=== PATIENT | male | born 1945 | race Caucasian/White ===

== ENCOUNTER → 2017-01-13 | Outpatient (CLI) | payer MEDICARE, BC ==
[2017-01-13 08:02] LABS: CH 28.2; CHCM 33.3; HCT 45.5 % (39.0-53.0); HDW 2.97; HGB 14.6 gm/dL (13.0-17.5); MCH 27.3 pg (25.0-35.0); MCV 85.1 fL (80.0-100.0); Mean Platelet Volume 6.8; RBC 5.35 m/uL (4.30-5.90); RDW 14.1 % (11.5-15.5); WBC 9.1 k/uL (3.8-10.6)
--- NOTE | 2017-01-13 08:04 | XR ---
EXAMINATION TYPE: XR chest 2V DATE OF EXAM: 01/13/2017 7:59 AM COMPARISON: Prior chest x-ray November 16, 2013 HISTORY: Yearly physical, hypertension per order TECHNIQUE: Frontal and lateral views of the chest are obtained. FINDINGS: There is no focal air space opacity, pleural effusion, or pneumothorax seen. The cardiac silhouette size is stable and upper limits of normal with atherosclerotic change in aortic knob. Th e osseous structures are intact. IMPRESSION: No acute cardiopulmonary process. No significant change from prior.
[2017-01-13 11:40] LABS: Prostate Specific Antigen 3.87 ng/mL (0.00-4.00)
[2017-01-13 12:09] LABS: Hemoglobin A1C 6.3 % (4.2-6.1)
[2017-01-13 12:36] LABS: ALT 34 U/L (21-72); AST 21 U/L (17-59); Alkaline Phosphatase 97 U/L (38-126); Anion Gap 11 mmol/L; Blood Urea Nitrogen 23 mg/dL (9-20); Calcium 9.3 mg/dL (8.4-10.2); Carbon Dioxide 29 mmol/L (22-30); Chloride 105 mmol/L (98-107); Cholesterol 152 mg/dL (<200); Glucose 124 mg/dL (74-99); HDL Cholesterol 36 mg/dL (40-60); Non-African American GFR(MDRD) >60 (>60 ml/min/1.73 sqM); Potassium 4.3 mmol/L (3.5-5.1); Sodium 145 mmol/L (137-145); Total Bilirubin 0.7 mg/dL (0.2-1.3); Total Protein 7.1 g/dL (6.3-8.2); Triglycerides 114 mg/dL (<150)
== END | disposition home or self-care (01) ==
LOC: LABWHC1 07:32
PROVIDERS: ATTEND Internal Medicine
DX: Z00.01 Encounter for general adult medical examination with abnormal findings (principal); N40.0 Benign prostatic hyperplasia without lower urinary tract symptoms; I11.9 Hypertensive heart disease without heart failure; K21.0 Gastro-esophageal reflux disease with esophagitis; E11.9 Type 2 diabetes mellitus without complications; E78.2 Mixed hyperlipidemia; E03.9 Hypothyroidism, unspecified
CPT/HCPCS: 36415; 71020; 80053; 80061; 82043; 82272; 83036; 84153; 84439; 84443; 85027

== ENCOUNTER → 2017-08-11 | Outpatient (CLI) | payer MEDICARE, BC ==
--- NOTE | 2017-08-11 11:17 | XR ---
EXAMINATION TYPE: XR chest 2V DATE OF EXAM: 08/11/2017 COMPARISON: 01/13/2017 HISTORY: Shortness of breath TECHNIQUE: Frontal and lateral views of the chest are obtained. FINDINGS: Scattered senescent parenchymal changes noted. Hyperinflation compatible with COPD. No evidence for infiltrate. No evidence for atelectasis. Heart size is stable. Mediastinal structures are stable and grossly unremarkable. No evidence for hilar prominence. Degenerative changes dorsal spine. IMPRESSION: 1. No evidence for acute pulmonary disease.
== END ==
LOC: RADXRMAIN 10:35
PROVIDERS: ATTEND Internal Medicine
DX: R05 Cough (principal); R06.02 Shortness of breath
CPT/HCPCS: 71020

== ENCOUNTER → 2017-11-24 | Outpatient (CLI) | payer MEDICARE, BC ==
--- NOTE | 2017-11-24 11:34 | XR ---
EXAMINATION TYPE: XR chest 2V DATE OF EXAM: 11/24/2017 COMPARISON: 08/11/2017 HISTORY: Shortness of breath TECHNIQUE: Frontal and lateral views of the chest are obtained. FINDINGS: Scattered senescent parenchymal changes noted. Hyperinflation compatible with COPD. No evidence for infiltrate. No evidence for atelectasis. Heart size is stable. Mediastinal structures are stable and grossly unremarkable. No evidence for hilar prominence. Degenerative changes dorsal spine. IMPRESSION: 1. No evidence for acute pulmonary disease.
== END | disposition home or self-care (01) ==
LOC: RADXRMAIN 11:11
PROVIDERS: ATTEND Internal Medicine
DX: R05 Cough (principal)
CPT/HCPCS: 71046

== ENCOUNTER → 2017-12-09 | Outpatient (CLI) | payer MEDICARE, BC ==
[2017-12-09 09:02] LABS: Basophils % (A) 1 %; Eosinophils # (A) 0.2 k/uL (0-0.7); Eosinophils % (A) 2 %; HCT 44.6 % (39.0-53.0); HGB 14.4 gm/dL (13.0-17.5); Lymphocytes # (A) 1.7 k/uL (1.0-4.8); Lymphocytes % (A) 22 %; MCH 27.7 pg (25.0-35.0); MCHC 32.2 g/dL (31.0-37.0); MCV 85.9 fL (80.0-100.0); Mean Platelet Volume 6.8; Monocytes # (A) 0.5 k/uL (0-1.0); Monocytes % (A) 7 %; Neutrophils # (A) 5.1 k/uL (1.3-7.7); Neutrophils % (A) 66 %; Platelet Count 204 k/uL (150-450); RBC 5.19 m/uL (4.30-5.90); WBC 7.8 k/uL (3.8-10.6)
[2017-12-09 09:16] LABS: Appearance,Urine Clear (Clear); Bilirubin,Urine Negative (Negative); Blood,Urine Negative (Negative); Color,Urine Yellow; Glucose,Urine (UA) Negative (Negative); Ketones,Urine Negative (Negative); Leukocyte Esterase,Urine Negative (Negative); Nitrite,Urine Negative (Negative); PH, Urine 7.5 (5.0-8.0); Protein,Urine Trace (Negative); Specific Gravity,Urine 1.019 (1.001-1.035); Urobilinogen,Urine <2.0 mg/dL (<2.0)
[2017-12-09 09:20] LABS: Prothrombin Time 10.2 sec (9.0-12.0)
[2017-12-09 09:25] LABS: Anion Gap 10 mmol/L; Blood Urea Nitrogen 22 mg/dL (9-20); Calcium 9.5 mg/dL (8.4-10.2); Carbon Dioxide 31 mmol/L (22-30); Chloride 103 mmol/L (98-107); Glucose 97 mg/dL (74-99); Potassium 3.7 mmol/L (3.5-5.1); Sodium 144 mmol/L (137-145)
[2017-12-09 09:26] LABS: Partial Thromboplastin Time 22.6 sec (22.0-30.0)
== END | disposition home or self-care (01) ==
LOC: LABPAT 08:15
PROVIDERS: ATTEND Internal Medicine
DX: Z01.818 Encounter for other preprocedural examination (principal); D68.9 Coagulation defect, unspecified; Z96.651 Presence of right artificial knee joint
CPT/HCPCS: 36415; 80048; 81003; 85025; 85610; 85730; 93005

== ENCOUNTER → 2018-02-02 | Outpatient (CLI) | payer MEDICARE, BC ==
[2018-02-02 19:13] LABS: Hemoglobin A1C 5.6 % (4.0-6.0)
== END | disposition home or self-care (01) ==
LOC: LABWHC1 08:48
PROVIDERS: ATTEND Internal Medicine
DX: E11.65 Type 2 diabetes mellitus with hyperglycemia (principal)
CPT/HCPCS: 36415; 83036

== ENCOUNTER → 2018-02-11 | Outpatient (CLI) | payer MEDICARE, BC ==
--- NOTE | 2018-02-11 14:42 | SFUN ---
SLEEP CENTER FOLLOW UP NOTE DATE OF SERVICE: 02/11/2018 A 72-year-old gentleman has been followed in the Sleep Center for treatment of obstructive sleep apnea-hypopnea syndrome. Recently patient had diagnostic sleep study and CPAP titration. I discussed results of diagnostic sleep study and CPAP titration with him and family in details. Patient was started on treatment with CPAP and able to use equipment every night for the whole night without significant problems. No snoring with the machine. I checked patient's CPAP unit for the period of last months and compare it with the reading from the machine for the previous months. Reading from the machine showed that patient using it 100% of the time more than 4 hours, every 7.7 hours. Pressure is 9 cm of water. Leak is 37 L/minute which is higher than I would like to see. Apnea-hypopnea index is 2.6, which is normal range. On the previous months by results of reading from the machine, apnea-hypopnea index was higher. [place] Sleepiness Scale today is 7. MEDICATIONS: Actos, amlodipine, atenolol, atorvastatin, clonidine, hydrochlorothiazide, metformin, Synthroid, aspirin, enalapril, vitamin D3, Lantus, Victoza, Sinemet. PHYSICAL EXAM: Patient in no distress. A 72-year-old gentleman without distress. BP 110/62, HR 74, RR 16, weight 211, temp 97.5, oxygen saturation on room air 100%. OROPHARYNX: Extremely low position of soft palate. ABDOMEN: Obese. Neck Supple, no JVD. Thyroid is not palpable. LUNGS Clear to percussion and to auscultation. Good air exchange. No wheezing or rhonchi. HEART S1, S2 regular. No murmurs, gallops, or rubs. EXTREMITIES No clubbing or cyanosis. HARP REPAIRER Awake, alert, and oriented X3. Cranial nerves 2 to 7 intact. There is no fasciculation or atrophy. noted. No focal deficits observed. IMPRESSION: 1. Obstructive sleep apnea-hypopnea syndrome on control with CPAP at 9 cm of water. Patient demonstrated great compliance with treatment, benefitting from treatment. 2. Borderline leak, possibly patient to open his mouth. 3. Hypertension. 4. Diabetes mellitus. 5. Hyperlipidemia. 6. Hypothyroidism. 7. 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 8. Status post left knee replacement. 9. Status post arthroscopic right knee surgery. 10.Status post surgical treatment for nasal septum deviation. PLAN: 1. Patient will continue to use CPAP equipment every night for the whole night. 2. Prescription for chin strap. 3. Sleep hygiene with regular time in bed for at least 8 hours. 4. No driving if feeling sleepiness. 5. Followup visit in 10 months or earlier if patient has any problems. Thank you very much for allowing me to participate in the management of your patient. Sincerely, Nicolás Bill MD, PhD, FAASM Diplomat of [place] [employer] [place] [employer] Crap Shooter of [facility] [place] MMODL / IJN: [id number] /
== END | disposition home or self-care (01) ==
LOC: SLEEP 13:24
PROVIDERS: ATTEND Internal Medicine
DX: G47.33 Obstructive sleep apnea (adult) (pediatric) (principal); I10 Essential (primary) hypertension; E11.9 Type 2 diabetes mellitus without complications; E78.5 Hyperlipidemia, unspecified; E03.9 Hypothyroidism, unspecified; Z98.890 Other specified postprocedural states; Z96.652 Presence of left artificial knee joint; Z99.89 Dependence on other enabling machines and devices; Z79.899 Other long term (current) drug therapy; Z79.82 Long term (current) use of aspirin; Z79.84 Long term (current) use of oral hypoglycemic drugs

== ENCOUNTER → 2018-02-24 | Outpatient (CLI) | payer MEDICARE, BC | END | disposition home or self-care (01) | LOC: LABWHC1 08:56 | PROVIDERS: ATTEND Internal Medicine | DX: Z00.00 Encounter for general adult medical examination without abnormal findings (principal); E11.9 Type 2 diabetes mellitus without complications; I11.9 Hypertensive heart disease without heart failure; K21.9 Gastro-esophageal reflux disease without esophagitis; N40.1 Benign prostatic hyperplasia with lower urinary tract symptoms; E03.9 Hypothyroidism, unspecified; E78.2 Mixed hyperlipidemia | CPT/HCPCS: 36415; 82272 ==

== ENCOUNTER → 2018-02-25 | Outpatient (CLI) | payer MEDICARE, BC ==
[2018-02-25 09:17] LABS: HCT 41.9 % (39.0-53.0); HGB 13.4 gm/dL (13.0-17.5); MCH 26.7 pg (25.0-35.0); MCHC 32.1 g/dL (31.0-37.0); MCV 83.4 fL (80.0-100.0); Mean Platelet Volume 7.4; Platelet Count 208 k/uL (150-450); RBC 5.03 m/uL (4.30-5.90); RDW 14.4 % (11.5-15.5); WBC 6.9 k/uL (3.8-10.6)
[2018-02-25 09:38] LABS: ALT 11 U/L (21-72); AST 17 U/L (17-59); Alkaline Phosphatase 85 U/L (38-126); Anion Gap 13 mmol/L; Blood Urea Nitrogen 22 mg/dL (9-20); Calcium 9.3 mg/dL (8.4-10.2); Carbon Dioxide 29 mmol/L (22-30); Chloride 101 mmol/L (98-107); Cholesterol 127 mg/dL (<200); Glucose 149 mg/dL (74-99); HDL Cholesterol 38 mg/dL (40-60); LDL Cholesterol,Calculated 75 mg/dL (0-99); Sodium 143 mmol/L (137-145); Total Bilirubin 0.6 mg/dL (0.2-1.3); Total Protein 6.6 g/dL (6.3-8.2); Triglycerides 69 mg/dL (<150)
[2018-02-25 09:55] LABS: T4, Free (Free Thyroxine) 1.46 ng/dL (0.78-2.19)
[2018-02-25 10:08] LABS: Prostate Specific Antigen 3.95 ng/mL (0.00-4.00)
[2018-02-25 18:31] LABS: Hemoglobin A1C 6.2 % (4.0-6.0)
== END | disposition home or self-care (01) ==
LOC: LABWHC1 08:25
PROVIDERS: ATTEND Internal Medicine
DX: Z00.00 Encounter for general adult medical examination without abnormal findings (principal); E11.9 Type 2 diabetes mellitus without complications; I11.9 Hypertensive heart disease without heart failure; K21.0 Gastro-esophageal reflux disease with esophagitis; N40.1 Benign prostatic hyperplasia with lower urinary tract symptoms; E03.9 Hypothyroidism, unspecified; E78.2 Mixed hyperlipidemia
CPT/HCPCS: 36415; 80053; 80061; 82043; 82570; 83036; 84153; 84439; 84443; 85027

== ENCOUNTER → 2018-05-24 | Outpatient (CLI) | payer MEDICARE, BC ==
[2018-05-24 12:09] LABS: Hemoglobin A1C 7.2 % (4.0-6.0)
== END | disposition home or self-care (01) ==
LOC: LABWHC1 07:49
PROVIDERS: ATTEND Internal Medicine
DX: E11.65 Type 2 diabetes mellitus with hyperglycemia (principal)
CPT/HCPCS: 36415; 83036

== ENCOUNTER → 2018-09-21 | Outpatient (CLI) | payer MEDICARE, BC ==
[2018-09-21 19:40] LABS: ALT <8 U/L (10-49); AST 26 U/L (14-35); Albumin/Globulin Ratio 2.05 (1.20-2.10); Alkaline Phosphatase 91 U/L (41-126); Chloride 106 mmol/L (96-109); Cholesterol 146 mg/dL (0-200); Globulin 2.1 g/dL (2.1-3.7); Glucose 132 mg/dL (70-110); LDL Cholesterol,Calculated 89.8 mg/dL (0.0-131.0); Potassium 4.2 mmol/L (3.5-5.5); Sodium 141 mmol/L (135-145); Total Bilirubin 0.8 mg/dL (0.2-1.2); Total Protein 6.4 g/dL (6.2-8.2)
[2018-09-21 21:43] LABS: Hemoglobin A1C 7.1 % (4.0-6.0)
== END ==
LOC: LABWHC1 08:18
PROVIDERS: ATTEND Internal Medicine
DX: E11.65 Type 2 diabetes mellitus with hyperglycemia (principal); E03.9 Hypothyroidism, unspecified
CPT/HCPCS: 36415; 80053; 80061; 82043; 82570; 83036; 84439; 84443

== ENCOUNTER → 2019-01-11 | Outpatient (CLI) | payer MEDICARE, BC ==
[2019-01-11 12:29] LABS: LDL Cholesterol,Calculated 89.6 mg/dL (0.0-131.0); VLDL Calculation 15.4 mg/dL (5.00-40.00)
== END ==
LOC: LABWHC1 07:32
PROVIDERS: ATTEND Internal Medicine
DX: E11.65 Type 2 diabetes mellitus with hyperglycemia (principal)
CPT/HCPCS: 36415; 80061; 82043; 82570; 83036

== ENCOUNTER 2019-04-27 06:53 | Day surgery (SDC) | payer MEDICARE, BC ==
[2019-04-25 13:39] VITALS: BMI 33.6
[~2019-04-27 06:53] MED LIST: LACTATED RINGERS 1,000 ML IV SCH; LIDOCAINE 1% 20 ML VIAL (10MG/ML) FOR IV START INTRADERMA PRN
[2019-04-27 07:20] VITALS: RESP 16; TEMP 98.2
[2019-04-27 07:23] LABS: Glucose,Whole Blood 176 mg/dL (75-99)
[2019-04-27] MEDS ORDERED: PROPOFOL 10 MG/ML 20 ML VIAL IV ONE (07:29)
[2019-04-27] MEDS ORDERED: LIDOCAINE 1% INJ 10MG/ML (20 ML MDV) ONE (07:29)
--- NOTE | 2019-04-27 07:34 | P.GSHP ---
History of Present Illness H&P Date: 04/27/19 CHIEF COMPLAINT: Colon screen HISTORY OF PRESENT ILLNESS: The patient is a 73-year-old male who presents for colon screen. Lower endoscopy was offered for further evaluation and management. PAST MEDICAL HISTORY: Please see list. PAST SURGICAL HISTORY: Please see list. MEDICATIONS: Please see list. ALLERGIES: Please see list. SOCIAL HISTORY: No illicit drug use FAMILY HISTORY: No reports of Crohn disease or ulcerative colitis. REVIEW OF ORGAN SYSTEMS: CONSTITUTIONAL: No reports of fevers or chills. PHYSICAL EXAM: VITAL SIGNS: Stable GENERAL: Well-developed pleasant in no acute distress. HEENT: No scleral icterus. Extraocular movements grossly intact. Moist buccal mucosa. NECK: Supple without lymphadenopathy. CHEST: Unlabored respirations. Equal bilateral excursions. CARDIOVASCULAR: Regular rate and rhythm. Distal 2+ pulses. ABDOMEN: Soft, nontender, nondistended. MUSCULOSKELETAL: No clubbing, cyanosis, or edema. ASSESSMENT: 1. Colon screen. PLAN: 1. Recommend proceeding with a lower endoscopy Past Medical History Past Medical History: Cancer, Diabetes Mellitus, Hearing Disorder / Deafness, Hyperlipidemia, Hypertension, Osteoarthritis (OA), Thyroid Disorder Additional Past Medical History / Comment(s): SKIN CANCER History of Any Multi-Drug Resistant Organisms: None Reported Past Surgical History: Joint Replacement Additional Past Surgical History / Comment(s): CATARACT SURGERY- BILATERAL, TOTAL RIGHT KNEE, TOTAL LEFT KNEE, NASAL SURGERY FOR SKIN CANCER Past Anesthesia/Blood Transfusion Reactions: No Reported Reaction Smoking Status: Never smoker - Past Family History Mother Family Medical History: Cancer Additional Family Medical History / Comment(s): OVARIAN CANCER Medications and Allergies Home Medications Medication Instructions Recorded Confirmed Type Atenolol [Tenormin] 50 mg PO DAILY 04/25/19 04/27/19 History Atorvastatin [Lipitor] 20 mg PO HS 04/25/19 04/27/19 History Carbidopa-Levodopa 10-100 mg 1 each PO DAILY 04/25/19 04/25/19 History [Sinemet 10-100] Carbidopa-Levodopa ER 50-200Mg 1 each PO BID 04/25/19 04/27/19 History [Sinemet ER 50-200] Cholecalciferol (Vitamin D3) 2,000 unit PO DAILY 04/25/19 04/27/19 History [Vitamin D3] Enalapril [Vasotec] 20 mg PO BID 04/25/19 04/27/19 History Hydrochlorothiazide [Hydrodiuril] 25 mg PO DAILY 04/25/19 04/27/19 History Insulin Glargine,Hum.rec.anlog 12 unit SQ DAILY 04/25/19 04/27/19 History [Lantus Solostar] Levothyroxine Sodium [Synthroid] 137 mcg PO DAILY 04/25/19 04/27/19 History Liraglutide [Victoza 2-Jean] 1.8 mg SQ DAILY 04/25/19 04/27/19 History Pioglitazone HCl [Actos] 15 mg PO DAILY 04/25/19 04/27/19 History amLODIPine [Norvasc] 10 mg PO DAILY 04/25/19 04/27/19 History cloNIDine HCL [Catapres] 0.1 mg PO BID 04/25/19 04/27/19 History metFORMIN HCL 1,000 mg PO BID 04/25/19 04/27/19 History Allergies Allergy/AdvReac Type Severity Reaction Status Date / Time Penicillins Allergy Unknown Verified 04/27/19 07:09 Childhood Surgical - Exam Vital Signs Temp Pulse Resp BP Pulse Ox 98.2 F 66 16 126/81 96 04/27/19 07:16 04/27/19 07:16 04/27/19 07:16 04/27/19 07:16 04/27/19 07:16 Results - Labs Abnormal Lab Results - Last 24 Hours (Table) 04/27/19 Range/Units 07:19 POC Glucose (mg/dL) 176 H (75-99) mg/dL
--- NOTE | 2019-04-27 07:50 | P.PCN ---
Date of Procedure: 04/27/19 Description of Procedure: PREOPERATIVE DIAGNOSIS: History of colon polyps Colonoscopy screening. POSTOPERATIVE DIAGNOSIS: History of colon polyps Colonoscopy screening. OPERATION: Colonoscopy to the ileocecal valve and appendiceal orifice. SURGEON: Danuta Isaac MD. ANESTHESIA: MAC. INDICATIONS: The patient is a 73-year-old female who presents for colonoscopy screening. Last colonoscopy over 5 years ago. Benefits and risks were described and informed consent was obtained. DESCRIPTION OF PROCEDURE: The patient had undergone Suprep. He had been brought into the operating room and laid in the left lateral decubitus position. After adequate intravenous sedation, the rectum was examined with 2% lidocaine jelly. The prostatic fossa was unremarkable. No external hemorrhoids were encountered. The rectal tone was within normal limits. No lesions were palpated in the rectal vault. An Olympus colonoscope was advanced until the ileocecal valve and appendiceal orifice were clearly viewed. The prep was excellent with clear visualization of the mucosal folds. The scope was removed with visualization of each mucosal fold. No scattered diverticulosis was encountered. No colonic polyps were found. No evidence of focal colitis was found. Retroflexion of the scope demonstrated grade 1 internal hemorrhoids without active bleeding or inflammation. The colon was desufflated. The patient had tolerated the procedure well. Withdrawal time was over 6 minutes. FINDINGS: Aronchick preparation quality scale 1 (1-5) Internal hemorrhoids, grade 1 No external prolapsed hemorrhoids. No arteriovenous malformations. No adenomatous polyps. No focal colitis. No scattered diverticulosis was encountered. RECOMMENDATIONS: Lower endoscopy in 5 years, 2023 or [facility] Plan - Discharge Summary Discharge Rx Participant: No New Discharge Prescriptions: No Action Liraglutide [Victoza 2-Jean] 1.8 mg SQ DAILY Insulin Glargine,Hum.rec.anlog [Lantus Solostar] 12 unit SQ DAILY Carbidopa-Levodopa 10-100 mg [Sinemet 10-100] 1 each PO DAILY Carbidopa-Levodopa ER 50-200Mg [Sinemet ER 50-200] 1 each PO BID metFORMIN HCL 1,000 mg PO BID Levothyroxine Sodium [Synthroid] 137 mcg PO DAILY Hydrochlorothiazide [Hydrodiuril] 25 mg PO DAILY Enalapril [Vasotec] 20 mg PO BID Cholecalciferol (Vitamin D3) [Vitamin D3] 2,000 unit PO DAILY cloNIDine HCL [Catapres] 0.1 mg PO BID Atorvastatin [Lipitor] 20 mg PO HS Atenolol [Tenormin] 50 mg PO DAILY amLODIPine [Norvasc] 10 mg PO DAILY Pioglitazone HCl [Actos] 15 mg PO DAILY Discharge Medication List Atenolol [Tenormin] 50 mg PO DAILY 04/25/19 [History] Atorvastatin [Lipitor] 20 mg PO HS 04/25/19 [History] Carbidopa-Levodopa 10-100 mg [Sinemet 10-100] 1 each PO DAILY 04/25/19 [History] Carbidopa-Levodopa ER 50-200Mg [Sinemet ER 50-200] 1 each PO BID 04/25/19 [History] Cholecalciferol (Vitamin D3) [Vitamin D3] 2,000 unit PO DAILY 04/25/19 [History] Enalapril [Vasotec] 20 mg PO BID 04/25/19 [History] Hydrochlorothiazide [Hydrodiuril] 25 mg PO DAILY 04/25/19 [History] Insulin Glargine,Hum.rec.anlog [Lantus Solostar] 12 unit SQ DAILY 04/25/19 [History] Levothyroxine Sodium [Synthroid] 137 mcg PO DAILY 04/25/19 [History] Liraglutide [Victoza 2-Jean] 1.8 mg SQ DAILY 04/25/19 [History] Pioglitazone HCl [Actos] 15 mg PO DAILY 04/25/19 [History] amLODIPine [Norvasc] 10 mg PO DAILY 04/25/19 [History] cloNIDine HCL [Catapres] 0.1 mg PO BID 04/25/19 [History] metFORMIN HCL 1,000 mg PO BID 04/25/19 [History] Follow up Appointment(s)/Referral(s): Danuta Isaac MD [STAFF PHYSICIAN] - As Needed Patient Instructions/Handouts: *Surgery [facility] - (Anesthesia) Endoscopy Discharge Instructions Activity/Diet/Wound Care/Special Instructions: Repeat colonoscopy in 5 years, 2023 or [facility] Discharge Disposition: HOME SELF-CARE
[2019-04-27 07:54] VITALS: PULSE 63
[2019-04-27 08:18] VITALS: BP 104/67
[2019-04-27] MEDS ORDERED: SIMETHICONE 40 MG/0.6 ML DROPS 2,000 MG/30 ML BOTTLE PO SCH (13:30)
== END 2019-04-27 09:45 | disposition home or self-care (01) ==
LOC: ORWHC2ENDO 06:53
PROVIDERS: ATTEND Surgery Plastic and Reconstructive Surgery
DX: Z12.11 Encounter for screening for malignant neoplasm of colon (principal); K64.0 First degree hemorrhoids; Z86.010 Personal history of colon polyps; E11.9 Type 2 diabetes mellitus without complications; H91.90 Unspecified hearing loss, unspecified ear; E78.5 Hyperlipidemia, unspecified; I10 Essential (primary) hypertension; M19.90 Unspecified osteoarthritis, unspecified site; E07.9 Disorder of thyroid, unspecified; Z85.828 Personal history of other malignant neoplasm of skin; Z96.653 Presence of artificial knee joint, bilateral; Z80.41 Family history of malignant neoplasm of ovary; Z79.3 Long term (current) use of hormonal contraceptives; Z79.4 Long term (current) use of insulin; Z79.899 Other long term (current) drug therapy; Z88.0 Allergy status to penicillin
CPT/HCPCS: G0105; J2001; J2704

== ENCOUNTER → 2019-07-14 | Outpatient (CLI) | payer MEDICARE, BC ==
--- NOTE | 2019-07-14 11:05 | SFUN ---
SLEEP CENTER FOLLOW UP NOTE DATE OF SERVICE: 07/14/2019 This 73-year-old gentleman has been followed in sleep center for treatment of obstructive sleep apnea-hypopnea syndrome. The patient successfully is continuing to use his CPAP equipment every night. No snoring with the machine. No significant excessive daytime sleepiness. [place] Sleepiness Scale is 5. I checked his CPAP unit. CPAP pressure is 10 cm of water. Usage is 100% of nights more than 4 hours. Average usage is 6.8 hours per night. Leak is borderline, but quite high actually for the nasal pillow mask which patient using at 36 L/minute, but total apnea- hypopnea index is absolutely perfect only 0.6. MEDICATIONS: Actos, amlodipine, atenolol, atorvastatin, clonidine, hydrochlorothiazide, metformin, Synthroid, aspirin, enalapril, Lantus, vitamin D3 supplement, Victoza, Sinemet PHYSICAL EXAMINATION: During physical exam, patient in no distress. VITAL SIGNS: BP 115/67, HR 78, RR 16, height 5 feet 7-1/2 inches and weight 215, body mass index 33.1, temperature 97.8, oxygen saturation at room air 95%. HEENT: PERRLA, EOMI. Oropharynx extremely low position of soft palate. Mallampati 4. NECK: Supple, no JVD. Thyroid is not palpable. LUNGS: Clear to percussion and to auscultation. Good air exchange. No wheezing or rhonchi. HEART: S1, S2 regular. No murmurs, gallops, or rubs. ABDOMEN: Slightly obese. EXTREMITIES: No clubbing or cyanosis. BUSINESS MAIL ENTRY CLERK: Awake, alert, and oriented X3. Cranial nerves 2 to 7 intact. There is no fasciculation or atrophy. noted. No focal deficits observed. IMPRESSION: 1. Obstructive sleep apnea-hypopnea syndrome. Patient demonstrated 100% compliance with treatment benefitting from treatment. 2. Borderline leak possibly patient opened his mouth during the sleep. 3. Diabetes mellitus. 4. Hypertension. 5. Hyperlipidemia. 6. Hypothyroidism. 7. Status post surgical treatment for basal cell carcinoma of the face. 8. Status post left knee replacement. 9. Status post surgical treatment for nasal septum deviation. 10.Status post arthroscopic right knee surgery. PLAN: 1. Prescription for all necessary CPAP supplies including nasal pillow mask AirFit P10, tube, filters. 2. Watching and losing weight. 3. Sleep hygiene with regular time in bed for at least 8 hours. 4. No driving if feeling any sleepiness. 5. Follow up visit in one year or earlier if patient has any problems. Thank you very much for allowing me to participate in management of your patient. Sincerely, Nicolás Bill MD, PhD, FAASM Diplomat of [place] [employer] [place] [employer] Workday Senior Associate of [facility] [place] MMODL / KEVINN: [id number] /
== END | disposition home or self-care (01) ==
LOC: SLEEP 10:00
PROVIDERS: ATTEND Internal Medicine
DX: G47.33 Obstructive sleep apnea (adult) (pediatric) (principal); E11.9 Type 2 diabetes mellitus without complications; I10 Essential (primary) hypertension; E78.5 Hyperlipidemia, unspecified; E03.9 Hypothyroidism, unspecified; Z96.652 Presence of left artificial knee joint; Z53.33 Arthroscopic surgical procedure converted to open procedure; Z98.890 Other specified postprocedural states; Z99.89 Dependence on other enabling machines and devices; Z79.84 Long term (current) use of oral hypoglycemic drugs; Z79.82 Long term (current) use of aspirin; Z79.4 Long term (current) use of insulin; Z79.899 Other long term (current) drug therapy

== ENCOUNTER → 2020-03-12 | Outpatient (CLI) | payer MEDICARE, BC ==
--- NOTE | 2020-03-12 09:36 | US ---
EXAMINATION TYPE: US abdomen complete DATE OF EXAM: 03/12/2020 COMPARISON: NONE CLINICAL HISTORY: R16.0 hepatomegaly. Patient states no symptoms. EXAM MEASUREMENTS: Liver Length: 14.3 cm Gallbladder Wall: 0.2 cm CBD: 0.3 cm Spleen: 11.5 cm Right Kidney: 10.2 x 5.6 x 5.2 cm Left Kidney: 11.0 x 5.2 x 6.5 cm Pancreas: obscured by overlying midline bowel gas Liver: limited visualization, scanned intercostally, mildly heterogeneous Gallbladder: wnl Evidence for sonographic Ridley's sign: no CBD: visualized portions wnl, limited by overlying bowel gas Spleen: wnl Right Kidney: wnl Left Kidney: 2.5cm cyst inferior pole Upper IVC: wnl Abd Aorta: visualized portions wnl, limited by overlying midline bowel gas The liver is homogenous. The intrahepatic portion of the IVC and proximal abdominal aorta are within normal limits. There is no evidence of cholelithiasis. Common bile duct is unremarkable. The visu alized portions of the pancreas are homogenous. The spleen is unremarkable. Kidneys are symmetric a nd free of hydronephrosis. IMPRESSION: 1. Mild fatty liver. 2. Simple cyst left kidney.
== END | disposition home or self-care (01) ==
LOC: RADUSWWP 08:54
PROVIDERS: ATTEND Internal Medicine
DX: K76.0 Fatty (change of) liver, not elsewhere classified (principal); N28.1 Cyst of kidney, acquired; N40.0 Benign prostatic hyperplasia without lower urinary tract symptoms; E11.9 Type 2 diabetes mellitus without complications; E03.9 Hypothyroidism, unspecified; R79.9 Abnormal finding of blood chemistry, unspecified; E78.5 Hyperlipidemia, unspecified; Z88.8 Allergy status to other drugs, medicaments and biological substances
CPT/HCPCS: 76700

== ENCOUNTER 2020-04-30 16:01 | Inpatient (IN) | payer MEDICARE ==
--- NOTE | 2020-04-30 18:13 | ED ---
General Adult HPI - General Chief complaint: Shortness of Breath Stated complaint: SOB Time Seen by Provider: 04/30/20 16:50 Source: patient, family, RN notes reviewed, old records reviewed Mode of arrival: wheelchair - History of Present Illness Initial comments: This is a 74-year-old male who presents emergency Department complaining shortness of breath started this morning. Patient states with exertion is worse even trying to get into bed here at the hospital he states it's bad. Patient states he has no underlying breathing problem. Patient denies any fever chills or cough. Patient denies any chest pain or palpitations. Patient denies any abdominal pain patient denies nausea vomiting diarrhea. Patient denies any calf tenderness or leg swelling - Related Data Home Medications Medication Instructions Recorded Confirmed Atenolol [Tenormin] 50 mg PO DAILY 04/25/19 04/30/20 Atorvastatin [Lipitor] 20 mg PO HS 04/25/19 04/30/20 Carbidopa-Levodopa 10-100 mg 1 tab PO DAILY 04/25/19 04/30/20 [Sinemet 10-100] Carbidopa-Levodopa ER 50-200Mg 1 tab PO BID 04/25/19 04/30/20 [Sinemet ER 50-200] Cholecalciferol (Vitamin D3) 2,000 unit PO DAILY 04/25/19 04/30/20 [Vitamin D3] Enalapril [Vasotec] 20 mg PO BID 04/25/19 04/30/20 Hydrochlorothiazide [Hydrodiuril] 25 mg PO DAILY 04/25/19 04/30/20 Insulin Glargine,Hum.rec.anlog 22 unit SQ DAILY 04/25/19 04/30/20 [Lantus Solostar] Levothyroxine Sodium [Synthroid] 137 mcg PO [id number] 04/25/19 04/30/20 Liraglutide [Victoza 2-Jean] 1.8 mg SQ DAILY 04/25/19 04/30/20 Pioglitazone HCl [Actos] 15 mg PO DAILY 04/25/19 04/30/20 metFORMIN HCL 1,000 mg PO PC-SUPPER 04/25/19 04/30/20 Furosemide [Lasix] 20 mg PO TUTH 04/30/20 04/30/20 Potassium Chloride ER [K-Dur 10] 10 meq PO DAILY 04/30/20 04/30/20 cloNIDine HCL [Catapres] 0.2 mg PO DAILY 04/30/20 04/30/20 Allergies Allergy/AdvReac Type Severity Reaction Status Date / Time Penicillins Allergy Unknown Verified 04/30/20 19:33 Childhood Review of Systems ROS Statement: Those systems with pertinent positive or pertinent negative responses have been documented in the HPI. ROS Other: All systems not noted in ROS Statement are negative. Past Medical History Past Medical History: Cancer, Diabetes Mellitus, Hearing Disorder / Deafness, Hyperlipidemia, Hypertension, Osteoarthritis (OA), Thyroid Disorder Additional Past Medical History / Comment(s): SKIN CANCER , parkinsons History of Any Multi-Drug Resistant Organisms: None Reported Past Surgical History: Joint Replacement Additional Past Surgical History / Comment(s): CATARACT SURGERY- BILATERAL, TOTAL RIGHT KNEE, TOTAL LEFT KNEE, NASAL SURGERY FOR SKIN CANCER Past Anesthesia/Blood Transfusion Reactions: No Reported Reaction Past Psychological History: No Psychological Hx Reported Smoking Status: Never smoker Past Alcohol Use History: None Reported Past Drug Use History: None Reported - Past Family History Mother Family Medical History: Cancer Additional Family Medical History / Comment(s): OVARIAN CANCER General Exam - General Exam Comments Initial Comments: GENERAL: Patient is well-developed and well-nourished. Patient is nontoxic and well- hydrated and is in mild distress. ENT: Neck is soft and supple. No significant lymphadenopathy is noted. Oropharynx is clear. Moist mucous membranes. Neck has full range of motion without eliciting any pain. EYES: The sclera were anicteric and conjunctiva were pink and moist. Extraocular movements were intact and pupils were equal round and reactive to light. Eyelids were unremarkable. PULMONARY: Unlabored respirations. Good breath sounds bilaterally. No audible rales rhonchi or wheezing was noted. CARDIOVASCULAR: There is a regular rate and rhythm without any murmurs gallops or rubs. ABDOMEN: Soft and nontender with normal bowel sounds. SKIN: Skin is clear with no lesions or rashes and otherwise unremarkable. NEUROLOGIC: Patient is alert and oriented x3. Cranial nerves II through XII are grossly intact. Motor and sensory are also intact. Normal speech, volume and content. Symmetrical smile. MUSCULOSKELETAL: Normal extremities with adequate strength and full range of motion. No lower extremity swelling or edema. No calf tenderness. LYMPHATICS: No significant lymphadenopathy is noted PSYCHIATRIC: Normal psychiatric evaluation. Course Vital Signs 04/30/20 04/30/20 04/30/20 16:46 18:19 18:20 Temperature 98.6 F Pulse Rate 82 89 Respiratory 18 16 18 Rate Blood Pressure 129/80 173/102 O2 Sat by Pulse 94 L 93 L Oximetry 04/30/20 20:00 Temperature Pulse Rate 93 Respiratory 18 Rate Blood Pressure 181/107 O2 Sat by Pulse 92 L Oximetry Medical Decision Making - Medical Decision Making EKG shows normal sinus rhythm at 87 bpm VA interval is 132 QRS is 88 QT interval 390 QTC is 469. Patient's EKG shows no ST segment elevation CT of the chest shows bilateral PEs in her proximal. I spoke with Dr. Ruano he agreed the patient could be admitted to the floor at the ICU. I spoke with Dr. Arias and he agreed the patient could be admitted here for further evaluation and if need be transferred later. The patient was started on heparin. I spoke with Dr. Rowe agreed to admit the patient admitted the patient I wrote admitting orders I consult pulmonary. Heparin was continued on the floor. - Lab Data Result diagrams: 04/30/20 18:15 04/30/20 18:15 Lab Results 04/30/20 04/30/20 04/30/20 Range/Units 18:15 18:15 18:15 WBC 9.9 (3.8-10.6) k/uL RBC 5.21 (4.30-5.90) m/uL Hgb 15.5 (13.0-17.5) gm/dL Hct 46.8 (39.0-53.0) % MCV 89.8 (80.0-100.0) fL MCH 29.8 (25.0-35.0) pg MCHC 33.1 (31.0-37.0) g/dL RDW 13.9 (11.5-15.5) % Plt Count 158 (150-450) k/uL Neutrophils % 73 % Lymphocytes % 16 % Monocytes % 7 % Eosinophils % 2 % Basophils % 0 % Neutrophils # 7.3 (1.3-7.7) k/uL Lymphocytes # 1.6 (1.0-4.8) k/uL Monocytes # 0.7 (0-1.0) k/uL Eosinophils # 0.2 (0-0.7) k/uL Basophils # 0.0 (0-0.2) k/uL PT 9.9 (9.0-12.0) sec INR 0.9 (<1.2) APTT 21.6 L (22.0-30.0) sec D-Dimer 18.89 H (<0.60) mg/L FEU Sodium 141 (137-145) mmol/L Potassium 4.6 (3.5-5.1) mmol/L Chloride 103 (98-107) mmol/L Carbon Dioxide 27 (22-30) mmol/L Anion Gap 11 mmol/L BUN 30 H (9-20) mg/dL Creatinine 1.10 (0.66-1.25) mg/dL Est GFR (CKD-EPI)AfAm 76 (>60 ml/min/1.73 sqM) Est GFR (CKD-EPI)NonAf 66 (>60 ml/min/1.73 sqM) Glucose 147 H (74-99) mg/dL Plasma Lactic Acid Jian (0.7-2.0) mmol/L Calcium 9.7 (8.4-10.2) mg/dL Magnesium 1.9 (1.6-2.3) mg/dL Total Bilirubin 1.0 (0.2-1.3) mg/dL AST 24 (17-59) U/L ALT 15 (4-49) U/L Alkaline Phosphatase 134 H (38-126) U/L Troponin I (0.000-0.034) ng/mL NT-Pro-B Natriuret Pep pg/mL Total Protein 7.8 (6.3-8.2) g/dL Albumin 4.4 (3.5-5.0) g/dL 04/30/20 04/30/20 04/30/20 Range/Units 18:15 18:15 18:15 WBC (3.8-10.6) k/uL RBC (4.30-5.90) m/uL Hgb (13.0-17.5) gm/dL Hct (39.0-53.0) % MCV (80.0-100.0) fL MCH (25.0-35.0) pg MCHC (31.0-37.0) g/dL RDW (11.5-15.5) % Plt Count (150-450) k/uL Neutrophils % % Lymphocytes % % Monocytes % % Eosinophils % % Basophils % % Neutrophils # (1.3-7.7) k/uL Lymphocytes # (1.0-4.8) k/uL Monocytes # (0-1.0) k/uL Eosinophils # (0-0.7) k/uL Basophils # (0-0.2) k/uL PT (9.0-12.0) sec INR (<1.2) APTT (22.0-30.0) sec D-Dimer (<0.60) mg/L FEU Sodium (137-145) mmol/L Potassium (3.5-5.1) mmol/L Chloride (98-107) mmol/L Carbon Dioxide (22-30) mmol/L Anion Gap mmol/L BUN (9-20) mg/dL Creatinine (0.66-1.25) mg/dL Est GFR (CKD-EPI)AfAm (>60 ml/min/1.73 sqM) Est GFR (CKD-EPI)NonAf (>60 ml/min/1.73 sqM) Glucose (74-99) mg/dL Plasma Lactic Acid Jian 1.8 (0.7-2.0) mmol/L Calcium (8.4-10.2) mg/dL Magnesium (1.6-2.3) mg/dL Total Bilirubin (0.2-1.3) mg/dL AST (17-59) U/L ALT (4-49) U/L Alkaline Phosphatase (38-126) U/L Troponin I 0.020 (0.000-0.034) ng/mL NT-Pro-B Natriuret Pep 1040 pg/mL Total Protein (6.3-8.2) g/dL Albumin (3.5-5.0) g/dL Critical Care Time Critical Care Time: Yes Total Critical Care Time: 35 Disposition Clinical Impression: Pulmonary embolism Disposition: ADMITTED IP TO THIS HOSP Referrals: David Rowe MD [Primary Care Provider] - 1-2 days Time of Disposition: 20:26
[2020-04-30 18:39] LABS: Basophils % (A) 0 %; Eosinophils # (A) 0.2 k/uL (0-0.7); Eosinophils % (A) 2 %; HCT 46.8 % (39.0-53.0); HGB 15.5 gm/dL (13.0-17.5); Lymphocytes # (A) 1.6 k/uL (1.0-4.8); Lymphocytes % (A) 16 %; MCH 29.8 pg (25.0-35.0); MCHC 33.1 g/dL (31.0-37.0); MCV 89.8 fL (80.0-100.0); Mean Platelet Volume 7.7; Monocytes # (A) 0.7 k/uL (0-1.0); Monocytes % (A) 7 %; Neutrophils # (A) 7.3 k/uL (1.3-7.7); Neutrophils % (A) 73 %; Platelet Count 158 k/uL (150-450); RBC 5.21 m/uL (4.30-5.90); RDW 13.9 % (11.5-15.5); WBC 9.9 k/uL (3.8-10.6)
[2020-04-30 18:48] LABS: Albumin 4.4 g/dL (3.5-5.0); Calcium 9.7 mg/dL (8.4-10.2); Magnesium 1.9 mg/dL (1.6-2.3); Potassium 4.6 mmol/L (3.5-5.1); Total Protein 7.8 g/dL (6.3-8.2)
--- NOTE | 2020-04-30 18:59 | XR ---
EXAMINATION TYPE: XR chest 2V DATE OF EXAM: 04/30/2020 COMPARISON: NONE HISTORY: Difficulty breathing TECHNIQUE: 2 views FINDINGS: There is no heart failure nor confluent pneumonic infiltrate. Costophrenic angles are clear . There are no hilar masses. There are chest leads. Bony thorax is intact. IMPRESSION: No active cardiopulmonary disease. No adverse change.
[2020-04-30 19:08] LABS: INR 0.9 (<1.2); Partial Thromboplastin Time 21.6 sec (22.0-30.0); Prothrombin Time 9.9 sec (9.0-12.0)
[2020-04-30 19:12] LABS: D-Dimer 18.89 mg/L FEU (<0.60)
[2020-04-30] MEDS ORDERED: HEPARIN SODIUM,PORCINE 10,000 UNIT/ML 1 ML VIAL IV ONE (19:44)
--- NOTE | 2020-04-30 20:16 | CT ---
EXAMINATION TYPE: CT chest angio for PE DATE OF EXAM: 04/30/2020 COMPARISON: None HISTORY: SOB, elevated d-dimer CT DLP: 536.9 mGycm Automated exposure control for dose reduction was used. CONTRAST: Performed with IV Contrast, patient injected with 80cc mL of Isovue 370. There are 3-D post processed images. The lungs are clear of consolidation. There is minimal subsegmental atelectasis at the left lung base . There is no pleural effusion. There is no pericardial effusion. There are multiple filling defects in the lower lobe pulmonary arteries bilaterally. There is no sadd le embolism. There is relative sparing of the upper lobe pulmonary arteries. There is some thrombus s een in the right middle lobe pulmonary artery. Thoracic aorta shows no aneurysm or dissection. There is no mediastinal adenopathy. There are no poly r masses. Heart size is fairly normal. Right ventricle not enlarged. Bony thorax is intact. Upper abdominal soft tissues are intact. IMPRESSION: Bilateral pulmonary emboli. No evidence of right heart strain. Exam was discussed with Dr. Díaz at 6:15 PM.
[2020-04-30] MEDS ORDERED: SODIUM CHLORIDE 0.9% 1,000 ML IV ONE (20:26)
[2020-04-30] MEDS: HEPARIN SOD,PORK IN 0.45% NACL 25,000 UNIT in 0.45% NACL 1 250ML.BAG IV SCH (20:38)
[2020-04-30] MEDS ORDERED: hydrALAZINE HCL 20 MG/ML 1 ML VIAL IM STA (20:40)
[2020-04-30] MEDS ORDERED: LORazepam 2 MG/ML INJ IV STA (20:41)
--- NOTE | 2020-04-30 22:59 | P.HPIM ---
History of Present Illness H&P Date: 04/30/20 (Bilateral pulmonary emboli in the lower basis) Chief Complaint: Patient presented of shortness of breath which is exacerbated at home This is the history and physical by Dr. Romero date of service 04/30/2020. Patient seen and evaluated in the emergency room and module 17 discussed with the patient and his as well. Chief complaint: He was short of breath for him was unusual with the feeling huffing and puffing and this did not happened before couple days before these event he was short of breath but not significant. He came to the emergency room seen by Dr. Díaz in the ER. His d-dimer was elevated, chest x-ray was negative the angiogram for PE was positive for bilateral PE, Dr. Díaz talk to Dr. Johnson he recommended to be admitted to the [facility] and he will follow him in the morning. I did see him today and discuss with them his current problem at the 10:28 PM on 04/30/2020. The shortness of breath started in a.m. and worsening by the time he trying to get out of bed but he was worse he denied any fever chills or cough he for and no chest pain or palpitation he denied any abdominal pain nausea vomiting or diarrhea he had some cramps in the right lower extremities and in the thigh during my examination to him. Past medical history patient has multiple medical problem: He is diabetic2 insulin-dependent as being following by the endocrinology Dr. Byrd and he placed him on insulin as well as he is on pioglitazone 15 mg as well as Victoza subcutaneous injection 0.6 mg/0.1 ML once daily. Patient also has been followed by Dr. Thomson cardiology with no input or previous echo available at the time of admission. He has been treated by atenolol beta óscar and clonidine as well with possible some interaction was increased his blood pressure now and will hold on the clonidine. He has been seen by neurologist Dr. Donna Tripp and 4 Parkinson disease who placed exam on carbidopa levodopa ER 50/200 twice a day and probably the lunchtime he give them short acting 10/100 mg Sinemet. He is also on vitamin D3 and he is on enalapril for hypertension 20 mg twice a day. Patient is new to me he was under care of Dr. Malik Fine in the past. Past history that he had history of bilateral knee arthroplasty the first one done 6 years ago and he developed blood clot and he was on the blood thinner for almost a year and that was behind the knee popliteal fossa. 3 years ago he had the second knee on the right side but he did not recall developing blood clots. Current PT was not provoked and he did not do any other trauma or strenuous exercise, and he had a cramp in the right lower extremities. Apparently patient had history of injection of the back at [facility] for pain which did help. And after 60 years etc. current again the pain and he went to the pain clinic and the give them the injection but appears to be that it did not help, the etiology of the pain unclear to me at the time he had that he was not under my care. Clarification not clearly her obtain from the patient or his . Patient also has hypothyroidism and we'll check his lab which was not done in the ER. ALLERGY to penicillin. Reviewing of the system Neuropsychiatry seen by the neurologist and he felt that that he has forgetfulness and possible dementia, also he has disability with the [facility] with his exposure to Agent [place]. No previous history of COPD or asthma. He has been seen by the cardiology but unclear what is the problem however because of his admission with the PE old check the echocardiogram for the pulmonary hypertension. On the cardiovascular he has history of hyperlipidemia and the hypertension. And GI no symptoms no symptoms musculoskeletal he has osteoarthritis, endocrine he had thyroid disease and neurology he has Parkinson disease. He has also history of bilateral knee joint total arthroplasty and he had a cataract surgery bilateral and down he had nasal surgery for skin cancer. No previous history of smoking no alcohol intake and no drug use. Family history of cancer and ovarian cancer. On physical examination: Head was normocephalic and atraumatic, pupil was equal reactive and he had a lens implant bilateral oropharynx natural teeth with partial in the lower uvula midline, no fascial acetaminophen 3, hearing is normal, and neck was supple, no JVD no thyromegaly no lymphadenopathy trachea midline. The chest is created bilaterally and no evidence of wheezes or rhonchi's the chest x-ray was negative. Angiogram showed PE bilateral with the elevated d- dimer. Heart was regular sinus rhythm and the blood pressure was elevated not well controlled. Abdomen soft positive bowel sounds no tenderness in the 4 quadrants. And he wearing depends apparently he may have some incontinence. Skin no rashes. Neurologically: Patient had Parkinson disease and he is treated. Is conscious alert oriented. Cranial nerves is stable to the 12th sensory and motor is intact speech is normal no evidence of CVA in the past. And his extremities no edema and positive pulses however he had the past history of left DVT of the leg and the source of the PE is unclear at this time and will proceed for ultrasound/venous duplex study bilateral. Laboratories: WBC 9.9, hemoglobin 15.5, hematocrit 46.8, MCV 89.8, and late 6 pounds is 158. Pro time 9.9 INR 0.9, APTT 21.6 low d-dimer 18.89 high. Electrolytes sodium 141, potassium 4.6, chloride 103, carbon dioxide 27, anion gap 11, BUN 30, creatinine 1.10 EGFR 66, blood glucose 147, plasma lactic acid 1.8, calcium 9.7, magnesium 1.9, total bilirubin 1, AST 24, a LT 15, alk phos 134 mildly elevated and D10 natruretic peptide 1040 which is elevated for his age supple of the the limit 904 his 74 years old Troponin 1 is normal 0.020, total protein 7.8, albumin 4.4. CT angiogram of the chest no consolidation. Multiple filling defects in the lower lobe bilaterally in the pulmonary arteries, no saddle embolism, sparing the upper lobe pulmonary arteries, some thrombus seen in the right middle lobe of pulmonary artery. Assessment: Non-provoked bilateral pulmonary emboli as mentioned above. Diabetes mellitus type 2 insulin-dependent Hypothyroidism History of previous DVT 6 years ago in the left lower extremities. Also cramps in the right lower extremities was questionable history of injection on the back with the question of spinal stenosis. Parkinson disease History of exposure to Agent [place]. Degenerative osteoarthritis. Early cognitive function impairment followed by his neurologist. Plan: Echocardiogram to rule out pulmonary hypertension. Venous duplex study of the lower extremities to clarify the origin of the blood clots with the past history of 6 years ago he had a DVT. Checked on the thyroid laboratory with TSH and free T4 and BMP and EKG in a.m. We'll add insulin to scale 3 times a day as well as adjusting the medication for the current event. Consultation with Dr. Johnson requested in the emergency room and Dr. Johnson already communicated with the ER physician Dr. Díaz. Heparin protocol was initiated in the ER. Diet is cardiac and activity bedrest. Past Medical History Past Medical History: Cancer, Diabetes Mellitus, Hearing Disorder / Deafness, Hyperlipidemia, Hypertension, Osteoarthritis (OA), Thyroid Disorder Additional Past Medical History / Comment(s): SKIN CANCER , parkinsons History of Any Multi-Drug Resistant Organisms: None Reported Past Surgical History: Joint Replacement Additional Past Surgical History / Comment(s): CATARACT SURGERY- BILATERAL, TOTAL RIGHT KNEE, TOTAL LEFT KNEE, NASAL SURGERY FOR SKIN CANCER Past Anesthesia/Blood Transfusion Reactions: No Reported Reaction Past Psychological History: No Psychological Hx Reported Smoking Status: Never smoker Past Alcohol Use History: None Reported Past Drug Use History: None Reported - Past Family History Mother Family Medical History: Cancer Additional Family Medical History / Comment(s): OVARIAN CANCER Medications and Allergies Home Medications Medication Instructions Recorded Confirmed Type Atenolol [Tenormin] 50 mg PO DAILY 04/25/19 04/30/20 History Atorvastatin [Lipitor] 20 mg PO HS 04/25/19 04/30/20 History Carbidopa-Levodopa 10-100 mg 1 tab PO DAILY 04/25/19 04/30/20 History [Sinemet 10-100] Carbidopa-Levodopa ER 50-200Mg 1 tab PO BID 04/25/19 04/30/20 History [Sinemet ER 50-200] Cholecalciferol (Vitamin D3) 2,000 unit PO DAILY 04/25/19 04/30/20 History [Vitamin D3] Enalapril [Vasotec] 20 mg PO BID 04/25/19 04/30/20 History Hydrochlorothiazide [Hydrodiuril] 25 mg PO DAILY 04/25/19 04/30/20 History Insulin Glargine,Hum.rec.anlog 22 unit SQ DAILY 04/25/19 04/30/20 History [Lantus Solostar] Levothyroxine Sodium [Synthroid] 137 mcg PO MOTUWETHFRSA 04/25/19 04/30/20 History Liraglutide [Victoza 2-Jean] 1.8 mg SQ DAILY 04/25/19 04/30/20 History Pioglitazone HCl [Actos] 15 mg PO DAILY 04/25/19 04/30/20 History metFORMIN HCL 1,000 mg PO PC-SUPPER 04/25/19 04/30/20 History Furosemide [Lasix] 20 mg PO TUTH 04/30/20 04/30/20 History Potassium Chloride ER [K-Dur 10] 10 meq PO DAILY 04/30/20 04/30/20 History cloNIDine HCL [Catapres] 0.2 mg PO DAILY 04/30/20 04/30/20 History Allergies Allergy/AdvReac Type Severity Reaction Status Date / Time Penicillins Allergy Unknown Verified 04/30/20 19:33 Childhood Physical Exam Vitals: Vital Signs Temp Pulse Resp BP Pulse Ox 04/30/20 21:00 84 16 151/90 92 L 04/30/20 20:00 93 18 181/107 92 L 04/30/20 18:20 18 04/30/20 18:19 89 16 173/102 93 L 04/30/20 16:46 98.6 F 82 18 129/80 94 L Intake and Output 04/30/20 04/30/20 04/30/20 06:59 14:59 22:59 Other: Weight 97.069 kg Results CBC & Chem 7: 04/30/20 18:15 04/30/20 18:15 Labs: Abnormal Lab Results - Last 24 Hours (Table) 04/30/20 04/30/20 Range/Units 18:15 18:15 APTT 21.6 L (22.0-30.0) sec D-Dimer 18.89 H (<0.60) mg/L FEU BUN 30 H (9-20) mg/dL Glucose 147 H (74-99) mg/dL Alkaline Phosphatase 134 H (38-126) U/L
--- NOTE | 2020-04-30 23:13 | US ---
EXAMINATION TYPE: US venous doppler duplex LE BI DATE OF EXAM: 04/30/2020 11:04 PM COMPARISON: 05/02/2015 CLINICAL HISTORY: Bilateral PE with a history of DVT left leg . Bilateral PE with hx of DVT in left l ower extremity. SIDE PERFORMED: Bilateral TECHNIQUE: The lower extremity deep venous system is examined utilizing real time linear array sonog sandra with graded compression, doppler sonography and color-flow sonography. VESSELS IMAGED: External Iliac Vein (EIV) Common Femoral Vein Deep Femoral Vein Greater Saphenous Vein * Femoral Vein Popliteal Vein Small Saphenous Vein * Proximal Calf Veins (* superficial vessels) Right Leg: Thrombus is seen within noncompressible right popliteal vein. Limited visibility of right prox calf veins. No evidence of DVT in remaining vessels imaged. Left Leg: Limited visibility of duplicated left distal femoral vein segment. Possible chronic thromb us within left popliteal vein as the vessel appears to compress incompletely/wall appears thick. 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
[2020-05-01] MEDS: ATORVASTATIN 20 MG TAB PO SCH ×2 (01:57→19:40)
[2020-05-01] MEDS: ATENOLOL 50 MG TAB PO SCH ×2 (01:57→08:52)
[2020-05-01 06:35] LABS: Basophils # (A) 0.1 k/uL (0-0.2); Basophils % (A) 1 %; Eosinophils # (A) 0.3 k/uL (0-0.7); Eosinophils % (A) 3 %; HCT 51.6 % (39.0-53.0); HGB 16.2 gm/dL (13.0-17.5); Lymphocytes # (A) 2.1 k/uL (1.0-4.8); Lymphocytes % (A) 19 %; MCH 28.2 pg (25.0-35.0); MCHC 31.4 g/dL (31.0-37.0); Mean Platelet Volume 7.3; Monocytes # (A) 0.9 k/uL (0-1.0); Monocytes % (A) 8 %; Neutrophils # (A) 7.3 k/uL (1.3-7.7); Neutrophils % (A) 68 %; Platelet Count 149 k/uL (150-450); RBC 5.73 m/uL (4.30-5.90); WBC 10.8 k/uL (3.8-10.6)
[2020-05-01] MEDS: LEVOTHYROXINE 137 MCG TAB PO SCH (07:51)
[2020-05-01 08:43] LABS: Glucose,Whole Blood 216 mg/dL (75-99)
[2020-05-01] MEDS: FUROSEMIDE 40 MG TAB PO SCH (08:51)
[2020-05-01] MEDS: CHOLECALCIFEROL 1,000 UNIT TAB PO SCH (08:51)
[2020-05-01] MEDS: INSULIN ASPART (NovoLOG) 100 UNIT/ML VIAL SQ SCH ×3 (08:51→17:13)
[2020-05-01] MEDS: LISINOPRIL 20 MG TAB PO SCH ×2 (08:52→19:39)
[2020-05-01] MEDS: INSULIN DETEMIR (LEVEMIR) 100 UNIT/ML SYR SQ SCH (09:09)
[2020-05-01] MEDS: CARBIDOPA-LEVODOPA ER 50-200MG 1 EACH TABLET.ER PO SCH ×2 (09:09→19:38)
[2020-05-01 10:50] LABS: African American GFR (CKD) >90 (>60 ml/min/1.73 sqM); Anion Gap 12 mmol/L; Blood Urea Nitrogen 26 mg/dL (9-20); Calcium 9.2 mg/dL (8.4-10.2); Carbon Dioxide 23 mmol/L (22-30); Chloride 104 mmol/L (98-107); Glucose 214 mg/dL (74-99); Non-African American GFR(CKD) 83 (>60 ml/min/1.73 sqM); Sodium 139 mmol/L (137-145)
[2020-05-01] MEDS: cloNIDine HCL 0.2 MG TAB PO SCH (10:50)
[2020-05-01 11:13] LABS: Potassium 4.6 mmol/L (3.5-5.1)
--- NOTE | 2020-05-01 12:00 | ECHOF ---
Referral Reason: MEASUREMENTS -------- HEIGHT: 170.2 cm WEIGHT: 97.1 kg BP: RVIDd: 2.4 cm (< 3.3) IVSd: 1.5 cm (0.6 - 1.1) LVIDd: 3.9 cm (3.9 - 5.3) LVPWd: 1.8 cm (0.6 - 1.1) IVSs: 1.8 cm LVIDs: 2.0 cm LVPWs: 2.1 cm Ao Diam: 3.4 cm (2.0 - 3.7) AV Cusp: 2.0 cm (1.5 - 2.6) LA Diam: 3.5 cm (2.7 - 3.8) MV EXCURSION: 12.842 mm (> 18.000) MV EF SLOPE: 84 mm/s (70 - 150) EPSS: 0.7 cm MV E Enrique: 0.85 m/s MV DecT: 241 ms MV A Enrique: 0.92 m/s MV E/A Ratio: 0.92 RAP: 5.00 mmHg RVSP: 15.95 mmHg FINDINGS -------- Sinus rhythm. This was a technically difficult study with suboptimal views. The left ventricular size is normal. There is moderate concentric left ventricular hypertrophy. O verall left ventricular systolic function is normal with, an EF between 55 - 60 %. The RV was not well visualized. The left atrial size is normal. The right atrium was not well visualized. Lumason used Aortic valve is trileaflet and is mildly thickened. The mitral valve is normal. There is trace mitral regurgitation. The tricuspid valve appears structurally normal. Trace tricuspid regurgitation present. Right adrien tricular systolic pressure is normal at < 35 mmHg. There is no pulmonic regurgitation present. The aortic root size is normal. IVC Not well visulized. There is no pericardial effusion. CONCLUSIONS -------- 1. Sinus rhythm. 2. This was a technically difficult study with suboptimal views. 3. The left ventricular size is normal. 4. There is moderate concentric left ventricular hypertrophy. 5. Overall left ventricular systolic function is normal with, an EF between 55 - 60 %. 6. The RV was not well visualized. 7. The left atrial size is normal. 8. The right atrium was not well visualized. 9. Lumason used 10. Aortic valve is trileaflet and is mildly thickened. 11. The mitral valve is normal. 12. There is trace mitral regurgitation. 13. The tricuspid valve appears structurally normal. 14. Trace tricuspid regurgitation present. 15. Right ventricular systolic pressure is normal at < 35 mmHg. 16. There is no pulmonic regurgitation present. 17. The aortic root size is normal. 18. IVC Not well visulized. 19. There is no pericardial effusion. WELL DIGGER: Majo Reid RDCS
[2020-05-01 12:36] LABS: Glucose,Whole Blood 159 mg/dL (75-99)
[2020-05-01] MEDS: HEPARIN SOD,PORK IN 0.45% NACL 25,000 UNIT in 0.45% NACL 1 250ML.BAG IV SCH (12:45)
[2020-05-01] MEDS ORDERED: amLODIPine 5 MG TAB PO SCH (12:45)
[2020-05-01] MEDS: CARBIDOPA-LEVODOPA 10-100 MG 1 EACH TAB PO SCH (12:47)
--- NOTE | 2020-05-01 13:18 | P.PN ---
Subjective Progress Note Date: 05/01/20 (SOB) Principal diagnosis: #1 shortness of breath progressive over 24-48 hour with no history of COPD. #2 bilateral pulmonary emboli of the lower lung bases and the involvement of the right middle lobe. #3 bilateral DVT of the lower extremities probably chronic however the probab ility of dislodging and showering the lung from the lower extremities. #4 echocardiogram no evidence of pulmonary hypertension with ejection fraction 55% with [id number] valvular disease. #5 Parkinson disease currently stable treated by neurologist Jeanine Reyes. #6 hypertension uncontrolled. #[address] Johnson pulmonary and critical care. Dictation of the progress note date of service 05/01/2020. Patient location currently in the emergency room ER module #24 he is not yet on the floor. He is on heparin infusion. And future plan for chronic anticoagulation. Hypertension not controlled, Dr. Ruano resume his clonidine, and we started him on amlodipine 5 mg 1 tablet at night 1 dose now. Patient's conscious alert oriented 3 he had some forgetfulness and he had history of exposed to [place]. The head was normocephalic and atraumatic. Oropharynx was normal with normal swallowing. Mild hearing deficit and he had previously cataract surgery. Neck was supple no JVD no thyromegaly no lymphadenopathy. He has history of hyper lipidemia, and history of hypo-thyroidism. Lung is created bilaterally and is provided that PE but no significant abno rmalities patient also is nonsmoker. Heart: Regular sinus rhythm with left ventricular hypertrophy with hypertensive heart disease he had positive murmurs and normal ejection fraction and no motion abnormalities. Abdomen is soft positive bowel sounds no organ enlargement. Extremities: No edema and positive pulses, venous duplex study indicating bilateral DVT probably chronic and may be showered his lung at that event. Neurologically: No lateralizing sign. And perfusion of the lower extremities is normal. Assessment: His PE bilateral lower lung field and involvement of the middle lobe by the angiogram CT, however chest x-ray was negative completely negative and the hand for diagnoses with elevated d-dimer as well as the shortness of breath and mild hypoxemia. And subsequently the venous duplex study indicating bilateral lower extremities DVT is uncontrolled. Dr. Ruano was adjusted the clonidine however the mentioned before they have interaction dictation at home. We added amlodipine 5 mg daily at bedtime 1 dose now for trial off controlling the blood pressure reasonable. Assessment: #1 bilateral PE of the lung sparing the upper branches of the apex and involvement of the right middle lobe. #2 bilateral DVT of the lower extremities which probable being chronic however the showering total lung could be from there as well. #3 hyperlipidemia #4 hypertension was hypertensive heart disease #5 valvular heart disease and he has been followed by Dr. Thomson as outpatient and the current echo cardiogram indicating no pulmonary hypertension. Number #6 Parkinson disease #7 history of exposure to [place] #8 mild cognitive function impairment followed by the neurologist as outpatient. Plan: #1 continue the current treatment #2 continue with the recommendation of the pulmonary and critical care #3 attempt of controlling the blood pressure. #4 will be planning for PT and OT once pulmonary clear that issue. Objective - Vital Signs Vital signs: Vital Signs Temp 97.6 F 05/01/20 11:31 Pulse 76 05/01/20 11:31 Resp 18 05/01/20 11:31 BP 167/93 05/01/20 11:31 Pulse Ox 95 05/01/20 08:51 Intake & Output 04/30/20 05/01/20 05/01/20 18:59 06:59 18:59 Intake Total 250 Balance 250 Weight 97.069 kg 97.069 kg Intake: Intake, IV Titration 250 Amount Heparin Sod,Pork in 0.45% 250 NaCl 25,000 unit In 0.45 % NaCl 1 250ml.bag @ 18 UNITS/KG/HR 17.472 mls/hr IV .[id number] [facility] Rx#: [id number] Other: # Bowel Movements 1 - Labs CBC & Chem 7: 05/01/20 06:14 05/01/20 08:43 Labs: Abnormal Lab Results - Last 24 Hours (Table) 04/30/20 04/30/20 05/01/20 Range/Units 18:15 18:15 06:14 WBC 10.8 H (3.8-10.6) k/uL Plt Count 149 L (150-450) k/uL APTT 21.6 L (22.0-30.0) sec D-Dimer 18.89 H (<0.60) mg/L FEU BUN 30 H (9-20) mg/dL Glucose 147 H (74-99) mg/dL POC Glucose (mg/dL) (75-99) mg/dL Alkaline Phosphatase 134 H (38-126) U/L 05/01/20 05/01/20 05/01/20 Range/Units 08:42 08:43 10:48 WBC (3.8-10.6) k/uL Plt Count (150-450) k/uL APTT 83.4 H (22.0-30.0) sec D-Dimer (<0.60) mg/L FEU BUN 26 H (9-20) mg/dL Glucose 214 H (74-99) mg/dL POC Glucose (mg/dL) 216 H (75-99) mg/dL Alkaline Phosphatase (38-126) U/L 05/01/20 Range/Units 12:35 WBC (3.8-10.6) k/uL Plt Count (150-450) k/uL APTT (22.0-30.0) sec D-Dimer (<0.60) mg/L FEU BUN (9-20) mg/dL Glucose (74-99) mg/dL POC Glucose (mg/dL) 159 H (75-99) mg/dL Alkaline Phosphatase (38-126) U/L
--- NOTE | 2020-05-01 13:26 | P.CNPUL ---
History of Present Illness Consult date: 05/01/20 Requesting physician: David Rowe Reason for consult: dyspnea Chief complaint: Dyspnea History of present illness: 74-year-old male patient of Dr. Rowe, with past medical history of diabetes m ellitus type 2, Parkinson's disease, hypertension, previous history of right leg DVT 6 years ago in the left leg, hypothyroidism, history of degenerative osteoarthritis, obstructive sleep apnea on CPAP therapy, lifetime nonsmoker, who presented to the emergency department on 04/30/2020 with complaints of shortness of breath for one day prior to presentation, worse with exertion. Denies chest pain, denies hemoptysis, denies pleurisy. Patient denies any fever chills, no cough or congestion, no palpitations, no syncope, no headaches, no nausea vomiting diarrhea. No calf tenderness or leg swelling. Patient states he is not overly active, but he is able to ambulate. No recent history of surgery, or recent illness. Chest X-ray showed no active cardiopulmonary process. CBC was within normal limits, d-dimer was significantly elevated at 18.89, CTA chest was obtained showing multiple filling defects in the lower lobe pulmonary arteries bilaterally, no evidence of saddle embolism, and there was some thrombus seen in the right middle lobe pulmonary artery, no evidence of right heart strain. Echocardiogram is currently pending. Hemodynamically patient is stable, proBNP was 1040, troponin is 0.020. Electrolytes are within normal limits, BUN is 30 creatinine is 1.10. Patient was started on high intensity heparin drip. 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 She is on room air, with a pulse ox of 95%, vital signs are stable, a bit hypertensive with systolic in the 160s to 170s, and diastolic in the 90s and 100s. Review of Systems All systems: negative Constitutional: Denies chills, Denies fever Eyes: denies blurred vision, denies pain Ears, nose, mouth and throat: Denies headache, Denies sore throat Cardiovascular: Denies chest pain, Denies shortness of breath Respiratory: Reports dyspnea, Denies cough Gastrointestinal: Denies abdominal pain, Denies diarrhea, Denies nausea, Denies vomiting Musculoskeletal: Denies myalgias Integumentary: Denies pruritus, Denies rash Neurological: Denies numbness, Denies weakness Psychiatric: Denies anxiety, Denies depression Endocrine: Denies fatigue, Denies weight change Past Medical History Past Medical History: Cancer, Diabetes Mellitus, Hearing Disorder / Deafness, Hyperlipidemia, Hypertension, Neurologic Disorder, Osteoarthritis (OA), Thyroid Disorder Additional Past Medical History / Comment(s): Parkinsons, falls, IDDM type II, [place] bilaterally, skin cancer removals, JULIANA with CPap, hypothyroid, past L upper arm cellulitis, occasional edema hands/legs, occasional low back pain, History of Any Multi-Drug Resistant Organisms: None Reported Past Surgical History: Joint Replacement Additional Past Surgical History / Comment(s): Total L/R knee arthroplasties, skin cancer removed from nose/hairline, surgery for deviated septum, colonoscopies/benign polypectomies, L chest wall cyst removed, bilateral cataract removals/lens implants. Past Anesthesia/Blood Transfusion Reactions: No Reported Reaction Smoking Status: Never smoker - Past Family History Mother Family Medical History: Cancer Additional Family Medical History / Comment(s): OVARIAN CANCER Father Additional Family Medical History / Comment(s): Father at the age of 66 yrs from a "heart condition". He was a smoker. Medications and Allergies Home Medications Medication Instructions Recorded Confirmed Type Atenolol [Tenormin] 50 mg PO DAILY 04/25/19 04/30/20 History Atorvastatin [Lipitor] 20 mg PO HS 04/25/19 04/30/20 History Carbidopa-Levodopa 10-100 mg 1 tab PO DAILY 04/25/19 04/30/20 History [Sinemet 10-100] Carbidopa-Levodopa ER 50-200Mg 1 tab PO BID 04/25/19 04/30/20 History [Sinemet ER 50-200] Cholecalciferol (Vitamin D3) 2,000 unit PO DAILY 04/25/19 04/30/20 History [Vitamin D3] Enalapril [Vasotec] 20 mg PO BID 04/25/19 04/30/20 History Hydrochlorothiazide [Hydrodiuril] 25 mg PO DAILY 04/25/19 04/30/20 History Insulin Glargine,Hum.rec.anlog 22 unit SQ DAILY 04/25/19 04/30/20 History [Lantus Solostar] Levothyroxine Sodium [Synthroid] 137 mcg PO MOTUWETHFRSA 04/25/19 04/30/20 History Liraglutide [Victoza 2-Jean] 1.8 mg SQ DAILY 04/25/19 04/30/20 History Pioglitazone HCl [Actos] 15 mg PO DAILY 04/25/19 04/30/20 History metFORMIN HCL 1,000 mg PO PC-SUPPER 04/25/19 04/30/20 History Furosemide [Lasix] 20 mg PO TUTH 04/30/20 04/30/20 History Potassium Chloride ER [K-Dur 10] 10 meq PO DAILY 04/30/20 04/30/20 History cloNIDine HCL [Catapres] 0.2 mg PO DAILY 04/30/20 04/30/20 History Allergies Allergy/AdvReac Type Severity Reaction Status Date / Time Penicillins Allergy Unknown Verified 04/30/20 19:33 Childhood Physical Exam Vitals: Vital Signs Temp Pulse Pulse Resp BP BP Pulse Ox 05/01/20 11:31 97.6 F 76 18 167/93 05/01/20 08:51 98.3 F 81 18 175/101 95 05/01/20 06:00 97.5 F L 69 20 182/102 93 L 05/01/20 03:00 18 05/01/20 01:00 92 18 160/104 92 L 05/01/20 00:00 90 18 164/104 92 L 04/30/20 23:00 84 16 146/103 91 L 04/30/20 22:00 86 16 144/87 92 L 04/30/20 21:00 84 16 151/90 92 L 04/30/20 20:00 93 18 181/107 92 L 04/30/20 18:20 18 04/30/20 18:19 89 16 173/102 93 L 04/30/20 16:46 98.6 F 82 18 129/80 94 L Intake and Output 04/30/20 05/01/20 05/01/20 22:59 06:59 14:59 Intake Total 250 Balance 250 Intake: Intake, IV Titration 250 Amount Heparin Sod,Pork in 0.45% 250 NaCl 25,000 unit In 0.45 % NaCl 1 250ml.bag @ 18 UNITS/KG/HR 17.472 mls/hr IV .[id number] COUNTS INCLUDE 234 BEDS AT THE [facility] Rx#: [id number] Other: # Bowel Movements 1 Weight 97.069 kg 97.069 kg GENERAL EXAM: Alert, very pleasant, 74-year-old white male, on room air with a pulse ox of 95% resting on the gurney in the emergency department comfortable in no apparent distress. HEAD: Normocephalic/atraumatic. EYES: Normal reaction of pupils, equal size. Conjunctiva pink, sclera white. NOSE: Clear with pink turbinates. THROAT: No erythema or exudates. NECK: No masses, no JVD, no thyroid enlargement, no adenopathy. CHEST: No chest wall deformity. Symmetrical expansion. LUNGS: Equal air entry with no crackles, wheeze, rhonchi or dullness. CVS: Regular rate and rhythm, normal S1 and S2, no gallops, no murmurs, no rubs ABDOMEN: Soft, nontender. No hepatosplenomegaly, normal bowel sounds, no guarding or rigidity. EXTREMITIES: No clubbing, no edema, no cyanosis, 2+ pulses and upper and lower extremities. MUSCULOSKELETAL: Muscle strength and tone normal. SPINE: No scoliosis or deformity SKIN: No rashes CENTRAL NERVOUS SYSTEM: Alert and oriented -3. No focal deficits, tone is normal in all 4 extremities. PSYCHIATRIC: Alert and oriented -3. Appropriate affect. Intact judgment and insight. Results - Laboratory Findings CBC and BMP: 05/01/20 06:14 05/01/20 08:43 PT/INR, D-dimer PT 9.9 sec (9.0-12.0) 04/30/20 18:15 INR 0.9 (<1.2) 04/30/20 18:15 D-Dimer 18.89 mg/L FEU (<0.60) H 04/30/20 18:15 Abnormal lab findings: Abnormal Labs 04/30/20 04/30/20 05/01/20 18:15 18:15 06:14 WBC 10.8 H Plt Count 149 L APTT 21.6 L D-Dimer 18.89 H BUN 30 H Glucose 147 H POC Glucose (mg/dL) Alkaline Phosphatase 134 H 05/01/20 05/01/20 05/01/20 08:42 08:43 10:48 WBC Plt Count APTT 83.4 H D-Dimer BUN 26 H Glucose 214 H POC Glucose (mg/dL) 216 H Alkaline Phosphatase 05/01/20 12:35 WBC Plt Count APTT D-Dimer BUN Glucose POC Glucose (mg/dL) 159 H Alkaline Phosphatase - Diagnostic Findings Chest x-ray: report reviewed, image reviewed CT scan - chest: report reviewed, image reviewed Additional studies: EKG reviewed, echocardiogram has been reviewed Assessment and Plan Plan: Assessment: #1. Acute bilateral pulmonary emboli, without evidence of right heart strain, echocardiogram shows LVH, EF of 55-60%, trace tricuspid regurg, no evidence of pulmonary hypertension with right-sided pressures than 35 mmHg. There was also trace mitral regurg #2. 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 Previous history of DVT in the left popliteal vein 6 years ago following surgical procedure #4. Parkinson's disease #5. Degenerative osteoarthritis #6. Hypothyroidism #7. Diabetes mellitus type 2 #8. Sleep apnea on CPAP therapy, compliant #9. Previous exposure to agent orange #10. Lifetime nonsmoker Plan: Continue heparin infusion for another 24 hours, echocardiogram results have been noted, no evidence of right heart strain, troponin is negative, patient is on room air, denies any pleuritic chest pain. May consider starting Eliquis or Xarelto tomorrow, and consider the patient for discharge home if remains stable. Patient can wear his CPAP unit from home. He is awaiting a bed on selective care unit. We'll restart patient's clonidine I performed a history & physical examination of the patient and discussed their management with my nurse practitioner, Becky Randolph. I reviewed the nurse practitioner's note and agree with the documented findings and plan of care. Lung sounds are positive for diminished breath sounds. The findings and the impression was discussed with the patient. I attest to the documentation by the nurse practitioner. Time with Patient: Greater than 30
[2020-05-01] MEDS: metFORMIN 500 MG TAB PO SCH (17:13)
[2020-05-01 17:17] LABS: Glucose,Whole Blood 230 mg/dL (75-99)
[2020-05-01] MEDS ORDERED: metFORMIN 500 MG TAB PO SCH (18:30)
[2020-05-01] MEDS: amLODIPine 5 MG TAB PO SCH (19:38)
[2020-05-01 20:57] LABS: Glucose,Whole Blood 122 mg/dL (75-99)
[2020-05-02] MEDS: HEPARIN SOD,PORK IN 0.45% NACL 25,000 UNIT in 0.45% NACL 1 250ML.BAG IV SCH (02:30)
[2020-05-02 06:19] LABS: Glucose,Whole Blood 147 mg/dL (75-99)
[2020-05-02] MEDS: INSULIN ASPART (NovoLOG) 100 UNIT/ML VIAL SQ SCH ×3 (06:31→17:56)
[2020-05-02] MEDS: metFORMIN 500 MG TAB PO SCH ×2 (06:45→18:00)
[2020-05-02] MEDS: INSULIN DETEMIR (LEVEMIR) 100 UNIT/ML SYR SQ SCH (06:45)
[2020-05-02] MEDS: LEVOTHYROXINE 137 MCG TAB PO SCH (06:45)
[2020-05-02] MEDS: ATENOLOL 50 MG TAB PO SCH (08:57)
[2020-05-02] MEDS: CHOLECALCIFEROL 1,000 UNIT TAB PO SCH (08:57)
[2020-05-02] MEDS: cloNIDine HCL 0.2 MG TAB PO SCH (08:57)
[2020-05-02] MEDS: CARBIDOPA-LEVODOPA ER 50-200MG 1 EACH TABLET.ER PO SCH ×2 (09:00→20:36)
[2020-05-02 11:45] LABS: Glucose,Whole Blood 209 mg/dL (75-99)
[2020-05-02] MEDS: CARBIDOPA-LEVODOPA 10-100 MG 1 EACH TAB PO SCH (12:58)
[2020-05-02] MEDS: LISINOPRIL 20 MG TAB PO SCH ×2 (12:58→20:36)
--- NOTE | 2020-05-02 13:32 | P.PN ---
Subjective Progress Note Date: 05/02/20 Principal diagnosis: Dyspnea secondary to pulmonary emboli 74-year-old male patient of Dr. Rowe, with past medical history of diabetes mellitus type 2, Parkinson's disease, hypertension, previous history of right leg DVT 6 years ago in the left leg, hypothyroidism, history of degenerative osteoarthritis, obstructive sleep apnea on CPAP therapy, lifetime nonsmoker, who presented to the emergency department on 04/30/2020 with complaints of shortness of breath for one day prior to presentation, worse with exertion. Denies chest pain, denies hemoptysis, denies pleurisy. Patient denies any fever chills, no cough or congestion, no palpitations, no syncope, no headaches, no nausea vomiting diarrhea. No calf tenderness or leg swelling. Patient states he is not overly active, but he is able to ambulate. No recent history of surgery, or recent illness. Chest X-ray showed no active cardiopulmonary process. CBC was within normal limits, d-dimer was significantly elevated at 18.89, CTA chest was obtained showing multiple filling defects in the lower lobe pulmonary arteries bilaterally, no evidence of saddle embolism, and there was some thrombus seen in the right middle lobe pulmonary artery, no evidence of right heart strain. Echocardiogram is currently pending. Hemodynamically patient is stable, proBNP was 1040, troponin is 0.020. Electrolytes are within normal limits, BUN is 30 creatinine is 1.10. Patient was started on high intensity heparin drip. 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 She is on room air, with a pulse ox of 95%, vital signs are stable, a bit hypertensive with systolic in the 160s to 170s, and diastolic in the 90s and 100s. The patient is seen today 05/02/2020 in follow-up on the selective care unit. He is currently resting comfortably in bed. Awake and alert in no acute distress. He is maintaining O2 saturations in the mid 90s on room air. He's been afebrile. Hemodynamically stable. He remains on a heparin drip. Objective - Vital Signs Vital signs: Vital Signs Temp 97.6 F 05/02/20 11:28 Pulse 72 05/02/20 11:28 Resp 20 05/02/20 11:28 BP 141/87 05/02/20 11:28 Pulse Ox 95 05/02/20 11:28 Intake & Output 05/01/20 05/02/20 05/02/20 18:59 06:59 18:59 Intake Total 1050 199.447 240 Output Total 200 Balance 1050 -0.553 240 Weight 97.069 kg 94.8 kg Intake: IV 800 Sodium Chloride 0.9% 1, 800 000 ml @ 75 mls/hr IV . [id number] ONE Rx#:[id number] Intake, IV Titration 250 199.447 Amount Heparin Sod,Pork in 0.45% 250 199.447 NaCl 25,000 unit In 0.45 % NaCl 1 250ml.bag @ 18 UNITS/KG/HR 17.472 mls/hr IV .[id number] [facility] Rx#: [id number] Oral 240 Output: Urine 200 Other: Voiding Method Urinal # Voids 1 # Bowel Movements 1 - Exam GENERAL EXAM: Alert, very pleasant, 74-year-old male patient, on room air with a pulse ox of 95%, comfortable in no apparent distress. HEAD: Normocephalic/atraumatic. EYES: Normal reaction of pupils, equal size. Conjunctiva pink, sclera white. NOSE: Clear with pink turbinates. THROAT: No erythema or exudates. NECK: No masses, no JVD, no thyroid enlargement, no adenopathy. CHEST: No chest wall deformity. Symmetrical expansion. LUNGS: Equal air entry with no crackles, wheeze, rhonchi or dullness. CVS: Regular rate and rhythm, normal S1 and S2, no gallops, no murmurs, no rubs ABDOMEN: Soft, nontender. No hepatosplenomegaly, normal bowel sounds, no guarding or rigidity. EXTREMITIES: No clubbing, no edema, no cyanosis, 2+ pulses and upper and lower extremities. MUSCULOSKELETAL: Muscle strength and tone normal. SPINE: No scoliosis or deformity SKIN: No rashes CENTRAL NERVOUS SYSTEM: No focal deficits, tone is normal in all 4 extremities. PSYCHIATRIC: Alert and oriented -3. Appropriate affect. Intact judgment and insight. - Labs CBC & Chem 7: 05/01/20 06:14 05/01/20 08:43 Labs: Abnormal Lab Results - Last 24 Hours (Table) 05/01/20 05/01/20 05/01/20 Range/Units 17:03 18:21 20:55 APTT 88.7 H (22.0-30.0) sec POC Glucose (mg/dL) 230 H 122 H (75-99) mg/dL 05/02/20 05/02/20 05/02/20 Range/Units 01:20 06:18 09:42 APTT 69.8 H 46.2 H (22.0-30.0) sec POC Glucose (mg/dL) 147 H (75-99) mg/dL 05/02/20 Range/Units 11:43 APTT (22.0-30.0) sec POC Glucose (mg/dL) 209 H (75-99) mg/dL Assessment and Plan Assessment: #1. Acute bilateral pulmonary emboli, without evidence of right heart strain, echocardiogram shows LVH, EF of 55-60%, trace tricuspid regurg, no evidence of pulmonary hypertension with right-sided pressures than 35 mmHg. There was also trace mitral regurg #2. 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 Previous history of DVT in the left popliteal vein 6 years ago following surgical procedure #4. Parkinson's disease #5. Degenerative osteoarthritis #6. Hypothyroidism #7. Diabetes mellitus type 2 #8. Sleep apnea on CPAP therapy, compliant #9. Previous exposure to agent orange #10. Lifetime nonsmoker Plan: The patient was seen and evaluated by Dr. Ruano On room air and stable from the pulmonary standpoint Transition to Xarelto and once started stop the heparin drip PT/OT Probable discharge in the a.m. We'll continue to follow I, the cosigning physician, performed a history & physical examination of the patient. Lungs sounds are clear. Maintaining good O2 saturations in the 90s on room air. I discussed the assessment and plan of care with my nurse practitioner, Enid Thapa. I attest to the above note as dictated by her.
--- NOTE | 2020-05-02 14:58 | P.PN ---
Subjective Progress Note Date: 05/02/20 This is dictation progress note date of service 05/02/2020. Patient seen and evaluated on the cardiac monitor technician bed. Patient seen by the pulmonary and critical care and the plan for to start the anticoagulant xarelto. Patient stable no shortness of breath today and he did not seen yet by physical therapy. Vital sign temperature 97.6 F oral her pulse rate 72 bpm respiratory rate 20/m blood pressure 141/87 earlier 135/77 with the pulse ox 95 on the room air. Patient was conscious alert oriented he generalized weakness with the event of right lower extremities acute DVT and left lower extremities chronic DVT and the lung bilateral pulmonary emboli with the effect on also middle lobe embolization. Patient is multiple medical problem including hypothyroidism and diabetes mellitus. On exam: He is conscious alert oriented and he is able to communicate freely understand what is his current problem HEENT: Head was normocephalic and atraumatic, pupil was equal reactive, oropharynx no difficulties of the swallowing no evidence of CVA. Neck was supple no JVD no thyromegaly no lymphadenopathy trachea midline. Chest is created bilateral no evidence of rhonchi's or wheezing. However patient is not ambulated yet to see how shortness of breath will be associated with his activities. Heart regular sinus rhythm. Echocardiogram no evidence of pulmonary hypertension. Abdomen soft. Bowel sounds. Extremities positive pulses and no edema. Neurologically: He had Parkinson disease not stable on his feet. Assessment: Acute pulmonary emboli lower lung basis and the right middle lobe. Acute DVT of the right lower extremities. Chronic DVT of the left lower extremities. Hypothyroidism controlled. Hypertension essential currently stable. Degenerative arthritis of the joint status post right and left knee total arthroplasty. Parkinson disease. History of exposure to agent orange. With early cognitive function and permanent. Plan: We'll continue the current medication including the heparin. We'll started the novel anticoagulant for extended time probably more than 6 months. Controlled on monitor diabetes mellitus. Physical therapy Follow-up with Dr. Donna Du the neurologist as outpatient. Objective - Vital Signs Vital signs: Vital Signs Temp 97.6 F 05/02/20 11:28 Pulse 72 05/02/20 11:30 Resp 20 05/02/20 11:30 BP 141/87 05/02/20 11:28 Pulse Ox 95 05/02/20 11:28 Intake & Output 05/01/20 05/02/2020 18:59 06:59 18:59 Intake Total 1050 199.447 780 Output Total 200 Balance 1050 -0.553 780 Weight 97.069 kg 94.8 kg Intake: IV 800 Sodium Chloride 0.9% 1, 800 000 ml @ 75 mls/hr IV . [id number] ONE Rx#:[id number] Intake, IV Titration 250 199.447 Amount Heparin Sod,Pork in 0.45% 250 199.447 NaCl 25,000 unit In 0.45 % NaCl 1 250ml.bag @ 18 UNITS/KG/HR 17.472 mls/hr IV .[id number] [facility] Rx#: [id number] Oral 780 Output: Urine 200 Other: Voiding Method Urinal # Voids 1 # Bowel Movements 1 - Labs CBC & Chem 7: 05/01/20 06:14 05/01/20 08:43 Labs: Abnormal Lab Results - Last 24 Hours (Table) 05/01/20 05/01/20 05/01/20 Range/Units 17:03 18:21 20:55 APTT 88.7 H (22.0-30.0) sec POC Glucose (mg/dL) 230 H 122 H (75-99) mg/dL 05/02/20 05/02/20 05/02/20 Range/Units 01:20 06:18 09:42 APTT 69.8 H 46.2 H (22.0-30.0) sec POC Glucose (mg/dL) 147 H (75-99) mg/dL 05/02/20 Range/Units 11:43 APTT (22.0-30.0) sec POC Glucose (mg/dL) 209 H (75-99) mg/dL
[2020-05-02 16:57] LABS: Glucose,Whole Blood 111 mg/dL (75-99)
[2020-05-02] MEDS: RIVAROXABAN 15 MG TAB PO SCH (18:01)
[2020-05-02] MEDS: ATORVASTATIN 20 MG TAB PO SCH (20:36)
[2020-05-02] MEDS: amLODIPine 5 MG TAB PO SCH (20:36)
[2020-05-02 21:10] LABS: Glucose,Whole Blood 191 mg/dL (75-99)
[2020-05-03 06:24] LABS: Glucose,Whole Blood 127 mg/dL (75-99)
[2020-05-03] MEDS: INSULIN ASPART (NovoLOG) 100 UNIT/ML VIAL SQ SCH ×2 (06:31→12:34)
[2020-05-03] MEDS: metFORMIN 500 MG TAB PO SCH (06:35)
[2020-05-03] MEDS: LEVOTHYROXINE 137 MCG TAB PO SCH (06:35)
[2020-05-03] MEDS: INSULIN DETEMIR (LEVEMIR) 100 UNIT/ML SYR SQ SCH (06:35)
[2020-05-03] MEDS: RIVAROXABAN 15 MG TAB PO SCH (06:35)
[2020-05-03] MEDS: cloNIDine HCL 0.2 MG TAB PO SCH (08:51)
[2020-05-03] MEDS: ATENOLOL 50 MG TAB PO SCH (08:52)
[2020-05-03] MEDS: CHOLECALCIFEROL 1,000 UNIT TAB PO SCH (08:52)
[2020-05-03] MEDS: FUROSEMIDE 40 MG TAB PO SCH (08:52)
[2020-05-03] MEDS: CARBIDOPA-LEVODOPA ER 50-200MG 1 EACH TABLET.ER PO SCH (08:52)
[2020-05-03 10:43] VITALS: RESP 20
[2020-05-03 11:58] LABS: Glucose,Whole Blood 159 mg/dL (75-99)
[2020-05-03] MEDS: CARBIDOPA-LEVODOPA 10-100 MG 1 EACH TAB PO SCH (12:36)
[2020-05-03] MEDS: LISINOPRIL 20 MG TAB PO SCH (12:37)
[2020-05-03 12:58] VITALS: BP 136/68; PULSE 72; TEMP 98.2
--- NOTE | 2020-05-03 13:13 | P.DS ---
Providers Date of admission: 04/30/20 20:31 Expected date of discharge: 05/03/20 (Bilateral pulmonary PE acute,) Attending physician: David Rowe Consults: 04/30/20 20:26 Consult Physician Urgent Consulting Provider: Fede Ruano Consult Reason/Comments: Pulmonary embolism Do you want consulting provider notified?: Yes Primary care physician: David Rowe Dictation of discharge summary date of service 05/03/2020. Consulting physician pulmonary and critical care Dr. Johnson. Final diagnoses: #1 bilateral pulmonary emboli involving the lower lobes and the right middle lobe. #2 bilateral DVT of the lower extremities with the right acute and the left chronic. #3 Parkinson disease followed by Dr. Donna Tripp out of town. Neurologist. #4 hypertension with hypertensive heart disease. #5 no evidence of pulmonary hypertension with good ejection fraction by echocardiogram done on this admission. #6 diabetes mellitus type 2 insulin-dependent followed by Dr. Byrd astronomy department chair. #7 hypothyroidism controlled with medication. #8 on anticoagulant Xarelto 15 mg twice a day started after discontinuation of the heparin by Dr. Johnson. #9 generalized weakness with the association with Parkinson disease and history of agent orange exposure and need for further home rehabilitation. Emergency room presentation: Onset of shortness of breath with negative chest x-ray and elevated d-dimer, computed tomography scan found to be pulmonary emboli. Hospital course: Patient admitted to the hospital and I did order the ultrasound of both lower extremities venous duplex scan which indicating the presence of a DVT in the right leg which is acute and the left leg was chronic. Patient started in the ER on the heparin protocol and consulted to the pulmonary and critical Dr. Johnson and his patient did well with no farther complication or complain Echocardiogram was done on this admission to rule out to pulmonary hypertension and was negative with normal ejection fraction. His medication for diabetes mellitus and hypertension has been adjusted to fit his current medical illness. Patient did well and blood pressure stabilized and blood sugar stabilized and had physical therapy and [facility] as just as occupation therapy and rehabilitation. Patient started on novel anticoagulant and his insurance covered it. Assessment stable patient will be discharged home today and prescription for metformin twice a day. Dictation discontinued #1 Victoza injection. #2 hydrochlorothiazide No. 3 potassium Disposition and plan: #1 follow-up with Dr. Johnson pulmonary and critical care in 1 week. #2 follow-up with Dr. Romero next week. #3 follow-up with Dr. Byrd endocrine in 1 week. Metformin increased to twice a day 1000 mg with food. copy to Dr. Johnson and Dr. Byrd. Critical care pulmonary/the astronomy department chair. Plan - Discharge Summary Discharge Rx Participant: No New Discharge Prescriptions: New metFORMIN HCL [Glucophage] 1,000 mg PO BID-W/MEALS #60 tab Rivaroxaban [Xarelto] 15 mg PO BID-W/MEALS tab Continue Carbidopa-Levodopa 10-100 mg [Sinemet 10-100 mg] 1 tab PO DAILY Carbidopa-Levodopa ER 50-200Mg [Sinemet CR 50-200 mg] 1 tab PO BID Levothyroxine Sodium [Synthroid] 137 mcg PO MOTUWETHFRSA Enalapril [Vasotec] 20 mg PO BID Cholecalciferol (Vitamin D3) [Vitamin D3] 2,000 unit PO DAILY Atorvastatin [Lipitor] 20 mg PO HS Atenolol [Tenormin] 50 mg PO DAILY Pioglitazone HCl [Actos] 15 mg PO DAILY cloNIDine HCL [Catapres] 0.2 mg PO DAILY Furosemide [Lasix] 20 mg PO TUTH Discontinued Liraglutide [Victoza 2-Jean] 1.8 mg SQ DAILY metFORMIN HCL 1,000 mg PO PC-SUPPER Hydrochlorothiazide [Hydrodiuril] 25 mg PO DAILY No Action Insulin Glargine,Hum.rec.anlog [Lantus Solostar] 22 unit SQ DAILY Potassium Chloride ER [K-Dur 10] 10 meq PO DAILY Discharge Medication List Atenolol [Tenormin] 50 mg PO DAILY 04/25/19 [History] Atorvastatin [Lipitor] 20 mg PO HS 04/25/19 [History] Carbidopa-Levodopa 10-100 mg [Sinemet 10-100 mg] 1 tab PO DAILY 04/25/19 [History] Carbidopa-Levodopa ER 50-200Mg [Sinemet CR 50-200 mg] 1 tab PO BID 04/25/19 [History] Cholecalciferol (Vitamin D3) [Vitamin D3] 2,000 unit PO DAILY 04/25/19 [History] Enalapril [Vasotec] 20 mg PO BID 04/25/19 [History] Insulin Glargine,Hum.rec.anlog [Lantus Solostar] 22 unit SQ DAILY 04/25/19 [History] Levothyroxine Sodium [Synthroid] 137 mcg PO MOTUWETHFRSA 04/25/19 [History] Pioglitazone HCl [Actos] 15 mg PO DAILY 04/25/19 [History] Furosemide [Lasix] 20 mg PO TUTH 04/30/20 [History] Potassium Chloride ER [K-Dur 10] 10 meq PO DAILY 04/30/20 [History] cloNIDine HCL [Catapres] 0.2 mg PO DAILY 04/30/20 [History] Rivaroxaban [Xarelto] 15 mg PO BID-W/MEALS tab 05/03/20 [Rx] metFORMIN HCL [Glucophage] 1,000 mg PO BID-W/MEALS #60 tab 05/03/20 [Rx] Follow up Appointment(s)/Referral(s): Fede Ruano MD [STAFF PHYSICIAN] - 1 Week [facility] Visiting Nurse, [NON-STAFF] - David Rowe MD [Primary Care Provider] - 3 Days Activity/Diet/Wound Care/Special Instructions: Patient has coverage for Xarelto - $30 copay/month. Filled with free coupon at [facility]
--- NOTE | 2020-05-03 13:53 | P.PN ---
Subjective Progress Note Date: 05/03/20 Principal diagnosis: Dyspnea secondary to pulmonary emboli 74-year-old male patient of Dr. Rowe, with past medical history of diabetes mellitus type 2, Parkinson's disease, hypertension, previous history of right leg DVT 6 years ago in the left leg, hypothyroidism, history of degenerative osteoarthritis, obstructive sleep apnea on CPAP therapy, lifetime nonsmoker, who presented to the emergency department on 04/30/2020 with complaints of shortness of breath for one day prior to presentation, worse with exertion. Denies chest pain, denies hemoptysis, denies pleurisy. Patient denies any fever chills, no cough or congestion, no palpitations, no syncope, no headaches, no nausea vomiting diarrhea. No calf tenderness or leg swelling. Patient states he is not overly active, but he is able to ambulate. No recent history of surgery, or recent illness. Chest X-ray showed no active cardiopulmonary process. CBC was within normal limits, d-dimer was significantly elevated at 18.89, CTA chest was obtained showing multiple filling defects in the lower lobe pulmonary arteries bilaterally, no evidence of saddle embolism, and there was some thrombus seen in the right middle lobe pulmonary artery, no evidence of right heart strain. Echocardiogram is currently pending. Hemodynamically patient is stable, proBNP was 1040, troponin is 0.020. Electrolytes are within normal limits, BUN is 30 creatinine is 1.10. Patient was started on high intensity heparin drip. 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 She is on room air, with a pulse ox of 95%, vital signs are stable, a bit hypertensive with systolic in the 160s to 170s, and diastolic in the 90s and 100s. The patient is seen today 05/02/2020 in follow-up on the selective care unit. He is currently resting comfortably in bed. Awake and alert in no acute distress. He is maintaining O2 saturations in the mid 90s on room air. He's been afebrile. Hemodynamically stable. He remains on a heparin drip. The patient is seen today 05/03/2020 in follow-up on the selective care unit. He is awake and alert in no acute distress. Resting quite comfortably in bed. Maintaining good O2 saturations in the 90s on room air. He has been initiated on Xarelto. Objective - Vital Signs Vital signs: Vital Signs Temp 98.2 F 05/03/20 12:45 Pulse 72 05/03/20 12:45 Resp 20 05/03/20 12:45 BP 136/68 05/03/20 12:45 Pulse Ox 100 05/03/20 12:45 Intake & Output 05/02/20 05/03/20 05/03/20 18:59 06:59 18:59 Intake Total 1113 450 458 Output Total 200 Balance 913 450 458 Weight 94.6 kg Intake: IV 96 Heparin Sod,Pork in 0.45% 96 NaCl 25,000 unit In 0.45 % NaCl 1 250ml.bag @ 18 UNITS/KG/HR 17.472 mls/hr IV .[id number] ZACH Rx#: [id number] Oral 1017 450 458 Output: Urine 200 Other: Voiding Method Urinal Toilet Toilet Urinal Urinal # Voids 2 2 - Exam GENERAL EXAM: Alert, very pleasant, 74-year-old male patient, on room air, comfortable in no apparent distress. HEAD: Normocephalic/atraumatic. EYES: Normal reaction of pupils, equal size. Conjunctiva pink, sclera white. NOSE: Clear with pink turbinates. THROAT: No erythema or exudates. NECK: No masses, no JVD, no thyroid enlargement, no adenopathy. CHEST: No chest wall deformity. Symmetrical expansion. LUNGS: Equal air entry with no crackles, wheeze, rhonchi or dullness. CVS: Regular rate and rhythm, normal S1 and S2, no gallops, no murmurs, no rubs ABDOMEN: Soft, nontender. No hepatosplenomegaly, normal bowel sounds, no guarding or rigidity. EXTREMITIES: No clubbing, no edema, no cyanosis, 2+ pulses and upper and lower extremities. MUSCULOSKELETAL: Muscle strength and tone normal. SPINE: No scoliosis or deformity SKIN: No rashes CENTRAL NERVOUS SYSTEM: No focal deficits, tone is normal in all 4 extremities. PSYCHIATRIC: Alert and oriented -3. Appropriate affect. Intact judgment and insight. - Labs CBC & Chem 7: 05/01/20 06:14 05/01/20 08:43 Labs: Abnormal Lab Results - Last 24 Hours (Table) 05/02/20 05/02/2005/03/20 Range/Units 16:55 21:09 06:22 POC Glucose (mg/dL) 111 H 191 H 127 H (75-99) mg/dL 05/03/20 Range/Units 11:56 POC Glucose (mg/dL) 159 H (75-99) mg/dL Assessment and Plan Assessment: #1. Acute bilateral pulmonary emboli, without evidence of right heart strain, echocardiogram shows LVH, EF of 55-60%, trace tricuspid regurg, no evidence of pulmonary hypertension with right-sided pressures than 35 mmHg. There was also trace mitral regurg #2. 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 Previous history of DVT in the left popliteal vein 6 years ago following surgical procedure #4. Parkinson's disease #5. Degenerative osteoarthritis #6. Hypothyroidism #7. Diabetes mellitus type 2 #8. Sleep apnea on CPAP therapy, compliant #9. Previous exposure to agent orange #10. Lifetime nonsmoker Plan: The patient was seen and evaluated by Dr. Ruano On room air and stable from the pulmonary standpoint Transitioned to Xarelto Plan is for discharge today I, the cosigning physician, performed a history & physical examination of the patient. Lungs sounds are clear. Maintaining good O2 saturations in the 90s on room air. I discussed the assessment and plan of care with my nurse practitioner, Enid Thapa. I attest to the above note as dictated by her.
--- NOTE | 2020-05-08 08:29 | CDI ---
Documentation Clarification Form Date: 05/08/20 From: Luma Luu Phone: If you have a question about this query, please contact Ana Fierro, Exploration Manager at [phone] between 8am and 5pm. Admit Date: 04/30/20 Discharge Date:05/03/20 Patient Name: Chalo Mojica Visit Number: [id number] ATTENTION: The Clinical Documentation Specialists (CDI) and [facility] Coding Staff appreciate your assistance in clarifying documentation. Please respond to the clarification below the line at the bottom and electronically sign. The CDI & [facility] Coding staff will review the response and follow-up if needed. Please note: Queries are made part of the Legal Health Record. If you have any questions, please contact the author of this message via ITS. Dear Dr. Rowe The patient presented with the following: acute bilateral pulmonary emboli. Documentation in your 05/01 progress note stated hypertension uncontrolled. History/Risk Factors: Hypertensive cardiovascular disease, hyperlipidemia, diabetes, Clinical Indicators: Elevated blood pressures Vital Signs: T. 98.6, P. 82, R. 18, BP 129/80 Blood Pressure: 04/30 - 173/102, 181/107, 151/90, 144/87, 146/103; 05/01 - 164/104, 160/104, 182/102, 175/101, 167/93 Treatment: Clonidine resumed and started on amlodipine 5 mg 1 tab at night In your professional opinion, can you please clarify the uncontrolled hypertension? Crisis Urgency Emergency Other, please specify Unable to determine pt. hx Htn with unclear complience ,dr aguiar did resume clonidine and BP gradual improvement . MTDD
== END 2020-05-03 15:29 | disposition home health service (06) | DRG 176 ==
LOC: EC 16:01 → 3SCARD 20:31
PROVIDERS: ADMIT Internal Medicine; ATTEND Internal Medicine
DX: I26.99 Other pulmonary embolism without acute cor pulmonale (principal); I82.431 Acute embolism and thrombosis of right popliteal vein; I82.532 Chronic embolism and thrombosis of left popliteal vein; G20 Parkinson's disease; I11.9 Hypertensive heart disease without heart failure; E03.9 Hypothyroidism, unspecified; E11.9 Type 2 diabetes mellitus without complications; E78.5 Hyperlipidemia, unspecified; R09.02 Hypoxemia; M19.90 Unspecified osteoarthritis, unspecified site; Z20.828 Contact with and (suspected) exposure to other viral communicable diseases; G47.33 Obstructive sleep apnea (adult) (pediatric); H91.93 Unspecified hearing loss, bilateral; I07.1 Rheumatic tricuspid insufficiency; G31.84 Mild cognitive impairment of uncertain or unknown etiology; Z79.4 Long term (current) use of insulin; Z79.890 Hormone replacement therapy; Z79.899 Other long term (current) drug therapy; Z88.0 Allergy status to penicillin; Z96.653 Presence of artificial knee joint, bilateral; Z96.1 Presence of intraocular lens; Z85.828 Personal history of other malignant neoplasm of skin; Z57.4 Occupational exposure to toxic agents in agriculture; Z91.81 History of falling; Z99.89 Dependence on other enabling machines and devices; Z80.9 Family history of malignant neoplasm, unspecified; Z80.41 Family history of malignant neoplasm of ovary
CPT/HCPCS: 36415; 71046; 71275; 80048; 80053; 83605; 83735; 83880; 84443; 84484; 85025; 85379; 85610; 85730; 93005; 93306; 93970; 96365; 96366; 96376; 99291

== ENCOUNTER → 2020-06-18 | Outpatient (CLI) | payer MEDICARE ==
[2020-06-18 13:31] LABS: Basophils # (A) 0.1 k/uL (0-0.2); Basophils % (A) 1 %; Eosinophils # (A) 0.2 k/uL (0-0.7); Eosinophils % (A) 2 %; HCT 45.8 % (39.0-53.0); HGB 14.4 gm/dL (13.0-17.5); Lymphocytes # (A) 2.6 k/uL (1.0-4.8); Lymphocytes % (A) 24 %; MCH 27.5 pg (25.0-35.0); MCHC 31.4 g/dL (31.0-37.0); MCV 87.8 fL (80.0-100.0); Mean Platelet Volume 7.7; Monocytes # (A) 0.9 k/uL (0-1.0); Monocytes % (A) 8 %; Neutrophils # (A) 6.5 k/uL (1.3-7.7); Neutrophils % (A) 61 %; Platelet Count 249 k/uL (150-450); RBC 5.22 m/uL (4.30-5.90); RDW 14.3 % (11.5-15.5); WBC 10.7 k/uL (3.8-10.6)
[2020-06-18 13:40] LABS: Calcium 9.3 mg/dL (8.4-10.2); Potassium 4.2 mmol/L (3.5-5.1)
[2020-06-18 13:57] LABS: T4, Free (Free Thyroxine) 1.29 ng/dL (0.78-2.19)
--- NOTE | 2020-06-18 16:09 | US ---
EXAMINATION TYPE: US venous doppler duplex LE BI DATE OF EXAM: 06/18/2020 12:38 PM COMPARISON: 04/30/2020 CLINICAL HISTORY: 74-year-old male R22.42 Swelling of left lower limb, R22.41 swelling of right. On t hinners for acute thrombus within right leg diagnosed 04/2020, h/o left DVT 5 yrs ago SIDE PERFORMED: Bilateral TECHNIQUE: The lower extremity deep venous system is examined utilizing real time linear array sonog sandra with graded compression, doppler sonography and color-flow sonography. FINDINGS: VESSELS IMAGED: External Iliac Vein (EIV) Common Femoral Vein Deep Femoral Vein Greater Saphenous Vein * Femoral Vein Popliteal Vein Small Saphenous Vein * Proximal Calf Veins (* superficial vessels) Right Leg: Negative for DVT, no sign of thrombus seen on today's exam Left Leg: Appearance of chronic thrombus with thready flow within the femoral vein and proximal calf vein. IMPRESSION: 1. No evidence for DVT within the right lower extremity imaged from the groin to the upper calf. Inte rval clearance from prior exam. 2. Thready flow compatible with chronic nonocclusive DVT involving the left lower extremity within th e femoral vein and upper calf vein.
[2020-06-18 17:40] LABS: Erythrocyte Sedimentation Rate 16 mm/hr (0-15)
== END | disposition home or self-care (01) ==
LOC: RADUSWWP 12:02
PROVIDERS: ATTEND Internal Medicine
DX: R22.42 Localized swelling, mass and lump, left lower limb (principal); Z88.0 Allergy status to penicillin
CPT/HCPCS: 80048; 83880; 84439; 84443; 85025; 85379; 85652; 93970

== ENCOUNTER → 2020-07-05 | Outpatient (CLI) | payer MEDICARE ==
--- NOTE | 2020-07-05 21:56 | SFUN ---
SLEEP CENTER FOLLOW UP NOTE DATE OF SERVICE: 07/05/2020 This patient is a 74-year-old gentleman who follows up in the sleep center for treatment of obstructive sleep apnea-hypopnea syndrome. The patient continues to use CPAP equipment every night. He recently developed some problems with the humidifier; level of water does not change in the CPAP unit. [place] Sleepiness Scale today is 9. I checked the patient's CPAP unit. CPAP pressure is 10 cm of water. Usage is 29/30 for more than 4 hours with average usage 6.9 hours per night. Leak is high at 41 L/minute. Apnea-hypopnea index reading for the last night is 10, for the last month 29.6, for the last 6 months 10.0, for the last year 5.4. During his previous visit about one year ago, apnea-hypopnea index was only 0.6. About one month ago, the patient was in the hospital for pulmonary embolism. CURRENT MEDICATIONS: Actos, atenolol, atorvastatin, clonidine, enalapril, Lasix, levothyroxine, metformin, potassium supplement, Sinemet, vitamin D3, Xarelto, Lantus. PHYSICAL EXAMINATION: GENERAL: A pleasant patient in no distress. VITAL SIGNS: BP 144/80, HR 66, RR 15, height 5 feet 7-1/2 inches, weight 219, body mass index 33.6, temperature 98.1, oxygen saturation at room air 98%. HEENT: PERRLA, EOMI. Evaluation of oropharynx showed tongue protrudes midline. Extremely low position of soft palate. Mallampati IV. NECK: Supple. No JVD. Thyroid is not palpable. LUNGS: Clear to percussion and to auscultation. Good air exchange. No wheezing or rhonchi. HEART: S1, S2 regular. No murmurs, gallops or rubs. ABDOMEN: Soft and nontender. Bowel sounds are present. No organomegaly. EXTREMITIES: No clubbing or cyanosis. SOLE PAINTER: Awake, alert, and oriented X3. Cranial nerves 2 to 7 intact. There is no fasciculation or atrophy. noted. No focal deficits observed. PLAN: 1. Prescription to fix or replace his CPAP unit because the humidifier does not work. 2. I changed the regimen of his CPAP unit to automatic with the range of pressure 5 to 13. 3. Patient will continue to use PAP equipment every night for the whole night. 4. Sleep hygiene with regular time in bed for at least 7-1/2 to 8 hours. 5. Precautions related to driving. No driving if feeling sleepiness. 6. I will maintain all necessary prescription for PAP supplies including mask, tube, filters. 7. Watching weight. 8. Follow-up visit in 2 months. Thank you very much for allowing me to participate in the management of your patient. Sincerely, Nicolás Bill MD, PhD, FAASM Diplomat of [employer] [employer] [place] [employer] Subacute Nurse of [facility] [place] MMODL / IJN: [id number] /
== END | disposition home or self-care (01) ==
LOC: SLEEP 13:59
PROVIDERS: ATTEND Internal Medicine
DX: G47.33 Obstructive sleep apnea (adult) (pediatric) (principal); Z99.89 Dependence on other enabling machines and devices

== ENCOUNTER → 2020-09-06 | Outpatient (CLI) | payer MEDICARE ==
--- NOTE | 2020-09-06 23:56 | SFUN ---
SLEEP CENTER FOLLOW UP NOTE DATE OF SERVICE: 09/06/2020 This 74-year-old gentleman had been followed in Sleep Center for treatment of obstructive sleep apnea-hypopnea syndrome. During the previous visit about 2 months ago, I wrote a prescription to replace CPAP unit because heated humidifier did not work and also reading from the machine showed increasing apnea-hypopnea index up to 29.6. Patient received loaner. He is using equipment every night. He does not complain on his quality of sleep significantly, but sometimes he wakes up. I checked CPAP unit. It is an automatic regimen range of the pressure 5 to 13, average pressure 7.1, usage is 29 out of 30 nights more than 4 hours with average usage 6.8 hours per night, which is good compliance. Leak is 14 L/minute which is borderline. Humidifier at the level of 5. Apnea-hypopnea index reading is 16.1 and central apneas includes 13.6. MEDICATIONS: Actos, atenolol, atorvastatin, clonidine, enalapril, Lasix, levothyroxine, metformin, Sinemet, potassium supplement, Xarelto, Lantus, vitamin D3. PHYSICAL EXAMINATION: GENERAL: Patient in no distress. VITAL SIGNS: BP 88/49, HR 68, RR 15, weight 213, temp 98.3, oxygen saturation 95%. HEENT: PERRLA, EOMI, evaluation of oropharynx showed tongue protrudes midline. NECK: Supple, no JVD. Thyroid is not palpable. LUNGS: Clear to percussion and to auscultation. Good air exchange. No wheezing or rhonchi. HEART: S1, S2 regular. No murmurs, gallops, or rubs. ABDOMEN: Soft and nontender. Bowel sounds are present. No organomegaly appreciated. EXTREMITIES: No clubbing or cyanosis. THIRD OFFICER: Some fasciculation and tremor observed. IMPRESSION: 1. Obstructive sleep apnea-hypopnea syndrome. Patient demonstrated practically 100% compliance with treatment. 2. Reading from the machine showed apnea-hypopnea index 16.1 with central apnea index 13.6. 3. Hypertension. 4. Diabetes mellitus. 5. History of pulmonary embolism. 6. Parkinson disease. 7. Hypertension. 8. Diabetes mellitus. 9. Hyperlipidemia. 10.Hypothyroidism. 11.Status post surgical treatment for basal cell carcinoma of the face. 12.Status post left knee replacement. 13.Status post surgical treatment for nasal septum deviation. 14.Status post arthroscopic right knee surgery. PLAN: 1. The patient will continue to use his CPAP in automatic regimen every night for the whole night. 2. We will proceed with the CPAP if necessary BiPAP, if necessary BiPAP ST mode titration for correction of central respiratory abnormalities during sleep. 3. Sleep hygiene with regular time in bed for at least 7-1/2 to 8 hours. 4. Precautions related to driving. No driving if feeling sleepiness. 5. I will maintain all necessary prescription for PAP supplies including mask, tube, filters. 6. Watching weight. 7. No driving if feeling sleepiness. 8. Follow-up visit in 6 months or earlier if patient has any problems. Thank you very much for allowing me to participate in management of your patient. Sincerely, Nicolás Bill MD, PhD, FAASM Diplomat of [place] [employer] [place] [employer] Pediatric Physical Therapy Assistant of [facility] [place] MMODL / IJN: [id number] /
== END | disposition home or self-care (01) ==
LOC: SLEEP 14:19
PROVIDERS: ATTEND Internal Medicine
DX: G47.33 Obstructive sleep apnea (adult) (pediatric) (principal); I10 Essential (primary) hypertension; E11.9 Type 2 diabetes mellitus without complications; G20 Parkinson's disease; E78.5 Hyperlipidemia, unspecified; E03.9 Hypothyroidism, unspecified; Z86.711 Personal history of pulmonary embolism; Z99.89 Dependence on other enabling machines and devices; Z79.891 Long term (current) use of opiate analgesic; Z79.890 Hormone replacement therapy; Z79.899 Other long term (current) drug therapy; Z79.4 Long term (current) use of insulin; Z85.828 Personal history of other malignant neoplasm of skin; Z96.652 Presence of left artificial knee joint; Z98.890 Other specified postprocedural states

== ENCOUNTER 2021-03-07 14:38 | Observation (INO) | payer MEDICARE ==
[2021-03-07 15:14] LABS: Glucose,Whole Blood 143 mg/dL (75-99)
[2021-03-07] MEDS ORDERED: SODIUM CHLORIDE 0.9% 1,000 ML IV STA (15:27)
--- NOTE | 2021-03-07 15:32 | ED ---
General Adult HPI - General Chief complaint: Syncope Stated complaint: Syncope Time Seen by Provider: 03/07/21 15:03 Source: patient, EMS, RN notes reviewed Mode of arrival: EMS Limitations: physical limitation - History of Present Illness Initial comments: Patient is a pleasant 75-year-old male presenting to the emergency Department with complaints of syncopal episode. Patient has had several near-syncopal episodes over the past week or 2. Today patient had a single episode in the physician's office and was advised to come here. Episode lasted around 5 minutes. Patient states at this time he is symptom-free. Patient is no complaints. No headache. No confusion or weakness. No isolated area of weakness.Sounds. No chest pain or dyspnea. No abdominal or back pain. - Related Data Home Medications Medication Instructions Recorded Confirmed Atorvastatin [Lipitor] 20 mg PO HS 04/25/19 03/07/21 Carbidopa-Levodopa 10-100 mg 1 tab PO DAILY@1100 04/25/19 03/07/21 [Sinemet 10-100 mg] Carbidopa-Levodopa ER 50-200Mg 1 tab PO BID@0900,1500 04/25/19 03/07/21 [Sinemet CR 50-200 mg] Cholecalciferol (Vitamin D3) 2,000 unit PO DAILY 04/25/19 03/07/21 [Vitamin D3] Insulin Glargine,Hum.rec.anlog 14 unit SQ DAILY 04/25/19 03/07/21 [Lantus Solostar] Levothyroxine Sodium [Synthroid] 137 mcg PO MOTUWETHFRSA 04/25/19 03/07/21 Pioglitazone HCl [Actos] 15 mg PO DAILY 04/25/19 03/07/21 atenoloL [Tenormin] 25 mg PO DAILY 04/25/19 03/07/21 Potassium Chloride ER [K-Dur 10] 10 meq PO DAILY 04/30/20 03/07/21 Enalapril [Vasotec] 5 mg PO DAILY 03/07/21 03/07/21 Furosemide [Lasix] 20 mg PO DAILY 03/07/21 03/07/21 Liraglutide [Victoza 2-Jean] 1.8 mg SQ DAILY 03/07/21 03/07/21 Naproxen [Naprosyn] 500 mg PO Q12HR 03/07/21 03/07/21 Omeprazole 40 mg PO DAILY 03/07/21 03/07/21 Rivaroxaban [Xarelto] 20 mg PO HS 03/07/21 03/07/21 Tamsulosin [Flomax] 0.4 mg PO DAILY 03/07/21 03/07/21 busPIRone HCl [Buspar] 5 mg PO TID 03/07/21 03/07/21 metFORMIN HCL 1,000 mg PO BID 03/07/21 03/07/21 Allergies Allergy/AdvReac Type Severity Reaction Status Date / Time Penicillins Allergy Unknown Verified 03/07/21 15:58 Childhood Review of Systems ROS Statement: Those systems with pertinent positive or pertinent negative responses have been documented in the HPI. ROS Other: All systems not noted in ROS Statement are negative. Constitutional: Denies: fever Eyes: Denies: eye pain ENT: Denies: ear pain Respiratory: Denies: cough Cardiovascular: Denies: chest pain Endocrine: Denies: fatigue Gastrointestinal: Denies: abdominal pain Genitourinary: Denies: dysuria Musculoskeletal: Denies: back pain Skin: Denies: rash Neurological: Denies: headache, weakness, confusion Past Medical History Past Medical History: Cancer, Diabetes Mellitus, Hearing Disorder / Deafness, Hyperlipidemia, Hypertension, Neurologic Disorder, Osteoarthritis (OA), Thyroid Disorder Additional Past Medical History / Comment(s): Parkinsons, falls, IDDM type II, [place] bilaterally, skin cancer removals, JULIANA with CPap, hypothyroid, past L upper arm cellulitis, occasional edema hands/legs, occasional low back pain, History of Any Multi-Drug Resistant Organisms: None Reported Past Surgical History: Joint Replacement Additional Past Surgical History / Comment(s): Total L/R knee arthroplasties, skin cancer removed from nose/hairline, surgery for deviated septum, colonoscopies/benign polypectomies, L chest wall cyst removed, bilateral cataract removals/lens implants. Past Anesthesia/Blood Transfusion Reactions: No Reported Reaction Past Psychological History: No Psychological Hx Reported Past Alcohol Use History: None Reported Past Drug Use History: None Reported - Past Family History Mother Family Medical History: Cancer Additional Family Medical History / Comment(s): OVARIAN CANCER Father Additional Family Medical History / Comment(s): Father at the age of 66 yrs from a "heart condition". He was a smoker. General Exam Limitations: no limitations General appearance: alert, in no apparent distress Head exam: Present: atraumatic Eye exam: Present: normal appearance, PERRL, EOMI. Absent: nystagmus ENT exam: Present: normal oropharynx Neck exam: Present: normal inspection. Absent: tenderness, meningismus Respiratory exam: Present: normal lung sounds bilaterally Cardiovascular Exam: Present: regular rate, normal rhythm, normal heart sounds Expanded Peripheral pulses: 2+: Radial (R), Radial (L), Dorsalis Pedis (R), Dorsalis Pedis (L) GI/Abdominal exam: Present: soft. Absent: distended, tenderness, pulsatile mass Extremities exam: Present: normal inspection, full ROM. Absent: tenderness, pedal edema, calf tenderness Neurological exam: Present: alert, oriented X3, CN II-XII intact. Absent: motor sensory deficit Expanded Neurological exam: Present: protecting the airway Patient oriented to: Present: person, place, time Speech: Present: fluid speech Cranial nerves: EOM's Intact: Normal, Facial Sensation: Normal Sensory exam: Upper Extremity Light Touch: Normal, Lower Extremity Light Touch: Normal Motor strength exam: RUE: 5, LUE: 5, RLE: 5, LLE: 5 Eye Response: (4) open spontaneously Motor Response: (6) obeys commands Verbal Response: (5) oriented Psychiatric exam: Present: normal affect, normal mood Skin exam: Present: normal color Course Vital Signs 03/07/21 03/07/21 03/07/21 14:56 15:02 16:02 Temperature 97.9 F Pulse Rate 67 72 69 Respiratory 18 18 18 Rate Blood Pressure 143/80 143/80 129/71 O2 Sat by Pulse 99 99 98 Oximetry EKG Findings - EKG Comments: EKG Findings:: Normal sinus rhythm at 69. NJ 1:30. QRS 84. QT 412. QTC 441. Normal axis. Normal QRS. No acute ST change. Medical Decision Making - Medical Decision Making Patient reevaluated. Patient family updated. Hemoglobin is low and Hemoccult was done. Gross stool without blood. Will be sent to lab. Case was discussed with Dr. Rowe who would like his patient admitted with consults with cardiology and neurology. - Lab Data Result diagrams: 03/07/21 15:36 03/07/21 15:36 Lab Results 03/07/21 03/07/2103/07/21 Range/Units 15:12 15:36 15:36 WBC 6.7 (3.8-10.6) k/uL RBC 4.06 L (4.30-5.90) m/uL Hgb 10.7 L (13.0-17.5) gm/dL Hct 32.2 L (39.0-53.0) % MCV 79.3 L (80.0-100.0) fL MCH 26.2 (25.0-35.0) pg MCHC 33.1 (31.0-37.0) g/dL RDW 13.4 (11.5-15.5) % Plt Count 261 (150-450) k/uL MPV 8.5 Neutrophils % 70 % Lymphocytes % 19 % Monocytes % 8 % Eosinophils % 2 % Basophils % 0 % Neutrophils # 4.7 (1.3-7.7) k/uL Lymphocytes # 1.3 (1.0-4.8) k/uL Monocytes # 0.5 (0-1.0) k/uL Eosinophils # 0.1 (0-0.7) k/uL Basophils # 0.0 (0-0.2) k/uL Hypochromasia Moderate Poikilocytosis Slight PT 12.7 H (9.0-12.0) sec INR 1.2 H (<1.2) APTT 25.3 (22.0-30.0) sec Sodium (137-145) mmol/L Potassium (3.5-5.1) mmol/L Chloride (98-107) mmol/L Carbon Dioxide (22-30) mmol/L Anion Gap mmol/L BUN (9-20) mg/dL Creatinine (0.66-1.25) mg/dL Est GFR (CKD-EPI)AfAm (>60 ml/min/1.73 sqM) Est GFR (CKD-EPI)NonAf (>60 ml/min/1.73 sqM) Glucose (74-99) mg/dL POC Glucose (mg/dL) 143 H (75-99) mg/dL POC Glu Audio Engineer ID Marlys Duran Calcium (8.4-10.2) mg/dL Total Bilirubin (0.2-1.3) mg/dL AST (17-59) U/L ALT (4-49) U/L Alkaline Phosphatase (38-126) U/L Troponin I (0.000-0.034) ng/mL Total Protein (6.3-8.2) g/dL Albumin (3.5-5.0) g/dL Urine Color Urine Appearance (Clear) Urine pH (5.0-8.0) Ur Specific [place] (1.001-1.035) Urine Protein (Negative) Urine Glucose (UA) (Negative) Urine Ketones (Negative) Urine Blood (Negative) Urine Nitrite (Negative) Urine Bilirubin (Negative) Urine Urobilinogen (<2.0) mg/dL Ur Leukocyte Esterase (Negative) 03/07/21 03/07/21 03/07/21 Range/Units 15:36 15:36 15:36 WBC (3.8-10.6) k/uL RBC (4.30-5.90) m/uL Hgb (13.0-17.5) gm/dL Hct (39.0-53.0) % MCV (80.0-100.0) fL MCH (25.0-35.0) pg MCHC (31.0-37.0) g/dL RDW (11.5-15.5) % Plt Count (150-450) k/uL MPV Neutrophils % % Lymphocytes % % Monocytes % % Eosinophils % % Basophils % % Neutrophils # (1.3-7.7) k/uL Lymphocytes # (1.0-4.8) k/uL Monocytes # (0-1.0) k/uL Eosinophils # (0-0.7) k/uL Basophils # (0-0.2) k/uL Hypochromasia Poikilocytosis PT (9.0-12.0) sec INR (<1.2) APTT (22.0-30.0) sec Sodium 142 (137-145) mmol/L Potassium 5.0 (3.5-5.1) mmol/L Chloride 107 (98-107) mmol/L Carbon Dioxide 24 (22-30) mmol/L Anion Gap 11 mmol/L BUN 28 H (9-20) mg/dL Creatinine 1.23 (0.66-1.25) mg/dL Est GFR (CKD-EPI)AfAm 66 (>60 ml/min/1.73 sqM) Est GFR (CKD-EPI)NonAf 57 (>60 ml/min/1.73 sqM) Glucose 136 H (74-99) mg/dL POC Glucose (mg/dL) (75-99) mg/dL POC Glu Audio Engineer ID Calcium 9.4 (8.4-10.2) mg/dL Total Bilirubin 0.6 (0.2-1.3) mg/dL AST 26 (17-59) U/L ALT 12 (4-49) U/L Alkaline Phosphatase 80 (38-126) U/L Troponin I <0.012 (0.000-0.034) ng/mL Total Protein 6.8 (6.3-8.2) g/dL Albumin 3.9 (3.5-5.0) g/dL Urine Color Light Yellow Urine Appearance Clear (Clear) Urine pH 5.5 (5.0-8.0) Ur Specific [place] 1.009 (1.001-1.035) Urine Protein Negative (Negative) Urine Glucose (UA) Negative (Negative) Urine Ketones Negative (Negative) Urine Blood Negative (Negative) Urine Nitrite Negative (Negative) Urine Bilirubin Negative (Negative) Urine Urobilinogen <2.0 (<2.0) mg/dL Ur Leukocyte Esterase Negative (Negative) - Radiology Data Radiology results: report reviewed (Computed tomography scan the brain shows atrophy. No acute process.), image reviewed (Chest x-ray shows cardiomegaly. Otherwise no acute process.) Disposition Clinical Impression: Syncope Disposition: ADMITTED IP TO THIS HOSP Is patient prescribed a controlled substance at d/c from ED?: No Referrals: David Rowe MD [Primary Care Provider] - 1-2 days Decision Time: 16:56
[2021-03-07 15:55] LABS: Appearance,Urine Clear (Clear); Basophils % (A) 0 %; Bilirubin,Urine Negative (Negative); Blood,Urine Negative (Negative); Color,Urine Light Yellow; Eosinophils # (A) 0.1 k/uL (0-0.7); Eosinophils % (A) 2 %; Glucose,Urine (UA) Negative (Negative); HCT 32.2 % (39.0-53.0); HGB 10.7 gm/dL (13.0-17.5); Hypochromasia Moderate; Ketones,Urine Negative (Negative); Leukocyte Esterase,Urine Negative (Negative); Lymphocytes # (A) 1.3 k/uL (1.0-4.8); Lymphocytes % (A) 19 %; MCH 26.2 pg (25.0-35.0); MCHC 33.1 g/dL (31.0-37.0); MCV 79.3 fL (80.0-100.0); Mean Platelet Volume 8.5; Monocytes # (A) 0.5 k/uL (0-1.0); Monocytes % (A) 8 %; Neutrophils # (A) 4.7 k/uL (1.3-7.7); Neutrophils % (A) 70 %; Nitrite,Urine Negative (Negative); PH, Urine 5.5 (5.0-8.0); Platelet Count 261 k/uL (150-450); Poikilocytosis Slight; Protein,Urine Negative (Negative); RBC 4.06 m/uL (4.30-5.90); RDW 13.4 % (11.5-15.5); Specific Gravity,Urine 1.009 (1.001-1.035); Urobilinogen,Urine <2.0 mg/dL (<2.0); WBC 6.7 k/uL (3.8-10.6)
--- NOTE | 2021-03-07 16:03 | XR ---
EXAMINATION TYPE: XR chest 2V DATE OF EXAM: 03/07/2021 CLINICAL HISTORY: syncope. TECHNIQUE: Frontal and lateral view of the chest. COMPARISON: 04/30/2020 FINDINGS: The cardiomediastinal silhouette is again enlarged. Pulmonary vasculature is normal. There are redemonstrated costochondral calcifications. There is no focal air space opacity. No pleural ef fusion. No pneumothorax seen. Degenerative changes of the shoulders bilaterally. IMPRESSION: Redemonstrated cardiomegaly. Otherwise no acute process.
[2021-03-07 16:08] LABS: INR 1.2 (<1.2); Partial Thromboplastin Time 25.3 sec (22.0-30.0); Prothrombin Time 12.7 sec (9.0-12.0)
[2021-03-07 16:17] LABS: Albumin 3.9 g/dL (3.5-5.0); Calcium 9.4 mg/dL (8.4-10.2); Total Bilirubin 0.6 mg/dL (0.2-1.3); Total Protein 6.8 g/dL (6.3-8.2)
--- NOTE | 2021-03-07 16:26 | CT ---
EXAMINATION TYPE: CT brain wo con DATE OF EXAM: 03/07/2021 COMPARISON: None HISTORY: Syncopal episode. Weakness CT DLP: 1218.4 mGycm Automated exposure control for dose reduction was used. There is cerebral cortical atrophy. There is no mass effect nor midline shift. There is no sign of in tracranial hemorrhage. There is mild hypodensity in the periventricular white matter. The calvarium i s intact. Skull base is intact. IMPRESSION: Cerebral atrophy. No acute intracranial abnormality.
[2021-03-07] MEDS ORDERED: NALOXONE 0.4 MG/ML 1 ML VIAL IV PRN (16:56)
[2021-03-07] MEDS: PANTOPRAZOLE 40 MG/10 ML VIAL IV SCH (18:37)
[2021-03-07] MEDS: SODIUM CHLORIDE 0.9% 1,000 ML IV SCH (18:37)
[2021-03-07 19:09] LABS: Glucose,Whole Blood 131 mg/dL (75-99)
[2021-03-07] MEDS: INSULIN DETEMIR (LEVEMIR) 100 UNIT/ML SYR SQ SCH (22:30)
[2021-03-07 22:31] LABS: Glucose,Whole Blood 119 mg/dL (75-99)
[2021-03-08] MEDS: LEVOTHYROXINE 137 MCG TAB PO SCH (05:31)
[2021-03-08] MEDS: metFORMIN 500 MG TAB PO SCH ×2 (08:33→16:56)
[2021-03-08] MEDS: busPIRone HCl 5 MG TAB PO SCH ×3 (08:34→21:55)
[2021-03-08] MEDS: lisinopriL 5 MG TAB PO SCH (08:34)
[2021-03-08] MEDS: CHOLECALCIFEROL 25 MCG (1000 IU) TABLET PO SCH (08:34)
[2021-03-08] MEDS: PANTOPRAZOLE 40 MG/10 ML VIAL IV SCH (08:34)
[2021-03-08] MEDS: CARBIDOPA-LEVODOPA ER 50-200MG 1 EACH TABLET.ER PO SCH ×2 (08:34→20:44)
[2021-03-08] MEDS: TAMSULOSIN 0.4 MG CAP.ER.24H PO SCH (08:34)
[2021-03-08] MEDS: PANTOPRAZOLE 40 MG TABLET PO SCH (08:34)
[2021-03-08] MEDS: NAPROXEN 250 MG TAB PO SCH ×2 (08:34→20:44)
[2021-03-08] MEDS: PIOGLITAZONE 15 MG TAB PO SCH (08:35)
[2021-03-08] MEDS: POTASSIUM CHLORIDE ER 10 MEQ TAB.ER.PRT PO SCH (08:35)
[2021-03-08] MEDS ORDERED: FUROSEMIDE 20 MG TAB PO SCH (09:00)
[2021-03-08] MEDS ORDERED: atenoloL 25 MG TAB PO SCH (09:00)
--- NOTE | 2021-03-08 09:17 | US ---
EXAMINATION TYPE: US carotid duplex BILAT DATE OF EXAM: 03/08/2021 COMPARISON: NONE CLINICAL HISTORY: Syncope, hypotension. EXAM MEASUREMENTS: RIGHT: Peak Systolic Velocity (PSV) cm/sec ----- Right CCA: 60.1 ----- Right ICA: 312.9 ----- Right ECA: 197.3 ICA/CCA ratio: 5.2 RIGHT: End Diastole cm/sec ----- Right CCA: 11.3 ----- Right ICA: 63.1 ----- Right ECA: 0.0 LEFT: Peak Systolic Velocity (PSV) cm/sec ----- Left CCA: 80.1 ----- Left ICA: 177.5 ----- Left ECA: 157.8 ICA/CCA ratio: 2.2 LEFT: End Diastole cm/sec ----- Left CCA: 15.4 ----- Left ICA: 44.9 ----- Left ECA: 0.0 VERTEBRALS (direction of flow): Right Vertebral: Antegrade Left Vertebral: Antegrade Rhythm: Normal Severe shadowing plaque bilateral carotid bulb level with elevated velocities and abnormal fan shows worse on the right. IMPRESSION: Severe atherosclerotic change bilaterally with stenosis 50-69% on the left thought prese nt and greater than 70% on the right . Further investigation with CTA or MRA of the neck is advised . Criteria for Assigning % of Stenosis / Diameter reduction (Estimation based on the indirect measurements of the internal carotid artery velocities (ICA PSV). 1. Normal (no stenosis)=ICA PSV < 125 cm/s: ratio < 2.0: ICA EDV<40 cm/s. 2. Less than 50% stenosis=ICA PSV < 125 cm/s: ratio < 2.0: ICA EDV<40 cm/s. 3. 50 to 69% stenosis=ICA PSV of 125 to 230 cm/s: ration 2.0 ? 4.0: ICA EDV 40-100 cm/s. 4. Greater than 70% stenosis to near occlusion= ICA PSV > 230 cm/s: ratio > 4.0: ICA EDV > 100 cm/s. 5. Near occlusion= ICA PSV velocities may be low or undetectable: variable ratio and ICA EDV. 6. Total occlusion=unable to detect flow.
[2021-03-08 09:40] LABS: Basophils # (A) 0.04 X 10*3/uL (0.00-0.10); Basophils % (A) 0.5 %; Eosinophils # (A) 0.17 X 10*3/uL (0.04-0.35); Eosinophils % (A) 1.9 %; HCT 32.9 % (39.6-50.0); HGB 9.7 g/dL (13.0-17.0); Lymphocytes # (A) 1.88 X 10*3/uL (0.90-5.00); Lymphocytes % (A) 21.4 %; MCH 24.3 pg (27.0-32.0); MCHC 29.5 g/dL (32.0-37.0); MCV 82.5 fL (80.0-97.0); Mean Platelet Volume 11.7 fL (9.5-12.2); Monocytes # (A) 0.88 X 10*3/uL (0.20-1.00); Neutrophils # (A) 5.79 X 10*3/uL (1.80-7.70); Platelet Count 245 X 10*3/uL (140-440); RBC 3.99 X 10*6/uL (4.40-5.60); RDW 13.2 % (11.5-14.5); WBC 8.78 X 10*3/uL (4.50-10.00)
--- NOTE | 2021-03-08 10:28 | P.CRDCN ---
History of Present Illness Consult date: 03/08/21 History of present illness: HISTORY OF PRESENT ILLNESS: This is a 75-year-old male with a past medical history significant for hypertension, hyperlipidemia, Parkinson's, diabetes mellitus, DVT, and pulmonary embolism. Patient follows in the office with Dr. Ferrera. We have been asked to see the patient in consultation for syncope. Patient examined at the bedside. Patient states he was at Dr. Rowe's office yesterday for a regular follow up appointment. He states he was feeling in his normal state of health. He reports that he passed out while at the doctors office. He doesnt remember passing out. He states he was told by the staff at the doctor's office that he passed out for approximately 5 minutes. Patient does report a history of feeling like the room is spinning and falling for the last 6-12 months. Patient denies any dizziness or lightheadedness when standing or changing positions. He also reports that his blood pressure has been running on the lower side at home recently. EKG reveals sinus mechanism with no signs of acute ischemia Chest xray current megaly without acute process Laboratory data: WBC 8.78. Hemoglobin 9.7. Platelet count 245. Sodium 142. Potassium 5.0. BUN 28. Creatinine 1.23. Troponin negative 3. Current home cardiac medications include atenolol 25 mg daily, Xarelto 20 mg daily, Lasix 20 mg daily, enalapril 5 mg daily, and Lipitor 20 g daily Most recent echocardiogram obtained in April 2020 revealed ejection fraction 55- 60%, trace mitral regurgitation, and trace tricuspid regurgitation REVIEW OF SYSTEMS: At the time of my exam: CONSTITUTIONAL: Denies fever or chills. HEENT: Denies blurred vision, vision changes, or eye pain. Denies hemoptysis CARDIOVASCULAR: Denies chest pain. Denies orthopnea. Denies PND. Denies palpitations RESPIRATORY: Denies shortness of breath. GASTROINTESTINAL: Denies abdominal pain. Denies nausea or vomiting. HEMATOLOGIC: Denies bleeding disorders. GENITOURINARY: Denies any blood in urine. SKIN: Denies pruitis. Denies rash. PHYSICAL EXAM: VITAL SIGNS: Reviewed. GENERAL: Well-developed in no acute distress. HEENT: Head is normocephalic. Pupils are equal, round. Sclerae anicteric. Mucous membranes of the mouth are moist. Neck supple. No JVD or thyromegaly LUNGS: Respirations even and unlabored. Lungs essentially clear to auscultation bilaterally. HEART: Regular rate and rhythm. S1 and S2 heard. ABDOMEN: Soft. Nondistended. Nontender. EXTREMITIES: Normal range of motion. No clubbing or cyanosis. Peripheral pulses intact. No lower extremity edema NEUROLOGIC: Awake and alert. Oriented x 3. ASSESSMENT: Syncope Hypertension Hyperlipidemia History of PE/DVT, on anticoagulation with Xarelto Parkinson's disease Diabetes mellitus Hypothyroidism PLAN: Obtain 2D echo to assess cardiac structure and function Obtain orthostatic blood pressures Carotid doppler ordered by Dr. Rowe. Await results Discontinue lasix and atenolol secondary to low BP at home Patient to have 30 day event monitor placed at the time of discharge Further recommendations pending patient course Nurse practitioner note has been reviewed by physician. Signing provider agrees with the documented findings, assessment, and plan of care. Past Medical History Past Medical History: Cancer, Diabetes Mellitus, Hearing Disorder / Deafness, Hyperlipidemia, Hypertension, Neurologic Disorder, Osteoarthritis (OA), Thyroid Disorder Additional Past Medical History / Comment(s): Parkinsons, falls, IDDM type II, NATIVE bilaterally, skin cancer removals, JULIANA with CPap, hypothyroid, past L upper arm cellulitis, occasional edema hands/legs, occasional low back pain, History of Any Multi-Drug Resistant Organisms: None Reported Past Surgical History: Joint Replacement Additional Past Surgical History / Comment(s): Total L/R knee arthroplasties, skin cancer removed from nose/hairline, surgery for deviated septum, colonoscopies/benign polypectomies, L chest wall cyst removed, bilateral cataract removals/lens implants. Past Anesthesia/Blood Transfusion Reactions: No Reported Reaction Past Psychological History: No Psychological Hx Reported Additional Psychological History / Comment(s): Pt resides with his spouse. He uses a cane or walker to ambulate. He states he is going to be giving up driving and that his spouse is able to drive. Smoking Status: Never smoker Past Alcohol Use History: None Reported Past Drug Use History: None Reported - Past Family History Mother Family Medical History: Cancer Additional Family Medical History / Comment(s): OVARIAN CANCER Father Additional Family Medical History / Comment(s): Father at the age of 66 yrs from a "heart condition". He was a smoker. Medications and Allergies Home Medications Medication Instructions Recorded Confirmed Type Atorvastatin [Lipitor] 20 mg PO HS 04/25/19 03/07/21 History Carbidopa-Levodopa 10-100 mg 1 tab PO DAILY@1100 04/25/19 03/07/21 History [Sinemet 10-100 mg] Carbidopa-Levodopa ER 50-200Mg 1 tab PO BID@0900,1500 04/25/19 03/07/21 History [Sinemet CR 50-200 mg] Cholecalciferol (Vitamin D3) 2,000 unit PO DAILY 04/25/19 03/07/21 History [Vitamin D3] Insulin Glargine,Hum.rec.anlog 14 unit SQ DAILY 04/25/19 03/07/21 History [Lantus Solostar] Levothyroxine Sodium [Synthroid] 137 mcg PO MOTUWETHFRSA 04/25/19 03/07/21 History Pioglitazone HCl [Actos] 15 mg PO DAILY 04/25/19 03/07/21 History atenoloL [Tenormin] 25 mg PO DAILY 04/25/19 03/07/21 History Potassium Chloride ER [K-Dur 10] 10 meq PO DAILY 04/30/20 03/07/21 History Enalapril [Vasotec] 5 mg PO DAILY 03/07/21 03/07/21 History Furosemide [Lasix] 20 mg PO DAILY 03/07/21 03/07/21 History Liraglutide [Victoza 2-Jean] 1.8 mg SQ DAILY 03/07/21 03/07/21 History Naproxen [Naprosyn] 500 mg PO Q12HR 03/07/21 03/07/21 History Omeprazole 40 mg PO DAILY 03/07/21 03/07/21 History Rivaroxaban [Xarelto] 20 mg PO HS 03/07/21 03/07/21 History Tamsulosin [Flomax] 0.4 mg PO DAILY 03/07/21 03/07/21 History busPIRone HCl [Buspar] 5 mg PO TID 03/07/21 03/07/21 History metFORMIN HCL 1,000 mg PO BID 03/07/21 03/07/21 History Allergies Allergy/AdvReac Type Severity Reaction Status Date / Time Penicillins Allergy Unknown Verified 03/07/21 15:58 Childhood Physical Exam Vitals: Vital Signs Temp Pulse Pulse Pulse Pulse Pulse Resp 03/08/21 09:26 76 84 73 03/08/21 07:00 98.0 F 67 19 03/08/21 02:00 97.8 F 73 14 03/07/21 20:10 98.2 F 16 03/07/21 19:00 98.6 F 80 18 03/07/21 18:00 78 18 03/07/21 17:00 72 18 03/07/21 16:02 69 18 03/07/21 15:02 72 18 03/07/21 14:56 97.9 F 67 18 BP BP BP BP BP Pulse Ox 03/08/21 09:26 109/67 99/61 134/73 03/08/21 07:00 156/94 97 03/08/21 02:00 133/71 96 03/07/21 20:10 158/85 98 03/07/21 19:00 156/85 100 03/07/21 18:00 153/90 99 03/07/21 17:00 149/91 99 03/07/21 16:02 129/71 98 03/07/21 15:02 143/80 99 03/07/21 14:56 143/80 99 Intake and Output 03/07/21 03/08/21 03/08/21 22:59 06:59 14:59 Intake Total 180 240 Balance 180 240 Intake: Intake, IV Titration 180 Amount Sodium Chloride 0.9% 1, 180 000 ml @ 20 mls/hr IV . Q24H [facility] Rx#:[id number] Oral 240 Other: # Voids 1 Weight 95.708 kg Results 03/08/21 04:54 03/07/21 15:36 Cardiac Enzymes 03/07/21 03/07/21 03/07/21 Range/Units 15:36 15:36 19:29 AST 26 (17-59) U/L Troponin I <0.012 <0.012 (0.000-0.034) ng/mL 03/07/21 Range/Units 21:56 AST (17-59) U/L Troponin I <0.012 (0.000-0.034) ng/mL Coagulation 03/07/21 Range/Units 15:36 PT 12.7 H (9.0-12.0) sec APTT 25.3 (22.0-30.0) sec CBC 03/07/21 Range/Units 15:36 WBC 6.7 (3.8-10.6) k/uL RBC 4.06 L (4.30-5.90) m/uL Hgb 10.7 L (13.0-17.5) gm/dL Hct 32.2 L (39.0-53.0) % Plt Count 261 (150-450) k/uL Comprehensive Metabolic Panel 03/07/21 Range/Units 15:36 Sodium 142 (137-145) mmol/L Potassium 5.0 (3.5-5.1) mmol/L Chloride 107 (98-107) mmol/L Carbon Dioxide 24 (22-30) mmol/L BUN 28 H (9-20) mg/dL Creatinine 1.23 (0.66-1.25) mg/dL Glucose 136 H (74-99) mg/dL Calcium 9.4 (8.4-10.2) mg/dL AST 26 (17-59) U/L ALT 12 (4-49) U/L Alkaline Phosphatase 80 (38-126) U/L Total Protein 6.8 (6.3-8.2) g/dL Albumin 3.9 (3.5-5.0) g/dL Current Medications Generic Name Dose Route Start Last Admin Trade Name Freq PRN Reason Stop Dose Admin Atorvastatin Calcium 20 mg 03/08/21 21:00 Atorvastatin 20 Mg Tab PO HS ZACH Buspirone HCl 5 mg 03/08/21 09:00 03/08/21 08:34 Buspirone Hcl 5 Mg Tab PO 5 mg TID ZACH Administration Carbidopa/Levodopa 2 each 03/08/21 09:00 03/08/21 08:34 Carbidopa-Levodopa Er 50-200mg 1 Each Tablet.Er PO 2 each BID ZACH Administration Cholecalciferol 50 mcg 03/08/21 09:00 03/08/21 08:34 Cholecalciferol 25 Mcg (1000 Iu) Tablet PO 50 mcg DAILY ZACH Administration Sodium Chloride 1,000 mls @ 20 mls/hr 03/07/21 17:00 03/07/21 18:37 Saline 0.9% IV 20 mls/hr .Q24H ZACH Administration Insulin Detemir 10 unit 03/07/21 22:30 03/07/21 22:30 Insulin Detemir (Levemir) 100 Unit/Ml Syr SQ 10 unit HS ZACH Administration Levothyroxine Sodium 137 mcg 03/08/21 06:30 03/08/21 05:31 Levothyroxine 137 Mcg Tab PO 137 mcg DAILY@0630 ZACH Administration Lisinopril 5 mg 03/08/21 09:00 03/08/21 08:34 Lisinopril 5 Mg Tab PO 5 mg DAILY ZACH Administration Metformin HCl 1,000 mg 03/08/21 07:30 03/08/21 08:33 Metformin 500 Mg Tab PO 1,000 mg BID-W/MEALS ZACH Administration Naloxone HCl 0.2 mg 03/07/21 16:56 Naloxone 0.4 Mg/Ml 1 Ml Vial IV Q2M PRN Opioid Reversal Naproxen 500 mg 03/08/21 09:00 03/08/21 08:34 Naproxen 250 Mg Tab PO 500 mg BID ZACH Administration Pantoprazole Sodium 40 mg 03/07/21 17:00 03/08/21 08:34 Pantoprazole 40 Mg/10 Ml Vial IV 40 mg DAILY ZACH Administration Pantoprazole Sodium 40 mg 03/08/21 07:30 03/08/21 08:34 Pantoprazole 40 Mg Tablet PO 40 mg AC-[id number] ZACH Administration Pioglitazone HCl 15 mg 03/08/21 09:00 03/08/21 08:35 Pioglitazone 15 Mg Tab PO 15 mg DAILY ZACH Administration Potassium Chloride 10 meq 03/08/21 09:00 03/08/21 08:35 Potassium Chloride Er 10 Meq Tab.Er.Prt PO 10 meq DAILY ZACH Administration Rivaroxaban 20 mg 03/08/21 17:30 Rivaroxaban 20 Mg Tab PO W/SUPPER ZACH Tamsulosin HCl 0.4 mg 03/08/21 08:30 03/08/21 08:34 Tamsulosin 0.4 Mg Cap.Er.24h PO 0.4 mg [id number]-[id number] ZACH Administration Intake and Output 03/07/21 03/08/21 03/08/21 22:59 06:59 14:59 Intake Total 180 240 Balance 180 240 Intake: Intake, IV Titration 180 Amount Sodium Chloride 0.9% 1, 180 000 ml @ 20 mls/hr IV . Q24H [facility] Rx#:[id number] Oral 240 Other: # Voids 1 Weight 95.708 kg 03/07/21 15:36 03/07/21 15:36
[2021-03-08 10:46] LABS: African American GFR (CKD) 86 (>60 ml/min/1.73 sqM); Anion Gap 7 mmol/L; Blood Urea Nitrogen 23 mg/dL (9-20); Carbon Dioxide 24 mmol/L (22-30); Chloride 109 mmol/L (98-107); Cholesterol 139 mg/dL (<200); Glucose 95 mg/dL (74-99); HDL Cholesterol 35 mg/dL (40-60); LDL Cholesterol,Calculated 89 mg/dL (0-99); Magnesium 1.5 mg/dL (1.6-2.3); Non-African American GFR(CKD) 74 (>60 ml/min/1.73 sqM); Potassium 4.2 mmol/L (3.5-5.1); Sodium 140 mmol/L (137-145); Triglycerides 76 mg/dL (<150)
--- NOTE | 2021-03-08 11:43 | HP ---
HISTORY AND PHYSICAL DATE OF SERVICE: 03/08/2021 A 75-year-old white male, . NEW DATA: Height is 5 feet 7 inches, weight 95.708 kg, BSA 2.07 m2, BMI of 33.0 kg/m2. ALLERGIES: Allergy is PENICILLIN. CHIEF COMPLAINT: Syncopal episode in the office while the patient came to exam in the office. HISTORY OF PRESENT ILLNESS: A 75-year-old white male came with accompanying of his for the regular checkup in the office and at this time while he was sitting in the chair in the exam office in front of his suddenly patient was unresponsive, not verbal or tactile and he was sitting position and at that time they could not get his blood pressure, but his temperature was done prior to the event and was 97.8 and pulse ox was 94%, subsequently lasted episode of 5 minutes. The EMS called to the office. His weight was 211.4 prior to this event. Mr. Mojica, who is 75 years old, white male, , has been seeing cardiology, Dr. Kevin Ferrera and he had seen him 2 weeks prior to this visit and with the underlying history that he had hypotension and bradycardia and then subsequently Dr. Ferrera did decrease his atenolol to 25 mg once daily. He came on 03/07/2021 to the office for a regular exam. The patient has other underlying multiple medical illnesses including diabetes mellitus type 2 on also insulin and hypertension with hypertensive heart disease. However, he was in the last months around hypotensive to normotensive and he had underlying dyslipidemia and never smoked in the past. He did see Dr. Kevin Ferrera, the buzzle buffer, on 02/20/2021, in January of this year. At that time, Dr. Ferrera was leaving with the underlying Parkinson disease and the hypotension and he supposedly to be discussed with the neurologist of his, which is Dr. Dave Miguel outside of the town. The patient was advised at that time when he was in the office he recover in 5 minutes, although he was completely unresponsive and I was in the room with him and we did some verbal stimuli and shaken him as well with tactile and did some sternum massage and he woke up, opened his eyes subsequently. Prior to that, I tried to see his pupil. I could not see his pupil with closing his eye but was sluggish. After he came out, the ambulance was called. At the time the ambulance arrived, he become awake and they did an EKG was sinus rhythm with short RI interval and we did also the ABGs and ABG they did it and they found a blood sugar 179 and unclear etiology with the history in the past of having blood clots bilateral in his legs. The patient's other history, he is undertaken the Sinemet and the Sinemet used to be adjusted and until now by Dr. Miguel, the neurologist, who is out of town. We did in the past history that we did decrease his medication hydralazine. We stopped it and as well as the lisinopril, we decreased it from 20 mg to 5 mg because of the persistent hypotension and that was dated in January as well as prior to January. The patient has also symptomatic hypotension at the time and in the visit of 01/30/2021, he also was hypotensive with blood pressure 80/48 on the right and 78/42 on the left and at that time, we started to decrease the medication that he has underwent. In the visit of October 31, 2020 in the office with the patient his blood pressure was 110/68. Other history is he never smoked. He is . He is retired and he had multiple medical problems. He is on anticoagulation with Xarelto 15 mg and he was taking it for twice a day for Cardiology and that was for his DVT of the lower extremities. He was seeing Dr. Bill the sleep physician in the sleep study at [facility] and his impression at that time that he had also obstructive sleep apnea syndrome and he had mild periodic limb movement as well and he had obesity, diabetes mellitus, hypertension, hyperlipidemia, hypothyroidism, and he had several facial skin cancer, basal cell carcinoma. He has a left knee replacement and arthroscopic surgery in the right knee and he had nasal septum deviation and he recommended him at that time with adjustment on the CPAP that he currently using at home as well and adjustment on the face and with the underlying apnea hypopnea index was 6 with an oxygen level at that time was 92.2%. On that visit to Dr. Bill in the [facility] was indicated in November 16, 2017. The patient has underlying history of hypothyroidism and has been on several adjustments in the past. REVIEW OF SYSTEMS: On review of system at the time is the incidental in the office where he had the first syncopal episode and it lasted 5 minutes. Otherwise, prior to that he was for cardiovascular adjusted his medication by Cardiology, Dr. Ferrera, with the underlying persistent hypotension for almost 2-3 months prior to the event. Pulmonary was negative and he did not have any complain. The was negative. Endocrine, he had hypothyroidism and diabetes mellitus. He has been monitored by Dr. Ferrera and he had echo on , normal ejection fraction and he had sinus rhythm all along with echocardiogram and aortic regurgitation and mitral regurgitation in his previous echo per cardiology records. He had his flu vaccine as well. I did discuss it with Dr. Guadalupe in the ER at [facility] with the event as well after the patient arrived by EMS to the emergency room at [facility]. The patient, after he woke up, he was able to stand up, able to walk the steps to the gurney for the stretcher to be taken by the ambulance and he was conscious at the time and he was oriented. He knows where he is in the office and he knows my name. His was in front of him and she witnessed the events. Today, the patient seen again and discussed with him and on the examination at the time of the event. His pulse ox was 94%. His vital signs on the on emergency room arrival and that his temperature was 97.9, pulse was 67, respiratory rate was 18, blood pressure 143/80. In the emergency room, he was awake, alert. PHYSICAL EXAMINATION: On examination today, on the 08 of March, his blood pressure stayed normal and he was conscious, alert, oriented. He is able to answer the question with no abnormalities. On the exam, head was normocephalic, atraumatic. Pupil was equal, reactive. Conjunctivae were pink. Sclerae were nonicteric and oropharynx was normal. Able to eat without any significant abnormalities. His thoughts that he may have some dizziness, dementia, some hallucination in the past. However, he has no record from Dr. Miguel or report of his current status to us. The neck was supple. No JVD. No thyromegaly. No lymphadenopathy. Trachea midline. The chest was clear to auscultation and percussion. 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 According to the note of Dr. Ferrera in the past and his last visit 02/20/2021. The PMI in the 5th intercostal space outside midclavicular line. Normal S1, S2. No gallop. The abdomen was soft, positive bowel sounds. Extremities, no edema and positive pulses. On the time of examination today as well is after he wake up from his syncope. No evidence of postictal but could not be cleared out at that time. His EKG also done in the emergency room yesterday was sinus rhythm with the normal axis. The neurological examination, patient has no acute deficit. However, with this acute syncopal episode, we obtained the echocardiogram and to be repeated as well as the carotid duplex study and today at the time of dictation I was informed that Cardiology did see him and cleared him up and we waiting for the results of the testing, the carotid and echo. Meanwhile, to be seen by the neurologist as well. FINAL IMPRESSION: 1. Syncopal episode with 5 minutes unresponsive verbally or with tactile. The question of hypotension still consider; however, did not examine after that. 2. 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 3. History of obstructive sleep apnea, on CPAP. 4. Diabetes mellitus type 2. 5. Hypertension, currently normotensive. 6. Never smoked in the past. 7. Dyslipidemia. 8. Limb movement. 9. Bilateral hearing aid with the underlying neurosensory deficit. 10.Questionable dementia. Dementia is questionable. We do not have any assessment from the neurologist, Dr. Miguel and underlying Parkinson disease and hypothyroidism as well. MEDICATIONS: He has been on several medication including MiraLAX for chronic constipation, hydralazine, which has been discontinued in the past and tamsulosin, atorvastatin, buspirone, naproxen, atenolol, which has been decreased to once a day 25, Lantus Solostar 14 units and we decreased it to 10 units was given by Dr. 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 He was also taken by Dr. Johnnie Dael and we hold on that at this time, the Xarelto, he is taken 15 mg twice a day, levothyroxine 137, Lasix 20 mg once a day in a.m., potassium chloride, vitamin D3, enalapril 10 mg once a day, Sinemet 10-100 mg in a.m. and he also takes Sinemet CR 50 mg-200, metformin 1000 mg and also Actos 15 mg once a day, that is for diabetes by Dr. Blair. Otherwise no other medication available to me. PLAN: 1. We are waiting for the patient verbally seen by Cardiology. However, I do not have the dictation yet on the chart. 2. We waiting for the neurologist, Dr. Jaquez for evaluation and the result of the echo as well as the carotid duplex study. MMODL / IJN: [id number] /
--- NOTE | 2021-03-08 11:49 | ECHOF ---
Referral Reason:Syncope, hypotension MEASUREMENTS -------- HEIGHT: 170.2 cm WEIGHT: 95.7 kg BP: 133/71 IVSd: 1.3 cm (0.6 - 1.1) LVIDd: 3.8 cm (3.9 - 5.3) LVPWd: 1.2 cm (0.6 - 1.1) IVSs: 2.1 cm LVIDs: 2.0 cm LVPWs: 1.9 cm Ao Diam: 3.5 cm (2.0 - 3.7) AV Cusp: 2.2 cm (1.5 - 2.6) LA Diam: 3.5 cm (2.7 - 3.8) MV EXCURSION: 24.989 mm (> 18.000) MV EF SLOPE: 179 mm/s (70 - 150) EPSS: 0.8 cm MV E Enrique: 1.02 m/s MV DecT: 227 ms MV A Enrique: 0.91 m/s MV E/A Ratio: 1.13 RAP: 5.00 mmHg RVSP: 11.68 mmHg FINDINGS -------- This was a technically difficult study with suboptimal views. The left ventricular size is normal. There is mild concentric left ventricular hypertrophy. Overa ll left ventricular systolic function is normal with, an EF between 55 - 60 %. The RV was not well visualized. The left atrial size is normal. The right atrium was not well visualized. xx ml of Lumason was utilized for enhancement of images. The aortic valve is trileaflet and appears structurally normal. The mitral valve is normal. There is trace mitral regurgitation. The tricuspid valve appears structurally normal. Trace tricuspid regurgitation present. Right adrien tricular systolic pressure is normal at < 35 mmHg. There is no pulmonic regurgitation present. The aortic root size is normal. IVC Not well visulized. There is no pericardial effusion. CONCLUSIONS -------- 1. The left ventricular size is normal. 2. There is mild concentric left ventricular hypertrophy. 3. Overall left ventricular systolic function is normal with, an EF between 55 - 60 %. 4. There is trace mitral regurgitation. 5. Trace tricuspid regurgitation present. 6. There is no pericardial effusion. COUNTER SUPERVISOR: Majo Reid RD
[2021-03-08 11:52] LABS: T4, Free (Free Thyroxine) 1.31 ng/dL (0.78-2.19)
[2021-03-08 11:53] LABS: Glucose,Whole Blood 171 mg/dL (75-99)
[2021-03-08] MEDS ORDERED: MAGNESIUM SULFATE-D5W PMX 1 GM in DEXTROSE/WATER 1 100ML.BAG IVPB ONE (13:30)
[2021-03-08] MEDS: SODIUM CHLORIDE 0.9% 1,000 ML IV SCH (15:51)
[2021-03-08 16:54] LABS: Glucose,Whole Blood 210 mg/dL (75-99)
[2021-03-08] MEDS: RIVAROXABAN 20 MG TAB PO SCH (16:56)
--- NOTE | 2021-03-08 18:22 | P.CNNES ---
History of Present Illness Consult date: 03/08/21 Requesting physician: Jose Guadalupe Reason for Consult: Syncope History of Present Illness: Patient is a 75-year-old male who came to the hospital from patient's primary physician's office for a syncopal spell at his office. According to EMS flow sheet, patient was sitting at doctor's office. Patient was cool, diaphoretic and lethargic. Patient was oriented 4 but drowsy. He had a syncopal episode while waiting in the chair and was unresponsive for approximately 5 minutes. Patient's blood sugar was normal but he was hypotensive. Stroke scale was negative. Patient has been dizzy on and off lately and had a fall on Thursday where he hit his head and he did not get checked out. Patient's blood pressure was unrecordable in the beginning. However when EMS arrived, it was 77/49, pulse rate 75 and respiration 14 saturation 97%. Blood sugar 130. Patient was started on IV fluids and his blood pressure became normal even before fluid administration. Repeat stroke scale was negative. He was complaining of slight dizziness but was feeling better. On arrival to the hospital, his blood pressure was 143/80, pulse rate 67 temperature 97.9. Orthostatics revealed supine blood pressure 134/73 with pulse rate of 73. Sitting was 109/67 with pulse of 76 and standing was 99/61 with pulse of 84. Patient has significant orthostasis. Patient's blood test shows normal WBC hemoglobin 9.7 platelets 245. Electro lytes are normal, BUN and creatinine normal. Troponin negative. Total cholesterol is 139, LDL 89, HDL 35 and triglycerides 76. TSH 6.63 mildly elevated and free T4 normal 1.31. Patient's last hemoglobin A1c 7.0 on 01/11/2019. Huerta virus negative. Patient's further states that since August 2020 he has been running very low blood pressure with systolics between 70s to 80s, and diastolics in high 40s to low 50s. In the past 1 month patient had about 5 episodes, in which he was walking in his legs buckled up and he fell. He did feel dizzy sometimes before these falls. His has also noticed that sometimes he would be sitting, and he would get starry eyed and sometimes his head would drop and she has to shake him to bring his attention and he comes to without apparent losing consciousness. Patient's primary physician or sole trimmer stopped hydralazine and clonidine, and decreased the dose of in the lateral and atenolol. Patient's states that even though cutting on blood pressure medication did not help with these episodes. This was a first time that he lost consciousness for that period of time. Patient has diabetes since early . He also has Parkinson's disease and follows up with Dr. Miguel. Patient states that he was exposed to agent orange when he was in weight numb. Review of Systems Patient complains of dizziness sometimes, denies any problem with vision, hoarseness, sore throat, diplopia. Denies any numbness or tingling. Denies neuropathy. Denies any abdominal pain nausea vomiting diarrhea. Denies any ch est pain, or shortness of breath. Past Medical History Past Medical History: Cancer, Diabetes Mellitus, Hearing Disorder / Deafness, Hyperlipidemia, Hypertension, Neurologic Disorder, Osteoarthritis (OA), Thyroid Disorder Additional Past Medical History / Comment(s): Parkinsons, falls, IDDM type II, [place] bilaterally, skin cancer removals, [place] with CPap, hypothyroid, past L upper arm cellulitis, occasional edema hands/legs, occasional low back pain, History of Any Multi-Drug Resistant Organisms: None Reported Past Surgical History: Joint Replacement Additional Past Surgical History / Comment(s): Total L/R knee arthroplasties, skin cancer removed from nose/hairline, surgery for deviated septum, colonoscopies/benign polypectomies, L chest wall cyst removed, bilateral cataract removals/lens implants. Past Anesthesia/Blood Transfusion Reactions: No Reported Reaction Past Psychological History: No Psychological Hx Reported Additional Psychological History / Comment(s): Pt resides with his spouse. He uses a cane or walker to ambulate. He states he is going to be giving up d riving and that his spouse is able to drive. Smoking Status: Never smoker Past Alcohol Use History: None Reported Past Drug Use History: None Reported - Past Family History Mother Family Medical History: Cancer Additional Family Medical History / Comment(s): OVARIAN CANCER Father Additional Family Medical History / Comment(s): Father at the age of 66 yrs from a "heart condition". He was a smoker. Medications and Allergies Home Medications Medication Instructions Recorded Confirmed Type Atorvastatin [Lipitor] 20 mg PO HS 04/25/19 03/07/21 History Carbidopa-Levodopa 10-100 mg 1 tab PO DAILY@1100 04/25/19 03/07/21 History [Sinemet 10-100 mg] Carbidopa-Levodopa ER 50-200Mg 1 tab PO BID@0900,1500 04/25/19 03/07/21 History [Sinemet CR 50-200 mg] Cholecalciferol (Vitamin D3) 2,000 unit PO DAILY 04/25/19 03/07/21 History [Vitamin D3] Insulin Glargine,Hum.rec.anlog 14 unit SQ DAILY 04/25/19 03/07/21 History [Lantus Solostar] Levothyroxine Sodium [Synthroid] 137 mcg PO MOTUWETHFRSA 04/25/19 03/07/21 History Pioglitazone HCl [Actos] 15 mg PO DAILY 04/25/19 03/07/21 History atenoloL [Tenormin] 25 mg PO DAILY 04/25/19 03/07/21 History Potassium Chloride ER [K-Dur 10] 10 meq PO DAILY 04/30/20 03/07/21 History Enalapril [Vasotec] 5 mg PO DAILY 03/07/21 03/07/21 History Furosemide [Lasix] 20 mg PO DAILY 03/07/21 03/07/21 History Liraglutide [Victoza 2-Jena] 1.8 mg SQ DAILY 03/07/21 03/07/21 History Naproxen [Naprosyn] 500 mg PO Q12HR 03/07/21 03/07/21 History Omeprazole 40 mg PO DAILY 03/07/21 03/07/21 History Rivaroxaban [Xarelto] 20 mg PO HS 03/07/21 03/07/21 History Tamsulosin [Flomax] 0.4 mg PO DAILY 03/07/21 03/07/21 History busPIRone HCl [Buspar] 5 mg PO TID 03/07/21 03/07/21 History metFORMIN HCL 1,000 mg PO BID 03/07/21 03/07/21 History Allergies Allergy/AdvReac Type Severity Reaction Status Date / Time Penicillins Allergy Unknown Verified 03/07/21 15:58 Childhood Physical Examination - Vital Signs Vital Signs: Vital Signs Temp Pulse Pulse Pulse Pulse Pulse Pulse 03/08/21 14:00 98.0 F 72 03/08/21 09:26 76 84 73 03/08/21 07:00 98.0 F 67 03/08/21 02:00 97.8 F 73 03/07/21 20:10 98.2 F 03/07/21 19:00 98.6 F 80 03/07/21 18:00 78 03/07/21 17:00 72 03/07/21 16:02 69 Resp BP BP BP BP BP Pulse Ox 03/08/21 14:00 18 115/70 96 03/08/21 09:26 109/67 99/61 134/73 03/08/21 07:00 19 156/94 97 03/08/21 02:00 14 133/71 96 03/07/21 20:10 16 158/85 98 03/07/21 19:00 18 156/85 100 03/07/21 18:00 18 153/90 99 03/07/21 17:00 18 149/91 99 03/07/21 16:02 18 129/71 98 Intake and Output 03/08/21 03/08/21 03/08/21 06:59 14:59 22:59 Intake Total 180 240 Balance 180 240 Intake: Intake, IV Titration 180 Amount Sodium Chloride 0.9% 1, 180 000 ml @ 20 mls/hr IV . Q24H [facility] Rx#:[id number] Oral 240 Other: Voiding Method Toilet # Voids 1 3 Patient is an elderly male, very pleasant, in no acute distress. Patient is very well oriented. He knows it is March 2021 and that is in [facility] in [place]. He knows name of the current president. He does have some word finding problems at times, but can come up correctly. Patient is alert awake. Speech is minimally slurred, but probably baseline and language functions are normal. Attention, concentration and fund of knowledge is adequate. On cranial examination, pupils are round and reacting to light, visual whitten are full on confrontation, with no neglect, extraocular muscles are intact with no nystagmus. Face is symmetric, tongue protrudes to the midline. Palatal elevation and sensation normal, hearing is slightly decreased for conversation and shoulder shrug normal, facial sensation normal. Shoulder shrug normal. On muscle strength testing, there is no pronator drift and the strength is norm al in arms and legs distally and proximally. Deep tendon reflexes are 1 in the upper limbs, 0 in the lower limbs and plantars downgoing. Sensory to touch is equal with no neglect. Cerebellar function showed no ataxia for [id number] testing. No dysdiadochokinesia. Tone is mildly increased and bulk of muscles normal. No tremors noted at rest. Gait appears normal, although he walks with a slight stoop. Patient able to get up from the chair without any issues. On general examination, there is no carotid bruit or murmur, S1-S2 audible. Abdomen is soft nontender. Chest is clear. Patient has mild peripheral edema. Results - Laboratory Findings CBC and BMP: 03/08/21 04:54 03/08/21 04:54 Abnormal Lab Findings: Abnormal Labs 03/07/21 03/07/21 03/07/21 15:12 15:36 15:36 RBC 4.06 L Hgb 10.7 L Hct 32.2 L MCV 79.3 L MCH MCHC PT 12.7 H INR 1.2 H Chloride BUN Glucose POC Glucose (mg/dL) 143 H Magnesium HDL Cholesterol TSH 03/07/21 03/07/21 03/07/21 15:36 19:06 22:29 RBC Hgb Hct MCV MCH MCHC PT INR Chloride BUN 28 H Glucose 136 H POC Glucose (mg/dL) 131 H 119 H Magnesium HDL Cholesterol TSH 03/08/21 03/08/21 03/08/21 04:54 04:54 11:50 RBC 3.99 L Hgb 9.7 L Hct 32.9 L MCV MCH 24.3 L MCHC 29.5 L PT INR Chloride 109 H BUN 23 H Glucose POC Glucose (mg/dL) 171 H Magnesium 1.5 L HDL Cholesterol 35 L TSH 6.630 H Assessment and Plan Assessment: * Syncopal spell, likely due to orthostasis. There was no post ictal confusion, therefore seizure very unlikely. Patient's blood pressure initially was unrecordable, but when EMS arrived was 77/49, suggestive of a circulatory issue versus arrhythmia. * Patient has been running low blood pressure off and on since August 2020. * Diabetes * Parkinson's disease, stable * History of DVT and PE, on anticoagulation with Xarelto. * Hypertension * Hyperlipidemia Plan: * Patient's current event was not a seizure. No other neurological workup indicated. * All workup as mentioned below is negative. * Cardiology has been consulted, who have recommended to discontinue Lasix and atenolol secondary to low blood pressure at home. 30 day event monitor will be placed before discharge. * 2-D echo revealed normal left-ventricular size. Mild concentric LVH. EF is 55-60%. Trace MR. * Carotid Doppler reveals severe atherosclerotic changes bilaterally with stenosis 50-69% on the left thought present and greater than 70% on the right. Further investigation with CTA or MRA of the neck is advised. * Lipid panel with cholesterol 139, LDL 89, HDL 35 and triglycerides 76. Continue Lipitor 20 mg. * Patient follows up with clinical research director closely. Last A1c was 7.0 on 01/11/2019. * Neurologically clear for discharge. Patient will follow up with his neurologist as scheduled.
[2021-03-08 20:43] LABS: Glucose,Whole Blood 182 mg/dL (75-99)
[2021-03-08] MEDS: INSULIN DETEMIR (LEVEMIR) 100 UNIT/ML SYR SQ SCH (20:43)
[2021-03-08] MEDS ORDERED: ATORVASTATIN 20 MG TAB PO SCH (21:00)
[2021-03-09 02:00] VITALS: RESP 18
[2021-03-09 04:12] LABS: % Iron Saturation 4.46 (15.00-50.00)
[2021-03-09] MEDS: LEVOTHYROXINE 137 MCG TAB PO SCH (05:54)
[2021-03-09] MEDS: metFORMIN 500 MG TAB PO SCH ×2 (07:50→17:20)
[2021-03-09] MEDS: PANTOPRAZOLE 40 MG TABLET PO SCH (07:50)
[2021-03-09] MEDS: TAMSULOSIN 0.4 MG CAP.ER.24H PO SCH (07:51)
[2021-03-09] MEDS: busPIRone HCl 5 MG TAB PO SCH ×2 (07:57→17:18)
[2021-03-09] MEDS: PIOGLITAZONE 15 MG TAB PO SCH (07:57)
[2021-03-09] MEDS: lisinopriL 5 MG TAB PO SCH (07:57)
[2021-03-09] MEDS: POTASSIUM CHLORIDE ER 10 MEQ TAB.ER.PRT PO SCH (07:57)
[2021-03-09] MEDS: CHOLECALCIFEROL 25 MCG (1000 IU) TABLET PO SCH (07:57)
[2021-03-09] MEDS: NAPROXEN 250 MG TAB PO SCH (07:58)
[2021-03-09] MEDS: CARBIDOPA-LEVODOPA ER 50-200MG 1 EACH TABLET.ER PO SCH (07:58)
[2021-03-09] MEDS: PANTOPRAZOLE 40 MG/10 ML VIAL IV SCH (09:18)
--- NOTE | 2021-03-09 09:27 | P.GSCN ---
History of Present Illness History of present illness: 75-year-old gentleman patient came with history of 4 dizziness and passing out spell patient had a complete stroke workup including CT of the brain which was negative for intracranial bleed or any mass effect. Patient had a carotid ultrasound which shows about 670% stenosis of the carotid artery patient has history of diabetes hypertension controlled with medication. No history of TIA or embolus previous no history of any motor deficit. Neck examination no bruit appreciated Chest clear first and second sound normal Abdomen soft nontender Vascular brachial radial femoral pulses are present patient is well oriented time and place normal motor function up lower extremity ultrasound of the carotid shows about 70% stenosis Recommendation antiplatelet therapy at this point no role of surgical intervention we'll follow with you Past Medical History Past Medical History: Cancer, Diabetes Mellitus, Hearing Disorder / Deafness, Hyperlipidemia, Hypertension, Neurologic Disorder, Osteoarthritis (OA), Thyroid Disorder Additional Past Medical History / Comment(s): Parkinsons, falls, IDDM type II, [place] bilaterally, skin cancer removals, [place] with CPap, hypothyroid, past L upper arm cellulitis, occasional edema hands/legs, occasional low back pain, History of Any Multi-Drug Resistant Organisms: None Reported Past Surgical History: Joint Replacement Additional Past Surgical History / Comment(s): Total L/R knee arthroplasties, skin cancer removed from nose/hairline, surgery for deviated septum, colonoscopies/benign polypectomies, L chest wall cyst removed, bilateral cataract removals/lens implants. Past Anesthesia/Blood Transfusion Reactions: No Reported Reaction Past Psychological History: No Psychological Hx Reported Additional Psychological History / Comment(s): Pt resides with his spouse. He uses a cane or walker to ambulate. He states he is going to be giving up driving and that his spouse is able to drive. Smoking Status: Never smoker Past Alcohol Use History: None Reported Past Drug Use History: None Reported - Past Family History Mother Family Medical History: Cancer Additional Family Medical History / Comment(s): OVARIAN CANCER Father Additional Family Medical History / Comment(s): Father at the age of 66 yrs from a "heart condition". He was a smoker. Medications and Allergies Home Medications Medication Instructions Recorded Confirmed Type Atorvastatin [Lipitor] 20 mg PO HS 04/25/19 03/07/21 History Carbidopa-Levodopa 10-100 mg 1 tab PO DAILY@1100 04/25/19 03/07/21 History [Sinemet 10-100 mg] Carbidopa-Levodopa ER 50-200Mg 1 tab PO BID@0900,1500 04/25/19 03/07/21 History [Sinemet CR 50-200 mg] Cholecalciferol (Vitamin D3) 2,000 unit PO DAILY 04/25/19 03/07/21 History [Vitamin D3] Insulin Glargine,Hum.rec.anlog 14 unit SQ DAILY 04/25/19 03/07/21 History [Lantus Solostar] Levothyroxine Sodium [Synthroid] 137 mcg PO MOTUWETHFRSA 04/25/19 03/07/21 Histo ry Pioglitazone HCl [Actos] 15 mg PO DAILY 04/25/19 03/07/21 History atenoloL [Tenormin] 25 mg PO DAILY 04/25/19 03/07/21 History Potassium Chloride ER [K-Dur 10] 10 meq PO DAILY 04/30/20 03/07/21 History Enalapril [Vasotec] 5 mg PO DAILY 03/07/21 03/07/21 History Furosemide [Lasix] 20 mg PO DAILY 03/07/21 03/07/21 History Liraglutide [Victoza 2-Jean] 1.8 mg SQ DAILY 03/07/21 03/07/21 History Naproxen [Naprosyn] 500 mg PO Q12HR 03/07/21 03/07/21 History Omeprazole 40 mg PO DAILY 03/07/21 03/07/21 History Rivaroxaban [Xarelto] 20 mg PO HS 03/07/21 03/07/21 History Tamsulosin [Flomax] 0.4 mg PO DAILY 03/07/21 03/07/21 History busPIRone HCl [Buspar] 5 mg PO TID 03/07/21 03/07/21 History metFORMIN HCL 1,000 mg PO BID 03/07/21 03/07/21 History Allergies Allergy/AdvReac Type Severity Reaction Status Date / Time Penicillins Allergy Unknown Verified 03/07/21 15:58 Childhood Surgical - Exam Vital Signs Temp Pulse Resp BP Pulse Ox 97.9 F 67 18 143/80 99 03/07/21 14:56 03/07/21 14:56 03/07/21 14:56 03/07/21 14:56 03/07/21 14:56 Results - Labs 03/08/21 04:54 03/08/21 04:54 Abnormal Lab Results - Last 24 Hours (Table) 03/08/21 03/08/21 03/08/21 Range/Units 04:54 04:54 04:54 RBC 3.99 L (4.40-5.60) X 10*6/uL Hgb 9.7 L (13.0-17.0) g/dL Hct 32.9 L (39.6-50.0) % MCH 24.3 L (27.0-32.0) pg MCHC 29.5 L (32.0-37.0) g/dL Chloride 109 H (98-107) mmol/L BUN 23 H (9-20) mg/dL POC Glucose (mg/dL) (75-99) mg/dL Magnesium 1.5 L (1.6-2.3) mg/dL Iron 15 L (65-175) ug/dL % Saturation 4.46 L (15.00-50.00) HDL Cholesterol 35 L (40-60) mg/dL TSH 6.630 H (0.465-4.680) mIU/L 03/08/21 03/08/21 03/08/21 Range/Units 11:50 16:52 20:42 RBC (4.40-5.60) X 10*6/uL Hgb (13.0-17.0) g/dL Hct (39.6-50.0) % MCH (27.0-32.0) pg MCHC (32.0-37.0) g/dL Chloride (98-107) mmol/L BUN (9-20) mg/dL POC Glucose (mg/dL) 171 H 210 H 182 H (75-99) mg/dL Magnesium (1.6-2.3) mg/dL Iron (65-175) ug/dL % Saturation (15.00-50.00) HDL Cholesterol (40-60) mg/dL TSH (0.465-4.680) mIU/L Diabetes panel 03/08/21 Range/Units 04:54 Sodium 140 (137-145) mmol/L Potassium 4.2 (3.5-5.1) mmol/L Chloride 109 H (98-107) mmol/L Carbon Dioxide 24 (22-30) mmol/L BUN 23 H (9-20) mg/dL Creatinine 0.99 (0.66-1.25) mg/dL Glucose 95 (74-99) mg/dL Calcium 9.0 (8.4-10.2) mg/dL Triglycerides 76 (<150) mg/dL HDL Cholesterol 35 L (40-60) mg/dL Thyroid panel 03/08/21 Range/Units 04:54 TSH 6.630 H (0.465-4.680) mIU/L Calcium panel 03/08/21 Range/Units 04:54 Calcium 9.0 (8.4-10.2) mg/dL Pituitary panel 03/08/21 Range/Units 04:54 Sodium 140 (137-145) mmol/L Potassium 4.2 (3.5-5.1) mmol/L Chloride 109 H (98-107) mmol/L Carbon Dioxide 24 (22-30) mmol/L BUN 23 H (9-20) mg/dL Creatinine 0.99 (0.66-1.25) mg/dL Glucose 95 (74-99) mg/dL Calcium 9.0 (8.4-10.2) mg/dL TSH 6.630 H (0.465-4.680) mIU/L Adrenal panel 03/08/21 Range/Units 04:54 Sodium 140 (137-145) mmol/L Potassium 4.2 (3.5-5.1) mmol/L Chloride 109 H (98-107) mmol/L Carbon Dioxide 24 (22-30) mmol/L BUN 23 H (9-20) mg/dL Creatinine 0.99 (0.66-1.25) mg/dL Glucose 95 (74-99) mg/dL Calcium 9.0 (8.4-10.2) mg/dL
[2021-03-09] MEDS ORDERED: ASPIRIN 81 MG PO SCH (13:00)
--- NOTE | 2021-03-09 13:32 | P.DS ---
Providers Date of admission: 03/07/21 17:08 Expected date of discharge: 03/09/21 Attending physician: David Rowe Consults: 03/07/21 16:58 Consult Physician Routine Consulting Provider: Cuca Jaquez Consult Reason/Comments: syncope Do you want consulting provider notified?: Yes Consult Physician Routine Consulting Provider: Yamileth Andrea Consult Reason/Comments: syncope Do you want consulting provider notified?: Yes 03/08/21 13:28 Consult Physician Routine Consulting Provider: Reid Yi Consult Reason/Comments: Carotid doppler results and syncope Do you want consulting provider notified?: Yes Primary care physician: David Rowe Dictation discharge summary date of service 03/09/2021. Dictation by Dr. Romero. Final diagnosis. #1 syncopal episode lasted 5 minutes. #2 computed tomography scan no new changes #3 echocardiogram with ejection fraction cleared by cardiology with the monitor event. #[address] Chery. Clear with the patient underlying history of Parkinson disease and need to follow-up with Dr. Donna Tripp his neurologist. #5 carotid artery stenosis seen by Dr. Reid Rangel vascular surgeon and recommended antiplatelet added and he will be followed by the vascular surgeon. #6 discontinuation of beta blockers and Lasix. Cardiology team. And follow-up with Dr. FERRERA #7 diabetes mellitus type 2 on oral and insulin with the follow-up with Dr. aniceto pompa telephone solicitor as outpatient. #8 cardiology recommended and they we'll arrange the event monitor through cardiology service. #9 hypertension/hypotension controlled with blood pressure on discharge 130/77 and a mean 94. #10 Parkinson disease followed by Dr. Donna Tripp neurologist. Medication discontinued per cardiology: #1 beta blockers Tenormin No. 2 Lasix and the potassium. Emergency room presentation: Patient received in the emergency room by ambulance. Patient initially seen in the office and while he was in the exam room with his he had syncopal episode lasted 5 minutes with the low blood pressure as recorded by EMS in the office in the 77 systolic and recover prior to taken to the ER and able to open his eyes and stand up and walk to the stretcher Subsequently admitted to school lunch monitor and seen by construction consultant Cardiology, neurology, vascular surgeon. Tests done Echocardiogram 2 days was Doppler. EKG CT of the brain carotid Doppler study. Hospital course: Patient admitted to telemetry floor monitored and seen by the consulting physician, he was awake alert oriented and the no physical decompensation or abnormality seen by several construction consultant with the stability patient discharged home today in a stable general condition. I did discuss with his prior to the discharge the current problem and the follow-up and need the cardiac event monitor will be arranged by cardiology team. [id number] exam Conscious alert oriented 3. He had history of underlying Parkinson disease . Head was normocephalic and atraumatic. Pupil was equal reactive. Oropharynx able to eat and swallow. Neck was supple and he had carotid artery disease seen by Dr. Reid Rangel vascular surgeon and recommended antiplatelet therapy and the patient started on aspirin 81 mg chewable until seen by Dr. Thomson cardiology. Chest was clear to auscultation percussion Heart regular sinus rhythm and blood pressure control as mentioned above. Abdomen is soft positive bowel sounds no organ enlargement. Extremities no edema and positive pulses. Neurologically stable no lateralizing sign able to ambulate no cranial deficit and seen by the neurologist. Assessment stable general condition for discharge, discussed with his on the phone prior to the discharge. Plan medication reconciliation was done medication reviewed and according to the recommendation medication adjusted. Plan - Discharge Summary New Discharge Prescriptions: New Aspirin 81 mg PO DAILY chew Ferrous Sulfate [Iron (65 MG Elemental)] 325 mg PO 1200 #30 tab Continue Insulin Glargine,Hum.rec.anlog [Lantus Solostar] 14 unit SQ DAILY Carbidopa-Levodopa 10-100 mg [Sinemet 10-100 mg] 1 tab PO DAILY@1100 Carbidopa-Levodopa ER 50-200Mg [Sinemet CR 50-200 mg] 1 tab PO BID@0900,1500 Levothyroxine Sodium [Synthroid] 137 mcg PO MOTUWETHFRSA Cholecalciferol (Vitamin D3) [Vitamin D3] 2,000 unit PO DAILY Atorvastatin [Lipitor] 20 mg PO HS Pioglitazone HCl [Actos] 15 mg PO DAILY Rivaroxaban [Xarelto] 20 mg PO HS Liraglutide [Victoza 2-Jean] 1.8 mg SQ DAILY busPIRone HCl [Buspar] 5 mg PO TID Omeprazole 40 mg PO DAILY Enalapril [Vasotec] 5 mg PO DAILY Tamsulosin [Flomax] 0.4 mg PO DAILY metFORMIN HCL 1,000 mg PO BID Discontinued atenoloL [Tenormin] 25 mg PO DAILY Potassium Chloride ER [K-Dur 10] 10 meq PO DAILY Naproxen [Naprosyn] 500 mg PO Q12HR Furosemide [Lasix] 20 mg PO DAILY Discharge Medication List Atorvastatin [Lipitor] 20 mg PO HS 04/25/19 [History] Carbidopa-Levodopa 10-100 mg [Sinemet 10-100 mg] 1 tab PO DAILY@1100 04/25/19 [History] Carbidopa-Levodopa ER 50-200Mg [Sinemet CR 50-200 mg] 1 tab PO BID@0900,1500 04/25/19 [History] Cholecalciferol (Vitamin D3) [Vitamin D3] 2,000 unit PO DAILY 04/25/19 [History] Insulin Glargine,Hum.rec.anlog [Lantus Solostar] 14 unit SQ DAILY 04/25/19 [History] Levothyroxine Sodium [Synthroid] 137 mcg PO MOTUWETHFRSA 04/25/19 [History] Pioglitazone HCl [Actos] 15 mg PO DAILY 04/25/19 [History] Enalapril [Vasotec] 5 mg PO DAILY 03/07/21 [History] Liraglutide [Victoza 2-Jean] 1.8 mg SQ DAILY 03/07/21 [History] Omeprazole 40 mg PO DAILY 03/07/21 [History] Rivaroxaban [Xarelto] 20 mg PO HS 03/07/21 [History] Tamsulosin [Flomax] 0.4 mg PO DAILY 03/07/21 [History] busPIRone HCl [Buspar] 5 mg PO TID 03/07/21 [History] metFORMIN HCL 1,000 mg PO BID 03/07/21 [History] Aspirin 81 mg PO DAILY chew 03/09/21 [Rx] Ferrous Sulfate [Iron (65 MG Elemental)] 325 mg PO 1200 #30 tab 03/09/21 [Rx] Follow up Appointment(s)/Referral(s): Kevin Ferrera MD [STAFF PHYSICIAN] - 1 Week David Rowe MD [Primary Care Provider] - 1-2 days Reid Yi MD [STAFF PHYSICIAN] - 1 Week Discharge Disposition: HOME SELF-CARE
[2021-03-09] MEDS ORDERED: CARBIDOPA-LEVODOPA ER 50-200MG 1 EACH TABLET.ER PO SCH (15:00)
[2021-03-09 15:05] VITALS: TEMP 97.5
[2021-03-09] MEDS ORDERED: busPIRone HCl 5 MG TAB PO SCH (16:00)
--- NOTE | 2021-03-09 16:36 | PN ---
PROGRESS NOTE Mr. Chalo Mojica is doing well. He is in sinus rhythm, resting comfortably without symptoms. He has had history of syncope, details are unclear. He is going home today on a 30 day event monitor and will see Dr. Ferrera in about 3-4 weeks. Vital signs stable. No JVD. S1-S2 are heard normally, regular. Short systolic murmur. Lungs are clear. Abdomen and lower exam unchanged. MMODL / IJN: [id number] /
[2021-03-09 17:15] LABS: Glucose,Whole Blood 266 mg/dL (75-99)
[2021-03-09] MEDS: RIVAROXABAN 20 MG TAB PO SCH (17:19)
[2021-03-09 17:27] VITALS: BP 80/43; PULSE 78
[2021-03-09] MEDS ORDERED: RIVAROXABAN 20 MG TAB PO SCH (21:00)
[2021-03-09] MEDS ORDERED: ATORVASTATIN 20 MG TAB PO SCH (21:00)
[2021-03-09] MEDS ORDERED: NON FORMULARY DRUG (Metformin Hcl [Metformin Hcl] 1,000 MG Tablet) PO SCH (21:00)
[2021-03-10] MEDS ORDERED: INSULIN DETEMIR (LEVEMIR) 100 UNIT/ML SYR SQ SCH (07:00)
[2021-03-10] MEDS ORDERED: lisinopriL 10 MG TAB PO SCH (09:00)
[2021-03-10] MEDS ORDERED: PIOGLITAZONE 15 MG TAB PO SCH (09:00)
[2021-03-10] MEDS ORDERED: NON FORMULARY DRUG (Cholecalciferol (Vitamin D3) [Vitamin D3] 2,000 UNIT Capsule) PO SCH (09:00)
[2021-03-10] MEDS ORDERED: NON FORMULARY DRUG (Omeprazole [Omeprazole] 40 MG Capsule.Dr) PO SCH (09:00)
[2021-03-10] MEDS ORDERED: TAMSULOSIN 0.4 MG CAP.ER.24H PO SCH (09:00)
[2021-03-10] MEDS ORDERED: CARBIDOPA-LEVODOPA 10-100 MG 1 EACH TAB PO SCH (11:00)
[2021-03-10] MEDS ORDERED: FERROUS SULFATE 325 MG TAB PO SCH (12:00)
[2021-03-11] MEDS ORDERED: LEVOTHYROXINE 137 MCG TAB PO SCH (06:30)
== END 2021-03-09 18:15 | disposition home or self-care (01) ==
LOC: EC 14:38 → 6NMEDSUR 17:08
PROVIDERS: ADMIT Internal Medicine; ATTEND Internal Medicine
DX: R55 Syncope and collapse (principal); G20 Parkinson's disease; I65.23 Occlusion and stenosis of bilateral carotid arteries; I95.9 Hypotension, unspecified; E11.9 Type 2 diabetes mellitus without complications; I11.9 Hypertensive heart disease without heart failure; E78.5 Hyperlipidemia, unspecified; D64.9 Anemia, unspecified; Z20.822 Contact with and (suspected) exposure to COVID-19; G47.61 Periodic limb movement disorder; E03.9 Hypothyroidism, unspecified; R60.9 Edema, unspecified; M19.90 Unspecified osteoarthritis, unspecified site; G47.33 Obstructive sleep apnea (adult) (pediatric); H91.90 Unspecified hearing loss, unspecified ear; E66.9 Obesity, unspecified; Z68.33 Body mass index [BMI] 33.0-33.9, adult; Z79.890 Hormone replacement therapy; Z79.4 Long term (current) use of insulin; Z79.899 Other long term (current) drug therapy; Z79.01 Long term (current) use of anticoagulants; Z88.0 Allergy status to penicillin; Z96.1 Presence of intraocular lens; Z96.652 Presence of left artificial knee joint; Z86.711 Personal history of pulmonary embolism; Z86.718 Personal history of other venous thrombosis and embolism; Z91.81 History of falling; Z85.828 Personal history of other malignant neoplasm of skin; Z77.29 Contact with and (suspected) exposure to other hazardous substances; Z80.41 Family history of malignant neoplasm of ovary; Z82.49 Family history of ischemic heart disease and other diseases of the circulatory system
CPT/HCPCS: 96376; 96365; 96361; 96375; 99285; 36415; 93005; 93270; 84439; 80053; 80048; 80061; 84443; 83540; 83550; 83735 ×2; 84484; 85025 ×2; 85610; 85730; 82272; 81003; 87635; 71046; 93880; 70450; G0378 ×3; C8929; J3475; C9113 ×2; Q9950; 93306; 96366

== ENCOUNTER 2021-04-11 08:53 | Day surgery (SDC) | payer MEDICARE ==
[2021-04-10 09:33] VITALS: BMI 32.2
[~2021-04-11 08:53] MED LIST changes: +ALPRAZolam 0.25 MG TAB PO PRN; +ALPRAZolam 0.5 MG TAB PO PRN; +ASPIRIN 325 MG TAB PO STA; +ATORVASTATIN 80 MG TAB PO STA; -LACTATED RINGERS 1,000 ML IV SCH; -LIDOCAINE 1% 20 ML VIAL (10MG/ML) FOR IV START INTRADERMA PRN; +NITROGLYCERIN SL TABS 0.4 MG TAB SUBLINGUAL PRN; +SODIUM CHLORIDE 0.9% 1,000 ML in EMPTY BAG 1 BAG IV ONE
[2021-04-11 09:31] LABS: Glucose,Whole Blood 178 mg/dL (75-99)
[2021-04-11 09:45] VITALS: RESP 16; TEMP 98
[2021-04-11 09:58] LABS: Basophils % (A) 0 %; Eosinophils # (A) 0.1 k/uL (0-0.7); Eosinophils % (A) 1 %; HCT 30.5 % (39.0-53.0); HGB 9.5 gm/dL (13.0-17.5); Hypochromasia Marked; Lymphocytes # (A) 1.1 k/uL (1.0-4.8); Lymphocytes % (A) 17 %; MCH 22.5 pg (25.0-35.0); MCHC 31.1 g/dL (31.0-37.0); Mean Platelet Volume 7.8; Microcytosis Slight; Monocytes # (A) 0.6 k/uL (0-1.0); Monocytes % (A) 10 %; Neutrophils # (A) 4.6 k/uL (1.3-7.7); Neutrophils % (A) 70 %; Platelet Count 288 k/uL (150-450); Poikilocytosis Slight; RBC 4.21 m/uL (4.30-5.90); RDW 14.2 % (11.5-15.5); WBC 6.6 k/uL (3.8-10.6)
[2021-04-11] MEDS ORDERED: LIDOCAINE 1% INJ 10MG/ML (20 ML MDV) ONE (10:14)
[2021-04-11 10:29] LABS: MCV 72.6 fL (80.0-100.0)
[2021-04-11 10:35] LABS: Calcium 8.6 mg/dL (8.4-10.2); Potassium 4.1 mmol/L (3.5-5.1)
[2021-04-11] MEDS ORDERED: fentaNYL (PF) 50 MCG/ML 2 ML AMP ONE (10:36)
[2021-04-11] MEDS ORDERED: MIDAZOLAM 2 MG/2 ML VIAL IV ONE (10:47)
[2021-04-11] MEDS ORDERED: LIDOCAINE 1% INJ 10MG/ML (20 ML MDV) SQ ONE (10:47)
[2021-04-11] MEDS ORDERED: fentaNYL (PF) 50 MCG/ML 2 ML AMP IV ONE ×2 (10:48)
[2021-04-11] MEDS ORDERED: IOPAMIDOL-370 125ML BTL INJ ONE (11:15)
[2021-04-11] MEDS ORDERED: RX INFO: IV CONTRAST WAS GIVEN 1 EACH MISC MISCELLANE PRN (11:51)
[2021-04-11] MEDS ORDERED: SODIUM CHLORIDE 0.9% 1,000 ML IV SCH (12:00)
[2021-04-11 14:15] VITALS: BP 129/65; PULSE 82
--- NOTE | 2021-04-11 18:03 | CC ---
CARDIAC CATHETERIZATION REPORT REFERRING PHYSICIAN: Dr. Rowe. INDICATION: Syncope with abnormal stress test. PROCEDURE NOTE: After obtaining informed consent, left heart catheterization and coronary angiogram were performed via the right femoral artery using standard Juvenal catheters. The patient tolerated the procedure well without any obvious immediate complications. A femoral angiogram was performed and Angio-Seal was deployed for hemostasis. Patient received moderate conscious sedation. Total sedation time was 16 minutes. FINDINGS: HEMODYNAMICS: Left ventricular end-diastolic pressure is 16 mm. There is no significant gradient across the aortic valve. LEFT VENTRICULOGRAM: Not performed. ANGIOGRAPHIC DATA: LEFT MAIN CORONARY ARTERY: Left main coronary artery is a normal-sized vessel and is free of stenosis. Divides into left anterior descending coronary artery and circumflex coronary artery. LEFT ANTERIOR DESCENDING CORONARY ARTERY: LAD shows a moderate area of stenosis in its midportion with an 80-90 percent lesion within the ostial portion of the diagonal branch. RIGHT CORONARY ARTERY: Right coronary artery is a large dominant vessel. There was some catheter-induced spasm. There is a long segment of 80 to 90% stenosis in the extending from proximal to midportion. CONCLUSIONS: Severe 2 vessel coronary artery disease as described above. PLAN: I reviewed angiographic data with Dr. Burt, the on-call master of ceremonies. Given the fact that the patient does not have any angina and did not have any documented ventricular tachyarrhythmias and given the complex nature of the diagonal lesion and a long stenosis in the right coronary artery, we have decided to manage the patient with optimal medical therapy. I will add nitrates and beta blockers. MMODL / IJN: [id number] /
[2021-04-12] MEDS ORDERED: METOPROLOL SUCCINATE (ER) 25 MG TAB.ER.24H PO SCH (09:00)
[2021-04-12] MEDS ORDERED: ISOSORBIDE MONONITRATE ER 30 MG TAB.ER.24H PO SCH (09:00)
== END 2021-04-11 15:57 | disposition home or self-care (01) ==
LOC: CATHCVL 08:53
PROVIDERS: ATTEND Internal Medicine Cardiovascular Disease
DX: I25.10 Atherosclerotic heart disease of native coronary artery without angina pectoris (principal); I10 Essential (primary) hypertension; E78.5 Hyperlipidemia, unspecified; E11.9 Type 2 diabetes mellitus without complications; R94.39 Abnormal result of other cardiovascular function study; Z20.822 Contact with and (suspected) exposure to COVID-19; G20 Parkinson's disease; Z88.0 Allergy status to penicillin; Z79.01 Long term (current) use of anticoagulants; Z79.82 Long term (current) use of aspirin; Z79.4 Long term (current) use of insulin; Z79.899 Other long term (current) drug therapy
CPT/HCPCS: 93458; 80048; 85025; 87635; C1769 ×2; C1760; C1894; J2001; J3010; Q9967

== ENCOUNTER 2021-06-20 14:54 | Emergency (ER) | payer MEDICARE ==
[2021-06-20] MEDS ORDERED: SODIUM CHLORIDE 0.9% 500 ML 500 ML IV STA (15:29)
--- NOTE | 2021-06-20 16:15 | ED ---
General Adult HPI - General Chief complaint: Fall Stated complaint: Falls/weakness Time Seen by Provider: 06/20/21 15:02 Source: patient, EMS Mode of arrival: EMS Limitations: no limitations - History of Present Illness Initial comments: Patient is a 75-year-old male with history of Parkinson's, diabetes, hypertension, heart disease, presenting to the emergency department after having a few falls in the last 1-2 days. He states he had 2 separate falls yesterday at his house. He normally walks with a walker but feels like since this morning he is unable to and weight even with his walker. He states he feels too weak. Yesterday he remembers one of the falls in the downstairs bathroom, he not lose consciousness however he does remember hitting his head but is unsure on what. He states second time he fell was in upstairs bathroom. He did not lose consciousness at that time either. He denies any new pains from these falls. He denies any chest pain or shortness of breath, no abdominal pain, no nausea or vomiting. He denies any pain in any of his extremities. Eyes any recent fevers or chills, no new medications. He has no further complaints. Patient's vital signs are stable upon arrival. - Related Data Home Medications Medication Instructions Recorded Confirmed Atorvastatin [Lipitor] 20 mg PO HS@2300 04/25/19 06/20/21 Carbidopa-Levodopa ER 50-200Mg 1 tab PO BID@0900,1500 04/25/19 06/20/21 [Sinemet CR 50-200 mg] Insulin Glargine,Hum.rec.anlog 12 unit SQ DAILY 04/25/19 06/20/21 [Lantus Solostar] Levothyroxine Sodium [Synthroid] 137 mcg PO MOTUWETHFRSA 04/25/19 06/20/21 Pioglitazone HCl [Actos] 15 mg PO DAILY@0900 04/25/19 06/20/21 Enalapril [Vasotec] 5 mg PO DAILY@0900 03/07/21 06/20/21 Liraglutide [Victoza 2-Jean] 1.8 mg SQ DAILY 03/07/21 06/20/21 Omeprazole 40 mg PO DAILY@0800 03/07/21 06/20/21 Rivaroxaban [Xarelto] 20 mg PO HS@2300 03/07/21 06/20/21 Tamsulosin [Flomax] 0.4 mg PO DAILY@1900 03/07/21 06/20/21 busPIRone HCl [Buspar] 5 mg PO TID@0900,1500,2100 03/07/21 06/20/21 metFORMIN HCL [Glucophage] 1,000 mg PO BID@0900,1900 03/07/21 06/20/21 Cholecalciferol [Vitamin D3 (25 50 mcg PO DAILY@89904/10/21 06/20/21 Mcg = 1000 Iu)] Ferrous Sulfate [Iron (65 MG 325 mg PO DAILY@89904/10/21 06/20/21 Elemental)] Sennosides-Docusate Sodium 1 tab PO DAILY@1900 04/10/21 06/20/21 [Senokot-S] Aspirin 81 mg PO DAILY@0906/20/21 06/20/21 Carbidopa-Levodopa 25-100 mg 1 tab PO DAILY@1100 06/20/21 06/20/21 [Sinemet 25-100] Isosorbide Mononitrate ER [Imdur] 15 mg PO DAILY@1500 06/20/21 06/20/21 Metoprolol Succinate (ER) [Toprol 25 mg PO DAILY@89906/20/21 06/20/21 XL] Polyethylene Glycol 3350 [Miralax] 17 gm PO [id number] 06/20/21 06/20/21 Previous Rx's Medication Instructions Recorded Cephalexin [Keflex] 500 mg PO Q6HR 7 Days #28 cap 06/20/21 Allergies Allergy/AdvReac Type Severity Reaction Status Date / Time Penicillins Allergy Unknown Verified 06/20/21 16:17 Childhood Review of Systems ROS Statement: Those systems with pertinent positive or pertinent negative responses have been documented in the HPI. ROS Other: All systems not noted in ROS Statement are negative. Past Medical History Past Medical History: Coronary Artery Disease (CAD), Cancer, Diabetes Mellitus, Deep Vein Thrombosis (DVT), Hearing Disorder / Deafness, Hyperlipidemia, Hypertension, Neurologic Disorder, Osteoarthritis (OA), Prostate Disorder, Pu lmonary Embolus (PE), Sleep Apnea/CPAP/BIPAP, Thyroid Disorder Additional Past Medical History / Comment(s): Parkinsons, PALA bilaterally, skin cancer removals, past L upper arm cellulitis, "he was passing out/falls due to low bp -bp meds currently on hold", no cpap used currently, constipation, History of Any Multi-Drug Resistant Organisms: None Reported Past Surgical History: Joint Replacement Additional Past Surgical History / Comment(s): Total beverley knee arthroplasties(developed postop blood clots), skin cancer removed from nose/hairline, surgery for deviated septum, colonoscopies, L chest wall cyst removed, bilateral cataract removals/lens implants. Past Anesthesia/Blood Transfusion Reactions: No Reported Reaction Past Psychological History: Anxiety Smoking Status: Never smoker Past Alcohol Use History: None Reported Past Drug Use History: None Reported - Past Family History Mother Family Medical History: Cancer Additional Family Medical History / Comment(s): OVARIAN CANCER Father Additional Family Medical History / Comment(s): Father at the age of 66 yrs from a "heart condition". He was a smoker. General Exam - General Exam Comments Initial Comments: GENERAL: Patient is well-developed and well-nourished. Patient is nontoxic and in no acute distress. HEAD: Atraumatic, normocephalic. He has no hematomas, no signs of basal skull fracture. EYES: Pupils equal round and reactive to light, extraocular movements intact, sclera anicteric, conjunctiva are normal. Eyelids were unremarkable. ENT: TMs normal, nares patent, oropharynx clear without exudates. Dry mucous membranes. NECK: Normal range of motion, supple without lymphadenopathy or JVD. LUNGS: Unlabored respirations. Breath sounds clear to auscultation bilaterally and equal. No wheezes rales or rhonchi. HEART: Regular rate and rhythm without murmurs, rubs or gallops. ABDOMEN: Soft, nontender, normoactive bowel sounds. No guarding, no rebound. No masses appreciated. : Deferred MUSCULOSKELETAL: Normal extremities with adequate strength and normal range of motion, no pitting or edema. No clubbing or cyanosis. NEUROLOGICAL: Patient is alert and oriented x 3. Motor and sensory are also intact. Cranial nerves II through XII grossly intact. Symmetrical smile. Normal speech. PSYCH: Normal mood, normal affect. SKIN: Warm, Dry, normal turgor, no rashes or lesions noted. Limitations: no limitations Course Vital Signs 06/20/21 06/20/21 14:57 16:49 Temperature 98.8 F Pulse Rate 86 85 Respiratory 18 16 Rate Blood Pressure 124/73 138/77 O2 Sat by Pulse 99 98 Oximetry EKG Findings - EKG Comments: EKG Findings:: Sinus rhythm with short NC, inferior posterior infarct, age undetermined, no signs of acute ST segment elevation. This is similar to his previous on 03/07/2021. Ventricular rate 85, NC interval 96, QT 388. Medical Decision Making - Medical Decision Making Patient is a 75-year-old male with multiple comorbidities including Parkinson's, heart disease, presenting for multiple falls over the past 24 hours. He has increased weakness today and unable to ambulate even with his walker. His vital signs are stable. He has no complaints of pain from his falls. He is on blood thinners. Labs show a normal white count, stable hemoglobin at 9.6, elect rolytes are all within normal limits, lactic acid is normal at 1.5, troponin is normal. Urine is positive for nitrates, many wbc clumps and bacteria, urine culture is pending. EKG showed no acute process, chest x-ray is normal. CT of the brain and C-spine showed no acute process. I did discuss case with patient's PCP, Dr. Rowe, who wants patient to be discharged home with antibiotics. He will see him in the office in a few days. He also recommended patient needs to follow up with neurology regarding the falls. Discussed this with the patient and the patient's , they are agreeable to this. Patient was given 2 g of Rocephin here in the ER, I will continue him on Keflex as an outpatient. Return parameters were discussed with them and they verbalized understanding. Case discussed with Dr. Díaz. - Lab Data Result diagrams: 06/20/21 15:29 06/20/21 16:09 Lab Results 06/20/21 06/20/21 06/20/21 Range/Units 15:29 15:29 15:29 WBC 7.5 (3.8-10.6) k/uL RBC 4.57 (4.30-5.90) m/uL Hgb 9.6 L (13.0-17.5) gm/dL Hct 32.2 L (39.0-53.0) % MCV 70.5 L (80.0-100.0) fL MCH 21.0 L (25.0-35.0) pg MCHC 29.7 L (31.0-37.0) g/dL RDW 16.7 H (11.5-15.5) % Plt Count 232 (150-450) k/uL MPV 8.1 Neutrophils % 78 % Lymphocytes % 9 % Monocytes % 8 % Eosinophils % 1 % Basophils % 1 % Neutrophils # 5.9 (1.3-7.7) k/uL Lymphocytes # 0.7 L (1.0-4.8) k/uL Monocytes # 0.6 (0-1.0) k/uL Eosinophils # 0.1 (0-0.7) k/uL Basophils # 0.0 (0-0.2) k/uL Hypochromasia Marked Anisocytosis Slight Microcytosis Marked PT 13.2 H (9.0-12.0) sec INR 1.3 H (<1.2) APTT 27.2 (22.0-30.0) sec Sodium (137-145) mmol/L Potassium (3.5-5.1) mmol/L Chloride (98-107) mmol/L Carbon Dioxide (22-30) mmol/L Anion Gap mmol/L BUN (9-20) mg/dL Creatinine (0.66-1.25) mg/dL Est GFR (CKD-EPI)AfAm (>60 ml/min/1.73 sqM) Est GFR (CKD-EPI)NonAf (>60 ml/min/1.73 sqM) Glucose (74-99) mg/dL Plasma Lactic Acid Jian 1.5 (0.7-2.0) mmol/L Calcium (8.4-10.2) mg/dL Magnesium (1.6-2.3) mg/dL Total Bilirubin (0.2-1.3) mg/dL AST (17-59) U/L ALT (4-49) U/L Alkaline Phosphatase (38-126) U/L Troponin I (0.000-0.034) ng/mL Total Protein (6.3-8.2) g/dL Albumin (3.5-5.0) g/dL TSH (0.465-4.680) mIU/L Urine Color Urine Appearance (Clear) Urine pH (5.0-8.0) Ur Specific [place] (1.001-1.035) Urine Protein (Negative) Urine Glucose (UA) (Negative) Urine Ketones (Negative) Urine Blood (Negative) Urine Nitrite (Negative) Urine Bilirubin (Negative) Urine Urobilinogen (<2.0) mg/dL Ur Leukocyte Esterase (Negative) Urine RBC (0-5) /hpf Urine WBC (0-5) /hpf Urine WBC Clumps (None) /hpf Ur Squamous Epith Cells (0-4) /hpf Urine Bacteria (None) /hpf Urine Mucus (None) /hpf 06/20/21 06/20/21 06/20/21 Range/Units 15:29 16:09 16:09 WBC (3.8-10.6) k/uL RBC (4.30-5.90) m/uL Hgb (13.0-17.5) gm/dL Hct (39.0-53.0) % MCV (80.0-100.0) fL MCH (25.0-35.0) pg MCHC (31.0-37.0) g/dL RDW (11.5-15.5) % Plt Count (150-450) k/uL MPV Neutrophils % % Lymphocytes % % Monocytes % % Eosinophils % % Basophils % % Neutrophils # (1.3-7.7) k/uL Lymphocytes # (1.0-4.8) k/uL Monocytes # (0-1.0) k/uL Eosinophils # (0-0.7) k/uL Basophils # (0-0.2) k/uL Hypochromasia Anisocytosis Microcytosis PT (9.0-12.0) sec INR (<1.2) APTT (22.0-30.0) sec Sodium 137 (137-145) mmol/L Potassium 4.4 (3.5-5.1) mmol/L Chloride 104 (98-107) mmol/L Carbon Dioxide 24 (22-30) mmol/L Anion Gap 9 mmol/L BUN 23 H (9-20) mg/dL Creatinine 1.00 (0.66-1.25) mg/dL Est GFR (CKD-EPI)AfAm 85 (>60 ml/min/1.73 sqM) Est GFR (CKD-EPI)NonAf 73 (>60 ml/min/1.73 sqM) Glucose 187 H (74-99) mg/dL Plasma Lactic Acid Jian (0.7-2.0) mmol/L Calcium 8.7 (8.4-10.2) mg/dL Magnesium 1.8 (1.6-2.3) mg/dL Total Bilirubin 0.6 (0.2-1.3) mg/dL AST 22 (17-59) U/L ALT 6 (4-49) U/L Alkaline Phosphatase 87 (38-126) U/L Troponin I <0.012 (0.000-0.034) ng/mL Total Protein 6.3 (6.3-8.2) g/dL Albumin 3.7 (3.5-5.0) g/dL TSH 1.450 (0.465-4.680) mIU/L Urine Color Yellow Urine Appearance Cloudy (Clear) Urine pH 5.5 (5.0-8.0) Ur Specific [place] 1.023 (1.001-1.035) Urine Protein 1+ H (Negative) Urine Glucose (UA) 1+ H (Negative) Urine Ketones Trace H (Negative) Urine Blood Moderate H (Negative) Urine Nitrite Positive (Negative) Urine Bilirubin Negative (Negative) Urine Urobilinogen <2.0 (<2.0) mg/dL Ur Leukocyte Esterase Large H (Negative) Urine RBC 2 (0-5) /hpf Urine WBC 38 H (0-5) /hpf Urine WBC Clumps Many H (None) /hpf Ur Squamous Epith Cells <1 (0-4) /hpf Urine Bacteria Few H (None) /hpf Urine Mucus Rare H (None) /hpf Disposition Clinical Impression: Fall, UTI (urinary tract infection), Weakness Disposition: HOME SELF-CARE Condition: Stable Instructions (If sedation given, give patient instructions): Urinary Tract Infection in Men (ED) Additional Instructions: Please return to the Emergency Department if symptoms worsen or any other concerns. Please take and finish entire antibiotic course as directed. Please follow-up with your PCP as well as your neurologist. Prescriptions: Cephalexin [Keflex] 500 mg PO Q6HR 7 Days #28 cap Is patient prescribed a controlled substance at d/c from ED?: No Referrals: David Rowe MD [Primary Care Provider] - 1-2 days Time of Disposition: 18:04
[2021-06-20 16:25] LABS: Anisocytosis Slight; Basophils % (A) 1 %; Eosinophils # (A) 0.1 k/uL (0-0.7); Eosinophils % (A) 1 %; HCT 32.2 % (39.0-53.0); HGB 9.6 gm/dL (13.0-17.5); Hypochromasia Marked; Lymphocytes # (A) 0.7 k/uL (1.0-4.8); Lymphocytes % (A) 9 %; MCHC 29.7 g/dL (31.0-37.0); MCV 70.5 fL (80.0-100.0); Mean Platelet Volume 8.1; Microcytosis Marked; Monocytes # (A) 0.6 k/uL (0-1.0); Monocytes % (A) 8 %; Neutrophils # (A) 5.9 k/uL (1.3-7.7); Neutrophils % (A) 78 %; Platelet Count 232 k/uL (150-450); RBC 4.57 m/uL (4.30-5.90); RDW 16.7 % (11.5-15.5); WBC 7.5 k/uL (3.8-10.6)
--- NOTE | 2021-06-20 16:29 | CT ---
EXAMINATION TYPE: CT brain yashira junior con DATE OF EXAM: 06/20/2021 COMPARISON: 03/07/2021 HISTORY: Multiple falls. CT DLP: 1607.[address] of the brain was performed. The ventricles, basal cisterns and sulci overlying the cerebral convexities demonstrate mild/moderate enlargement. There is no evidence for intracranial hemorrhage or sulcal effacement. There is decreased attenuatio n about the periventricular white matter and deep white matter of both cerebral hemispheres, compatib le with chronic small vessel ischemia. No mass effects are seen. If symptoms persist consider MRI. Osseous calvarium is intact. IMPRESSION: 1. Age related atrophic and chronic small vessel ischemic change without acute intracranial process seen at this time. CT Cervical Spine: Unenhanced CT of the cervical spine was performed with bone and soft tissue window settings submitted . Coronal and sagittal reconstruction is obtained. There is normal alignment and prevertebral soft tissues. No evidence for acute cervical fracture . Scattered degenerative disc disease and spondylosis. Biapical scarring. IMPRESSION: 1. No evidence for acute fracture or subluxation of the cervical spine.
--- NOTE | 2021-06-20 16:30 | XR ---
EXAMINATION TYPE: XR chest 2V DATE OF EXAM: 06/20/2021 COMPARISON: NONE HISTORY: Shortness of breath TECHNIQUE: Frontal and lateral views of the chest are obtained. FINDINGS: Scattered senescent parenchymal changes noted. Hyperinflation compatible with COPD. No evidence for infiltrate. No evidence for atelectasis. Heart size is stable. Mediastinal structures are stable and grossly unremarkable. No evidence for hilar prominence. Degenerative changes dorsal spine. IMPRESSION: 1. No evidence for acute pulmonary disease.
[2021-06-20 16:32] LABS: INR 1.3 (<1.2); Partial Thromboplastin Time 27.2 sec (22.0-30.0); Prothrombin Time 13.2 sec (9.0-12.0)
[2021-06-20 16:33] LABS: Albumin 3.7 g/dL (3.5-5.0); Calcium 8.7 mg/dL (8.4-10.2); Magnesium 1.8 mg/dL (1.6-2.3); Potassium 4.4 mmol/L (3.5-5.1); Total Bilirubin 0.6 mg/dL (0.2-1.3); Total Protein 6.3 g/dL (6.3-8.2)
[2021-06-20 16:49] VITALS: BP 138/77; PULSE 85; RESP 16; TEMP 98.8
[2021-06-20 17:13] LABS: Appearance,Urine Cloudy (Clear); Bacteria,Urine Few /hpf; Bilirubin,Urine Negative (Negative); Blood,Urine Moderate (Negative); Color,Urine Yellow; Glucose,Urine (UA) 1+ (Negative); Ketones,Urine Trace (Negative); Leukocyte Esterase,Urine Large (Negative); Mucus,Urine Rare /hpf; Nitrite,Urine Positive (Negative); PH, Urine 5.5 (5.0-8.0); Protein,Urine 1+ (Negative); RBC,Urine 2 /hpf (0-5); Specific Gravity,Urine 1.023 (1.001-1.035); Squamous Epithelial Cell,Urine <1 /hpf (0-4); Urobilinogen,Urine <2.0 mg/dL (<2.0); WBC,Urine 38 /hpf (0-5)
== END 2021-06-20 18:21 | disposition home or self-care (01) ==
LOC: EC 14:54
DX: N39.0 Urinary tract infection, site not specified (principal); R53.1 Weakness; R29.6 Repeated falls; I11.9 Hypertensive heart disease without heart failure; E11.9 Type 2 diabetes mellitus without complications; E78.5 Hyperlipidemia, unspecified; I25.10 Atherosclerotic heart disease of native coronary artery without angina pectoris; M19.90 Unspecified osteoarthritis, unspecified site; H91.90 Unspecified hearing loss, unspecified ear; E07.9 Disorder of thyroid, unspecified; Z79.82 Long term (current) use of aspirin; Z79.899 Other long term (current) drug therapy; Z88.0 Allergy status to penicillin; Z86.711 Personal history of pulmonary embolism; Z79.890 Hormone replacement therapy
CPT/HCPCS: 36415; 93005; 80053; 84443; 83605; 83735; 84484; 85025; 85610; 85730; 81001; 87086; 87077; 87186; 71046; 72125; 70450; 99285; 96365; J0696

== ENCOUNTER 2021-10-15 04:31 | Emergency (ER) | payer MEDICARE ==
[2021-10-15 04:37] VITALS: RESP 18; TEMP 98.5
--- NOTE | 2021-10-15 05:19 | ED ---
Fall HPI - General Source: patient Mode of arrival: ambulatory - History of Present Illness MD Complaint: fall -: minutes(s) Fall From: standing Place Fall Occurred: home Loss of Consciousness: none Prolonged Down Time?: no Symptoms Prior to Fall: none Location - Extremities: Right: Shoulder Severity: mild Context: tripped/slipped <Shedlon Atwood - Last Filed: 10/15/21 07:04> <Christopher Almodovar - Last Filed: 10/15/21 09:28> <Rico Díaz - Last Filed: 10/15/21 09:40> - General Chief Complaint: Fall Stated Complaint: Fall Time Seen by Provider: 10/15/21 04:40 - History of Present Illness Initial Comments: This patient is 75-year-old man who presents to be evaluated after having a fall at home. The patient states he was walking across wooden floor with compression stockings and slipped. He struck his right shoulder. Patient denies loss consciousness. Denies other aches and pains. Patient's states that the last time he had fallen the had urinary tract infection. (Sheldon Atwood) - Related Data Home Medications Medication Instructions Recorded Confirmed Atorvastatin [Lipitor] 20 mg PO HS@2300 04/25/19 06/20/21 Carbidopa-Levodopa ER 50-200Mg 1 tab PO BID@0900,1500 04/25/19 06/20/21 [Sinemet CR 50-200 mg] Insulin Glargine,Hum.rec.anlog 12 unit SQ DAILY 04/25/19 06/20/21 [Lantus Solostar Pen] Levothyroxine Sodium [Synthroid] 137 mcg PO MOTUWETHFRSA 04/25/19 06/20/21 Pioglitazone HCl [Actos] 15 mg PO DAILY@0900 04/25/19 06/20/21 Enalapril [Vasotec] 5 mg PO DAILY@0900 03/07/21 06/20/21 Liraglutide [Victoza 2-Jean] 1.8 mg SQ DAILY 03/07/21 06/20/21 Omeprazole 40 mg PO DAILY@0800 03/07/21 06/20/21 Rivaroxaban [Xarelto] 20 mg PO HS@2300 03/07/21 06/20/21 Tamsulosin [Flomax] 0.4 mg PO DAILY@1900 03/07/21 06/20/21 busPIRone HCl [Buspar] 5 mg PO TID@0900,1500,2100 03/07/21 06/20/21 metFORMIN HCL [Glucophage] 1,000 mg PO BID@0900,1900 03/07/21 06/20/21 Cholecalciferol [Vitamin D3 (25 50 mcg PO DAILY@89904/10/21 06/20/21 Mcg = 1000 Iu)] Ferrous Sulfate [Iron (65 MG 325 mg PO DAILY@89904/10/21 06/20/21 Elemental)] Sennosides-Docusate Sodium 1 tab PO DAILY@1900 04/10/21 06/20/21 [Senokot-S] Aspirin 81 mg PO DAILY@89906/20/21 06/20/21 Carbidopa-Levodopa 25-100 mg 1 tab PO DAILY@1100 06/20/21 06/20/21 [Sinemet 25-100] Isosorbide Mononitrate ER [Imdur] 15 mg PO DAILY@1500 06/20/21 06/20/21 Metoprolol Succinate (ER) [Toprol 25 mg PO DAILY@0906/20/21 06/20/21 XL] Polyethylene Glycol 3350 [Miralax] 17 gm PO AC-BRKFST 06/20/21 06/20/21 Previous Rx's Medication Instructions Recorded Cephalexin [Keflex] 500 mg PO Q6HR 7 Days #28 cap 06/20/21 Allergies Allergy/AdvReac Type Severity Reaction Status Date / Time Penicillins Allergy Unknown Verified 10/15/21 04:36 Childhood Review of Systems ROS Other: All systems not noted in ROS Statement are negative. Constitutional: Denies: fever, chills Eyes: Denies: vision change ENT: Denies: epistaxis Respiratory: Denies: cough, dyspnea Cardiovascular: Denies: chest pain, palpitations Gastrointestinal: Denies: abdominal pain, vomiting, diarrhea Genitourinary: Denies: dysuria Musculoskeletal: Reports: arthralgia. Denies: back pain Skin: Denies: rash Neurological: Denies: headache, weakness, confusion <Sheldon Atwood - Last Filed: 10/15/21 07:04> ROS Other: All systems not noted in ROS Statement are negative. <Jorje Almodovarony - Last Filed: 10/15/21 09:28> ROS Other: All systems not noted in ROS Statement are negative. <Rico Díaz - Last Filed: 10/15/21 09:40> ROS Statement: Those systems with pertinent positive or pertinent negative responses have been documented in the HPI. Past Medical History Past Medical History: Coronary Artery Disease (CAD), Cancer, Diabetes Mellitus, Deep Vein Thrombosis (DVT), Hearing Disorder / Deafness, Hyperlipidemia, Hypertension, Neurologic Disorder, Osteoarthritis (OA), Prostate Disorder, Pulm onary Embolus (PE), Sleep Apnea/CPAP/BIPAP, Thyroid Disorder Additional Past Medical History / Comment(s): Parkinsons, [place] bilaterally, skin cancer removals, past L upper arm cellulitis, "he was passing out/falls due to low bp -bp meds currently on hold", no cpap used currently, constipation, History of Any Multi-Drug Resistant Organisms: None Reported Past Surgical History: Joint Replacement Additional Past Surgical History / Comment(s): Total beverley knee arthroplasties(developed postop blood clots), skin cancer removed from nose/hairline, surgery for deviated septum, colonoscopies, L chest wall cyst removed, bilateral cataract removals/lens implants. Past Anesthesia/Blood Transfusion Reactions: No Reported Reaction Past Psychological History: Anxiety Smoking Status: Never smoker Past Alcohol Use History: None Reported Past Drug Use History: None Reported - Past Family History Mother Family Medical History: Cancer Additional Family Medical History / Comment(s): OVARIAN CANCER Father Additional Family Medical History / Comment(s): Father at the age of 66 yrs from a "heart condition". He was a smoker. <Sheldon Atwood - Last Filed: 10/15/21 07:04> General Exam Limitations: no limitations General appearance: alert, in no apparent distress Head exam: Present: atraumatic, normocephalic Eye exam: Present: normal appearance. Absent: scleral icterus, conjunctival injection Neck exam: Present: normal inspection, full ROM. Absent: tenderness Respiratory exam: Present: normal lung sounds bilaterally. Absent: respiratory distress, wheezes, rales, rhonchi, stridor, chest wall tenderness Cardiovascular Exam: Present: regular rate, normal rhythm, normal heart sounds. Absent: systolic murmur, diastolic murmur, rubs, gallop GI/Abdominal exam: Present: soft. Absent: distended, tenderness, guarding, rebound, rigid, mass Extremities exam: Present: normal inspection, normal capillary refill. Absent: pedal edema, calf tenderness Back exam: Present: normal inspection. Absent: CVA tenderness (R), CVA tenderness (L), vertebral tenderness Neurological exam: Present: alert Skin exam: Present: warm, dry, intact, normal color. Absent: rash <Sheldon Atwood - Last Filed: 10/15/21 07:04> Course Vital Signs 10/15/21 10/15/21 04:33 07:49 Temperature 98.5 F Pulse Rate 82 79 Respiratory 18 18 Rate Blood Pressure 182/96 167/90 O2 Sat by Pulse 98 98 Oximetry Procedures <Christopher Almodovar - Last Filed: 10/15/21 09:28> - Procedures Initial comment: Patient does have a laceration to the left year. Measures approximately 2.5 cm total length. It was cleaned here in the emergency room with saline. Wound edges were approximated with Dermabond. Patient tolerated well. (Christopher Almodovar) Medical Decision Making - Lab Data Result diagrams: 10/15/21 06:00 10/15/21 06:00 - EKG Data -: EKG Interpreted by Ma EKG shows normal: sinus rhythm, axis (Normal), intervals (Normal), QRS complexes (Normal), ST-T waves (Normal) Rate: normal (Rate 78 bpm) Interpretation: normal EKG <Sheldon Atwood - Last Filed: 10/15/21 07:04> - Lab Data Result diagrams: 10/15/21 06:00 10/15/21 06:00 <Christopher Almodovar - Last Filed: 10/15/21 09:28> - Lab Data Result diagrams: 10/15/21 06:00 10/15/21 06:00 <Rico Díaz - Last Filed: 10/15/21 09:40> - Medical Decision Making I evaluated the patient noted there was a laceration to the ear and had that approximated with Dermabond by the physician assistant professor of philosophy.. CT of the head and neck were also done and they were negative. Patient will follow-up with orthopedic. (Rico Díaz) - Lab Data Lab Results 10/15/21 10/15/21 10/15/21 Range/Units 06:00 06:00 06:00 WBC 7.1 (3.8-10.6) k/uL RBC 5.10 (4.30-5.90) m/uL Hgb 11.2 L (13.0-17.5) gm/dL Hct 37.2 L (39.0-53.0) % MCV 72.9 L (80.0-100.0) fL MCH 22.0 L (25.0-35.0) pg MCHC 30.2 L (31.0-37.0) g/dL RDW 17.9 H (11.5-15.5) % Plt Count 219 (150-450) k/uL MPV 7.4 Neutrophils % 74 % Lymphocytes % 14 % Monocytes % 8 % Eosinophils % 2 % Basophils % 0 % Neutrophils # 5.3 (1.3-7.7) k/uL Lymphocytes # 1.0 (1.0-4.8) k/uL Monocytes # 0.6 (0-1.0) k/uL Eosinophils # 0.1 (0-0.7) k/uL Basophils # 0.0 (0-0.2) k/uL Hypochromasia Marked Anisocytosis Slight Microcytosis Moderate Sodium 137 (137-145) mmol/L Potassium 4.1 (3.5-5.1) mmol/L Chloride 104 (98-107) mmol/L Carbon Dioxide 26 (22-30) mmol/L Anion Gap 7 mmol/L BUN 20 (9-20) mg/dL Creatinine 0.96 (0.66-1.25) mg/dL Est GFR (CKD-EPI)AfAm 90 (>60 ml/min/1.73 sqM) Est GFR (CKD-EPI)NonAf 78 (>60 ml/min/1.73 sqM) Glucose 160 H (74-99) mg/dL Calcium 9.0 (8.4-10.2) mg/dL Total Bilirubin 0.6 (0.2-1.3) mg/dL AST 22 (17-59) U/L ALT 14 (4-49) U/L Alkaline Phosphatase 100 (38-126) U/L Troponin I <0.012 (0.000-0.034) ng/mL Total Protein 6.5 (6.3-8.2) g/dL Albumin 3.5 (3.5-5.0) g/dL Urine Color Urine Appearance (Clear) Urine pH (5.0-8.0) Ur Specific Garner (1.001-1.035) Urine Protein (Negative) Urine Glucose (UA) (Negative) Urine Ketones (Negative) Urine Blood (Negative) Urine Nitrite (Negative) Urine Bilirubin (Negative) Urine Urobilinogen (<2.0) mg/dL Ur Leukocyte Esterase (Negative) Urine RBC (0-5) /hpf Urine WBC (0-5) /hpf Urine Mucus (None) /hpf 10/15/21 Range/Units 06:10 WBC (3.8-10.6) k/uL RBC (4.30-5.90) m/uL Hgb (13.0-17.5) gm/dL Hct (39.0-53.0) % MCV (80.0-100.0) fL MCH (25.0-35.0) pg MCHC (31.0-37.0) g/dL RDW (11.5-15.5) % Plt Count (150-450) k/uL MPV Neutrophils % % Lymphocytes % % Monocytes % % Eosinophils % % Basophils % % Neutrophils # (1.3-7.7) k/uL Lymphocytes # (1.0-4.8) k/uL Monocytes # (0-1.0) k/uL Eosinophils # (0-0.7) k/uL Basophils # (0-0.2) k/uL Hypochromasia Anisocytosis Microcytosis Sodium (137-145) mmol/L Potassium (3.5-5.1) mmol/L Chloride (98-107) mmol/L Carbon Dioxide (22-30) mmol/L Anion Gap mmol/L BUN (9-20) mg/dL Creatinine (0.66-1.25) mg/dL Est GFR (CKD-EPI)AfAm (>60 ml/min/1.73 sqM) Est GFR (CKD-EPI)NonAf (>60 ml/min/1.73 sqM) Glucose (74-99) mg/dL Calcium (8.4-10.2) mg/dL Total Bilirubin (0.2-1.3) mg/dL AST (17-59) U/L ALT (4-49) U/L Alkaline Phosphatase (38-126) U/L Troponin I (0.000-0.034) ng/mL Total Protein (6.3-8.2) g/dL Albumin (3.5-5.0) g/dL Urine Color Yellow Urine Appearance Clear (Clear) Urine pH 6.0 (5.0-8.0) Ur Specific Garner 1.023 (1.001-1.035) Urine Protein 1+ H (Negative) Urine Glucose (UA) Negative (Negative) Urine Ketones Negative (Negative) Urine Blood Small H (Negative) Urine Nitrite Negative (Negative) Urine Bilirubin Negative (Negative) Urine Urobilinogen <2.0 (<2.0) mg/dL Ur Leukocyte Esterase Negative (Negative) Urine RBC 7 H (0-5) /hpf Urine WBC 1 (0-5) /hpf Urine Mucus Rare H (None) /hpf Disposition Is patient prescribed a controlled substance at d/c from ED?: No <Sheldon Atwood - Last Filed: 10/15/21 07:04> <Christopher Almodovar - Last Filed: 10/15/21 09:28> Time of Disposition: 09:40 <Rico Díaz - Last Filed: 10/15/21 09:40> Clinical Impression: Fall, Shoulder contusion, Laceration of ear Disposition: HOME SELF-CARE Instructions (If sedation given, give patient instructions): Fall Prevention for Older Adults (ED), Shoulder Pain (ED) Referrals: David Rowe MD [Primary Care Provider] - 1-2 days
--- NOTE | 2021-10-15 05:54 | XR ---
EXAMINATION TYPE: XR shoulder complete RT DATE OF EXAM: 10/15/2021 COMPARISON: 01/11/2013 HISTORY: Pain TECHNIQUE: 3 views FINDINGS: There is narrowing of the subacromial joint space. I see no fracture nor dislocation. Gleno humeral joint is anatomic. IMPRESSION: There are some arthritic changes at the right shoulder joint which have progressed compar ed to old exam. No fracture.
[2021-10-15 06:23] LABS: Anisocytosis Slight; Basophils % (A) 0 %; Eosinophils # (A) 0.1 k/uL (0-0.7); Eosinophils % (A) 2 %; HCT 37.2 % (39.0-53.0); HGB 11.2 gm/dL (13.0-17.5); Hypochromasia Marked; Lymphocytes % (A) 14 %; MCHC 30.2 g/dL (31.0-37.0); MCV 72.9 fL (80.0-100.0); Mean Platelet Volume 7.4; Microcytosis Moderate; Monocytes # (A) 0.6 k/uL (0-1.0); Monocytes % (A) 8 %; Neutrophils # (A) 5.3 k/uL (1.3-7.7); Neutrophils % (A) 74 %; Platelet Count 219 k/uL (150-450); RDW 17.9 % (11.5-15.5); WBC 7.1 k/uL (3.8-10.6)
[2021-10-15 06:39] LABS: Appearance,Urine Clear (Clear); Bilirubin,Urine Negative (Negative); Blood,Urine Small (Negative); Color,Urine Yellow; Glucose,Urine (UA) Negative (Negative); Ketones,Urine Negative (Negative); Leukocyte Esterase,Urine Negative (Negative); Mucus,Urine Rare /hpf; Nitrite,Urine Negative (Negative); Protein,Urine 1+ (Negative); RBC,Urine 7 /hpf (0-5); Specific Gravity,Urine 1.023 (1.001-1.035); Urobilinogen,Urine <2.0 mg/dL (<2.0); WBC,Urine 1 /hpf (0-5)
[2021-10-15 06:57] LABS: Albumin 3.5 g/dL (3.5-5.0); Potassium 4.1 mmol/L (3.5-5.1); Total Bilirubin 0.6 mg/dL (0.2-1.3); Total Protein 6.5 g/dL (6.3-8.2)
[2021-10-15 07:49] VITALS: BP 167/90; PULSE 79
[2021-10-15] MEDS ORDERED: DIPH,PERTUS(ACELL)TETVAC-LF 0.5 ML VIAL IM ONE (07:49)
--- NOTE | 2021-10-15 08:49 | CT ---
EXAMINATION TYPE: CT brain cspine wo con DATE OF EXAM: 10/15/2021 COMPARISON: CT brain and cervical spine 06/20/2021 HISTORY: Trauma, Fall CT DLP: 1547.4 mGycm Automated exposure control for dose reduction was used. TECHNIQUE: CT scan of the head and cervical spine are performed without contrast. FINDINGS: There is no acute intracranial hemorrhage, mass effect, or midline shift identified. The ventricles and sulci are within normal limits in size. The globes are intact and the visualized sin uses are clear. There are cerebral vascular calcifications present. Cortical atrophy is again noted. Periventricular white matter shows patchy low attenuation. There are basal ganglia calcifications. Or bits are symmetric. Cervical spine is visualized in its entirety from C1 through upper thoracic levels and demonstrates s atisfactory alignment without evidence of acute fracture or dislocation. Multilevel facet arthropathy , uncovertebral joint hypertrophy, foraminal encroachment again noted, there is multilevel spondylosi s and loss of disc height. Prevertebral soft tissue appears within normal limits. The C1-C2 articula tion is unremarkable. IMPRESSION: 1. There is no acute fracture or dislocation evident in the cervical spine. 2. No acute intracranial hemorrhage, mass effect, or midline shift is seen. Age-related changes of at rophy and probable chronic small vessel ischemia. 3. Report relayed telephonically to the emergency center at the time of interpretation
[2021-10-15] MEDS ORDERED: TOPICAL SKIN ADHESIVE 1 EACH AMP TOPICAL ONE (09:08)
== END 2021-10-15 10:13 | disposition home or self-care (01) ==
LOC: EC 04:31
DX: S01.312A Laceration without foreign body of left ear, initial encounter (principal); S40.011A Contusion of right shoulder, initial encounter; E11.9 Type 2 diabetes mellitus without complications; I10 Essential (primary) hypertension; I25.10 Atherosclerotic heart disease of native coronary artery without angina pectoris; E78.5 Hyperlipidemia, unspecified; E07.9 Disorder of thyroid, unspecified; M19.90 Unspecified osteoarthritis, unspecified site; Z88.0 Allergy status to penicillin; Z79.899 Other long term (current) drug therapy; Z79.82 Long term (current) use of aspirin; Z79.01 Long term (current) use of anticoagulants; Z79.890 Hormone replacement therapy; Z23 Encounter for immunization; Z79.4 Long term (current) use of insulin; Z79.84 Long term (current) use of oral hypoglycemic drugs; W19.XXXA Unspecified fall, initial encounter; Y93.E2 Activity, laundry; Y92.009 Unspecified place in unspecified non-institutional (private) residence as the place of occurrence of the external cause
CPT/HCPCS: 12011; 36415; 70450; 72125; 80053; 81001; 84484; 85025; 90471; 90715; 93005; 99284

== ENCOUNTER 2022-08-06 16:44 | Emergency (ER) | payer MEDICARE ==
[2022-08-06 17:12] VITALS: RESP 16
--- NOTE | 2022-08-06 18:05 | CT ---
EXAMINATION TYPE: CT brain cspine wo con CT DLP: 1561.1 mGycm, Automated exposure control for dose reduction was used. DATE OF EXAM: 08/06/2022 5:29 PM COMPARISON: 10/15/2021 CLINICAL INDICATION:Male, 76 years old with history of pain fall; pain after fall today TECHNIQUE: Brain: Multiple axial CT images of the brain were obtained without IV contrast. Cspine: Axial CT images from the skull base to the inferior aspect of T2 we obtained without intraven ous contrast. Coronal and sagittal reformatted images were also reviewed. FINDINGS: Brain: Extra-axial spaces: No abnormal extra-axial fluid collections. Ventricular system: Dilatation in proportion to cerebral atrophy. Cerebral parenchyma: Cerebral atrophy. No acute intraparenchymal hemorrhage or mass effect. The fan -white junction is well differentiated. Scattered hypoattenuating areas are seen within the white mat ter. Cerebellum: Unremarkable. Mass effect: No evidence of midline shift. Intracranial vasculature: Atherosclerotic calcifications of the intracranial vessels. Soft tissues: Right frontal scalp hematoma without evidence of fracture. Measuring 3.2 x 0.7 cm Calvarium/osseous structures: No depressed skull fracture. Paranasal sinuses and mastoid air cells: Clear. Visualized orbits: Bilateral aphakia Cervical spine: Fracture: None. Osseous structures: Multilevel degenerative disc disease changes with endplate spurring and disc oste ophyte complex's. Vertebral alignment: Within normal limits. Spinal canal/Neural Foramina: Disc osteophyte complexes at C4-C7. With at least mild spinal canal susie nosis. Facet joint uncovertebral joint arthropathy scattered throughout the cervical spine with varyi ng degrees of neural foraminal stenosis. Neck soft tissues: Prevertebral soft tissues are within normal limits. Other: The airway is patent. The lung apices are clear. Atherosclerosis of the arterial vasculature. IMPRESSION: 1. No acute intracranial process. 2. Right frontal scalp hematoma without evidence of fracture. 3. Nonspecific white matter changes likely secondary to small disease. 4. No evidence of cervical spine fracture. 5. Moderate multilevel degenerative disc disease.
--- NOTE | 2022-08-06 18:20 | XR ---
EXAMINATION TYPE: XR forearm RT DATE OF EXAM: 08/06/2022 5:33 PM INDICATION: Patient age:Male; 76 years old; Reason for study: pain fall; [facility]. COMPARISON: None TECHNIQUE: The right forearm was examined in AP , oblique and lateral projections. FINDINGS: Large soft tissue edema present in the proximal forearm ulnar aspect. Area measures at tete st 12.9 x 3.0 cm. No evidence of fracture. No radiopaque foreign bodies. IMPRESSION: No evidence of acute fracture. Soft tissue edema in the forearm could represent hematoma versus other. Correlate for blood thinners.
[2022-08-06 20:13] VITALS: BP 102/76; PULSE 80
--- NOTE | 2022-08-06 20:19 | ED ---
Fall HPI - General Chief Complaint: Fall Stated Complaint: fall Time Seen by Provider: 08/06/22 19:15 Source: patient Mode of arrival: wheelchair - History of Present Illness Complaint: fall -: hour(s) Fall From: standing When Fall Occurred: 4-[address] Fall Occurred: home Loss of Consciousness: none Prolonged Down Time?: no Symptoms Prior to Fall: none Location: head Location - Extremities: Right: Forearm Severity scale (1-10): 0 Context: history of frequent falls - Related Data Home Medications Medication Instructions Recorded Confirmed Atorvastatin [Lipitor] 20 mg PO HS@2300 04/25/19 06/20/21 Carbidopa-Levodopa ER 50-200Mg 1 tab PO BID@0900,1500 04/25/19 06/20/21 [Sinemet CR 50-200 mg] Insulin Glargine,Hum.rec.anlog 12 unit SQ DAILY 04/25/19 06/20/21 [Lantus Solostar Pen] Levothyroxine Sodium [Synthroid] 137 mcg PO MOTUWETHFRSA 04/25/19 06/20/21 Pioglitazone HCl [Actos] 15 mg PO DAILY@0900 04/25/19 06/20/21 Enalapril [Vasotec] 5 mg PO DAILY@0900 03/07/21 06/20/21 Liraglutide [Victoza 2-Jean] 1.8 mg SQ DAILY 03/07/21 06/20/21 Omeprazole 40 mg PO DAILY@0800 03/07/21 06/20/21 Rivaroxaban [Xarelto] 20 mg PO HS@2300 03/07/21 06/20/21 Tamsulosin [Flomax] 0.4 mg PO DAILY@189903/07/21 06/20/21 busPIRone HCl [Buspar] 5 mg PO TID@0900,1500,2100 03/07/21 06/20/21 metFORMIN HCL [Glucophage] 1,000 mg PO BID@0900,1900 03/07/21 06/20/21 Cholecalciferol [Vitamin D3 (25 50 mcg PO DAILY@0900 04/10/21 06/20/21 Mcg = 1000 Iu)] Ferrous Sulfate [Iron (65 MG 325 mg PO DAILY@89904/10/21 06/20/21 Elemental)] Sennosides-Docusate Sodium 1 tab PO DAILY@1900 04/10/21 06/20/21 [Senokot-S] Aspirin 81 mg PO DAILY@0906/20/21 06/20/21 Carbidopa-Levodopa 25-100 mg 1 tab PO DAILY@1100 06/20/21 06/20/21 [Sinemet 25-100] Isosorbide Mononitrate ER [Imdur] 15 mg PO DAILY@1500 06/20/21 06/20/21 Metoprolol Succinate (ER) [Toprol 25 mg PO DAILY@0906/20/21 06/20/21 XL] polyethylene glycoL 3350 [Miralax] 17 gm PO AC-BRKFST 06/20/21 06/20/21 Previous Rx's Medication Instructions Recorded Cephalexin [Keflex] 500 mg PO Q6HR 7 Days #28 cap 06/20/21 Allergies Allergy/AdvReac Type Severity Reaction Status Date / Time Penicillins Allergy Unknown Verified 08/06/22 17:12 Childhood Review of Systems ROS Statement: Those systems with pertinent positive or pertinent negative responses have been documented in the HPI. ROS Other: All systems not noted in ROS Statement are negative. Constitutional: Denies: fever, chills, weakness Eyes: Denies: vision change Respiratory: Denies: cough, dyspnea Cardiovascular: Denies: chest pain, palpitations, syncope Gastrointestinal: Denies: abdominal pain, vomiting, diarrhea Genitourinary: Denies: dysuria, hematuria Musculoskeletal: Denies: back pain Skin: Denies: rash Neurological: Denies: headache, weakness, numbness, paresthesias, confusion Past Medical History Past Medical History: Coronary Artery Disease (CAD), Cancer, Diabetes Mellitus, Deep Vein Thrombosis (DVT), Hearing Disorder / Deafness, Hyperlipidemia, Hypertension, Neurologic Disorder, Osteoarthritis (OA), Prostate Disorder, Pulmonary Embolus (PE), Sleep Apnea/CPAP/BIPAP, Thyroid Disorder Additional Past Medical History / Comment(s): Parkinsons, [place] bilaterally, skin cancer removals, past L upper arm cellulitis, "he was passing out/falls due to low bp -bp meds currently on hold", no cpap used currently, constipation, History of Any Multi-Drug Resistant Organisms: None Reported Past Surgical History: Joint Replacement Additional Past Surgical History / Comment(s): Total beverley knee arthroplasties(developed postop blood clots), skin cancer removed from nose/hairline, surgery for deviated septum, colonoscopies, L chest wall cyst removed, bilateral cataract removals/lens implants. Past Anesthesia/Blood Transfusion Reactions: No Reported Reaction Past Psychological History: Anxiety Smoking Status: Never smoker Past Alcohol Use History: None Reported Past Drug Use History: None Reported - Past Family History Mother Family Medical History: Cancer Additional Family Medical History / Comment(s): OVARIAN CANCER Father Additional Family Medical History / Comment(s): Father at the age of 66 yrs from a "heart condition". He was a smoker. General Exam Limitations: no limitations General appearance: alert, in no apparent distress Head exam: Present: normocephalic, other (Conntrusion right forehead and periorbital) Eye exam: Present: normal appearance, PERRL, EOMI, periorbital swelling. Absent: scleral icterus, conjunctival injection, nystagmus, periorbital tenderness Neck exam: Present: normal inspection, full ROM. Absent: tenderness, meningismus Respiratory exam: Present: normal lung sounds bilaterally. Absent: respiratory distress, wheezes, rales, rhonchi, stridor, chest wall tenderness Cardiovascular Exam: Present: regular rate, normal rhythm, normal heart sounds. Absent: systolic murmur, diastolic murmur, rubs, gallop GI/Abdominal exam: Present: soft. Absent: distended, tenderness, guarding, rebound, rigid, mass Extremities exam: Present: normal inspection, normal capillary refill, other (There is moderate sized hematoma to the lateral aspect of the right forearm. There is no bony tenderness or deformity. There are good distal pulses. There is no sensory neuro deficit throughout the right hand and forearm.). Absent: pedal edema, calf tenderness Back exam: Present: normal inspection. Absent: CVA tenderness (R), CVA tenderness (L), vertebral tenderness Neurological exam: Present: alert, oriented X3, CN II-XII intact. Absent: motor sensory deficit Skin exam: Present: warm, dry, intact, normal color. Absent: rash Course Vital Signs 08/06/22 08/06/22 17:09 20:12 Temperature 98.1 F Pulse Rate 77 80 Respiratory 16 16 Rate Blood Pressure 90/58 102/76 O2 Sat by Pulse 98 98 Oximetry Disposition Clinical Impression: Fall, Hematoma Disposition: HOME SELF-CARE Condition: Good Instructions (If sedation given, give patient instructions): Fall Prevention for Older Adults (ED), Hematoma (ED) Is patient prescribed a controlled substance at d/c from ED?: No Referrals: David Rowe MD [Primary Care Provider] - 1-2 days
[2022-08-06 20:43] VITALS: TEMP 98.4
== END 2022-08-06 20:51 | disposition home or self-care (01) ==
LOC: EC 16:44
DX: S50.11XA Contusion of right forearm, initial encounter (principal); E11.9 Type 2 diabetes mellitus without complications; I25.10 Atherosclerotic heart disease of native coronary artery without angina pectoris; I10 Essential (primary) hypertension; E78.5 Hyperlipidemia, unspecified; E07.9 Disorder of thyroid, unspecified; Z79.899 Other long term (current) drug therapy; Z79.890 Hormone replacement therapy; Z79.4 Long term (current) use of insulin; Z88.0 Allergy status to penicillin; Z79.82 Long term (current) use of aspirin; Z99.89 Dependence on other enabling machines and devices; Z86.711 Personal history of pulmonary embolism; W18.39XA Other fall on same level, initial encounter; Y92.009 Unspecified place in unspecified non-institutional (private) residence as the place of occurrence of the external cause
CPT/HCPCS: 70450; 72125; 99284

== ENCOUNTER 2024-04-30 21:03 | Emergency (ER) | payer MEDICARE ==
[2024-04-30 21:22] VITALS: TEMP 98.2
--- NOTE | 2024-04-30 21:33 | ED ---
Fall HPI - General Chief Complaint: Fall Stated Complaint: Fall, Back Pain Time Seen by Provider: 04/30/24 21:22 Source: patient, RN notes reviewed, old records reviewed Mode of arrival: wheelchair Limitations: no limitations - History of Present Illness Initial Comments: This is a 78-year-old male to the ER for evaluation of back pain severe back pain after a fall. Patient has Parkinson's and does fall often uses a walker and family thinks he may have fallen on the walker patient does have significant swelling to the lower back, not currently on blood thinners MD Complaint: fall, other (Significant swelling of the lower back) -: hour(s) When Fall Occurred: 1-3 hours CIRCUS TRAIN[employer] Fall Witnessed: yes, by family Place Fall Occurred: home Loss of Consciousness: none Prolonged Down Time?: no Symptoms Prior to Fall: none Severity: severe Severity scale (1-10): 7 Quality: sharp Context: tripped/slipped Associated Symptoms: denies - Related Data Home Medications Medication Instructions Recorded Confirmed Atorvastatin [Lipitor] 20 mg PO HS@2300 04/25/19 06/20/21 Carbidopa-Levodopa ER 50-200Mg 1 tab PO BID@0900,1500 04/25/19 06/20/21 [Sinemet CR 50-200 mg] Insulin Glargine,Hum.rec.anlog 12 unit SQ DAILY 04/25/19 06/20/21 [Lantus Solostar Pen] Levothyroxine Sodium [Synthroid] 137 mcg PO MOTUWETHFRSA 04/25/19 06/20/21 Pioglitazone HCl [Actos] 15 mg PO DAILY@0904/25/19 06/20/21 Enalapril [Vasotec] 5 mg PO DAILY@0900 03/07/21 06/20/21 Liraglutide [Victoza 2-Jean] 1.8 mg SQ DAILY 03/07/21 06/20/21 Omeprazole 40 mg PO DAILY@0800 03/07/21 06/20/21 Rivaroxaban [Xarelto] 20 mg PO HS@2300 03/07/21 06/20/21 Tamsulosin [Flomax] 0.4 mg PO DAILY@1900 03/07/21 06/20/21 busPIRone HCl [Buspar] 5 mg PO TID@0900,1500,2100 03/07/21 06/20/21 metFORMIN HCL [Glucophage] 1,000 mg PO BID@0900,1900 03/07/21 06/20/21 Cholecalciferol [Vitamin D3 (25 50 mcg PO DAILY@89904/10/21 06/20/21 Mcg = 1000 Iu)] Ferrous Sulfate [Iron (65 MG 325 mg PO DAILY@0904/10/21 06/20/21 Elemental)] Sennosides-Docusate Sodium 1 tab PO DAILY@1900 04/10/21 06/20/21 [Senokot-S] Aspirin 81 mg PO DAILY@89906/20/21 06/20/21 Carbidopa-Levodopa 25-100 mg 1 tab PO DAILY@1100 06/20/21 06/20/21 [Sinemet 25-100] Isosorbide Mononitrate ER [Imdur] 15 mg PO DAILY@1500 06/20/21 06/20/21 Metoprolol Succinate (ER) [Toprol 25 mg PO DAILY@89906/20/21 06/20/21 XL] polyethylene glycoL 3350 [Miralax] 17 gm PO [id number] 06/20/21 06/20/21 Previous Rx's Medication Instructions Recorded Cephalexin [Keflex] 500 mg PO Q6HR 7 Days #28 cap 06/20/21 Allergies Allergy/AdvReac Type Severity Reaction Status Date / Time Penicillins Allergy Unknown Verified 04/30/24 21:22 Childhood Review of Systems ROS Statement: Those systems with pertinent positive or pertinent negative responses have been documented in the HPI. ROS Other: All systems not noted in ROS Statement are negative. Past Medical History Past Medical History: Coronary Artery Disease (CAD), Cancer, Diabetes Mellitus, Deep Vein Thrombosis (DVT), Hearing Disorder / Deafness, Hyperlipidemia, Hypertension, Neurologic Disorder, Osteoarthritis (OA), Prostate Disorder, Pulmonary Embolus (PE), Sleep Apnea/CPAP/BIPAP, Thyroid Disorder Additional Past Medical History / Comment(s): Parkinsons, ANIAK bilaterally, skin cancer removals, past L upper arm cellulitis, "he was passing out/falls due to low bp -bp meds currently on hold", no cpap used currently, constipation, History of Any Multi-Drug Resistant Organisms: None Reported Past Surgical History: Joint Replacement Additional Past Surgical History / Comment(s): Total beverley knee arthroplasties(developed postop blood clots), skin cancer removed from nose/hairline, surgery for deviated septum, colonoscopies, L chest wall cyst removed, bilateral cataract removals/lens implants. Past Anesthesia/Blood Transfusion Reactions: No Reported Reaction Past Psychological History: Anxiety Smoking Status: Never smoker Past Alcohol Use History: None Reported Past Drug Use History: None Reported - Past Family History Mother Family Medical History: Cancer Additional Family Medical History / Comment(s): OVARIAN CANCER Father Additional Family Medical History / Comment(s): Father at the age of 66 yrs from a "heart condition". He was a smoker. General Exam - General Exam Comments Initial Comments: Severe hematoma to the back significant in size not expanding General appearance: alert, in no apparent distress Head exam: Present: atraumatic, normocephalic, normal inspection Eye exam: Present: normal appearance, PERRL, EOMI. Absent: scleral icterus, conjunctival injection, periorbital swelling ENT exam: Present: normal exam, mucous membranes moist Neck exam: Present: normal inspection. Absent: tenderness, meningismus, lymphadenopathy Respiratory exam: Present: normal lung sounds bilaterally. Absent: respiratory distress, wheezes, rales, rhonchi, stridor Cardiovascular Exam: Present: regular rate, normal rhythm, normal heart sounds. Absent: systolic murmur, diastolic murmur, rubs, gallop, clicks GI/Abdominal exam: Present: soft, normal bowel sounds. Absent: distended, tenderness, guarding, rebound, rigid Extremities exam: Present: normal inspection, full ROM, normal capillary refill. Absent: tenderness, pedal edema, joint swelling, calf tenderness Back exam: Present: normal inspection Neurological exam: Present: alert, oriented X3, CN II-XII intact Psychiatric exam: Present: normal affect, normal mood Skin exam: Present: warm, dry, intact, normal color. Absent: rash Course Vital Signs 04/30/24 04/30/24 21:19 23:00 Temperature 98.2 F Pulse Rate 82 65 Respiratory 18 20 Rate Blood Pressure 124/69 104/52 O2 Sat by Pulse 97 95 Oximetry - Reevaluation(s) Reevaluation #1: 04/30/24 21:31 Medical records reviewed Reevaluation #2: 04/30/24 21:31 Patient symptoms unchanged Reevaluation #3: 06/29/24 21:31 Patient informed of results questions answered Reevaluation #4: Was pt. sent in by a medical professional or institution (RANDEE Waldron, FURNACE OPERATOR, urgent care, hospital, or intermediate...) When possible be specific @ -no Did you speak to anyone other than the patient for history (EMS, parent, family, police, friend...)? What history was obtained from this source @ -no Did you review nursing and triage notes (agree or disagree)? Why? @ -agree Are old charts reviewed (outside hosp., previous admission, EMS record, old EKG, old radiological studies, urgent care reports/EKG's, intermediate records)? Report findings @ -yes Differential Diagnosis (chest pain, altered mental status, abdominal pain women, abdominal pain men, vaginal bleeding, weakness, fever, dyspnea, syncope, headache, dizziness, GI bleed, back pain, seizure, CVA, palpatations, mental health, musculoskeletal)? @ -prior EKG interpreted by me (3pts min.). @ -no X-rays interpreted by me (1pt min.). @ -no CT interpreted by me (1pt min.). @ -Yes positive for significant lumbar spine hematoma U/S interpreted by me (1pt. min.). @ -no What testing was considered but not performed or refused? (CT, X-rays, U/S, labs)? Why? @ -none What meds were considered but not given or refused? Why? @ -none Did you discuss the management of the patient with other professionals (professionals i.e. RANDEE Waldron, FURNACE OPERATOR, lab, RT, psych nurse, social contact worker, stock turner, te acher, parachute/combatant diver officer, home health care case manager)? Give summary @ -no Was smoking cessation discussed for >3mins.? @ -no Was critical care preformed (if so, how long)? @ -no Were there social determinants of health that impacted care today? How? (Homelessness, low income, unemployed, alcoholism, drug addiction, transportation, low edu. Level, literacy, decrease access to med. care, [place] [facility], rehab)? @ -none Was there de-escalation of care discussed even if they declined (Discuss DNR or withdrawal of care, Hospice)? DNR status @ -no What co-morbidities impacted this encounter? (DM, HTN, Smoking, COPD, CAD, Cancer, CVA, ARF, Chemo, Hep., AIDS, mental health diagnosis, sleep apnea, morbid obesity)? @ -none Was patient admitted / discharged? Hospital course, mention meds given and route, prescriptions, significant lab abnormalities, going to OR and other pertinent info. @ - 78 male to ER for evaluation of a fall with a severe hematoma to the lower back. No treatment necessary for patient not on blood thinners patient is in no acute distress and pain and can be discharged home Discharge Undiagnosed new problem with uncertain prognosis? @ -no Drug Therapy requiring intensive monitoring for toxicity (Heparin, Nitro, Insulin, Cardizem)? @ -no Were any procedures done? @ -no Diagnosis/symptom? @ -Fall with significant back hematoma Acute, or Chronic, or Acute on Chronic? @ -Acute Uncomplicated (without systemic symptoms) or Complicated (systemic symptoms)? @ -Complicated Side effects of treatment? @ -no Exacerbation, Progression, or Severe Exacerbation? @ -exacerbation Poses a threat to life or bodily function? How? (Chest pain, [place], [place], pneumonia, PE, COPD, DKA, ARF, appy, cholecystitis, CVA, Diverticulitis, Homicidal, Suicidal, threat to staff... and all critical care pts) @ -yes significant hematoma Medical Decision Making - Medical Decision Making 78 male to ER for evaluation of a fall with a severe hematoma to the lower back. No treatment necessary for patient not on blood thinners patient is in no acute distress and pain and can be discharged home - Radiology Data Radiology results: report reviewed (CT lumbar spine negative for acute disease), image reviewed Disposition Clinical Impression: Fall, Hematoma Disposition: HOME SELF-CARE Condition: Good Instructions (If sedation given, give patient instructions): Hematoma (ED) Is patient prescribed a controlled substance at d/c from ED?: No Referrals: David Rowe MD [Primary Care Provider] - 1-2 days
--- NOTE | 2024-04-30 22:39 | CT ---
EXAMINATION TYPE: CT lumbar spine wo con CT DLP: 895 mGycm, Automated exposure control for dose reduction was used. DATE OF EXAM: 04/30/2024 9:51 PM COMPARISON: None.. CLINICAL INDICATION:Male, 78 years old with history of soft tissue hamatoma,Fall; PHH, FELL TODAY/LAR GE HEMATOMA ON RT FLANK TECHNIQUE: CT of the lumbar spine was performed without contrast. Multiplanar soft tissue and bone windows were obtained and reviewed. . Contrast used: FINDINGS: Bones: Osseous mineralization appears within normal limits. No lytic/blastic lesion. 5 lumbar type vertebral bodies are present with normal alignment. No fracture or vertebral body height loss identified. There are moderate degenerative changes throughout the lumbar spine, including multilevel disc space narrowing and disc osteophyte formation, most prominent L3-L4 and L5-S1, where there is also vacuum d isc. Mild to moderate facet disease throughout the lumbar spine as well. Spinous processes are somewh at blocklike and Baastrup's disease is a consideration. At L1-L2 and L2-L3, there are mild canal and neuroforaminal stenoses. At L3-L4, there are moderate canal and bilateral neuroforaminal stenoses. At L4-L5, there are moderate canal and mild to moderate bilateral neuroforaminal stenoses. At L5-S1, there are mild to moderate canal, and moderate to severe bilateral neural foraminal stenose s. If there is persistent concern, MRI could further evaluate. Partially seen degenerative changes of the SI joints. The visualized upper sacrum appears intact, as do the included iliac wings. Soft tissues: A moderate to large sized subcutaneous soft tissue density is seen posterior to the lumbar spinous pr ocesses extending from the L2-S1 levels, this measures 9.3 cm craniocaudally and as large as 7.2 x 4. 1 cm axially; finding is consistent with hematoma. There is hazy stranding opacity in the adjacent singh bcutaneous fat consistent with contusion. Moderate to heavy calcification of the visualized abdominal aorta and iliac arteries. No AAA. Normal- appearing appendix. Lobular appearance to the kidneys. No acute abnormality seen in the visualized ab domen or upper pelvis. IMPRESSION: 1. No evidence of fracture or traumatic malalignment of the lumbar spine. 2. Moderately large subcutaneous soft tissue hematoma posterior to the spinous processes from L2 to S1. 3. Moderate multilevel lumbar spondylosis, as detailed level by level above.
[2024-04-30 23:02] VITALS: BP 104/52; PULSE 65; RESP 20
== END 2024-04-30 23:05 | disposition home or self-care (01) ==
LOC: EC 21:03
DX: S30.0XXA Contusion of lower back and pelvis, initial encounter (principal); Z88.0 Allergy status to penicillin; W18.30XA Fall on same level, unspecified, initial encounter
CPT/HCPCS: 72131; 99283

== ENCOUNTER 2024-08-26 15:50 | Inpatient (IN) | payer MEDICARE ==
[2024-08-26 15:55] LABS: Glucose,Whole Blood 206 mg/dL (70-110)
--- NOTE | 2024-08-26 16:05 | ED ---
Altered Mental Status HPI - General Chief Complaint: Altered Mental Status Stated Complaint: AMS Time Seen by Provider: 08/26/24 16:00 Source: EMS, RN notes reviewed, old records reviewed Mode of arrival: EMS Limitations: no limitations - History of Present Illness Initial Comments: This is a 78-year-old male with poor historian unable to provide history presenting today for evaluation of altered mental status suspected syncopal event MD Complaint: altered mental status, confusion, decreased responsiveness, other (syncope) Severity: moderate Consistency of Symptoms: waxing and waning, unknown (Resolved) Context: history of similar presentation Associated Symptoms: denies other symptoms Treatments Prior to Arrival: IV fluid, oxygen - Related Data Home Medications Medication Instructions Recorded Confirmed Insulin Glargine,Hum.rec.anlog 10 unit SQ DAILY 04/25/19 08/26/24 [Lantus Solostar Pen] Levothyroxine Sodium [Synthroid] 137 mcg PO [id number] 04/25/19 08/26/24 Pioglitazone HCl [Actos] 15 mg PO DAILY 04/25/19 08/26/24 Omeprazole 40 mg PO DAILY 03/07/21 08/26/24 Tamsulosin [Flomax] 0.4 mg PO DAILY 03/07/21 08/26/24 busPIRone HCl [Buspar] 5 mg PO BID 03/07/21 08/26/24 Cholecalciferol [Vitamin D3 (25 50 mcg PO DAILY 04/10/21 08/26/24 Mcg = 1000 Iu)] Aspirin 81 mg PO DAILY 06/20/21 08/26/24 Carbidopa-Levodopa 25-100 mg 0.5 tab PO TID 06/20/21 08/26/24 [Sinemet 25-100] Isosorbide Mononitrate ER [Imdur] 15 mg PO DAILY 06/20/21 08/26/24 Metoprolol Succinate (ER) [Toprol 25 mg PO DAILY 06/20/21 08/26/24 XL] Carbidopa-Levodopa 25-250 mg 1 tab PO TID 08/26/24 08/26/24 [Sinemet 25-250] Donepezil [Aricept] 10 mg PO HS 08/26/24 08/26/24 Enalapril [Vasotec] 2.5 mg PO BID 08/26/24 08/26/24 Fludrocortisone [Florinef] 0.1 mg PO MOWEFR 08/26/24 08/26/24 Rosuvastatin Calcium [Crestor] 40 mg PO DAILY 08/26/24 08/26/24 Semaglutide [Ozempic] 0.5 mg SQ FR 08/26/24 08/26/24 metFORMIN HCL ER [Glucophage XR] 500 mg PO BID 08/26/24 08/26/24 Allergies Allergy/AdvReac Type Severity Reaction Status Date / Time Penicillins Allergy Unknown Verified 08/28/24 16:29 Childhood Review of Systems ROS Statement: Those systems with pertinent positive or pertinent negative responses have been documented in the HPI. ROS Other: All systems not noted in ROS Statement are negative. Past Medical History Past Medical History: Coronary Artery Disease (CAD), Cancer, Diabetes Mellitus, Deep Vein Thrombosis (DVT), Hearing Disorder / Deafness, Hyperlipidemia, Hypertension, Neurologic Disorder, Osteoarthritis (OA), Prostate Disorder, Pulmonary Embolus (PE), Sleep Apnea/CPAP/BIPAP, Thyroid Disorder Additional Past Medical History / Comment(s): Parkinsons, PAIMIUT bilaterally, skin cancer removals, past L upper arm cellulitis, "he was passing out/falls due to low bp -bp meds currently on hold", no cpap used currently, constipation, History of Any Multi-Drug Resistant Organisms: None Reported Past Surgical History: Joint Replacement Additional Past Surgical History / Comment(s): Total beverley knee arthroplasties(developed postop blood clots), skin cancer removed from nose/hairline, surgery for deviated septum, colonoscopies, L chest wall cyst removed, bilateral cataract removals/lens implants. Past Anesthesia/Blood Transfusion Reactions: No Reported Reaction Past Psychological History: Anxiety Smoking Status: Never smoker Past Alcohol Use History: None Reported Past Drug Use History: None Reported - Past Family History Mother Family Medical History: Cancer Additional Family Medical History / Comment(s): OVARIAN CANCER Father Additional Family Medical History / Comment(s): Father at the age of 66 yrs from a "heart condition". He was a smoker. General Exam General appearance: alert, in no apparent distress Head exam: Present: atraumatic, normocephalic, normal inspection Eye exam: Present: normal appearance, PERRL, EOMI. Absent: scleral icterus, conjunctival injection, periorbital swelling ENT exam: Present: normal exam, mucous membranes moist Neck exam: Present: normal inspection. Absent: tenderness, meningismus, lymphadenopathy Respiratory exam: Present: normal lung sounds bilaterally. Absent: respiratory distress, wheezes, rales, rhonchi, stridor Cardiovascular Exam: Present: regular rate, normal rhythm, normal heart sounds. Absent: systolic murmur, diastolic murmur, rubs, gallop, clicks GI/Abdominal exam: Present: soft, normal bowel sounds. Absent: distended, tenderness, guarding, rebound, rigid Extremities exam: Present: normal inspection, full ROM, normal capillary refill. Absent: tenderness, pedal edema, joint swelling, calf tenderness Back exam: Present: normal inspection Neurological exam: Present: alert, oriented X3, CN II-XII intact Psychiatric exam: Present: normal affect, normal mood Skin exam: Present: warm, dry, intact, normal color. Absent: rash Course Vital Signs 08/26/24 08/26/24 08/26/24 15:52 19:07 19:42 Temperature 97.8 F Pulse Rate 67 81 Pulse Rate [ Melting Furnace Skimmer ] Respiratory 16 16 Rate Blood Pressure 98/62 174/95 Blood Pressure 133/87 [Left Arm Sitting] Blood Pressure 95/55 [Left Arm Standing] Blood Pressure 135/76 [Left Arm Supine] Blood Pressure [Right Arm] O2 Sat by Pulse 97 100 Oximetry 08/26/24 08/26/24 08/26/24 20:22 22:09 23:06 Temperature Pulse Rate 89 85 75 Pulse Rate [ Melting Furnace Skimmer ] Respiratory 18 18 18 Rate Blood Pressure 184/99 159/100 193/99 Blood Pressure [Left Arm Sitting] Blood Pressure [Left Arm Standing] Blood Pressure [Left Arm Supine] Blood Pressure [Right Arm] O2 Sat by Pulse 98 98 Oximetry 08/27/24 08/27/24 08/27/24 00:23 04:02 05:00 Temperature Pulse Rate 68 78 78 Pulse Rate [ Melting Furnace Skimmer ] Respiratory 18 18 18 Rate Blood Pressure 181/96 171/112 178/112 Blood Pressure [Left Arm Sitting] Blood Pressure [Left Arm Standing] Blood Pressure [Left Arm Supine] Blood Pressure [Right Arm] O2 Sat by Pulse 96 97 100 Oximetry 08/27/24 08/27/24 08/27/24 07:51 10:00 11:00 Temperature Pulse Rate 81 68 68 Pulse Rate [ Melting Furnace Skimmer ] Respiratory 18 Rate Blood Pressure 179/97 138/85 112/66 Blood Pressure [Left Arm Sitting] Blood Pressure [Left Arm Standing] Blood Pressure [Left Arm Supine] Blood Pressure [Right Arm] O2 Sat by Pulse 97 Oximetry 08/27/24 08/27/24 08/27/24 13:06 13:07 13:09 Temperature Pulse Rate 64 Pulse Rate [ Melting Furnace Skimmer ] Respiratory Rate Blood Pressure 74/42 Blood Pressure [Left Arm Sitting] Blood Pressure [Left Arm Standing] Blood Pressure [Left Arm Supine] Blood Pressure [Right Arm] O2 Sat by Pulse 87 L 90 L 98 Oximetry 08/27/24 08/27/24 08/27/24 13:20 13:32 13:41 Temperature Pulse Rate 77 73 Pulse Rate [ Melting Furnace Skimmer ] Respiratory 16 16 Rate Blood Pressure 120/71 145/77 126/74 Blood Pressure [Left Arm Sitting] Blood Pressure [Left Arm Standing] Blood Pressure [Left Arm Supine] Blood Pressure [Right Arm] O2 Sat by Pulse 98 99 Oximetry 08/27/24 08/27/24 08/27/24 13:59 14:15 14:29 Temperature Pulse Rate 70 Pulse Rate [ Melting Furnace Skimmer ] Respiratory 16 Rate Blood Pressure 98/56 82/46 82/46 Blood Pressure [Left Arm Sitting] Blood Pressure [Left Arm Standing] Blood Pressure [Left Arm Supine] Blood Pressure [Right Arm] O2 Sat by Pulse 89 L Oximetry 08/27/24 08/27/24 08/27/24 14:30 14:41 15:00 Temperature Pulse Rate 72 Pulse Rate [ Melting Furnace Skimmer ] Respiratory 16 Rate Blood Pressure 81/52 112/67 116/71 Blood Pressure [Left Arm Sitting] Blood Pressure [Left Arm Standing] Blood Pressure [Left Arm Supine] Blood Pressure [Right Arm] O2 Sat by Pulse 96 Oximetry 08/27/24 08/27/24 08/27/24 15:30 16:03 16:54 Temperature Pulse Rate 69 72 Pulse Rate [ Melting Furnace Skimmer ] Respiratory 16 16 Rate Blood Pressure 122/71 97/61 91/53 Blood Pressure [Left Arm Sitting] Blood Pressure [Left Arm Standing] Blood Pressure [Left Arm Supine] Blood Pressure [Right Arm] O2 Sat by Pulse 97 100 Oximetry 08/27/24 08/27/24 08/27/24 17:01 17:55 18:00 Temperature Pulse Rate 73 73 Pulse Rate [ Melting Furnace Skimmer ] Respiratory 16 Rate Blood Pressure 83/50 75/47 111/64 Blood Pressure [Left Arm Sitting] Blood Pressure [Left Arm Standing] Blood Pressure [Left Arm Supine] Blood Pressure [Right Arm] O2 Sat by Pulse 100 Oximetry 08/27/24 08/27/24 08/27/24 18:32 20:28 22:12 Temperature Pulse Rate 70 71 67 Pulse Rate [ Melting Furnace Skimmer ] Respiratory 16 14 16 Rate Blood Pressure 109/52 138/69 141/86 Blood Pressure [Left Arm Sitting] Blood Pressure [Left Arm Standing] Blood Pressure [Left Arm Supine] Blood Pressure [Right Arm] O2 Sat by Pulse 97 96 97 Oximetry 08/28/24 08/28/24 08/28/24 01:00 03:57 06:48 Temperature 97.9 F 98.2 F Pulse Rate 68 75 77 Pulse Rate [ Melting Furnace Skimmer ] Respiratory 14 18 22 Rate Blood Pressure 126/72 129/70 174/109 Blood Pressure [Left Arm Sitting] Blood Pressure [Left Arm Standing] Blood Pressure [Left Arm Supine] Blood Pressure [Right Arm] O2 Sat by Pulse 98 96 Oximetry 08/28/24 12:26 Temperature Pulse Rate Pulse Rate [ 70 Melting Furnace Skimmer ] Respiratory 16 Rate Blood Pressure Blood Pressure [Left Arm Sitting] Blood Pressure [Left Arm Standing] Blood Pressure [Left Arm Supine] Blood Pressure 110/67 [Right Arm] O2 Sat by Pulse 99 Oximetry - Reevaluation(s) Reevaluation #1: 08/26/24 17:18 Medical records reviewed Reevaluation #2: 08/26/24 17:18 No recurrent syncope here in the ER Reevaluation #3: 08/26/24 17:18 Patient informed of results and questions answered Reevaluation #4: Was pt. sent in by a medical professional or institution (, PA, PSYCHOLOGY TECH, urgent care, hospital, or group home...) When possible be specific @ -no Did you speak to anyone other than the patient for history (EMS, parent, family, police, friend...)? What history was obtained from this source @ -no Did you review nursing and triage notes (agree or disagree)? Why? @ -agree Are old charts reviewed (outside hosp., previous admission, EMS record, old EKG, old radiological studies, urgent care reports/EKG's, group home records)? Report findings @ -yes Differential Diagnosis (chest pain, altered mental status, abdominal pain women, abdominal pain men, vaginal bleeding, weakness, fever, dyspnea, syncope, headache, dizziness, GI bleed, back pain, seizure, CVA, palpatations, mental he alth, musculoskeletal)? @ -prior EKG interpreted by me (3pts min.). @ -yes X-rays interpreted by me (1pt min.). @ -yes negative for acute disease CT interpreted by me (1pt min.). @ -Yes negative for acute disease U/S interpreted by me (1pt. min.). @ -no What testing was considered but not performed or refused? (CT, X-rays, U/S, labs)? Why? @ -none What meds were considered but not given or refused? Why? @ -none Did you discuss the management of the patient with other professionals (cristian lyle i.e. , PA, PSYCHOLOGY TECH, lab, RT, psych nurse, clinical social work aide, senior structural engineer, teacher, asset protection officer, lead case manager)? Give summary @ -no Was smoking cessation discussed for >3mins.? @ -no Was critical care preformed (if so, how long)? @ -no Were there social determinants of health that impacted care today? How? (Homelessness, low income, unemployed, alcoholism, drug addiction, transportation, low edu. Level, literacy, decrease access to med. care, senior living, rehab)? @ -none Was there de-escalation of care discussed even if they declined (Discuss DNR or withdrawal of care, Hospice)? DNR status @ -no What co-morbidities impacted this encounter? (DM, HTN, Smoking, COPD, CAD, Cancer, CVA, ARF, Chemo, Hep., AIDS, mental health diagnosis, sleep apnea, morbid obesity)? @ -none Was patient admitted / discharged? Hospital course, mention meds given and route, prescriptions, significant lab abnormalities, going to OR and other pertinent info. @ - 78 male to the ER for evaluation patient presents with recurrent episodes of syncope need for neurological evaluation concern for underlying seizures sec ondary to history of Parkinson's dementia. Patient will admit for neurological treatment Admitted Undiagnosed new problem with uncertain prognosis? @ -no Drug Therapy requiring intensive monitoring for toxicity (Heparin, Nitro, Insulin, Cardizem)? @ -no Were any procedures done? @ -no Diagnosis/symptom? @ -Seizures with altered mental status Acute, or Chronic, or Acute on Chronic? @ -Acute Uncomplicated (without systemic symptoms) or Complicated (systemic symptoms)? @ -Complicated Side effects of treatment? @ -no Exacerbation, Progression, or Severe Exacerbation? @ -exacerbation Poses a threat to life or bodily function? How? (Chest pain, USA, VA, pneumonia, PE, COPD, DKA, ARF, appy, cholecystitis, CVA, Diverticulitis, Homicidal, Suicidal, threat to staff... and all critical care pts) @ -yes extremes of age Reevaluation #5: Differential Syncope: Valvular disease, hypertrophic cardiomyopathy, pulmonary embolism, tamponade, tachycardia, bradycardia, VA, hypovolemia, hemorrhage, dissection, anemia, intracranial hemorrhage, seizure, hypoglycemia, carbon monoxide poisoning, this is not meant to be an all-inclusive list. Medical Decision Making - Medical Decision Making 78 male to the ER for evaluation patient presents with recurrent episodes of syncope need for neurological evaluation concern for underlying seizures secondary to history of Parkinson's dementia. Patient will admit for neuro logical treatment - Lab Data Result diagrams: 09/01/24 07:08 08/31/24 07:00 Lab Results 08/26/24 08/26/24 08/26/24 Range/Units 15:54 15:55 15:55 WBC 6.9 (3.8-10.6) k/uL RBC 4.92 (4.30-5.90) m/uL Hgb 14.3 (13.0-17.5) gm/dL Hct 43.5 (39.0-53.0) % MCV 88.5 (80.0-100.0) fL MCH 29.1 (25.0-35.0) pg MCHC 32.9 (31.0-37.0) g/dL RDW 13.8 (11.5-15.5) % Plt Count 174 (150-450) k/uL MPV 7.5 Immature Gran % (Auto) % Absolute Nucleated RBC % Neutrophils % 71 % Lymphocytes % 18 % Monocytes % 8 % Eosinophils % 1 % Basophils % 0 % Immature Gran # (0.00-0.04) X 10*3/uL Neutrophils # 4.9 (1.3-7.7) k/uL Lymphocytes # 1.2 (1.0-4.8) k/uL Monocytes # 0.6 (0-1.0) k/uL Eosinophils # 0.1 (0-0.7) k/uL Basophils # 0.0 (0-0.2) k/uL NRBC/100 WBC Diff (0.00-0.01) X 10*3/uL PT 11.0 (10.0-12.5) sec INR 1.0 (<1.2) APTT 22.1 (22.0-30.0) sec VBG pH (7.31-7.41) VBG pCO2 (37-51) mmHg VBG HCO3 (24-28) mmol/L Sodium (137-145) mmol/L Potassium (3.5-5.1) mmol/L Chloride (98-107) mmol/L Carbon Dioxide (22-30) mmol/L Anion Gap mmol/L BUN (9-20) mg/dL Creatinine (0.66-1.25) mg/dL Est GFR (CKD-EPI) (>=60) Est GFR (CKD-EPI)AfAm (>60 ml/min/1.73 sqM) Est GFR (CKD-EPI)NonAf (>60 ml/min/1.73 sqM) BUN/Creatinine Ratio (12.00-20.00) Ratio Glucose (74-99) mg/dL POC Glucose (mg/dL) 206 H (70-110) mg/dL POC Glu [place] ID Brady Castellano Estimated Ave Glu mg/dL mg/dL Hemoglobin A1c (<=6.0) % Plasma Lactic Acid Jian (0.7-2.0) mmol/L Calcium (8.4-10.2) mg/dL Magnesium (1.6-2.3) mg/dL Total Bilirubin (0.2-1.3) mg/dL AST (17-59) U/L ALT (4-49) U/L Alkaline Phosphatase (38-126) U/L Ammonia (<30) umol/L Troponin I (0.000-0.034) ng/mL Total Protein (6.3-8.2) g/dL Albumin (3.5-5.0) g/dL Globulin (1.6-3.3) g/dL Albumin/Globulin Ratio (1.60-3.17) Ratio Triglycerides (0.00-149.00) mg/dL Cholesterol (0.00-200.00) mg/dL LDL Cholesterol, Calc (0.0-131.0) mg/dL VLDL Cholesterol, Calc (5.00-40.00) mg/dL HDL Cholesterol (40.00-60.00) mg/dL Cholesterol/HDL Ratio Ratio TSH (0.465-4.680) mIU/L Prolactin (2.100-17.000) ng/mL Urine Color Urine Appearance (Clear) Urine pH (5.0-8.0) Ur Specific [place] (1.001-1.035) Urine Protein (Negative) Urine Glucose (UA) (Negative) Urine Ketones (Negative) Urine Blood (Negative) Urine Nitrite (Negative) Urine Bilirubin (Negative) Urine Urobilinogen (<2.0) mg/dL Ur Leukocyte Esterase (Negative) Urine Opiates Screen (NotDetected) Ur Oxycodone Screen (NotDetected) Urine Methadone Screen (NotDetected) Ur Barbiturates Screen (NotDetected) U Tricyclic Antidepress (NotDetected) Ur Phencyclidine Scrn (NotDetected) Ur Amphetamines Screen (NotDetected) U Methamphetamines Scrn (NotDetected) U Benzodiazepines Scrn (NotDetected) Urine Cocaine Screen (NotDetected) U Marijuana (THC) Screen (NotDetected) Serum Alcohol mg/dL 08/26/24 08/26/24 08/26/24 Range/Units 15:55 15:55 15:55 WBC (3.8-10.6) k/uL RBC (4.30-5.90) m/uL Hgb (13.0-17.5) gm/dL Hct (39.0-53.0) % MCV (80.0-100.0) fL MCH (25.0-35.0) pg MCHC (31.0-37.0) g/dL RDW (11.5-15.5) % Plt Count (150-450) k/uL MPV Immature Gran % (Auto) % Absolute Nucleated RBC % Neutrophils % % Lymphocytes % % Monocytes % % Eosinophils % % Basophils % % Immature Gran # (0.00-0.04) X 10*3/uL Neutrophils # (1.3-7.7) k/uL Lymphocytes # (1.0-4.8) k/uL Monocytes # (0-1.0) k/uL Eosinophils # (0-0.7) k/uL Basophils # (0-0.2) k/uL NRBC/100 WBC Diff (0.00-0.01) X 10*3/uL PT (10.0-12.5) sec INR (<1.2) APTT (22.0-30.0) sec VBG pH (7.31-7.41) VBG pCO2 (37-51) mmHg VBG HCO3 (24-28) mmol/L Sodium 139 (137-145) mmol/L Potassium 4.4 (3.5-5.1) mmol/L Chloride 109 H (98-107) mmol/L Carbon Dioxide 24 (22-30) mmol/L Anion Gap 6 mmol/L BUN 31 H (9-20) mg/dL Creatinine 1.10 (0.66-1.25) mg/dL Est GFR (CKD-EPI) (>=60) Est GFR (CKD-EPI)AfAm 74 (>60 ml/min/1.73 sqM) Est GFR (CKD-EPI)NonAf 64 (>60 ml/min/1.73 sqM) BUN/Creatinine Ratio (12.00-20.00) Ratio Glucose 214 H (74-99) mg/dL POC Glucose (mg/dL) (70-110) mg/dL POC Glu [place] Guide ID Estimated Ave Glu mg/dL mg/dL Hemoglobin A1c (<=6.0) % Plasma Lactic Acid Jian (0.7-2.0) mmol/L Calcium 8.7 (8.4-10.2) mg/dL Magnesium (1.6-2.3) mg/dL Total Bilirubin 1.0 (0.2-1.3) mg/dL AST 29 (17-59) U/L ALT 6 (4-49) U/L Alkaline Phosphatase 82 (38-126) U/L Ammonia <9 (<30) umol/L Troponin I <0.012 (0.000-0.034) ng/mL Total Protein 6.2 L (6.3-8.2) g/dL Albumin 3.6 (3.5-5.0) g/dL Globulin (1.6-3.3) g/dL Albumin/Globulin Ratio (1.60-3.17) Ratio Triglycerides (0.00-149.00) mg/dL Cholesterol (0.00-200.00) mg/dL LDL Cholesterol, Calc (0.0-131.0) mg/dL VLDL Cholesterol, Calc (5.00-40.00) mg/dL HDL Cholesterol (40.00-60.00) mg/dL Cholesterol/HDL Ratio Ratio TSH (0.465-4.680) mIU/L Prolactin (2.100-17.000) ng/mL Urine Color Urine Appearance (Clear) Urine pH (5.0-8.0) Ur Specific [place] (1.001-1.035) Urine Protein (Negative) Urine Glucose (UA) (Negative) Urine Ketones (Negative) Urine Blood (Negative) Urine Nitrite (Negative) Urine Bilirubin (Negative) Urine Urobilinogen (<2.0) mg/dL Ur Leukocyte Esterase (Negative) Urine Opiates Screen (NotDetected) Ur Oxycodone Screen (NotDetected) Urine Methadone Screen (NotDetected) Ur Barbiturates Screen (NotDetected) U Tricyclic Antidepress (NotDetected) Ur Phencyclidine Scrn (NotDetected) Ur Amphetamines Screen (NotDetected) U Methamphetamines Scrn (NotDetected) U Benzodiazepines Scrn (NotDetected) Urine Cocaine Screen (NotDetected) U Marijuana (THC) Screen (NotDetected) Serum Alcohol <10 mg/dL 08/26/24 08/26/24 08/26/24 Range/Units 17:18 18:51 21:31 WBC (3.8-10.6) k/uL RBC (4.30-5.90) m/uL Hgb (13.0-17.5) gm/dL Hct (39.0-53.0) % MCV (80.0-100.0) fL MCH (25.0-35.0) pg MCHC (31.0-37.0) g/dL RDW (11.5-15.5) % Plt Count (150-450) k/uL MPV Immature Gran % (Auto) % Absolute Nucleated RBC % Neutrophils % % Lymphocytes % % Monocytes % % Eosinophils % % Basophils % % Immature Gran # (0.00-0.04) X 10*3/uL Neutrophils # (1.3-7.7) k/uL Lymphocytes # (1.0-4.8) k/uL Monocytes # (0-1.0) k/uL Eosinophils # (0-0.7) k/uL Basophils # (0-0.2) k/uL NRBC/100 WBC Diff (0.00-0.01) X 10*3/uL PT (10.0-12.5) sec INR (<1.2) APTT (22.0-30.0) sec VBG pH (7.31-7.41) VBG pCO2 (37-51) mmHg VBG HCO3 (24-28) mmol/L Sodium (137-145) mmol/L Potassium (3.5-5.1) mmol/L Chloride (98-107) mmol/L Carbon Dioxide (22-30) mmol/L Anion Gap mmol/L BUN (9-20) mg/dL Creatinine (0.66-1.25) mg/dL Est GFR (CKD-EPI) (>=60) Est GFR (CKD-EPI)AfAm (>60 ml/min/1.73 sqM) Est GFR (CKD-EPI)NonAf (>60 ml/min/1.73 sqM) BUN/Creatinine Ratio (12.00-20.00) Ratio Glucose (74-99) mg/dL POC Glucose (mg/dL) (70-110) mg/dL POC Glu [place] ID Estimated Ave Glu mg/dL mg/dL Hemoglobin A1c (<=6.0) % Plasma Lactic Acid Jian (0.7-2.0) mmol/L Calcium (8.4-10.2) mg/dL Magnesium (1.6-2.3) mg/dL Total Bilirubin (0.2-1.3) mg/dL AST (17-59) U/L ALT (4-49) U/L Alkaline Phosphatase (38-126) U/L Ammonia (<30) umol/L Troponin I <0.012 <0.012 (0.000-0.034) ng/mL Total Protein (6.3-8.2) g/dL Albumin (3.5-5.0) g/dL Globulin (1.6-3.3) g/dL Albumin/Globulin Ratio (1.60-3.17) Ratio Triglycerides (0.00-149.00) mg/dL Cholesterol (0.00-200.00) mg/dL LDL Cholesterol, Calc (0.0-131.0) mg/dL VLDL Cholesterol, Calc (5.00-40.00) mg/dL HDL Cholesterol (40.00-60.00) mg/dL Cholesterol/HDL Ratio Ratio TSH (0.465-4.680) mIU/L Prolactin (2.100-17.000) ng/mL Urine Color Colorless Urine Appearance Clear (Clear) Urine pH 6.5 (5.0-8.0) Ur Specific [place] 1.010 (1.001-1.035) Urine Protein Trace H (Negative) Urine Glucose (UA) 3+ H (Negative) Urine Ketones Negative (Negative) Urine Blood Negative (Negative) Urine Nitrite Negative (Negative) Urine Bilirubin Negative (Negative) Urine Urobilinogen <2.0 (<2.0) mg/dL Ur Leukocyte Esterase Negative (Negative) Urine Opiates Screen Not Detected (NotDetected) Ur Oxycodone Screen Not Detected (NotDetected) Urine Methadone Screen Not Detected (NotDetected) Ur Barbiturates Screen Not Detected (NotDetected) U Tricyclic Antidepress Not Detected (NotDetected) Ur Phencyclidine Scrn Not Detected (NotDetected) Ur Amphetamines Screen Not Detected (NotDetected) U Methamphetamines Scrn Not Detected (NotDetected) U Benzodiazepines Scrn Not Detected (NotDetected) Urine Cocaine Screen Not Detected (NotDetected) U Marijuana (THC) Screen Not Detected (NotDetected) Serum Alcohol mg/dL 08/27/24 08/27/24 08/27/24 Range/Units 05:27 05:27 09:48 WBC 10.22 H (3.8-10.6) k/uL RBC 5.67 H (4.30-5.90) m/uL Hgb 16.2 (13.0-17.5) gm/dL Hct 48.2 (39.0-53.0) % MCV 85.0 (80.0-100.0) fL MCH 28.6 (25.0-35.0) pg MCHC 33.6 (31.0-37.0) g/dL RDW 13.5 (11.5-15.5) % Plt Count 186 (150-450) k/uL MPV 10.3 Immature Gran % (Auto) 0.50 % Absolute Nucleated RBC 0 % Neutrophils % 71.5 % Lymphocytes % 15.9 % Monocytes % 10.5 % Eosinophils % 1.1 % Basophils % 0.5 % Immature Gran # 0.05 H (0.00-0.04) X 10*3/uL Neutrophils # 7.31 (1.3-7.7) k/uL Lymphocytes # 1.63 (1.0-4.8) k/uL Monocytes # 1.07 H (0-1.0) k/uL Eosinophils # 0.11 (0-0.7) k/uL Basophils # 0.05 (0-0.2) k/uL NRBC/100 WBC Diff 0 (0.00-0.01) X 10*3/uL PT (10.0-12.5) sec INR (<1.2) APTT (22.0-30.0) sec VBG pH (7.31-7.41) VBG pCO2 (37-51) mmHg VBG HCO3 (24-28) mmol/L Sodium 141 (137-145) mmol/L Potassium 3.9 (3.5-5.1) mmol/L Chloride 100 (98-107) mmol/L Carbon Dioxide 27.3 (22-30) mmol/L Anion Gap 13.70 H mmol/L BUN 17.6 (9-20) mg/dL Creatinine 0.9 (0.66-1.25) mg/dL Est GFR (CKD-EPI) 87 (>=60) Est GFR (CKD-EPI)AfAm (>60 ml/min/1.73 sqM) Est GFR (CKD-EPI)NonAf (>60 ml/min/1.73 sqM) BUN/Creatinine Ratio 19.56 (12.00-20.00) Ratio Glucose 146 H (74-99) mg/dL POC Glucose (mg/dL) 282 H (70-110) mg/dL POC Glu [place] ID Nichole Salinas Estimated [address] Glu mg/dL mg/dL Hemoglobin A1c (<=6.0) % Plasma Lactic Acid Jian (0.7-2.0) mmol/L Calcium 9.1 (8.4-10.2) mg/dL Magnesium (1.6-2.3) mg/dL Total Bilirubin 0.8 (0.2-1.3) mg/dL AST 28 (17-59) U/L ALT 27 (4-49) U/L Alkaline Phosphatase 112 (38-126) U/L Ammonia (<30) umol/L Troponin I (0.000-0.034) ng/mL Total Protein 6.9 (6.3-8.2) g/dL Albumin 4.0 (3.5-5.0) g/dL Globulin 2.9 (1.6-3.3) g/dL Albumin/Globulin Ratio 1.38 L (1.60-3.17) Ratio Triglycerides (0.00-149.00) mg/dL Cholesterol (0.00-200.00) mg/dL LDL Cholesterol, Calc (0.0-131.0) mg/dL VLDL Cholesterol, Calc (5.00-40.00) mg/dL HDL Cholesterol (40.00-60.00) mg/dL Cholesterol/HDL Ratio Ratio TSH (0.465-4.680) mIU/L Prolactin (2.100-17.000) ng/mL Urine Color Urine Appearance (Clear) Urine pH (5.0-8.0) Ur Specific [place] (1.001-1.035) Urine Protein (Negative) Urine Glucose (UA) (Negative) Urine Ketones (Negative) Urine Blood (Negative) Urine Nitrite (Negative) Urine Bilirubin (Negative) Urine Urobilinogen (<2.0) mg/dL Ur Leukocyte Esterase (Negative) Urine Opiates Screen (NotDetected) Ur Oxycodone Screen (NotDetected) Urine Methadone Screen (NotDetected) Ur Barbiturates Screen (NotDetected) U Tricyclic Antidepress (NotDetected) Ur Phencyclidine Scrn (NotDetected) Ur Amphetamines Screen (NotDetected) U Methamphetamines Scrn (NotDetected) U Benzodiazepines Scrn (NotDetected) Urine Cocaine Screen (NotDetected) U Marijuana (THC) Screen (NotDetected) Serum Alcohol mg/dL 10/26/24 10/26/24 10/26/24 Range/Units 11:54 13:08 16:47 WBC (3.8-10.6) k/uL RBC (4.30-5.90) m/uL Hgb (13.0-17.5) gm/dL Hct (39.0-53.0) % MCV (80.0-100.0) fL MCH (25.0-35.0) pg MCHC (31.0-37.0) g/dL RDW (11.5-15.5) % Plt Count (150-450) k/uL MPV Immature Gran % (Auto) % Absolute Nucleated RBC % Neutrophils % % Lymphocytes % % Monocytes % % Eosinophils % % Basophils % % Immature Gran # (0.00-0.04) X 10*3/uL Neutrophils # (1.3-7.7) k/uL Lymphocytes # (1.0-4.8) k/uL Monocytes # (0-1.0) k/uL Eosinophils # (0-0.7) k/uL Basophils # (0-0.2) k/uL NRBC/100 WBC Diff (0.00-0.01) X 10*3/uL PT (10.0-12.5) sec INR (<1.2) APTT (22.0-30.0) sec VBG pH (7.31-7.41) VBG pCO2 (37-51) mmHg VBG HCO3 (24-28) mmol/L Sodium (137-145) mmol/L Potassium (3.5-5.1) mmol/L Chloride (98-107) mmol/L Carbon Dioxide (22-30) mmol/L Anion Gap mmol/L BUN (9-20) mg/dL Creatinine (0.66-1.25) mg/dL Est GFR (CKD-EPI) (>=60) Est GFR (CKD-EPI)AfAm (>60 ml/min/1.73 sqM) Est GFR (CKD-EPI)NonAf (>60 ml/min/1.73 sqM) BUN/Creatinine Ratio (12.00-20.00) Ratio Glucose (74-99) mg/dL POC Glucose (mg/dL) 284 H 174 H 98 (70-110) mg/dL POC Glu [place] [facility] ID Kenny Sanchez [address] Glu mg/dL mg/dL Hemoglobin A1c (<=6.0) % Plasma Lactic Acid Jian (0.7-2.0) mmol/L Calcium (8.4-10.2) mg/dL Magnesium (1.6-2.3) mg/dL Total Bilirubin (0.2-1.3) mg/dL AST (17-59) U/L ALT (4-49) U/L Alkaline Phosphatase (38-126) U/L Ammonia (<30) umol/L Troponin I (0.000-0.034) ng/mL Total Protein (6.3-8.2) g/dL Albumin (3.5-5.0) g/dL Globulin (1.6-3.3) g/dL Albumin/Globulin Ratio (1.60-3.17) Ratio Triglycerides (0.00-149.00) mg/dL Cholesterol (0.00-200.00) mg/dL LDL Cholesterol, Calc (0.0-131.0) mg/dL VLDL Cholesterol, Calc (5.00-40.00) mg/dL HDL Cholesterol (40.00-60.00) mg/dL Cholesterol/HDL Ratio Ratio TSH (0.465-4.680) mIU/L Prolactin (2.100-17.000) ng/mL Urine Color Urine Appearance (Clear) Urine pH (5.0-8.0) Ur Specific [place] (1.001-1.035) Urine Protein (Negative) Urine Glucose (UA) (Negative) Urine Ketones (Negative) Urine Blood (Negative) Urine Nitrite (Negative) Urine Bilirubin (Negative) Urine Urobilinogen (<2.0) mg/dL Ur Leukocyte Esterase (Negative) Urine Opiates Screen (NotDetected) Ur Oxycodone Screen (NotDetected) Urine Methadone Screen (NotDetected) Ur Barbiturates Screen (NotDetected) U Tricyclic Antidepress (NotDetected) Ur Phencyclidine Scrn (NotDetected) Ur Amphetamines Screen (NotDetected) U Methamphetamines Scrn (NotDetected) U Benzodiazepines Scrn (NotDetected) Urine Cocaine Screen (NotDetected) U Marijuana (THC) Screen (NotDetected) Serum Alcohol mg/dL 08/27/24 08/27/24 08/28/24 Range/Units 18:20 21:49 07:43 WBC (3.8-10.6) k/uL RBC (4.30-5.90) m/uL Hgb (13.0-17.5) gm/dL Hct (39.0-53.0) % MCV (80.0-100.0) fL MCH (25.0-35.0) pg MCHC (31.0-37.0) g/dL RDW (11.5-15.5) % Plt Count (150-450) k/uL MPV Immature Gran % (Auto) % Absolute Nucleated RBC % Neutrophils % % Lymphocytes % % Monocytes % % Eosinophils % % Basophils % % Immature Gran # (0.00-0.04) X 10*3/uL Neutrophils # (1.3-7.7) k/uL Lymphocytes # (1.0-4.8) k/uL Monocytes # (0-1.0) k/uL Eosinophils # (0-0.7) k/uL Basophils # (0-0.2) k/uL NRBC/100 WBC Diff (0.00-0.01) X 10*3/uL PT (10.0-12.5) sec INR (<1.2) APTT (22.0-30.0) sec VBG pH (7.31-7.41) VBG pCO2 (37-51) mmHg VBG HCO3 (24-28) mmol/L Sodium (137-145) mmol/L Potassium (3.5-5.1) mmol/L Chloride (98-107) mmol/L Carbon Dioxide (22-30) mmol/L Anion Gap mmol/L BUN (9-20) mg/dL Creatinine (0.66-1.25) mg/dL Est GFR (CKD-EPI) (>=60) Est GFR (CKD-EPI)AfAm (>60 ml/min/1.73 sqM) Est GFR (CKD-EPI)NonAf (>60 ml/min/1.73 sqM) BUN/Creatinine Ratio (12.00-20.00) Ratio Glucose (74-99) mg/dL POC Glucose (mg/dL) 156 H 124 H (70-110) mg/dL POC Glu [place] [facility] SILV[address] Glu mg/dL mg/dL Hemoglobin A1c (<=6.0) % Plasma Lactic Acid Jian (0.7-2.0) mmol/L Calcium (8.4-10.2) mg/dL Magnesium (1.6-2.3) mg/dL Total Bilirubin (0.2-1.3) mg/dL AST (17-59) U/L ALT (4-49) U/L Alkaline Phosphatase (38-126) U/L Ammonia (<30) umol/L Troponin I (0.000-0.034) ng/mL Total Protein (6.3-8.2) g/dL Albumin (3.5-5.0) g/dL Globulin (1.6-3.3) g/dL Albumin/Globulin Ratio (1.60-3.17) Ratio Triglycerides (0.00-149.00) mg/dL Cholesterol (0.00-200.00) mg/dL LDL Cholesterol, Calc (0.0-131.0) mg/dL VLDL Cholesterol, Calc (5.00-40.00) mg/dL HDL Cholesterol (40.00-60.00) mg/dL Cholesterol/HDL Ratio Ratio TSH (0.465-4.680) mIU/L Prolactin (2.100-17.000) ng/mL Urine Color Urine Appearance (Clear) Urine pH (5.0-8.0) Ur Specific [place] (1.001-1.035) Urine Protein (Negative) Urine Glucose (UA) (Negative) Urine Ketones (Negative) Urine Blood (Negative) Urine Nitrite (Negative) Urine Bilirubin (Negative) Urine Urobilinogen (<2.0) mg/dL Ur Leukocyte Esterase (Negative) Urine Opiates Screen Not Detected (NotDetected) Ur Oxycodone Screen Not Detected (NotDetected) Urine Methadone Screen Not Detected (NotDetected) Ur Barbiturates Screen Not Detected (NotDetected) U Tricyclic Antidepress Not Detected (NotDetected) Ur Phencyclidine Scrn Not Detected (NotDetected) Ur Amphetamines Screen Not Detected (NotDetected) U Methamphetamines Scrn Not Detected (NotDetected) U Benzodiazepines Scrn Not Detected (NotDetected) Urine Cocaine Screen Not Detected (NotDetected) U Marijuana (THC) Screen Not Detected (NotDetected) Serum Alcohol mg/dL 08/28/24 08/28/24 08/28/24 Range/Units 12:22 16:33 20:10 WBC (3.8-10.6) k/uL RBC (4.30-5.90) m/uL Hgb (13.0-17.5) gm/dL Hct (39.0-53.0) % MCV (80.0-100.0) fL MCH (25.0-35.0) pg MCHC (31.0-37.0) g/dL RDW (11.5-15.5) % Plt Count (150-450) k/uL MPV Immature Gran % (Auto) % Absolute Nucleated RBC % Neutrophils % % Lymphocytes % % Monocytes % % Eosinophils % % Basophils % % Immature Gran # (0.00-0.04) X 10*3/uL Neutrophils # (1.3-7.7) k/uL Lymphocytes # (1.0-4.8) k/uL Monocytes # (0-1.0) k/uL Eosinophils # (0-0.7) k/uL Basophils # (0-0.2) k/uL NRBC/100 WBC Diff (0.00-0.01) X 10*3/uL PT (10.0-12.5) sec INR (<1.2) APTT (22.0-30.0) sec VBG pH (7.31-7.41) VBG pCO2 (37-51) mmHg VBG HCO3 (24-28) mmol/L Sodium (137-145) mmol/L Potassium (3.5-5.1) mmol/L Chloride (98-107) mmol/L Carbon Dioxide (22-30) mmol/L Anion Gap mmol/L BUN (9-20) mg/dL Creatinine (0.66-1.25) mg/dL Est GFR (CKD-EPI) (>=60) Est GFR (CKD-EPI)AfAm (>60 ml/min/1.73 sqM) Est GFR (CKD-EPI)NonAf (>60 ml/min/1.73 sqM) BUN/Creatinine Ratio (12.00-20.00) Ratio Glucose (74-99) mg/dL POC Glucose (mg/dL) 122 H 109 181 H (70-110) mg/dL POC Glu [facility] ID Tanya Connolly Mix [address] Glu mg/dL mg/dL Hemoglobin A1c (<=6.0) % Plasma Lactic Acid Jian (0.7-2.0) mmol/L Calcium (8.4-10.2) mg/dL Magnesium (1.6-2.3) mg/dL Total Bilirubin (0.2-1.3) mg/dL AST (17-59) U/L ALT (4-49) U/L Alkaline Phosphatase (38-126) U/L Ammonia (<30) umol/L Troponin I (0.000-0.034) ng/mL Total Protein (6.3-8.2) g/dL Albumin (3.5-5.0) g/dL Globulin (1.6-3.3) g/dL Albumin/Globulin Ratio (1.60-3.17) Ratio Triglycerides (0.00-149.00) mg/dL Cholesterol (0.00-200.00) mg/dL LDL Cholesterol, Calc (0.0-131.0) mg/dL VLDL Cholesterol, Calc (5.00-40.00) mg/dL HDL Cholesterol (40.00-60.00) mg/dL Cholesterol/HDL Ratio Ratio TSH (0.465-4.680) mIU/L Prolactin (2.100-17.000) ng/mL Urine Color Urine Appearance (Clear) Urine pH (5.0-8.0) Ur Specific [place] (1.001-1.035) Urine Protein (Negative) Urine Glucose (UA) (Negative) Urine Ketones (Negative) Urine Blood (Negative) Urine Nitrite (Negative) Urine Bilirubin (Negative) Urine Urobilinogen (<2.0) mg/dL Ur Leukocyte Esterase (Negative) Urine Opiates Screen (NotDetected) Ur Oxycodone Screen (NotDetected) Urine Methadone Screen (NotDetected) Ur Barbiturates Screen (NotDetected) U Tricyclic Antidepress (NotDetected) Ur Phencyclidine Scrn (NotDetected) Ur Amphetamines Screen (NotDetected) U Methamphetamines Scrn (NotDetected) U Benzodiazepines Scrn (NotDetected) Urine Cocaine Screen (NotDetected) U Marijuana (THC) Screen (NotDetected) Serum Alcohol mg/dL 08/29/24 08/29/24 08/29/24 Range/Units 06:09 07:21 07:21 WBC (3.8-10.6) k/uL RBC (4.30-5.90) m/uL Hgb (13.0-17.5) gm/dL Hct (39.0-53.0) % MCV (80.0-100.0) fL MCH (25.0-35.0) pg MCHC (31.0-37.0) g/dL RDW (11.5-15.5) % Plt Count (150-450) k/uL MPV Immature Gran % (Auto) % Absolute Nucleated RBC % Neutrophils % % Lymphocytes % % Monocytes % % Eosinophils % % Basophils % % Immature Gran # (0.00-0.04) X 10*3/uL Neutrophils # (1.3-7.7) k/uL Lymphocytes # (1.0-4.8) k/uL Monocytes # (0-1.0) k/uL Eosinophils # (0-0.7) k/uL Basophils # (0-0.2) k/uL NRBC/100 WBC Diff (0.00-0.01) X 10*3/uL PT (10.0-12.5) sec INR (<1.2) APTT (22.0-30.0) sec VBG pH (7.31-7.41) VBG pCO2 (37-51) mmHg VBG HCO3 (24-28) mmol/L Sodium 136 L (137-145) mmol/L Potassium 3.6 (3.5-5.1) mmol/L Chloride 106 (98-107) mmol/L Carbon Dioxide 25 (22-30) mmol/L Anion Gap 5 mmol/L BUN 17 (9-20) mg/dL Creatinine 0.78 (0.66-1.25) mg/dL Est GFR (CKD-EPI) (>=60) Est GFR (CKD-EPI)AfAm >90 (>60 ml/min/1.73 sqM) Est GFR (CKD-EPI)NonAf 87 (>60 ml/min/1.73 sqM) BUN/Creatinine Ratio (12.00-20.00) Ratio Glucose 127 H (74-99) mg/dL POC Glucose (mg/dL) 124 H (70-110) mg/dL POC Glu [place] [facility] ID Luciano Cali [address] Glu mg/dL 197 mg/dL Hemoglobin A1c 8.5 H (<=6.0) % Plasma Lactic Acid Jian (0.7-2.0) mmol/L Calcium 8.3 L (8.4-10.2) mg/dL Magnesium (1.6-2.3) mg/dL Total Bilirubin (0.2-1.3) mg/dL AST (17-59) U/L ALT (4-49) U/L Alkaline Phosphatase (38-126) U/L Ammonia (<30) umol/L Troponin I (0.000-0.034) ng/mL Total Protein (6.3-8.2) g/dL Albumin (3.5-5.0) g/dL Globulin (1.6-3.3) g/dL Albumin/Globulin Ratio (1.60-3.17) Ratio Triglycerides (0.00-149.00) mg/dL Cholesterol (0.00-200.00) mg/dL LDL Cholesterol, Calc (0.0-131.0) mg/dL VLDL Cholesterol, Calc (5.00-40.00) mg/dL HDL Cholesterol (40.00-60.00) mg/dL Cholesterol/HDL Ratio Ratio TSH (0.465-4.680) mIU/L Prolactin (2.100-17.000) ng/mL Urine Color Urine Appearance (Clear) Urine pH (5.0-8.0) Ur Specific [place] (1.001-1.035) Urine Protein (Negative) Urine Glucose (UA) (Negative) Urine Ketones (Negative) Urine Blood (Negative) Urine Nitrite (Negative) Urine Bilirubin (Negative) Urine Urobilinogen (<2.0) mg/dL Ur Leukocyte Esterase (Negative) Urine Opiates Screen (NotDetected) Ur Oxycodone Screen (NotDetected) Urine Methadone Screen (NotDetected) Ur Barbiturates Screen (NotDetected) U Tricyclic Antidepress (NotDetected) Ur Phencyclidine Scrn (NotDetected) Ur Amphetamines Screen (NotDetected) U Methamphetamines Scrn (NotDetected) U Benzodiazepines Scrn (NotDetected) Urine Cocaine Screen (NotDetected) U Marijuana (THC) Screen (NotDetected) Serum Alcohol mg/dL 08/29/24 08/29/24 08/29/24 Range/Units 07:21 07:21 11:11 WBC 9.5 (3.8-10.6) k/uL RBC 5.25 (4.30-5.90) m/uL Hgb 15.0 (13.0-17.5) gm/dL Hct 46.3 (39.0-53.0) % MCV 88.2 (80.0-100.0) fL MCH 28.6 (25.0-35.0) pg MCHC 32.4 (31.0-37.0) g/dL RDW 13.8 (11.5-15.5) % Plt Count 153 (150-450) k/uL MPV 8.5 Immature Gran % (Auto) % Absolute Nucleated RBC % Neutrophils % 74 % Lymphocytes % 15 % Monocytes % 7 % Eosinophils % 3 % Basophils % 0 % Immature Gran # (0.00-0.04) X 10*3/uL Neutrophils # 7.1 (1.3-7.7) k/uL Lymphocytes # 1.4 (1.0-4.8) k/uL Monocytes # 0.7 (0-1.0) k/uL Eosinophils # 0.2 (0-0.7) k/uL Basophils # 0.0 (0-0.2) k/uL NRBC/100 WBC Diff (0.00-0.01) X 10*3/uL PT (10.0-12.5) sec INR (<1.2) APTT (22.0-30.0) sec VBG pH (7.31-7.41) VBG pCO2 (37-51) mmHg VBG HCO3 (24-28) mmol/L Sodium (137-145) mmol/L Potassium (3.5-5.1) mmol/L Chloride (98-107) mmol/L Carbon Dioxide (22-30) mmol/L Anion Gap mmol/L BUN (9-20) mg/dL Creatinine (0.66-1.25) mg/dL Est GFR (CKD-EPI) (>=60) Est GFR (CKD-EPI)AfAm (>60 ml/min/1.73 sqM) Est GFR (CKD-EPI)NonAf (>60 ml/min/1.73 sqM) BUN/Creatinine Ratio (12.00-20.00) Ratio Glucose (74-99) mg/dL POC Glucose (mg/dL) 159 H (70-110) mg/dL POC Glu [place] [facility] ID Darlin Covarrubias [address] Glu mg/dL mg/dL Hemoglobin A1c (<=6.0) % Plasma Lactic Acid Jian (0.7-2.0) mmol/L Calcium (8.4-10.2) mg/dL Magnesium 1.3 L (1.6-2.3) mg/dL Total Bilirubin (0.2-1.3) mg/dL AST (17-59) U/L ALT (4-49) U/L Alkaline Phosphatase (38-126) U/L Ammonia (<30) umol/L Troponin I (0.000-0.034) ng/mL Total Protein (6.3-8.2) g/dL Albumin (3.5-5.0) g/dL Globulin (1.6-3.3) g/dL Albumin/Globulin Ratio (1.60-3.17) Ratio Triglycerides (0.00-149.00) mg/dL Cholesterol (0.00-200.00) mg/dL LDL Cholesterol, Calc (0.0-131.0) mg/dL VLDL Cholesterol, Calc (5.00-40.00) mg/dL HDL Cholesterol (40.00-60.00) mg/dL Cholesterol/HDL Ratio Ratio TSH (0.465-4.680) mIU/L Prolactin (2.100-17.000) ng/mL Urine Color Urine Appearance (Clear) Urine pH (5.0-8.0) Ur Specific [place] (1.001-1.035) Urine Protein (Negative) Urine Glucose (UA) (Negative) Urine Ketones (Negative) Urine Blood (Negative) Urine Nitrite (Negative) Urine Bilirubin (Negative) Urine Urobilinogen (<2.0) mg/dL Ur Leukocyte Esterase (Negative) Urine Opiates Screen (NotDetected) Ur Oxycodone Screen (NotDetected) Urine Methadone Screen (NotDetected) Ur Barbiturates Screen (NotDetected) U Tricyclic Antidepress (NotDetected) Ur Phencyclidine Scrn (NotDetected) Ur Amphetamines Screen (NotDetected) U Methamphetamines Scrn (NotDetected) U Benzodiazepines Scrn (NotDetected) Urine Cocaine Screen (NotDetected) U Marijuana (THC) Screen (NotDetected) Serum Alcohol mg/dL 08/29/24 08/29/24 08/29/24 Range/Units 13:07 14:25 14:25 WBC 9.2 (3.8-10.6) k/uL RBC 4.36 (4.30-5.90) m/uL Hgb 12.9 L (13.0-17.5) gm/dL Hct 38.0 L (39.0-53.0) % MCV 87.1 (80.0-100.0) fL MCH 29.6 (25.0-35.0) pg MCHC 34.0 (31.0-37.0) g/dL RDW 13.9 (11.5-15.5) % Plt Count 139 L (150-450) k/uL MPV 7.4 Immature Gran % (Auto) % Absolute Nucleated RBC % Neutrophils % % Lymphocytes % % Monocytes % % Eosinophils % % Basophils % % Immature Gran # (0.00-0.04) X 10*3/uL Neutrophils # (1.3-7.7) k/uL Lymphocytes # (1.0-4.8) k/uL Monocytes # (0-1.0) k/uL Eosinophils # (0-0.7) k/uL Basophils # (0-0.2) k/uL NRBC/100 WBC Diff (0.00-0.01) X 10*3/uL PT (10.0-12.5) sec INR (<1.2) APTT (22.0-30.0) sec VBG pH (7.31-7.41) VBG pCO2 (37-51) mmHg VBG HCO3 (24-28) mmol/L Sodium 137 (137-145) mmol/L Potassium 3.6 (3.5-5.1) mmol/L Chloride 107 (98-107) mmol/L Carbon Dioxide 25 (22-30) mmol/L Anion Gap 5 mmol/L BUN 18 (9-20) mg/dL Creatinine 0.82 (0.66-1.25) mg/dL Est GFR (CKD-EPI) (>=60) Est GFR (CKD-EPI)AfAm >90 (>60 ml/min/1.73 sqM) Est GFR (CKD-EPI)NonAf 85 (>60 ml/min/1.73 sqM) BUN/Creatinine Ratio (12.00-20.00) Ratio Glucose 92 (74-99) mg/dL POC Glucose (mg/dL) 95 (70-110) mg/dL POC Glu [place] [facility] ID Darlin Covarrubias [address] Glu mg/dL mg/dL Hemoglobin A1c (<=6.0) % Plasma Lactic Acid Jian (0.7-2.0) mmol/L Calcium 7.7 L (8.4-10.2) mg/dL Magnesium 1.6 (1.6-2.3) mg/dL Total Bilirubin (0.2-1.3) mg/dL AST (17-59) U/L ALT (4-49) U/L Alkaline Phosphatase (38-126) U/L Ammonia (<30) umol/L Troponin I (0.000-0.034) ng/mL Total Protein (6.3-8.2) g/dL Albumin (3.5-5.0) g/dL Globulin (1.6-3.3) g/dL Albumin/Globulin Ratio (1.60-3.17) Ratio Triglycerides (0.00-149.00) mg/dL Cholesterol (0.00-200.00) mg/dL LDL Cholesterol, Calc (0.0-131.0) mg/dL VLDL Cholesterol, Calc (5.00-40.00) mg/dL HDL Cholesterol (40.00-60.00) mg/dL Cholesterol/HDL Ratio Ratio TSH (0.465-4.680) mIU/L Prolactin 9.700 (2.100-17.000) ng/mL Urine Color Urine Appearance (Clear) Urine pH (5.0-8.0) Ur Specific [place] (1.001-1.035) Urine Protein (Negative) Urine Glucose (UA) (Negative) Urine Ketones (Negative) Urine Blood (Negative) Urine Nitrite (Negative) Urine Bilirubin (Negative) Urine Urobilinogen (<2.0) mg/dL Ur Leukocyte Esterase (Negative) Urine Opiates Screen (NotDetected) Ur Oxycodone Screen (NotDetected) Urine Methadone Screen (NotDetected) Ur Barbiturates Screen (NotDetected) U Tricyclic Antidepress (NotDetected) Ur Phencyclidine Scrn (NotDetected) Ur Amphetamines Screen (NotDetected) U Methamphetamines Scrn (NotDetected) U Benzodiazepines Scrn (NotDetected) Urine Cocaine Screen (NotDetected) U Marijuana (THC) Screen (NotDetected) Serum Alcohol mg/dL 08/29/24 08/29/24 08/29/24 Range/Units 14:25 14:25 14:25 WBC (3.8-10.6) k/uL RBC (4.30-5.90) m/uL Hgb (13.0-17.5) gm/dL Hct (39.0-53.0) % MCV (80.0-100.0) fL MCH (25.0-35.0) pg MCHC (31.0-37.0) g/dL RDW (11.5-15.5) % Plt Count (150-450) k/uL MPV Immature Gran % (Auto) % Absolute Nucleated RBC % Neutrophils % % Lymphocytes % % Monocytes % % Eosinophils % % Basophils % % Immature Gran # (0.00-0.04) X 10*3/uL Neutrophils # (1.3-7.7) k/uL Lymphocytes # (1.0-4.8) k/uL Monocytes # (0-1.0) k/uL Eosinophils # (0-0.7) k/uL Basophils # (0-0.2) k/uL NRBC/100 WBC Diff (0.00-0.01) X 10*3/uL PT (10.0-12.5) sec INR (<1.2) APTT (22.0-30.0) sec VBG pH 7.41 (7.31-7.41) VBG pCO2 40 (37-51) mmHg VBG HCO3 25 (24-28) mmol/L Sodium (137-145) mmol/L Potassium (3.5-5.1) mmol/L Chloride (98-107) mmol/L Carbon Dioxide (22-30) mmol/L Anion Gap mmol/L BUN (9-20) mg/dL Creatinine (0.66-1.25) mg/dL Est GFR (CKD-EPI) (>=60) Est GFR (CKD-EPI)AfAm (>60 ml/min/1.73 sqM) Est GFR (CKD-EPI)NonAf (>60 ml/min/1.73 sqM) BUN/Creatinine Ratio (12.00-20.00) Ratio Glucose (74-99) mg/dL POC Glucose (mg/dL) (70-110) mg/dL POC Glu [place] [facility] ID Estimated Ave Glu mg/dL mg/dL Hemoglobin A1c (<=6.0) % Plasma Lactic Acid Jian 1.6 (0.7-2.0) mmol/L Calcium (8.4-10.2) mg/dL Magnesium (1.6-2.3) mg/dL Total Bilirubin (0.2-1.3) mg/dL AST (17-59) U/L ALT (4-49) U/L Alkaline Phosphatase (38-126) U/L Ammonia (<30) umol/L Troponin I (0.000-0.034) ng/mL Total Protein (6.3-8.2) g/dL Albumin (3.5-5.0) g/dL Globulin (1.6-3.3) g/dL Albumin/Globulin Ratio (1.60-3.17) Ratio Triglycerides (0.00-149.00) mg/dL Cholesterol (0.00-200.00) mg/dL LDL Cholesterol, Calc (0.0-131.0) mg/dL VLDL Cholesterol, Calc (5.00-40.00) mg/dL HDL Cholesterol (40.00-60.00) mg/dL Cholesterol/HDL Ratio Ratio TSH 2.040 (0.465-4.680) mIU/L Prolactin (2.100-17.000) ng/mL Urine Color Urine Appearance (Clear) Urine pH (5.0-8.0) Ur Specific [place] (1.001-1.035) Urine Protein (Negative) Urine Glucose (UA) (Negative) Urine Ketones (Negative) Urine Blood (Negative) Urine Nitrite (Negative) Urine Bilirubin (Negative) Urine Urobilinogen (<2.0) mg/dL Ur Leukocyte Esterase (Negative) Urine Opiates Screen (NotDetected) Ur Oxycodone Screen (NotDetected) Urine Methadone Screen (NotDetected) Ur Barbiturates Screen (NotDetected) U Tricyclic Antidepress (NotDetected) Ur Phencyclidine Scrn (NotDetected) Ur Amphetamines Screen (NotDetected) U Methamphetamines Scrn (NotDetected) U Benzodiazepines Scrn (NotDetected) Urine Cocaine Screen (NotDetected) U Marijuana (THC) Screen (NotDetected) Serum Alcohol mg/dL 08/29/24 08/29/24 08/30/24 Range/Units 16:18 20:10 06:18 WBC (3.8-10.6) k/uL RBC (4.30-5.90) m/uL Hgb (13.0-17.5) gm/dL Hct (39.0-53.0) % MCV (80.0-100.0) fL MCH (25.0-35.0) pg MCHC (31.0-37.0) g/dL RDW (11.5-15.5) % Plt Count (150-450) k/uL MPV Immature Gran % (Auto) % Absolute Nucleated RBC % Neutrophils % % Lymphocytes % % Monocytes % % Eosinophils % % Basophils % % Immature Gran # (0.00-0.04) X 10*3/uL Neutrophils # (1.3-7.7) k/uL Lymphocytes # (1.0-4.8) k/uL Monocytes # (0-1.0) k/uL Eosinophils # (0-0.7) k/uL Basophils # (0-0.2) k/uL NRBC/100 WBC Diff (0.00-0.01) X 10*3/uL PT (10.0-12.5) sec INR (<1.2) APTT (22.0-30.0) sec VBG pH (7.31-7.41) VBG pCO2 (37-51) mmHg VBG HCO3 (24-28) mmol/L Sodium (137-145) mmol/L Potassium (3.5-5.1) mmol/L Chloride (98-107) mmol/L Carbon Dioxide (22-30) mmol/L Anion Gap mmol/L BUN (9-20) mg/dL Creatinine (0.66-1.25) mg/dL Est GFR (CKD-EPI) (>=60) Est GFR (CKD-EPI)AfAm (>60 ml/min/1.73 sqM) Est GFR (CKD-EPI)NonAf (>60 ml/min/1.73 sqM) BUN/Creatinine Ratio (12.00-20.00) Ratio Glucose (74-99) mg/dL POC Glucose (mg/dL) 139 H 153 H 135 H (70-110) mg/dL POC Glu [place] [facility] ID Darlin Pollack Estimated Ave Glu mg/dL mg/dL Hemoglobin A1c (<=6.0) % Plasma Lactic Acid Jian (0.7-2.0) mmol/L Calcium (8.4-10.2) mg/dL Magnesium (1.6-2.3) mg/dL Total Bilirubin (0.2-1.3) mg/dL AST (17-59) U/L ALT (4-49) U/L Alkaline Phosphatase (38-126) U/L Ammonia (<30) umol/L Troponin I (0.000-0.034) ng/mL Total Protein (6.3-8.2) g/dL Albumin (3.5-5.0) g/dL Globulin (1.6-3.3) g/dL Albumin/Globulin Ratio (1.60-3.17) Ratio Triglycerides (0.00-149.00) mg/dL Cholesterol (0.00-200.00) mg/dL LDL Cholesterol, Calc (0.0-131.0) mg/dL VLDL Cholesterol, Calc (5.00-40.00) mg/dL HDL Cholesterol (40.00-60.00) mg/dL Cholesterol/HDL Ratio Ratio TSH (0.465-4.680) mIU/L Prolactin (2.100-17.000) ng/mL Urine Color Urine Appearance (Clear) Urine pH (5.0-8.0) Ur Specific [place] (1.001-1.035) Urine Protein (Negative) Urine Glucose (UA) (Negative) Urine Ketones (Negative) Urine Blood (Negative) Urine Nitrite (Negative) Urine Bilirubin (Negative) Urine Urobilinogen (<2.0) mg/dL Ur Leukocyte Esterase (Negative) Urine Opiates Screen (NotDetected) Ur Oxycodone Screen (NotDetected) Urine Methadone Screen (NotDetected) Ur Barbiturates Screen (NotDetected) U Tricyclic Antidepress (NotDetected) Ur Phencyclidine Scrn (NotDetected) Ur Amphetamines Screen (NotDetected) U Methamphetamines Scrn (NotDetected) U Benzodiazepines Scrn (NotDetected) Urine Cocaine Screen (NotDetected) U Marijuana (THC) Screen (NotDetected) Serum Alcohol mg/dL 08/30/24 08/30/24 Range/Units 07:22 11:18 WBC (3.8-10.6) k/uL RBC (4.30-5.90) m/uL Hgb (13.0-17.5) gm/dL Hct (39.0-53.0) % MCV (80.0-100.0) fL MCH (25.0-35.0) pg MCHC (31.0-37.0) g/dL RDW (11.5-15.5) % Plt Count (150-450) k/uL MPV Immature Gran % (Auto) % Absolute Nucleated RBC % Neutrophils % % Lymphocytes % % Monocytes % % Eosinophils % % Basophils % % Immature Gran # (0.00-0.04) X 10*3/uL Neutrophils # (1.3-7.7) k/uL Lymphocytes # (1.0-4.8) k/uL Monocytes # (0-1.0) k/uL Eosinophils # (0-0.7) k/uL Basophils # (0-0.2) k/uL NRBC/100 WBC Diff (0.00-0.01) X 10*3/uL PT (10.0-12.5) sec INR (<1.2) APTT (22.0-30.0) sec VBG pH (7.31-7.41) VBG pCO2 (37-51) mmHg VBG HCO3 (24-28) mmol/L Sodium 139 (137-145) mmol/L Potassium 3.3 L (3.5-5.1) mmol/L Chloride 109 H (98-107) mmol/L Carbon Dioxide 21 L (22-30) mmol/L Anion Gap 9 mmol/L BUN 15 (9-20) mg/dL Creatinine 0.67 (0.66-1.25) mg/dL Est GFR (CKD-EPI) (>=60) Est GFR (CKD-EPI)AfAm >90 (>60 ml/min/1.73 sqM) Est GFR (CKD-EPI)NonAf >90 (>60 ml/min/1.73 sqM) BUN/Creatinine Ratio (12.00-20.00) Ratio Glucose 141 H (74-99) mg/dL POC Glucose (mg/dL) 158 H (70-110) mg/dL POC Glu [place] [facility] ID Darlin Covarrubias Estimated [address] Glu mg/dL mg/dL Hemoglobin A1c (<=6.0) % Plasma Lactic Acid Jian (0.7-2.0) mmol/L Calcium 8.0 L (8.4-10.2) mg/dL Magnesium 1.8 (1.6-2.3) mg/dL Total Bilirubin (0.2-1.3) mg/dL AST (17-59) U/L ALT (4-49) U/L Alkaline Phosphatase (38-126) U/L Ammonia (<30) umol/L Troponin I (0.000-0.034) ng/mL Total Protein (6.3-8.2) g/dL Albumin (3.5-5.0) g/dL Globulin (1.6-3.3) g/dL Albumin/Globulin Ratio (1.60-3.17) Ratio Triglycerides 79.50 (0.00-149.00) mg/dL Cholesterol 131.00 (0.00-200.00) mg/dL LDL Cholesterol, Calc 73.3 (0.0-131.0) mg/dL VLDL Cholesterol, Calc 15.90 (5.00-40.00) mg/dL HDL Cholesterol 41.80 (40.00-60.00) mg/dL Cholesterol/HDL Ratio 3.13 Ratio TSH (0.465-4.680) mIU/L Prolactin (2.100-17.000) ng/mL Urine Color Urine Appearance (Clear) Urine pH (5.0-8.0) Ur Specific [place] (1.001-1.035) Urine Protein (Negative) Urine Glucose (UA) (Negative) Urine Ketones (Negative) Urine Blood (Negative) Urine Nitrite (Negative) Urine Bilirubin (Negative) Urine Urobilinogen (<2.0) mg/dL Ur Leukocyte Esterase (Negative) Urine Opiates Screen (NotDetected) Ur Oxycodone Screen (NotDetected) Urine Methadone Screen (NotDetected) Ur Barbiturates Screen (NotDetected) U Tricyclic Antidepress (NotDetected) Ur Phencyclidine Scrn (NotDetected) Ur Amphetamines Screen (NotDetected) U Methamphetamines Scrn (NotDetected) U Benzodiazepines Scrn (NotDetected) Urine Cocaine Screen (NotDetected) U Marijuana (THC) Screen (NotDetected) Serum Alcohol mg/dL - EKG Data -: EKG Interpreted by Me (EKG is sinus 69 IA 140 QRS 88 QTc 413) - Radiology Data Radiology results: report reviewed (CT brain and chest x-ray is negative for acute disease), image reviewed Disposition Clinical Impression: Altered mental status, Syncope Narrative: Concern for Seizure Disposition: ADMITTED IP TO THIS [facility] Condition: Fair Is patient prescribed a controlled substance at d/c from ED?: No Time of Disposition: 17:20
[2024-08-26 16:11] LABS: Basophils % (A) 0 %; Eosinophils # (A) 0.1 k/uL (0-0.7); Eosinophils % (A) 1 %; HCT 43.5 % (39.0-53.0); HGB 14.3 gm/dL (13.0-17.5); Lymphocytes # (A) 1.2 k/uL (1.0-4.8); Lymphocytes % (A) 18 %; MCH 29.1 pg (25.0-35.0); MCHC 32.9 g/dL (31.0-37.0); MCV 88.5 fL (80.0-100.0); Mean Platelet Volume 7.5; Monocytes # (A) 0.6 k/uL (0-1.0); Monocytes % (A) 8 %; Neutrophils # (A) 4.9 k/uL (1.3-7.7); Neutrophils % (A) 71 %; Platelet Count 174 k/uL (150-450); RBC 4.92 m/uL (4.30-5.90); RDW 13.8 % (11.5-15.5); WBC 6.9 k/uL (3.8-10.6)
[2024-08-26] MEDS: SODIUM CHLORIDE 0.9% 1,000 ML IV ONE (16:25)
[2024-08-26 16:32] LABS: ALT 6 U/L (4-49); AST 29 U/L (17-59); African American GFR (CKD) 74 (>60 ml/min/1.73 sqM); Albumin 3.6 g/dL (3.5-5.0); Alcohol <10 mg/dL; Alkaline Phosphatase 82 U/L (38-126); Anion Gap 6 mmol/L; Blood Urea Nitrogen 31 mg/dL (9-20); Calcium 8.7 mg/dL (8.4-10.2); Carbon Dioxide 24 mmol/L (22-30); Chloride 109 mmol/L (98-107); Glucose 214 mg/dL (74-99); Non-African American GFR(CKD) 64 (>60 ml/min/1.73 sqM); Potassium 4.4 mmol/L (3.5-5.1); Sodium 139 mmol/L (137-145); Total Protein 6.2 g/dL (6.3-8.2)
[2024-08-26 16:37] LABS: Partial Thromboplastin Time 22.1 sec (22.0-30.0)
--- NOTE | 2024-08-26 17:05 | CT ---
EXAMINATION TYPE: CT brain wo con DATE OF EXAM: 08/26/2024 COMPARISON: 12/22/2022 HISTORY: 78-year-old male confusion, ams, seizure, syncope TECHNIQUE: Examination was done in axial plane without intravenous contrast. Coronal and sagittal r econstructions performed. CT DLP: 1185.4 mGycm Automated exposure control for dose reduction was used. FINDINGS: There is no evidence of acute intracranial hemorrhage, acute ischemic changes, mass, mass-effect, or extra-axial fluid collection. There is no effacement of cerebral sulci or basal subarachnoid cister ns. There is mild to moderate hydrocephalus with Mik's ratio calculated at 0.35. There is no midline shift. Hernandez-white matter distinction is preserved. There is moderate patchy white matter hypodensities in posterior hemispheres. Benign basal ganglia ca lcifications. Old lacunar infarct left caudate head. Metastatic calcifications within the carotid sip hons. Rightward nasal septal deviation. Mild mucosal thickening ethmoid air cells. Mastoid air cells are we ll pneumatized. Orbits and globes are intact. IMPRESSION: 1. Similar mild to moderate hydrocephalus probably in large part due to central cerebral atrophy. Cor relate to exclude a component of NPH. 2. Moderate confluent burden of chronic small vessel ischemic disease. Otherwise, no acute intracrani al abnormality seen. [facility], , 08/26/2024 5:03 PM
--- NOTE | 2024-08-26 17:17 | XR ---
EXAMINATION TYPE: XR chest 1V portable DATE OF EXAM: 08/26/2024 Comparison: 06/20/2021 Clinical History: 78-year-old male confusion, altered mental status Findings: Heart borderline enlarged. Mild interstitial densities unchanged. No consolidation or pleural effusio n. Impression: Similar mild interstitial density could reflect bronchitis or asthma. No focal infiltrate seen. [facility], , 08/26/2024 5:15 PM
[2024-08-26] MEDS ORDERED: ONDANSETRON 4 MG/2 ML VIAL IVP PRN (17:20)
[2024-08-26] MEDS ORDERED: NALOXONE 0.4 MG/ML 1 ML VIAL IV PRN (17:20)
[2024-08-26 17:29] LABS: Appearance,Urine Clear (Clear); Bilirubin,Urine Negative (Negative); Blood,Urine Negative (Negative); Color,Urine Colorless; Glucose,Urine (UA) 3+ (Negative); Ketones,Urine Negative (Negative); Leukocyte Esterase,Urine Negative (Negative); Nitrite,Urine Negative (Negative); PH, Urine 6.5 (5.0-8.0); Protein,Urine Trace (Negative); Urobilinogen,Urine <2.0 mg/dL (<2.0)
[2024-08-26 17:35] LABS: Amphetamine Screen,Urine Not Detected (NotDetected); Benzodiazepines Screen,Urine Not Detected (NotDetected); Cocaine Screen,Urine Not Detected (NotDetected); Opiate Screen,Urine Not Detected (NotDetected); Phencyclidine Screen,Urine Not Detected (NotDetected); Tricyclic Antidepressant,Urine Not Detected (NotDetected); Urn Cannabinoid Scrn Not Detected (NotDetected)
[2024-08-26 17:36] LABS: Barbiturate Screen,Urine Not Detected (NotDetected); Methadone Screen, Urine Not Detected (NotDetected); Oxycodone Screen, Urine Not Detected (NotDetected)
[2024-08-26] MEDS: SODIUM CHLORIDE 0.9% 1,000 ML IV SCH (19:06)
--- NOTE | 2024-08-27 09:09 | P.HPIM ---
History of Present Illness H&P Date: 08/26/24 Chief Complaint: Syncopal episodes 78-year-old male patient with history of Parkinson's disease and dementia, hypertension, hyperlipidemia, history of PE/DVT, diabetes mellitus, CAD, presents to ED with complaint of recurrent episodes of syncope and altered mental status patient has history of dementia and; no family is at bedside to answer any questions; all of the history is obtained from the chart Blood work completed in ED reveals a WBC of 6.9, hemoglobin of 14.3 and platelet count of 174, sodium 139, potassium 4.4, BUNs/creatinine of 31/1.10 and blood glucose of 214, troponin of 0.012, ammonia level of less than 9 CT of the brain is negative for any acute intracranial process Chest x-ray is negative EKG is sinus 69 NH 140 QRS 88 QTc 413 Review of Systems REVIEW OF SYSTEMS: CONSTITUTIONAL: No fever, no malaise, no fatigue. HEENT: No recent visual problems or hearing problems. Denied any sore throat. CARDIOVASCULAR: No chest pain, orthopnea, PND, no palpitations, no syncope. PULMONARY: No shortness of breath, no cough, no hemoptysis. GASTROINTESTINAL: No diarrhea, no nausea, no vomiting, no abdominal pain. NEUROLOGICAL: No headaches, no weakness, no numbness. HEMATOLOGICAL: Denies any bleeding or petechiae. GENITOURINARY: Denies any burning micturition, frequency, or urgency. MUSCULOSKELETAL/RHEUMATOLOGICAL: Denies any joint pain, swelling, or any muscle pain. ENDOCRINE: Denies any polyuria or polydipsia. The rest of the 14-point review of systems is negative. ROS unobtainable: due to mental status Past Medical History Past Medical History: Coronary Artery Disease (CAD), Cancer, Diabetes Mellitus, Deep Vein Thrombosis (DVT), Hearing Disorder / Deafness, Hyperlipidemia, Hypertension, Neurologic Disorder, Osteoarthritis (OA), Prostate Disorder, Pulmonary Embolus (PE), Sleep Apnea/CPAP/BIPAP, Thyroid Disorder Additional Past Medical History / Comment(s): Parkinsons, [place] bilaterally, skin cancer removals, past L upper arm cellulitis, "he was passing out/falls due to low bp -bp meds currently on hold", no cpap used currently, constipation, History of Any Multi-Drug Resistant Organisms: None Reported Past Surgical History: Joint Replacement Additional Past Surgical History / Comment(s): Total beverley knee arthroplasties(developed postop blood clots), skin cancer removed from nose/hairline, surgery for deviated septum, colonoscopies, L chest wall cyst removed, bilateral cataract removals/lens implants. Past Anesthesia/Blood Transfusion Reactions: No Reported Reaction Past Psychological History: Anxiety Smoking Status: Never smoker Past Alcohol Use History: None Reported Past Drug Use History: None Reported - Past Family History Mother Family Medical History: Cancer Additional Family Medical History / Comment(s): OVARIAN CANCER Father Additional Family Medical History / Comment(s): Father at the age of 66 yrs from a "heart condition". He was a smoker. Medications and Allergies Home Medications Medication Instructions Recorded Confirmed Type Insulin Glargine,Hum.rec.anlog 10 unit SQ DAILY 04/25/19 08/26/24 History [Lantus Solostar Pen] Levothyroxine Sodium [Synthroid] 137 mcg PO MOTUWETHFRSA 04/25/19 08/26/24 Histo ry Pioglitazone HCl [Actos] 15 mg PO DAILY 04/25/19 08/26/24 History Omeprazole 40 mg PO DAILY 03/07/21 08/26/24 History Tamsulosin [Flomax] 0.4 mg PO DAILY 03/07/21 08/26/24 History busPIRone HCl [Buspar] 5 mg PO BID 03/07/21 08/26/24 History Cholecalciferol [Vitamin D3 (25 50 mcg PO DAILY 04/10/21 08/26/24 History Mcg = 1000 Iu)] Aspirin 81 mg PO DAILY 06/20/21 08/26/24 History Carbidopa-Levodopa 25-100 mg 0.5 tab PO TID 06/20/21 08/26/24 History [Sinemet 25-100] Isosorbide Mononitrate ER [Imdur] 15 mg PO DAILY 06/20/21 08/26/24 History Metoprolol Succinate (ER) [Toprol 25 mg PO DAILY 06/20/21 08/26/24 History XL] Carbidopa-Levodopa 25-250 mg 1 tab PO TID 08/26/24 08/26/24 History [Sinemet 25-250] Donepezil [Aricept] 10 mg PO HS 08/26/24 08/26/24 History Enalapril [Vasotec] 2.5 mg PO BID 08/26/24 08/26/24 History Fludrocortisone [Florinef] 0.1 mg PO MOWEFR 08/26/24 08/26/24 History Rosuvastatin Calcium [Crestor] 40 mg PO DAILY 08/26/24 08/26/24 History Semaglutide [Ozempic] 0.5 mg SQ FR 08/26/24 08/26/24 History metFORMIN HCL ER [Glucophage XR] 500 mg PO BID 08/26/24 08/26/24 History Allergies Allergy/AdvReac Type Severity Reaction Status Date / Time Penicillins Allergy Unknown Verified 08/26/24 18:29 Childhood Physical Exam Vitals: Vital Signs Temp Pulse Resp BP BP BP BP 08/26/24 19:42 133/87 95/55 135/76 08/26/24 19:07 81 16 174/95 08/26/24 15:52 97.8 F 67 16 98/62 Pulse Ox 08/26/24 19:42 08/26/24 19:07 100 08/26/24 15:52 97 Intake and Output 08/26/24 08/26/24 08/26/24 06:59 14:59 22:59 Other: Weight 78.925 kg Head exam: Present: atraumatic, normocephalic, normal inspection Eye exam: Present: normal appearance, PERRL, EOMI. Absent: scleral icterus, conjunctival injection, periorbital swelling ENT exam: Present: normal exam, mucous membranes moist Neck exam: Present: normal inspection. Absent: tenderness, meningismus, lympha denopathy Respiratory exam: Present: normal lung sounds bilaterally. Absent: respiratory distress, wheezes, rales, rhonchi, stridor Cardiovascular Exam: Present: regular rate, normal rhythm, normal heart sounds. Absent: systolic murmur, diastolic murmur, rubs, gallop, clicks GI/Abdominal exam: Present: soft, normal bowel sounds. Absent: distended, tenderness, guarding, rebound, rigid Extremities exam: Present: normal inspection, full ROM, normal capillary refill. Absent: tenderness, pedal edema, joint swelling, calf tenderness Back exam: Present: normal inspection Neurological exam: Present: alert, oriented X3, CN II-XII intact Psychiatric exam: Present: normal affect, normal mood Skin exam: Present: warm, dry, intact, normal color. Absent: rash Results CBC & Chem 7: 08/26/24 15:55 08/26/24 15:55 Labs: Abnormal Lab Results - Last 24 Hours (Table) 08/26/24 08/26/24 08/26/24 Range/Units 15:54 15:55 17:18 Chloride 109 H (98-107) mmol/L BUN 31 H (9-20) mg/dL Glucose 214 H (74-99) mg/dL POC Glucose (mg/dL) 206 H (70-110) mg/dL Total Protein 6.2 L (6.3-8.2) g/dL Urine Protein Trace H (Negative) Urine Glucose (UA) 3+ H (Negative) Assessment and Plan Assessment: 1. Altered mental status/recurrent syncopal episodes -CT of the head is negative for any acute intracranial process; we will order 2D echo and bilateral carotid Doppler --Trend troponin --Concern for underlying seizures -Patient has history of Parkinson's disease and dementia; not able to give any history -- Patient has been admitted to telemetry; neurochecks per protocol -Consult neurology and cardiology for further evaluation; appreciate r ecommendations 2. Mild BRENDEN; BUN elevated at 31 with creatinine of 1.1; placed on slow IV fluid hydration; monitor strict GEORGES's, daily weights, renal function electrolytes; avoid nephrotoxins and hypotension 3. Diabetes mellitus/hyperglycemia; patient is currently on Lantus 10 units subcu daily, metformin 500 mg twice daily, Actos 15 mg daily and Ozempic 0.5 mg subcu weekly -Will plan to continue with Lantus and metformin along with Actos; Ozempic on hold while inpatient; Accu-Cheks q. CHS with insulin sliding scale 4. Hypertension; Imdur 15 mg daily, lisinopril 2.5 mg twice daily 5. Coronary artery disease; patient is currently on aspirin, Crestor and Imdur 6. Hyperlipidemia; Crestor 40 mg daily 7. Hypothyroidism; levothyroxine 137 mcg daily from Thursday through Thursday 8. Parkinson's disease; Sinemet 25-100 mg half tablet 3 times daily along with Sinemet 25-250 mg 1 tablet 3 times daily 9. Dementia; Aricept 10 mg p.o. nightly DVT prophylaxis; SCDs/subcu heparin CODE STATUS;
[2024-08-27 09:20] LABS: Basophils # (A) 0.05 X 10*3/uL (0.00-0.10); Basophils % (A) 0.5 %; Eosinophils # (A) 0.11 X 10*3/uL (0.04-0.35); Eosinophils % (A) 1.1 %; HCT 48.2 % (39.6-50.0); HGB 16.2 g/dL (13.0-17.0); Lymphocytes # (A) 1.63 X 10*3/uL (0.90-5.00); Lymphocytes % (A) 15.9 %; MCH 28.6 pg (27.0-32.0); MCHC 33.6 g/dL (32.0-37.0); Mean Platelet Volume 10.3 FL (9.5-12.2); Monocytes # (A) 1.07 X 10*3/uL (0.20-1.00); Monocytes % (A) 10.5 %; NRBC Per 100 WBC 0 X 10*3/uL (0.00-0.01); Neutrophils # (A) 7.31 X 10*3/uL (1.80-7.70); Neutrophils % (A) 71.5 %; Platelet Count 186 X 10*3/uL (140-440); RBC 5.67 X 10*6/uL (4.40-5.60); RDW 13.5 % (11.5-14.5); WBC 10.22 X 10*3/uL (4.50-10.00)
[2024-08-27 09:31] LABS: ALT 27 U/L (10-49); AST 28 U/L (14-35); Albumin/Globulin Ratio 1.38 Ratio (1.60-3.17); Alkaline Phosphatase 112 U/L (41-126); BUN/Creat Ratio 19.56 Ratio (12.00-20.00); Blood Urea Nitrogen 17.6 mg/dL (9.0-27.0); Calcium 9.1 mg/dL (8.7-10.3); Carbon Dioxide 27.3 mmol/L (21.6-31.8); Chloride 100 mmol/L (96-109); Globulin 2.9 g/dL (1.6-3.3); Glucose 146 mg/dL (70-110); Potassium 3.9 mmol/L (3.5-5.5); Sodium 141 mmol/L (135-145); Total Bilirubin 0.8 mg/dL (0.3-1.2); Total Protein 6.9 g/dL (6.2-8.2)
[2024-08-27] MEDS: lisinopriL 10 MG TAB PO SCH (09:38)
[2024-08-27] MEDS: TAMSULOSIN 0.4 MG CAP.ER.24H PO SCH (09:48)
[2024-08-27] MEDS: METOPROLOL SUCCINATE (ER) 25 MG TAB.ER.24H PO SCH (09:48)
[2024-08-27] MEDS: ASPIRIN 81 MG PO SCH (09:48)
[2024-08-27] MEDS: HEPARIN SODIUM,PORCINE 5,000 UNIT/ML 1 ML VIAL SQ SCH (09:49)
[2024-08-27] MEDS: LEVOTHYROXINE 137 MCG TAB PO SCH (09:49)
[2024-08-27] MEDS: DONEPEZIL 10 MG TAB PO SCH (09:49)
[2024-08-27] MEDS: ATORVASTATIN 80 MG TAB PO SCH (09:49)
[2024-08-27] MEDS: ISOSORBIDE MONONITRATE ER 15 MG TAB PO SCH (09:49)
[2024-08-27] MEDS: PANTOPRAZOLE 40 MG TABLET PO SCH (09:49)
[2024-08-27 09:50] LABS: Glucose,Whole Blood 282 mg/dL (70-110)
[2024-08-27] MEDS: INSULIN DETEMIR (LEVEMIR) 100 UNIT/ML SYR SQ SCH (09:50)
--- NOTE | 2024-08-27 10:41 | US ---
EXAMINATION TYPE: US carotid duplex BILAT DATE OF EXAM: 08/27/2024 COMPARISON: 2020US Carotid; CT brain yesterday CLINICAL INDICATION: Male, 78 years old with history of syncope; TECHNIQUE: Grayscale, color Doppler and spectral Doppler evaluation of the bilateral carotid systems and vertebral arteries.Indirect Doppler criteria was utilized. FINDINGS: EXAM MEASUREMENTS: RIGHT: Peak Systolic Velocity (PSV) cm/sec ----- Right CCA: 59.6 ----- Right ICA: 211 ----- Right ECA: 112 ICA/CCA ratio: 3.54 RIGHT: End Diastole cm/sec ----- Right CCA: 4.11 ----- Right ICA: 18.7 ----- Right ECA: 12.7 LEFT: Peak Systolic Velocity (PSV) cm/sec ----- Left CCA: 93.5 ----- Left ICA: 149 ----- Left ECA: 159 ICA/CCA ratio: 1.59 LEFT: End Diastole cm/sec ----- Left CCA: 10.4 ----- Left ICA: 24.5 ----- Left ECA: 14.1 VERTEBRALS (direction of flow): Right Vertebral: Antegrade Left Vertebral: Antegrade Rhythm: Normal [employer] NOTES: Moderate to severe atherosclerotic changes noted within the right and left carotid bulbs and bilateral internal carotid arteries. Elevated velocities are noted throughout the right an d left internal carotid arteries, more significant on the right. IMPRESSION: Right: 50-69% stenosis of the carotid bifurcation. 50 to 69% stenosis=ICA PSV of 125 to 230 cm/s: ration 2.0 - 4.0: ICA EDV 40-100 cm/s. Left: 50-69% stenosis of the carotid bifurcation. 50 to 69% stenosis=ICA PSV of 125 to 230 cm/s: ration 2.0 - 4.0: ICA EDV 40-100 cm/s. Criteria for Assigning % of Stenosis / Diameter reduction (Estimation based on the indirect measurements of the internal carotid artery velocities (ICA PSV). 1. Normal (no stenosis)=ICA PSV < 125 cm/s: ratio < 2.0: ICA EDV<40 cm/s. 2. Less than 50% stenosis=ICA PSV < 125 cm/s: ratio < 2.0: ICA EDV<40 cm/s. 3. 50 to 69% stenosis=ICA PSV of 125 to 230 cm/s: ration 2.0 ? 4.0: ICA EDV 40-100 cm/s. 4. Greater than 70% stenosis to near occlusion= ICA PSV > 230 cm/s: ratio > 4.0: ICA EDV > 100 cm/s. 5. Near occlusion= ICA PSV velocities may be low or undetectable: variable ratio and ICA EDV. 6. Total occlusion=unable to detect flow. [facility], , 08/27/2024 10:39 AM
[2024-08-27] MEDS: SODIUM CHLORIDE 0.9% 1,000 ML IV ONE (11:00)
[2024-08-27 11:55] LABS: Glucose,Whole Blood 284 mg/dL (70-110)
[2024-08-27] MEDS: INSULIN ASPART (NovoLOG) 100 UNIT/ML VIAL SQ SCH (11:58)
[2024-08-27 13:10] LABS: Glucose,Whole Blood 174 mg/dL (70-110)
--- NOTE | 2024-08-27 13:27 | P.CRDCN ---
History of Present Illness Consult date: 08/27/24 Consult reason: sycope, hypertension History of present illness: This is Michel Sherman NP, I'm dictating on behalf of Dr. Polk's H&P and A&P The patient was interviewed and examined. HPI: Patient is a pleasant 78-year-old male with a past medical history that includes coronary artery disease, cancer, diabetes, DVT, hyperlipidemia, hypertension, Parkinson's disease, sleep apnea, pulmonary embolism, hypothyroidism, who presents to the hospital with complaints of syncope with a questionable seizure. Patient is unsure of what happened to him, and does have a history of Parkinson's with dementia. Apparently he had recurrent syncopal episodes witnessed. EKG demonstrated normal sinus rhythm with no significant abnormalities noted. CT scan of the brain noted some hydrocephalus similar to previous studies, with no acute intracranial abnormality. Chest x-ray noted similar mild interstitial density but no focal infiltrate. Upon examination patient remains somewhat confused. He is unable to give a good history of why ismael chavarria is in the hospital. Patient's blood pressure is noted to be significantly elevated, however home medications have not been restarted yet. He does not report or express any chest pain, heart palpitations, and has had no syncopal episodes in the emergency department since arrival. ROS: [No fever, chills, or rigors] [no cough, phlegm, or expectoration] [no nausea, vomiting, or diarrhea] [no hematuria, dysuria] [no musculoskelatal complaints] [no strokes or seizures] [no skin lesions] EXAMINATION: GENERAL: Well-appearing, well-nourished and in no acute distress. NECK: Supple without JVD or thyromegaly. LUNGS: Breath sounds clear to auscultation bilaterally. Respiration equal and unlabored. No wheezes, rales or rhonchi. HEART: Regular rate and rhythm without murmurs, rubs or gallops. S1 and S2 heard. EXTREMITIES: Normal range of motion, no edema. No clubbing or cyanosis. Peripheral pulses intact and strong. REVIEW OF LABS, ECG & MEDICAL DATA: LABS: White count 10.2, hemoglobin 16.2, platelets 186, sodium 141, potassium 3.9, BUN 17.6, creatinine 0.9, calcium 9.1, troponin x 3-less than 0.012 EKG: Sinus mechanism IMAGING: CT scan of the brain without contrast dated 08/26/2024 demonstrates similar mild to moderate hydrocephalus probably in large part due to central cerebral atrophy, correlate to exclude a component of NPH, moderate confluent burden of chronic small vessel ischemic disease, otherwise no acute intracranial abnormality seen. Chest x-ray dated 08/26/2024 demonstrates similar mild interstitial density could reflect bronchitis or asthma, no focal infiltrate seen. Carotid Doppler dated 08/27/2024 demonstrates 50 to 69% stenosis of the right carotid bifurcation, 50 to 69% stenosis of the left carotid bifurcation, moderate to severe atherosclerotic changes noted within the right and left carotid bulbs and bilateral internal carotid arteries, elevated velocities are noted throughout the right and left internal carotid arteries, more significant on the right. VITALS: Pulse 81, respirations 18, blood pressure 179/97, O2 saturation 97% on room air IMPRESSION: 1. Parkinson's disease with dementia 2. Syncopal episode versus seizure 3. Hypertension 4. History hyperlipidemia 5. History of pulmonary embolism 6. History of hypothyroidism PLAN: Start lisinopril 10 mg daily. Do not continue Florinef, as this could be a contributing factor to the patient's possible syncope. Per medicine, resume home meds. Recommend neurology evaluation, patient's syncopal episodes are likely not cardiac in origin, as the patient has Parkinson's disease. No further recommendations from a cardiology standpoint. Thank you for the consult and allowing us to participate in the care of this patient. Past Medical History Past Medical History: Coronary Artery Disease (CAD), Cancer, Diabetes Mellitus, Deep Vein Thrombosis (DVT), Hearing Disorder / Deafness, Hyperlipidemia, Hypertension, Neurologic Disorder, Osteoarthritis (OA), Prostate Disorder, Pulmonary Embolus (PE), Sleep Apnea/CPAP/BIPAP, Thyroid Disorder Additional Past Medical History / Comment(s): Parkinsons, [place] bilaterally, skin cancer removals, past L upper arm cellulitis, "he was passing out/falls due to low bp -bp meds currently on hold", no cpap used currently, constipation, History of Any Multi-Drug Resistant Organisms: None Reported Past Surgical History: Joint Replacement Additional Past Surgical History / Comment(s): Total beverley knee arthroplasties(developed postop blood clots), skin cancer removed from nose/hairline, surgery for deviated septum, colonoscopies, L chest wall cyst removed, bilateral cataract removals/lens implants. Past Anesthesia/Blood Transfusion Reactions: No Reported Reaction Past Psychological History: Anxiety Smoking Status: Never smoker Past Alcohol Use History: None Reported Past Drug Use History: None Reported - Past Family History Mother Family Medical History: Cancer Additional Family Medical History / Comment(s): OVARIAN CANCER Father Additional Family Medical History / Comment(s): Father at the age of 66 yrs from a "heart condition". He was a smoker. Medications and Allergies Home Medications Medication Instructions Recorded Confirmed Type Insulin Glargine,Hum.rec.anlog 10 unit SQ DAILY 04/25/19 08/26/24 History [Lantus Solostar Pen] Levothyroxine Sodium [Synthroid] 137 mcg PO MOTUWETHFRSA 04/25/19 08/26/24 History Pioglitazone HCl [Actos] 15 mg PO DAILY 04/25/19 08/26/24 History Omeprazole 40 mg PO DAILY 03/07/21 08/26/24 History Tamsulosin [Flomax] 0.4 mg PO DAILY 03/07/21 08/26/24 History busPIRone HCl [Buspar] 5 mg PO BID 03/07/21 08/26/24 History Cholecalciferol [Vitamin D3 (25 50 mcg PO DAILY 04/10/21 08/26/24 History Mcg = 1000 Iu)] Aspirin 81 mg PO DAILY 06/20/21 08/26/24 History Carbidopa-Levodopa 25-100 mg 0.5 tab PO TID 06/20/21 08/26/24 History [Sinemet 25-100] Isosorbide Mononitrate ER [Imdur] 15 mg PO DAILY 06/20/21 08/26/24 History Metoprolol Succinate (ER) [Toprol 25 mg PO DAILY 06/20/21 08/26/24 History XL] Carbidopa-Levodopa 25-250 mg 1 tab PO TID 08/26/24 08/26/24 History [Sinemet 25-250] Donepezil [Aricept] 10 mg PO HS 08/26/24 08/26/24 History Enalapril [Vasotec] 2.5 mg PO BID 08/26/24 08/26/24 History Fludrocortisone [Florinef] 0.1 mg PO MOWEFR 08/26/24 08/26/24 History Rosuvastatin Calcium [Crestor] 40 mg PO DAILY 08/26/24 08/26/24 History Semaglutide [Ozempic] 0.5 mg SQ FR 08/26/24 08/26/24 History metFORMIN HCL ER [Glucophage XR] 500 mg PO BID 08/26/24 08/26/24 History Allergies Allergy/AdvReac Type Severity Reaction Status Date / Time Penicillins Allergy Unknown Verified 08/26/24 18:29 Childhood Physical Exam Vitals: Vital Signs Temp Pulse Resp BP BP BP BP 08/27/24 07:51 81 18 179/97 08/27/24 05:00 78 18 178/112 08/27/24 04:02 78 18 171/112 08/27/24 00:23 68 18 181/96 08/26/24 23:06 75 18 193/99 08/26/24 22:09 85 18 159/100 08/26/24 20:22 89 18 184/99 08/26/24 19:42 133/87 95/55 135/76 08/26/24 19:07 81 16 174/95 08/26/24 15:52 97.8 F 67 16 98/62 Pulse Ox 08/27/24 07:51 97 08/27/24 05:00 100 08/27/24 04:02 97 08/27/24 00:23 96 08/26/24 23:06 98 08/26/24 22:09 08/26/24 20:22 98 08/26/24 19:42 08/26/24 19:07 100 08/26/24 15:52 97 Intake and Output 08/26/24 08/27/24 08/27/24 22:59 06:59 14:59 Other: Weight 78.925 kg Results 08/27/24 05:27 08/27/24 05:27 Cardiac Enzymes 08/26/24 08/26/24 08/26/24 Range/Units 15:55 15:55 18:51 AST 29 (17-59) U/L Troponin I <0.012 <0.012 (0.000-0.034) ng/mL 08/26/24 Range/Units 21:31 AST (17-59) U/L Troponin I <0.012 (0.000-0.034) ng/mL Coagulation 08/26/24 Range/Units 15:55 PT 11.0 (10.0-12.5) sec APTT 22.1 (22.0-30.0) sec CBC 08/26/24 Range/Units 15:55 WBC 6.9 (3.8-10.6) k/uL RBC 4.92 (4.30-5.90) m/uL Hgb 14.3 (13.0-17.5) gm/dL Hct 43.5 (39.0-53.0) % Plt Count 174 (150-450) k/uL Comprehensive Metabolic Panel 08/26/24 Range/Units 15:55 Sodium 139 (137-145) mmol/L Potassium 4.4 (3.5-5.1) mmol/L Chloride 109 H (98-107) mmol/L Carbon Dioxide 24 (22-30) mmol/L BUN 31 H (9-20) mg/dL Creatinine 1.10 (0.66-1.25) mg/dL Glucose 214 H (74-99) mg/dL Calcium 8.7 (8.4-10.2) mg/dL AST 29 (17-59) U/L ALT 6 (4-49) U/L Alkaline Phosphatase 82 (38-126) U/L Total Protein 6.2 L (6.3-8.2) g/dL Albumin 3.6 (3.5-5.0) g/dL Current Medications Generic Name Dose Route Start Last Admin Trade Name Freq PRN Reason Stop Dose Admin Sodium Chloride 1,000 mls @ 75 mls/hr 08/26/24 17:30 08/26/24 19:06 Saline 0.9% IV 75 mls/hr .[id number] ZACH Administration Lisinopril 10 mg 08/27/24 09:00 Lisinopril 10 Mg Tab PO DAILY ZACH Naloxone HCl 0.2 mg 08/26/24 17:20 Naloxone 0.4 Mg/Ml 1 Ml Vial IV Q2M PRN Opioid Reversal Ondansetron HCl 4 mg 08/26/24 17:20 Ondansetron 4 Mg/2 Ml Vial IVP Q8HR PRN Nausea And Vomiting Intake and Output 08/26/24 08/27/24 08/27/24 22:59 06:59 14:59 Other: Weight 78.925 kg 08/26/24 15:55 08/26/24 15:55
[2024-08-27 16:50] LABS: Glucose,Whole Blood 98 mg/dL (70-110)
[2024-08-27] MEDS: CARBIDOPA-LEVODOPA 25-250 MG 1 EACH TAB PO SCH (16:52)
[2024-08-27] MEDS: CARBIDOPA-LEVODOPA 25-100 MG 1 EACH TAB PO SCH (16:53)
--- NOTE | 2024-08-27 17:15 | P.CNNES ---
History of Present Illness Consult date: 08/27/24 Requesting physician: Rico Jarvis Reason for Consult: Seizure History of Present Illness: This is a telemedicine neurology consultation performed today on 08/27/2024, in coordination with Chiquis Smith. Patient is a 78-year-old male came to the hospital by ambulance yesterday at 3:50 PM for recurrent syncopal spells. Patient states that he was sitting down and having her dinner, when while sitting, he fell, passed out and went to sleep. He states that he has these episodes about 10 times in last couple months. Patient does have history of dementia, and is confused, as he believes that he lives with his mother, who is 46 years old. Patient denies any history of seizures. Patient does have history of dementia and Parkinson's disease. As per EMS flow sheet, it appears patient was in [place] when patient had a seizure. On arrival patient was in the sitting position at the table being held up by his . Patient's has mentioned that patient had several episodes in the past 3 weeks. He passes out frequently. He has had numerous falls due to these episodes. Today after eating, patient "passed out and has been unresponsive for approximately 35 minutes prior to EMS arrival. mentioned that this is the longest she has been unresponsive. Patient has a history of seizures. Also has history of Parkinson's. Patient's blood sugar was 239. EKG shows sinus rhythm with heart rate of 72. While in route, patient was starting to speak and follow some commands. However he was still confused. Patient's vitals at the scene was blood pressure 75/38, which stayed low 76/28, pulse rate 72 respirations 95%. Patient's vitals on arrival blood pressure 98/62, temperature 97.8. Subsequent blood pressures have been normal. Blood test shows normal CBC, PT/PTT, normal electrolytes, BUN 31 1.10. Hepatic panel is normal, troponin negative. UA negative. Urine drug screen negative, blood alcohol level negative. EKG showed sinus rhythm with occasional supraventricular premature complexes. CT head revealed similar mild to moderate hydrocephalus, probably in large part due to central cerebral atrophy. Correlate to exclude a component of NPH. Moderate confluent burden of chronic small vessel ischemic disease. Otherwise no acute process. I personally reviewed CT head, agree with the findings. Patient's home medications include insulin, levothyroxine, Actos, BuSpar 500 twice a day, omeprazole, Flomax, vitamin D, Sinemet 25/100, half tablet 3 times a day, metoprolol, isosorbide, aspirin 81 mg, donepezil 10 mg, enalapril 2.5 mg twice a day, metformin, was intact, Sinemet 25/250, 3 times a day, Florinef and Crestor. Patient not taking any antiepileptic medication. Patient has been seen by myself on 03/08/2021 for syncopal spells at the PCPs office. It was felt syncope was likely related to orthostasis. There was no postictal confusion. His blood pressure was 77/49 at the scene. Patient denies any history of tobacco or alcohol use. Review of Systems All pertinent positive and negative review of systems mentioned in the HPI. Past Medical History Past Medical History: Coronary Artery Disease (CAD), Cancer, Diabetes Mellitus, Deep Vein Thrombosis (DVT), Hearing Disorder / Deafness, Hyperlipidemia, Hypertension, Neurologic Disorder, Osteoarthritis (OA), Prostate Disorder, Pulmonary Embolus (PE), Sleep Apnea/CPAP/BIPAP, Thyroid Disorder Additional Past Medical History / Comment(s): Parkinsons, [place] bilaterally, skin cancer removals, past L upper arm cellulitis, "he was passing out/falls due to low bp -bp meds currently on hold", no cpap used currently, constipation, History of Any Multi-Drug Resistant Organisms: None Reported Past Surgical History: Joint Replacement Additional Past Surgical History / Comment(s): Total beverley knee arthroplasties(developed postop blood clots), skin cancer removed from nose/hairline, surgery for deviated septum, colonoscopies, L chest wall cyst removed, bilateral cataract removals/lens implants. Past Anesthesia/Blood Transfusion Reactions: No Reported Reaction Past Psychological History: Anxiety Smoking Status: Never smoker Past Alcohol Use History: None Reported Past Drug Use History: None Reported - Past Family History Mother Family Medical History: Cancer Additional Family Medical History / Comment(s): OVARIAN CANCER Father Additional Family Medical History / Comment(s): Father at the age of 66 yrs from a "heart condition". He was a smoker. Medications and Allergies Home Medications Medication Instructions Recorded Confirmed Type Insulin Glargine,Hum.rec.anlog 10 unit SQ DAILY 04/25/19 08/26/24 History [Lantus Solostar Pen] Levothyroxine Sodium [Synthroid] 137 mcg PO MOTUWETHFRSA 04/25/19 08/26/24 History Pioglitazone HCl [Actos] 15 mg PO DAILY 04/25/19 08/26/24 History Omeprazole 40 mg PO DAILY 03/07/21 08/26/24 History Tamsulosin [Flomax] 0.4 mg PO DAILY 03/07/21 08/26/24 History busPIRone HCl [Buspar] 5 mg PO BID 03/07/21 08/26/24 History Cholecalciferol [Vitamin D3 (25 50 mcg PO DAILY 04/10/21 08/26/24 History Mcg = 1000 Iu)] Aspirin 81 mg PO DAILY 06/20/21 08/26/24 History Carbidopa-Levodopa 25-100 mg 0.5 tab PO TID 06/20/21 08/26/24 History [Sinemet 25-100] Isosorbide Mononitrate ER [Imdur] 15 mg PO DAILY 06/20/21 08/26/24 History Metoprolol Succinate (ER) [Toprol 25 mg PO DAILY 06/20/21 08/26/24 History XL] Carbidopa-Levodopa 25-250 mg 1 tab PO TID 08/26/24 08/26/24 History [Sinemet 25-250] Donepezil [Aricept] 10 mg PO HS 08/26/24 08/26/24 History Enalapril [Vasotec] 2.5 mg PO BID 08/26/24 08/26/24 History Fludrocortisone [Florinef] 0.1 mg PO MOWEFR 08/26/24 08/26/24 History Rosuvastatin Calcium [Crestor] 40 mg PO DAILY 08/26/24 08/26/24 History Semaglutide [Ozempic] 0.5 mg SQ FR 08/26/24 08/26/24 History metFORMIN HCL ER [Glucophage XR] 500 mg PO BID 08/26/24 08/26/24 History Allergies Allergy/AdvReac Type Severity Reaction Status Date / Time Penicillins Allergy Unknown Verified 08/26/24 18:29 Childhood Physical Examination - Vital Signs Vital Signs: Vital Signs Temp Pulse Resp BP BP BP BP 08/27/24 11:00 68 112/66 08/27/24 10:00 68 138/85 08/27/24 07:51 81 18 179/97 08/27/24 05:00 78 18 178/112 08/27/24 04:02 78 18 171/112 08/27/24 00:23 68 18 181/96 08/26/24 23:06 75 18 193/99 08/26/24 22:09 85 18 159/100 08/26/24 20:22 89 18 184/99 08/26/24 19:42 133/87 95/55 135/76 08/26/24 19:07 81 16 174/95 08/26/24 15:52 97.8 F 67 16 98/62 Pulse Ox 08/27/24 11:00 08/27/24 10:00 08/27/24 07:51 97 08/27/24 05:00 100 08/27/24 04:02 97 08/27/24 00:23 96 08/26/24 23:06 98 08/26/24 22:09 08/26/24 20:22 98 08/26/24 19:42 08/26/24 19:07 100 08/26/24 15:52 97 Intake and Output 08/26/24 08/27/24 08/27/24 22:59 06:59 14:59 Other: Weight 78.925 kg Patient is an elderly male, in no acute distress. Patient is alert awake, oriented 1. Patient states that it is January and the year is 2003. He thinks that he is in his house in [place] in [place]. Patient knows that someone is running for present currently. He was able to recognize Biden on giving 3 choices. Speech and language functions are normal. Patient can name all objects presented including pen, glasses, earlobe, and repeat very well. No aphasia or dysarthria. Attention, concentration is intact and fund of knowledge is limited. Patient believes that he lives with his mother, who is 46 years old. On cranial nerve examination, pupils are equal 3 mm, reacting to 2 mm, round and reacting to light, visual whitten are full on confrontation, with no neglect on double simultaneous stimulation. Extraocular muscles are intact with no nystagmus. Face is symmetric, tongue protrudes to the midline. Palatal eleva tion and sensation normal, hearing and shoulder shrug normal, facial sensation normal. On muscle strength testing, there is no pronator drift and the strength is normal in arms and legs distally and proximally, except right deltoid which is 4. Deep tendon reflexes are symmetric, 1 at the biceps, trace at the knees, plantars are flat bilaterally. Patient has history of bilateral knee replaceme nt. Sensory to touch is equal with no neglect on double simultaneous stimulation. Cerebellar function showed no ataxia for [id number] testing. No dysdiadochokinesia. No ataxia for [id number] testing on either side. Tone and bulk of muscles normal. Gait deferred.. On general examination, there is no carotid bruit or murmur, S1-S2 audible. Chest is clear on consultation. Abdomen is soft nontender. No organomegaly, bowel sounds present. Peripheral pulses are present. No peripheral edema. Results - Laboratory Findings CBC and BMP: 08/27/24 05:27 08/27/24 05:27 Abnormal Lab Findings: Abnormal Labs 08/26/24 08/26/24 08/26/24 15:54 15:55 17:18 WBC RBC Immature Gran # Monocytes # Chloride 109 H Anion Gap BUN 31 H Glucose 214 H POC Glucose (mg/dL) 206 H Total Protein 6.2 L Albumin/Globulin Ratio Urine Protein Trace H Urine Glucose (UA) 3+ H 08/27/24 08/27/24 08/27/24 05:27 05:27 09:48 WBC 10.22 H RBC 5.67 H Immature Gran # 0.05 H Monocytes # 1.07 H Chloride Anion Gap 13.70 H BUN Glucose 146 H POC Glucose (mg/dL) 282 H Total Protein Albumin/Globulin Ratio 1.38 L Urine Protein Urine Glucose (UA) 08/27/24 11:54 WBC RBC Immature Gran # Monocytes # Chloride Anion Gap BUN Glucose POC Glucose (mg/dL) 284 H Total Protein Albumin/Globulin Ratio Urine Protein Urine Glucose (UA) Assessment and Plan Assessment: * Recurrent syncopal spells, likely due to hypotension. Patient's blood pressure at the scene was 75/38. Exact cause of hypotension and clear. * Orthostatic hypotension * Diabetes * Parkinson's disease * History of DVT and PE, on Xarelto * Hypertension * Hyperlipidemia * Dementia Plan: * Patient's syncope or likely due to orthostasis. Patient's supine blood pressure 135/76, sitting 133/87 and standing BP 95/55. His blood pressure at the scene was also very low 75/38. This is likely due to underlying autonomic dysfunction, perhaps related to Parkinson's. * Cardiology on board * Patient currently on Florinef 0.1 mg every Thursday, Thursday, Thursday. Patient probably may need increased the dose, to daily regimen, or adding midodrine. * Carotid Doppler revealed 50-69% stenosis of bilateral carotid bifurcations. Antegrade flow in both vertebral arteries. * We will check CTA of head and neck to rule out any intracranial closer to disease, and to follow-up on carotid stenosis. * EEG, rule out epileptiform activity. * Continue Sinemet at the current dose. * Continue aspirin 81 mg and Lipitor 80 mg. * Telemetry monitoring to rule out arrhythmia. Recommend 30 day event monitoring as well. * Hydration. * We'll discuss with family members to get collateral history. * Neurology will follow. Thank you for the consult.
--- NOTE | 2024-08-27 18:17 | CT ---
EXAMINATION TYPE: CT head without contrast CT angiography head CT angiography neck DATE OF EXAM: 08/27/2024 COMPARISON: CT brain 08/26/2024 HISTORY: 78-year-old male Carotid stenosis, r/o VBI, recurrent syncope. TECHNIQUE: CT of the head without contrast. Subsequent scanning of the head and neck with IV Contrast , patient injected with 65ml mL of Isovue 370. Coronal/sagittal reconstructions performed. 3-D recon structions generated on a dedicated independent workstation. CT DLP: 1813.6 mGycm Automated exposure control for dose reduction was used. FINDINGS: CT brain without contrast: Extensive calvarial artifacts. Moderate confluent white matter hypodensities in both cerebral hemisph eres. Redemonstrated mild to moderate hydrocephalus. Benign basal ganglia calcifications. Atherosclerotic c alcifications in the carotid siphons. Exam limitations, no evidence for acute intracranial hemorrhage, acute ischemic change, mass, mass ef fect, midline shift, or extra-axial fluid collection. No effacement of cerebral sulci or basal subara chnoid cisterns. Hernandez-white matter attenuation is maintained. Slight rightward nasal septal deviation. Trace mucosal thickening ethmoid air cells. Mastoid air cell s well pneumatized. Orbits and globes are intact. CTA NECK: Borderline to mildly enlarged caliber main right and left pulmonary arteries measuring up to 2.6 cm m ay reflect underlying pulmonary hypertension. There is mild apical scarring and calcification. Bovine configuration to the aortic arch. Aberrant le ft vertebral artery with direct takeoff from the articular arch. The left vertebral artery is hypopla stic. Otherwise, both vertebral arteries are patent throughout the course. Prominent atherosclerotic calcification and plaque at the right carotid bifurcation. This results in a severe, 80-90% stenosis within the carotid bulb by NASCET criteria. Bilateral common carotid arteries are patent. Atherosclerotic calcification left carotid bulb contributes to a severe, over 70% stenosis both at th e level of the carotid bulb and proximal left ICA, thin cut axial images 452 and 475. NASCET criteria was utilized. CTA HEAD: Dominant right vertebral artery. Atherosclerotic calcification proximal V4 segment right vertebral ar patricia contributing to a moderate stenosis. Severe atherosclerotic narrowing proximal V4 segment left vertebral artery. The left PICA is visualiz ed but there is loss of enhancement of the diminutive left vertebral artery thereafter. Relatively small caliber to the basilar artery with segmental mild stenoses. Persistent origin bilateral posterior cerebral arteries. Otherwise, remainder of the posterior circulation appears patent. Mild atherosclerotic calcifications in the bilateral carotid siphons. Mild segmental stenosis supracl inoid right ICA. Otherwise, the internal carotid artery are patent as is the remainder of the anterio r circulation. There is hypoplastic A1 segment right WOLFGANG. No aneurysmal change is seen. IMPRESSION: CT HEAD WITHOUT CONTRAST: 1. LIMITED BY CALVARIAL ARTIFACT. SIMILAR HYDROCEPHALUS PROBABLY IN PART EX VACUO ENLARGEMENT. CORREL ATE TO EXCLUDE A COMPONENT OF NPH. 2. Moderate confluent burden of chronic small vessel ischemic disease. 3. No acute intracranial abnormality seen. CTA NECK: 4. Prominent atherosclerotic calcification at the carotid bifurcations. This results in severe, at le ast 80-90% stenosis in the right carotid bulb. 5. 2 adjacent segments of severe, greater than 70% stenosis proximal left ICA within the carotid bulb and just after. 6. Bovine configuration to the aortic arch with additional aberrant direct takeoff of the left verteb ral artery from the arch. 7. 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 CTA HEAD: 8. Severe atherosclerotic narrowing proximal V4 segment left vertebral artery. The left PICA takeoff is patent but there is loss of enhancement of the diminutive left vertebral artery thereafter. 9. Moderate focal stenosis proximal V4 segment right vertebral artery. 7. 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 Given these changes, correlate for symptoms of chronic vertebrobasilar insufficien cy. 8. Mild stenosis supraclinoid right ICA. Hypoplastic A1 segment right WOLFGANG. [facility], , 08/27/2024 6:15 PM
[2024-08-27] MEDS: MIDODRINE 5 MG TAB PO SCH (18:29)
[2024-08-27 19:21] LABS: Amphetamine Screen,Urine Not Detected (NotDetected); Barbiturate Screen,Urine Not Detected (NotDetected); Benzodiazepines Screen,Urine Not Detected (NotDetected); Cocaine Screen,Urine Not Detected (NotDetected); Methadone Screen, Urine Not Detected (NotDetected); Opiate Screen,Urine Not Detected (NotDetected); Oxycodone Screen, Urine Not Detected (NotDetected); Phencyclidine Screen,Urine Not Detected (NotDetected); Tricyclic Antidepressant,Urine Not Detected (NotDetected); Urn Cannabinoid Scrn Not Detected (NotDetected)
[2024-08-27] MEDS ORDERED: ENALAPRIL 2.5 MG PO SCH (21:00)
[2024-08-27 21:50] LABS: Glucose,Whole Blood 156 mg/dL (70-110)
[2024-08-27] MEDS: metFORMIN 500 MG TAB PO SCH (22:04)
[2024-08-27] MEDS: busPIRone HCl 5 MG TAB PO SCH (22:05)
[2024-08-28 07:45] LABS: Glucose,Whole Blood 124 mg/dL (70-110)
[2024-08-28] MEDS: CHOLECALCIFEROL 25 MCG (1000 IU) TABLET PO SCH (08:46)
[2024-08-28] MEDS: PIOGLITAZONE 15 MG TAB PO SCH (08:55)
[2024-08-28 12:23] LABS: Glucose,Whole Blood 122 mg/dL (70-110)
--- NOTE | 2024-08-28 15:29 | P.PN ---
Subjective Progress Note Date: 08/27/24 78-year-old male patient with history of Parkinson's disease and dementia, hypertension, hyperlipidemia, history of PE/DVT, diabetes mellitus, CAD, presents to ED with complaint of recurrent episodes of syncope and altered mental status patient has history of dementia and; no family is at bedside to answer any questions; all of the history is obtained from the chart Blood work completed in ED reveals a WBC of 6.9, hemoglobin of 14.3 and platelet count of 174, sodium 139, potassium 4.4, BUNs/creatinine of 31/1.10 and blood glucose of 214, troponin of 0.012, ammonia level of less than 9 CT of the brain is negative for any acute intracranial process Chest x-ray is negative EKG is sinus 69 WI 140 QRS 88 QTc 413 Objective - Vital Signs Vital signs: Vital Signs Temp 97.8 F 08/26/24 15:52 Pulse 81 08/27/24 07:51 Resp 18 08/27/24 07:51 BP 179/97 08/27/24 07:51 Pulse Ox 97 08/27/24 07:51 FiO2 Intake & Output 08/26/24 08/27/24 08/27/24 18:59 06:59 18:59 Weight 78.925 kg - Exam Head exam: Present: atraumatic, normocephalic, normal inspection Eye exam: Present: normal appearance, PERRL, EOMI. Absent: scleral icterus, conjunctival injection, periorbital swelling ENT exam: Present: normal exam, mucous membranes moist Neck exam: Present: normal inspection. Absent: tenderness, meningismus, lymphadenopathy Respiratory exam: Present: normal lung sounds bilaterally. Absent: respiratory distress, wheezes, rales, rhonchi, stridor Cardiovascular Exam: Present: regular rate, normal rhythm, normal heart sounds. Absent: systolic murmur, diastolic murmur, rubs, gallop, clicks GI/Abdominal exam: Present: soft, normal bowel sounds. Absent: distended, tenderness, guarding, rebound, rigid Extremities exam: Present: normal inspection, full ROM, normal capillary refill. Absent: tenderness, pedal edema, joint swelling, calf tenderness Back exam: Present: normal inspection Neurological exam: Present: alert, oriented X3, CN II-XII intact Psychiatric exam: Present: normal affect, normal mood Skin exam: Present: warm, dry, intact, normal color. Absent: rash - Labs CBC & Chem 7: 08/27/24 05:27 08/27/24 05:27 Labs: Abnormal Lab Results - Last 24 Hours (Table) 08/26/24 08/26/24 08/26/24 Range/Units 15:54 15:55 17:18 Chloride 109 H (98-107) mmol/L BUN 31 H (9-20) mg/dL Glucose 214 H (74-99) mg/dL POC Glucose (mg/dL) 206 H (70-110) mg/dL Total Protein 6.2 L (6.3-8.2) g/dL Urine Protein Trace H (Negative) Urine Glucose (UA) 3+ H (Negative) Assessment and Plan Assessment: 1. Altered mental status/recurrent syncopal episodes -CT of the head is negative for any acute intracranial process; we will order 2D echo and bilateral carotid Doppler --Trend troponin --Concern for underlying seizures -Patient has history of Parkinson's disease and dementia; not able to give any history -- Patient has been admitted to telemetry; neurochecks per protocol -Consult neurology and cardiology for further evaluation; appreciate recommendations 2. Mild BRENDEN; BUN elevated at 31 with creatinine of 1.1; placed on slow IV fluid hydration; monitor strict GEORGES's, daily weights, renal function electrolytes; avoid nephrotoxins and hypotension 3. Diabetes mellitus/hyperglycemia; patient is currently on Lantus 10 units subcu daily, metformin 500 mg twice daily, Actos 15 mg daily and Ozempic 0.5 mg subcu weekly -Will plan to continue with Lantus and metformin along with Actos; Ozempic on ld while inpatient; Accu-Cheks q. CHS with insulin sliding scale 4. Hypertension; Imdur 15 mg daily, lisinopril 2.5 mg twice daily 5. Coronary artery disease; patient is currently on aspirin, Crestor and Imdur 6. Hyperlipidemia; Crestor 40 mg daily 7. Hypothyroidism; levothyroxine 137 mcg daily from Thursday through Thursday 8. Parkinson's disease; Sinemet 25-100 mg half tablet 3 times daily along with Sinemet 25-250 mg 1 tablet 3 times daily 9. Dementia; Aricept 10 mg p.o. nightly DVT prophylaxis; SCDs/subcu heparin CODE STATUS;
--- NOTE | 2024-08-28 15:33 | P.PN ---
Subjective Progress Note Date: 08/28/24 78-year-old male patient with history of Parkinson's disease and dementia, hypertension, hyperlipidemia, history of PE/DVT, diabetes mellitus, CAD, presents to ED with complaint of recurrent episodes of syncope and altered mental status patient has history of dementia and; no family is at bedside to answer any questions; all of the history is obtained from the chart Blood work completed in ED reveals a WBC of 6.9, hemoglobin of 14.3 and platelet count of 174, sodium 139, potassium 4.4, BUNs/creatinine of 31/1.10 and blood glucose of 214, troponin of 0.012, ammonia level of less than 9 CT of the brain is negative for any acute intracranial process Chest x-ray is negative EKG is sinus 69 MS 140 QRS 88 QTc 413 08/28/2024; Patient is seen and evaluated at bedside; discussed with nursing staff; no immediate concerns reported; patient admitted with mental status change for possible seizure versus syncope -Vital signs are reviewed; patient is positive for orthostatic hypotension likely related to Parkinson's disease -- Has been evaluated by cardiology; has been placed on lisinopril 10 mg daily -- Neurology on board and recommending to continue with Florinef with possible escalation of the therapy if patient remains orthostatic Carotid Doppler reveals bilateral stenosis at 50 to 69%; CT of the head and neck is ordered and pending -Neurology recommending to continue with aspirin and Lipitor; EEG is ordered Objective - Vital Signs Vital signs: Vital Signs Temp 98.2 F 08/28/24 03:57 Pulse 77 08/28/24 06:48 Resp 22 08/28/24 06:48 BP 174/109 08/28/24 06:48 Pulse Ox 96 08/28/24 06:48 FiO2 Intake & Output 08/27/24 08/28/24 08/28/24 18:59 06:59 18:59 Output Total 650 Balance -650 Output: Urine 650 - Exam Head exam: Present: atraumatic, normocephalic, normal inspection Eye exam: Present: normal appearance, PERRL, EOMI. Absent: scleral icterus, conjunctival injection, periorbital swelling ENT exam: Present: normal exam, mucous membranes moist Neck exam: Present: normal inspection. Absent: tenderness, meningismus, lymphadenopathy Respiratory exam: Present: normal lung sounds bilaterally. Absent: respiratory distress, wheezes, rales, rhonchi, stridor Cardiovascular Exam: Present: regular rate, normal rhythm, normal heart sounds. Absent: systolic murmur, diastolic murmur, rubs, gallop, clicks GI/Abdominal exam: Present: soft, normal bowel sounds. Absent: distended, tenderness, guarding, rebound, rigid Extremities exam: Present: normal inspection, full ROM, normal capillary refill. Absent: tenderness, pedal edema, joint swelling, calf tenderness Back exam: Present: normal inspection Neurological exam: Present: alert, oriented X3, CN II-XII intact Psychiatric exam: Present: normal affect, normal mood Skin exam: Present: warm, dry, intact, normal color. Absent: rash - Labs CBC & Chem 7: 08/27/24 05:27 08/27/24 05:27 Labs: Abnormal Lab Results - Last 24 Hours (Table) 08/27/24 08/27/24 08/27/24 Range/Units 11:54 13:08 21:49 POC Glucose (mg/dL) 284 H 174 H 156 H (70-110) mg/dL 08/28/24 Range/Units 07:43 POC Glucose (mg/dL) 124 H (70-110) mg/dL Assessment and Plan Assessment: 1. Altered mental status/recurrent syncopal episodes -CT of the head is negative for any acute intracranial process; we will order 2D echo and bilateral carotid Doppler --Trend troponin --Concern for underlying seizures -Patient has history of Parkinson's disease and dementia; not able to give any history -- Patient has been admitted to telemetry; neurochecks per protocol -Consult neurology and cardiology for further evaluation; appreciate recommendations 2. Mild BRENDEN; BUN elevated at 31 with creatinine of 1.1; placed on slow IV fluid hydration; monitor strict GEORGES's, daily weights, renal function electrolytes; avoid nephrotoxins and hypotension 3. Diabetes mellitus/hyperglycemia; patient is currently on Lantus 10 units subcu daily, metformin 500 mg twice daily, Actos 15 mg daily and Ozempic 0.5 mg subcu weekly -Will plan to continue with Lantus and metformin along with Actos; Ozempic on hold while inpatient; Accu-Cheks q. CHS with insulin sliding scale 4. Hypertension; Imdur 15 mg daily, lisinopril 2.5 mg twice daily 5. Coronary artery disease; patient is currently on aspirin, Crestor and Imdur 6. Hyperlipidemia; Crestor 40 mg daily 7. Hypothyroidism; levothyroxine 137 mcg daily from Thursday through Thursday 8. Parkinson's disease; Sinemet 25-100 mg half tablet 3 times daily along with Sinemet 25-250 mg 1 tablet 3 times daily 9. Dementia; Aricept 10 mg p.o. nightly DVT prophylaxis; SCDs/subcu heparin CODE STATUS;
[2024-08-28 16:34] LABS: Glucose,Whole Blood 109 mg/dL (70-110)
[2024-08-28 20:12] LABS: Glucose,Whole Blood 181 mg/dL (70-110)
[2024-08-28] MEDS: SENNOSIDES 8.6 MG TAB PO SCH (20:39)
[2024-08-29] MEDS: LORazepam 2 MG/ML INJ IV STA ×2 (01:46→15:07)
[2024-08-29 06:10] LABS: Glucose,Whole Blood 124 mg/dL (70-110)
[2024-08-29] MEDS: FLUDROCORTISONE 0.1 MG TAB PO SCH (08:04)
[2024-08-29 08:37] LABS: African American GFR (CKD) >90 (>60 ml/min/1.73 sqM); Anion Gap 5 mmol/L; Blood Urea Nitrogen 17 mg/dL (9-20); Calcium 8.3 mg/dL (8.4-10.2); Carbon Dioxide 25 mmol/L (22-30); Chloride 106 mmol/L (98-107); Glucose 127 mg/dL (74-99); Non-African American GFR(CKD) 87 (>60 ml/min/1.73 sqM); Potassium 3.6 mmol/L (3.5-5.1); Sodium 136 mmol/L (137-145)
[2024-08-29 09:54] LABS: Basophils % (A) 0 %; Eosinophils # (A) 0.2 k/uL (0-0.7); Eosinophils % (A) 3 %; HCT 46.3 % (39.0-53.0); Lymphocytes # (A) 1.4 k/uL (1.0-4.8); Lymphocytes % (A) 15 %; MCH 28.6 pg (25.0-35.0); MCHC 32.4 g/dL (31.0-37.0); MCV 88.2 fL (80.0-100.0); Mean Platelet Volume 8.5; Monocytes # (A) 0.7 k/uL (0-1.0); Monocytes % (A) 7 %; Neutrophils # (A) 7.1 k/uL (1.3-7.7); Neutrophils % (A) 74 %; Platelet Count 153 k/uL (150-450); RBC 5.25 m/uL (4.30-5.90); RDW 13.8 % (11.5-15.5); WBC 9.5 k/uL (3.8-10.6)
[2024-08-29 11:13] LABS: Glucose,Whole Blood 159 mg/dL (70-110)
--- NOTE | 2024-08-29 11:21 | XR ---
EXAMINATION TYPE: XR chest 2V DATE OF EXAM: 08/29/2024 COMPARISON: 08/26/2024 HISTORY: 78-year-old male cough, aspiration TECHNIQUE: AP and lateral views FINDINGS: Heart upper limits of normal in size. Unchanged interstitial density especially mid and lower lungs. No luis consolidation or pleural effusion. IMPRESSION: Mild interstitial density/infiltrate in the mid and lower lungs is relatively similar. No progressive airspace disease. [facility], , 08/29/2024 11:19 AM
--- NOTE | 2024-08-29 11:43 | P.GSCN ---
History of Present Illness Consult date: 08/29/24 Reason for Consult: Bilateral severe carotid stenosis Requesting physician: Cuca Jaquez History of present illness: This is a 78-year-old male with a past medical history including coronary artery disease, diabetes mellitus, deep vein thrombosis, hyperlipidemia, hypertension, Parkinson's disorder, dementia, skin cancer and thyroid disorder who was brought into the hospital for syncope and collapse. Patient has history of many years of syncopal episodes and frequent falls. During this hospitalization he had wor kup for possible stroke. He had a carotid duplex and carotid angiogram that reported ICA stenosis. Neurology consulted vascular surgery for further evaluation. This patient has a history of right ICA stenosis has been following with Dr. Yi since 2020 when he came in and presented with the same presentation of syncopal episodes and falling. HPI is obtained through chart and patient's who was spoken to on the phone. She states that her has been following with Dr. Yi yearly and just recently was seen in June of this year with no change in his carotid arteries and was told that there has been no change in his carotids. She also reports that they have been doing med ical management and he is on 81 mg aspirin. She states that they moved out other home that her has lived in since the age of 5 about a month ago. States that since that time he has had multiple syncopal episodes and falling quite a bit. States that he has been "going downhill in his health" over the last couple weeks since they moved. Patient is not really answering any questions, he is easily falling asleep. Review of Systems ROS unobtainable: due to mental status Past Medical History Past Medical History: Coronary Artery Disease (CAD), Cancer, Diabetes Mellitus, Deep Vein Thrombosis (DVT), Hearing Disorder / Deafness, Hyperlipidemia, Hypertension, Neurologic Disorder, Osteoarthritis (OA), Prostate Disorder, Pulmonary Embolus (PE), Sleep Apnea/CPAP/BIPAP, Thyroid Disorder Additional Past Medical History / Comment(s): Parkinsons, TUNUNAK bilaterally, skin cancer removals, past L upper arm cellulitis, "he was passing out/falls due to low bp -bp meds currently on hold", no cpap used currently, constipation, History of Any Multi-Drug Resistant Organisms: None Reported Past Surgical History: Heart Catheterization, Joint Replacement Additional Past Surgical History / Comment(s): Total beverley knee ar throplasties(developed postop blood clots), skin cancer removed from nose/hairline, surgery for deviated septum, colonoscopies, L chest wall cyst removed, bilateral cataract removals/lens implants. Past Anesthesia/Blood Transfusion Reactions: No Reported Reaction Past Psychological History: Anxiety Additional Psychological History / Comment(s): . Smoking Status: Never smoker Past Alcohol Use History: None Reported Past Drug Use History: None Reported - Past Family History Mother Family Medical History: Cancer Additional Family Medical History / Comment(s): OVARIAN CANCER Father Additional Family Medical History / Comment(s): Father at the age of 66 yrs from a "heart condition". He was a smoker. Medications and Allergies Home Medications Medication Instructions Recorded Confirmed Type Insulin Glargine,Hum.rec.anlog 10 unit SQ DAILY 04/25/19 08/26/24 History [Lantus Solostar Pen] Levothyroxine Sodium [Synthroid] 137 mcg PO MOTUWETHFRSA 04/25/19 08/26/24 History Pioglitazone HCl [Actos] 15 mg PO DAILY 04/25/19 08/26/24 History Omeprazole 40 mg PO DAILY 03/07/21 08/26/24 History Tamsulosin [Flomax] 0.4 mg PO DAILY 03/07/21 08/26/24 History busPIRone HCl [Buspar] 5 mg PO BID 03/07/21 08/26/24 History Cholecalciferol [Vitamin D3 (25 50 mcg PO DAILY 04/10/21 08/26/24 History Mcg = 1000 Iu)] Aspirin 81 mg PO DAILY 06/20/21 08/26/24 History Carbidopa-Levodopa 25-100 mg 0.5 tab PO TID 06/20/21 08/26/24 History [Sinemet 25-100] Isosorbide Mononitrate ER [Imdur] 15 mg PO DAILY 06/20/21 08/26/24 History Metoprolol Succinate (ER) [Toprol 25 mg PO DAILY 06/20/21 08/26/24 History XL] Carbidopa-Levodopa 25-250 mg 1 tab PO TID 08/26/24 08/26/24 History [Sinemet 25-250] Donepezil [Aricept] 10 mg PO HS 08/26/24 08/26/24 History Enalapril [Vasotec] 2.5 mg PO BID 08/26/24 08/26/24 History Fludrocortisone [Florinef] 0.1 mg PO MOWEFR 08/26/24 08/26/24 History Rosuvastatin Calcium [Crestor] 40 mg PO DAILY 08/26/24 08/26/24 History Semaglutide [Ozempic] 0.5 mg SQ FR 08/26/24 08/26/24 History metFORMIN HCL ER [Glucophage XR] 500 mg PO BID 08/26/24 08/26/24 History Allergies Allergy/AdvReac Type Severity Reaction Status Date / Time Penicillins Allergy Unknown Verified 08/28/24 16:29 Childhood Surgical - Exam Vital Signs Temp Pulse Resp BP Pulse Ox 97.8 F 67 16 98/62 97 08/26/24 15:52 08/26/24 15:52 08/26/24 15:52 08/26/24 15:52 08/26/24 15:52 General appearance: The patient is alert, oriented to self, appears in no acute distress. HET: Head is normocephalic and atraumatic. Pupils are equal and reactive. Neck: Supple. No carotid bruit noted. Heart: Regular. Lungs: Equal expansion, normal respiratory effort. Abdomen: Soft, nontender, nondistended. Extremities: Normal skin color and turgor. Palpable radial pulses. Neurological: Drowsy, oriented to self. Results - Labs 08/29/24 07:21 08/29/24 07:21 Abnormal Lab Results - Last 24 Hours (Table) 08/28/24 08/28/24 08/29/24 Range/Units 12:22 20:10 06:09 Sodium (137-145) mmol/L Glucose (74-99) mg/dL POC Glucose (mg/dL) 122 H 181 H 124 H (70-110) mg/dL Calcium (8.4-10.2) mg/dL Magnesium (1.6-2.3) mg/dL 08/29/24 08/29/24 Range/Units 07:21 07:21 Sodium 136 L (137-145) mmol/L Glucose 127 H (74-99) mg/dL POC Glucose (mg/dL) (70-110) mg/dL Calcium 8.3 L (8.4-10.2) mg/dL Magnesium 1.3 L (1.6-2.3) mg/dL Diabetes panel 08/29/24 Range/Units 07:21 Sodium 136 L (137-145) mmol/L Potassium 3.6 (3.5-5.1) mmol/L Chloride 106 (98-107) mmol/L Carbon Dioxide 25 (22-30) mmol/L BUN 17 (9-20) mg/dL Creatinine 0.78 (0.66-1.25) mg/dL Glucose 127 H (74-99) mg/dL Calcium 8.3 L (8.4-10.2) mg/dL Calcium panel 08/29/24 Range/Units 07:21 Calcium 8.3 L (8.4-10.2) mg/dL Pituitary panel 08/29/24 Range/Units 07:21 Sodium 136 L (137-145) mmol/L Potassium 3.6 (3.5-5.1) mmol/L Chloride 106 (98-107) mmol/L Carbon Dioxide 25 (22-30) mmol/L BUN 17 (9-20) mg/dL Creatinine 0.78 (0.66-1.25) mg/dL Glucose 127 H (74-99) mg/dL Calcium 8.3 L (8.4-10.2) mg/dL Adrenal panel 08/29/24 Range/Units 07:21 Sodium 136 L (137-145) mmol/L Potassium 3.6 (3.5-5.1) mmol/L Chloride 106 (98-107) mmol/L Carbon Dioxide 25 (22-30) mmol/L BUN 17 (9-20) mg/dL Creatinine 0.78 (0.66-1.25) mg/dL Glucose 127 H (74-99) mg/dL Calcium 8.3 L (8.4-10.2) mg/dL - Imaging Comments: CT angiogram head and neck reports CTA neck prominent arthrosclerotic calcification at the carotid bifurcations. This results in severe, at least 80 to 90% stenosis in the right carotid bulb. 2 adjacent segments of severe, gre ater than 70% stenosis proximal left ICA within the carotid bulb and just after. Bovine configuration to the aortic arch with additional aberrant direct takeoff of the left vertebral artery from the arch. 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 CTA head severe arthrosclerotic narrowing proximal V4 segment left vertebral artery. Left peak a takeoff is patent but there is loss of enhancement in the diminutive left vertebral artery thereafter. Moderate focal stenosis proximal V4 segment right vertebral artery. Relatively small caliber to the basilar artery with segmental mild stenosis and persistent origin of the tool programmer. Given these changes correlate for symptoms of chronic vertebrobasilar insufficiency. Mild stenosis supraclinoid right ICA. Hypoplastic A1 segment right WOLFGANG. Carotid Doppler study. Right ICA PSV 211, ICA/CCA ratio 3.54. Left ICA PSV 149, ICA/CCA ratio 1.59. Report states right 50 to 69% stenosis of carotid bifurcation, left 50 to 69% stenosis of carotid bifurcation. Independently reviewed, according to the updated recommendation criteria right ICA is 50 to 69% and left ICA is less than 50%. Brain CT reports similar mild to moderate hydrocephalus probably in large part due to to central cerebral atrophy. Correlate to exclude a component of NPH. Moderate confluent burden of chronic small vessel ischemic disease. Otherwise no acute intracranial abnormality seen. Assessment and Plan Assessment: 1. Asymptomatic right ICA stenosis 2. Syncope and collapse 3. Parkinson's disorder 4. Dementia 5. Coronary artery disease 6. Diabetes mellitus 7. Hyperlipidemia 8. Hypertension Plan: Spoke with patient's Gabbi Mojica over the phone. Patient follows with Dr. Yi and he has been since 2020 at which that time carotid duplex reported right ICA stenosis and patient has been undergoing medical management with aspirin. Patient's does not want to proceed with any carotid intervention unless absolutely necessary. He has had chronic syncopal episodes and dizziness this is not related to carotid stenosis. He is also had multiple falls over the last few years. There is a discordant findings between the carotid duplex and the CT angiogram. Continue aspirin and atorvastatin. Patient had seizure later in the day. A team was called. Neurology following closely, MRI of the brain ordered. Recommend outpatient follow-up with vascular surgery. At that time can discuss further imaging. Thank you for this consultation, we will continue to follow. The impression and plan of care has been dictated as directed. I performed a history and examination of this patient, discussed the same with the dictator. I agree with the dictator's note ,documented as a scribe. Any additional findings or plans will be noted.
--- NOTE | 2024-08-29 11:45 | CA ---
Transthoracic Echo Report Name: Chalo Mojica Age: 78 Gender: M : 1945 Exam Date: 08/27/2024 14:48 Exam Location: [facility] Ht (in): 67 Wt (lb): 174 Ordering Physician: Marquis Irby MD Attending/Referring Phys: [id number], Surekha Bookkeeping Clerk Sakshi Pacheco RDCS Procedure CPT: Indications: Syncope Cardiac Hx: Technical Quality: Fair Contrast 1: Total Dose (mL): Contrast 2: Total Dose (mL): MEASUREMENTS (Male / Female) Normal Values 2D ECHO LV Diastolic Diameter PLAX 3.9 cm 4.2 - 5.9 / 3.9 - 5.3 cm LV Systolic Diameter PLAX 2.6 cm IVS Diastolic Thickness 1.9 cm 0.6 - 1.0 / 0.6 - 0.9 cm LVPW Diastolic Thickness 1.7 cm 0.6 - 1.0 / 0.6 - 0.9 cm LV Relative Wall Thickness 0.9 RV Internal Dim ED PLAX 2.6 cm LA Volume 60.8 cm??? 18 - 58 / 22 - 52 cm??? LA Volume Index 31.2 cm???/m??? 16 - 28 cm???/m??? M-MODE Aortic Root Diameter MM 3.1 cm LA Systolic Diameter MM 3.8 cm LA Ao Ratio MM 1.2 AV Cusp Separation MM 1.8 cm DOPPLER AV Peak Velocity 147.6 cm/s AV Peak Gradient 8.7 mmHg AV Mean Velocity 101.7 cm/s AV Mean Gradient 4.8 mmHg AV Velocity Time Integral 25.2 cm LVOT Peak Velocity 98.9 cm/s LVOT Peak Gradient 3.9 mmHg LVOT Velocity Time Integral 20.3 cm MV Area PHT 2.6 cm??? Mitral E Point Velocity 76.3 cm/s Mitral A Point Velocity 97.2 cm/s Mitral E to A Ratio 0.8 MV Deceleration Time 295.0 ms MV E' Velocity 6.7 cm/s Mitral E to MV E' Ratio 11.4 FINDINGS Left Ventricle Severely increased left ventricular wall thickness. Left ventricular cavity size normal. Normal left ventricular systolic function with no obvious regional wall motion abnormalities. Left ventricular ejection fraction is estimated at 55-60 %. Right Ventricle Normal right ventricular size and function. Right ventricular systolic pressure within normal limits. Right Atrium Normal right atrial size. Left Atrium Mildly increased left atrial volume. Mildly increased left atrial area. Mitral Valve Structurally normal mitral valve. Mitral valve thickened. Mild mitral annular calcification. Aortic Valve Trileaflet aortic valve. No aortic stenosis. No aortic regurgitation. Diffuse thickening of the aortic valve cusps with reduced excursion. Tricuspid Valve Structurally normal tricuspid valve. Trace to mild tricuspid regurgitation. Pulmonic Valve Structurally normal pulmonic valve. Pericardium No pericardial effusion. Aorta Normal size aortic root and proximal ascending aorta. CONCLUSIONS Normal LV function Previewed by: Dr. Kevin Ferrera MD (Electronically Signed) Final Date: 29 August 2024 11:44
--- NOTE | 2024-08-29 12:23 | P.PN ---
Subjective Progress Note Date: 08/28/24 This is a telemedicine neurology follow-up performed today on 08/28/2024, and in coordination with Chiquis Smith. Patient was seen for for a follow-up. Patient today tells us that he lives with his . He states "I am sick". He denies any headache or dizziness. Objective - Vital Signs Vital signs: Vital Signs Temp 98.2 F 08/28/24 03:57 Pulse 70 08/28/24 12:26 Resp 16 08/28/24 12:26 BP 110/67 08/28/24 12:26 Pulse Ox 99 08/28/24 12:26 FiO2 Intake & Output 08/27/24 08/28/24 08/28/24 18:59 06:59 18:59 Output Total 650 Balance -650 Output: Urine 650 Other: Voiding Method External Catheter - Exam Examination unchanged patient is more alert and awake slightly more interactive. - Labs CBC & Chem 7: 08/29/24 07:21 08/29/24 07:21 Labs: Abnormal Lab Results - Last 24 Hours (Table) 08/27/24 08/27/24 08/28/24 Range/Units 13:08 21:49 07:43 POC Glucose (mg/dL) 174 H 156 H 124 H (70-110) mg/dL 08/28/24 Range/Units 12:22 POC Glucose (mg/dL) 122 H (70-110) mg/dL Assessment and Plan Assessment: * Recurrent syncopal spells, likely due to hypotension. Patient's blood pressure at the scene was 75/38. Exact cause of hypotension and clear. * Orthostatic hypotension * Bilateral ICA stenosis * Diabetes * Parkinson's disease * History of DVT and PE, on Xarelto * Hypertension * Hyperlipidemia * Dementia Plan: * Patient's syncope or likely due to orthostasis. Patient's supine blood pressure 135/76, sitting 133/87 and standing BP 95/55. His blood pressure at the scene was also very low 75/38. This is likely due to underlying autonomic dysfunction, perhaps related to Parkinson's. * Cardiology on board * Patient currently on Florinef 0.1 mg every Thursday, Thursday, Thursday. Patient probably may need increased the dose, to daily regimen, or adding midodrine. We will defer to cardiology. * Carotid Doppler revealed 50-69% stenosis of bilateral carotid bifurcations. Antegrade flow in both vertebral arteries. * CTA of the neck revealed prominent atherosclerotic calcification at the carotid bifurcations. This results in severe, at least 80 to 90% stenosis in the right carotid bulb. 2 adjacent segments of severe, greater than 70% stenosis proximal left ICA within the carotid bulb and just after. 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 * CTA of the head revealed severe atherosclerotic narrowing proximal V4 segment left vertebral artery. The left PICA takeoff is patent but there is loss of enhancement of the diminutive left vertebral artery thereafter. Moderate focal stenosis proximal V4 segment right vertebral artery. Relatively small caliber to the basilar artery with segmental mild stenosis and perhaps origin of the steam frame operator. Given these changes, correlate for symptoms of chronic vertebrobasilar insufficiency. Mild stenosis supraclinoid right ICA. Hypoplastic A1 segment right WOLFGANG. * Consult vascular surgery. * EEG, rule out epileptiform activity. * Continue Sinemet at the current dose. * Continue aspirin 81 mg and Lipitor 80 mg. * Telemetry monitoring to rule out arrhythmia. Recommend 30 day event monitoring as well. * Hydration.
[2024-08-29 13:10] LABS: Glucose,Whole Blood 95 mg/dL (70-110)
[2024-08-29] MEDS: levETIRAcetam IV 500 MG/5 ML VIAL IVP STA (13:29)
[2024-08-29] MEDS: MAGNESIUM SULFATE-D5W PMX 1 GM in DEXTROSE/WATER 1 100ML.BAG IVPB SCH (13:29)
[2024-08-29] MEDS: SODIUM CHLORIDE 0.9% 2,000 ML IV ONE (13:41)
[2024-08-29 14:49] LABS: HGB 12.9 gm/dL (13.0-17.5); MCH 29.6 pg (25.0-35.0); MCV 87.1 fL (80.0-100.0); Mean Platelet Volume 7.4; Platelet Count 139 k/uL (150-450); RBC 4.36 m/uL (4.30-5.90); RDW 13.9 % (11.5-15.5); VBG PH 7.41 (7.31-7.41); WBC 9.2 k/uL (3.8-10.6)
[2024-08-29 15:00] LABS: African American GFR (CKD) >90 (>60 ml/min/1.73 sqM); Anion Gap 5 mmol/L; Blood Urea Nitrogen 18 mg/dL (9-20); Calcium 7.7 mg/dL (8.4-10.2); Carbon Dioxide 25 mmol/L (22-30); Chloride 107 mmol/L (98-107); Glucose 92 mg/dL (74-99); Magnesium 1.6 mg/dL (1.6-2.3); Non-African American GFR(CKD) 85 (>60 ml/min/1.73 sqM); Potassium 3.6 mmol/L (3.5-5.1); Sodium 137 mmol/L (137-145)
--- NOTE | 2024-08-29 15:30 | P.PN ---
Subjective Progress Note Date: 08/29/24 Principal diagnosis: Initial diagnosis: 1. Frequent syncopal episode chronic and the etiology was unknown 2. Diabetes mellitus type 2 3. Parkinson disease 4. Coronary artery disease, hypertension with hypertensive heart disease 5. Hypotension with drop to the 80s and 90 associated with complete loss of consciousness sleeping mode 6. Imbalance with walking disability. 7. History of chronic kidney disease stage II. 8. Dementia with occasional behavioral disturbance. 9. History of carotid artery disease has been stable. 10. New diagnosis of vertebral basilar abnormalities with insufficiency and stenosis. 11. Carotid bulb abnormalities by CTA bilaterally with the high stenosis. Progress note: Date of service 08/29/[address] Rowe. Today is the first day of service for Mr. Mojica and patient admitted to the hospital in my absence by the [facility] hospitalist Dr. Irby. Patient seen today evaluated and during the visit he was getting EEG ordered by neurology group Dr. Chery and Dr. Willingham who will be seeing him today as well for evaluation and his opinion on his new cast for CTA will be involving the carotid Patient history obtained from the record as well as discussed with his nurse. Presents stated that patient has agitation last night and they gave him Ativan IV because of his agitation trying to hit the nursing staff and the agg ressiveness. EEG was done today to rule out any evidence of seizure disorder will be read by the neurologist and will know later on today or tomorrow what is his conclusion. I did review his initial vital sign with hypotension, found later on that he had orthostatic hypotension. Could be also resulted from vertebrobasilar dysfunction with the syndrome of symptoms. Patient had chest x-ray today and was noted no evidence of aspiration Laboratory today also reviewed which ordered this morning and found that he had hypomagnesemia with a magnesium 1.3 and received 1 g of magnesium IV and will be checking tomorrow on the serum magnesium level Patient also had a echocardiogram found ejection fraction 50 to 55% and mild tricuspid regurg and mitral regurg no aortic involvement. Patient also had ultrasound duplex scan of the carotid bilateral which was insignificant. His fluctuation of hypotension with the orthostatic hypotension patient received medication from neurology Florinef 0.1 mg also had other medication to stabilize his hypotension however cardiology has increased his lisinopril for control of the blood pressure. Patient had borderline hypokalemia/normokalemic 3.6 and will be giving him a small dose of potassium and recheck again tomorrow his magnesium and potassium, BMP. Currently his blood pressure is stable as long as he is in bed however when he stands it will drop his blood pressure with the question is is it associated with the vertebrobasilar syndrome versus other etiology cardiovascular or neurological or medication. On the review of the consulting physician opinion: Patient seen by cardiology and they have the echo but we do not have the conclusion Patient seen by the neurology on the weekend however they order the CTA of the brain and neck as well as the EEG and probably the will see him today and let us know what they are thinking and the diagnosis. Patient also seen today by the vascular group Dr. Shaffer and his nurse practitioner and dictated his note and her thoughts that his no vascular intervention and he thinks that he mild carotid disease and needs to be followed and addressed as outpatient. For the vertebrobasilar insufficiency with the chronic syncopal episode, so far we need the guidance of what can be done for the patient and if the vascular intervention in bigger community can be able to help us in that matter and we will be asking the neurology who may be dealt with them before to help us in that matter. Patient also he has Parkinson disease, and the CT showed normal pressure hydrocephalus possibility, with the possibility of atrophy of the brain with the dementia and senility. On the physical exam: Patient is conscious alert oriented intermittently with forgetfulness and presence of dementia has been seen by neurologist outside of the community. Vital sign stable on the computer Patient awake on stimulation slightly dysarthric. Head and neck negative no trauma, he had mild hearing deficit, pupils equal reactive, oropharynx if able to eat and swallow and no dysphagia Neck was supple no stiffness no lymphadenopathy, no thyromegaly Chest was clear to auscultation and percussion no wheezes no rhonchi's and no tenderness on the thoracic frame Heart: Regular sinus rhythm and echocardiogram was done no evidence of dec ompensation with the ejection fraction 50 to 55% Abdomen: Soft positive bowel sound no tenderness in the 4 quadrant Extremities: No edema good perfusion and positive pulses. Neurology: No lateralizing sign and the finding as mentioned above he can walk with housing assistant property manager however his episodes of syncopal episode happening suddenly and the last syncopal episode happen in the restaurant while he was eating his lunch and suddenly his heart they called the ambulance and brought him to the hospital Assessment: 1. 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 Parkinson disease which also can cause falling attack but without complete loss of conscious 3. Diabetes mellitus type 2 on multiple medication 4. Chronic kidney disease stage II 5. History of hypertension currently he had orthostatic hypotension 6. Chronic syncopal episodes and recurrent 7. Probability of normal pressure hydrocephalus versus brain atrophy with the underlying dementia without evidence of stroke event. 8. Hypothyroidism. 9. Hyperlipidemia 10. Carotid artery disease. 11. Currently patient had EEG with ruling out seizure disorder result is pending. Recommendation and plan: Will wait for results of the EEG by the neurology as well as his opinion for fourth or evaluation or treatment and the prognosis as well with the underlying the impaired vertebral basilar system and the frequent fall with the chronic syncopal episodes, not cardiac in the event. Will obtain serum magnesium and a BMP in a.m. as well and will discuss with the after we have the conclusion and if any other further treatment can be rendered as the our vascular group in the hospital Dr. Paez did not address any future treatment except to be followed as outpatient by his vascular surgeon who who is Dr. Yi. Objective - Vital Signs Vital signs: Vital Signs Temp 97.8 F 08/29/24 11:12 Pulse 73 08/29/24 11:12 Resp 18 08/29/24 11:12 BP 123/79 08/29/24 11:12 Pulse Ox 98 08/29/24 11:12 FiO2 Intake & Output 08/28/24 08/29/24 08/29/24 18:59 06:59 18:59 Intake Total 1156 300 250 Output Total 700 1200 Balance 456 -900 250 Weight 73 kg 80.5 kg Intake: IV 20 Invasive Line 3 20 Intake, IV Titration 800 300 Amount Sodium Chloride 0.9% 1, 800 300 000 ml @ 100 mls/hr IV . Q10H [facility] Rx#:[id number] Oral 356 230 Output: Urine 700 1200 Other: Voiding Method External Catheter External Catheter External Catheter - Labs CBC & Chem 7: 08/29/24 14:25 08/29/24 07:21 Labs: Abnormal Lab Results - Last 24 Hours (Table) 08/28/24 08/29/24 08/29/24 Range/Units 20:10 06:09 07:21 Hgb (13.0-17.5) gm/dL Hct (39.0-53.0) % Plt Count (150-450) k/uL Sodium 136 L (137-145) mmol/L Glucose 127 H (74-99) mg/dL POC Glucose (mg/dL) 181 H 124 H (70-110) mg/dL Calcium 8.3 L (8.4-10.2) mg/dL Magnesium (1.6-2.3) mg/dL 08/29/24 08/29/24 08/29/24 Range/Units 07:21 11:11 14:25 Hgb 12.9 L (13.0-17.5) gm/dL Hct 38.0 L (39.0-53.0) % Plt Count 139 L (150-450) k/uL Sodium (137-145) mmol/L Glucose (74-99) mg/dL POC Glucose (mg/dL) 159 H (70-110) mg/dL Calcium (8.4-10.2) mg/dL Magnesium 1.3 L (1.6-2.3) mg/dL
[2024-08-29 16:22] LABS: Glucose,Whole Blood 139 mg/dL (70-110)
--- NOTE | 2024-08-29 16:59 | MR ---
EXAMINATION TYPE: MR brain wo con DATE OF EXAM: 08/29/2024 3:50 PM COMPARISON: 08/26/2024. CLINICAL INDICATION: Male, 78 years old with history of Recurrent syncope and TIA; PHH, Recurrent syn cope and TIA TECHNIQUE: Multi planar, multi sequence imaging was performed through the brain including: T1, T2, In version recovery, Diffusion weighted imaging, and gradient echo imaging. No gadolinium was given. FINDINGS: Moderate cerebral atrophy with proportional dilation of ventricular system. Scattered foci of high T2 signal intensity are seen within the periventricular white matter. Midline structures show no abno rmality. Diffusion-weighted imaging shows no evidence of restricted diffusion. The susceptibility geraldine ghted images do not reveal any evidence for micro-hemorrhage. The bone marrow signal is within normal limits. Paranasal sinuses and mastoid air cells: No significant paranasal sinus disease. High T2 signal in th e bilateral mastoid air cells. Visualized orbits: Bilateral aphakia IMPRESSION: 1. No evidence of intracranial mass or acute/subacute infarct. 2. Moderate cerebral atrophy and age-related changes. 3. Nonspecific white matter changes, likely secondary to small vessel ischemic disease. 4. Trace bilateral mastoid air cell effusions. [facility], , 08/29/2024 4:57 PM
[2024-08-29 20:12] LABS: Glucose,Whole Blood 153 mg/dL (70-110)
[2024-08-30] MEDS: HALOPERIDOL LACTATE 5 MG/ML 1 ML VIAL IVP PRN (05:23)
[2024-08-30 06:24] LABS: Glucose,Whole Blood 135 mg/dL (70-110)
[2024-08-30 08:02] LABS: African American GFR (CKD) >90 (>60 ml/min/1.73 sqM); Anion Gap 9 mmol/L; Blood Urea Nitrogen 15 mg/dL (9-20); Carbon Dioxide 21 mmol/L (22-30); Chloride 109 mmol/L (98-107); Glucose 141 mg/dL (74-99); Magnesium 1.8 mg/dL (1.6-2.3); Non-African American GFR(CKD) >90 (>60 ml/min/1.73 sqM); Potassium 3.3 mmol/L (3.5-5.1); Sodium 139 mmol/L (137-145)
--- NOTE | 2024-08-30 08:44 | US ---
EXAMINATION TYPE: US st tissue neck with Doppler DATE OF EXAM: 08/30/2024 COMPARISON: CTA 08/27/2024 CLINICAL INDICATION: Male, 78 years old with arm pain, history of subclavian steel synd with verteb/b as; TECHNIQUE: Bilateral Neck scanned with grayscale, color Doppler, spectral wave form analysis. Interr ogation of the subclavian, common carotid, and vertebral arteries. FINDINGS: Cinder Crane Operator notes: Normal direction flow within the Right CCA, Vertebral, and subclavian arteries. Normal direction flow within the Left CCA. Bunny sign with short flow reversal within the left vertebral artery. Reversal of direction of flow within the left subclavian to its origin. Elevated velocities noted within the right proximal CCA compared to the proximal left CCA, approximat michele 180 cm/s peak systolic velocity versus 80 cm/s. IMPRESSION: 1. Indeterminate exam. The information technology data analyst's findings seem discordant with expected findings based on a review of the patient's 08/27/2024 CTA. 2. The hot walker describes intermittent flow reversal in the left vertebral artery. However, the le ft vertebral artery is nondominant and shows a variant origin directly from the aortic arch. There is no aortic stenosis proximal to the left vertebral artery takeoff. 3. The hot walker also describes flow reversal in the left subclavian artery. Again, the patient's C TA shows no explanation for this finding. If persistent concern for subclavian steal syndrome, consid er further vascular surgery evaluation. [facility], , 08/30/2024 8:42 AM
[2024-08-30] MEDS: CLOPIDOGREL 75 MG TAB PO SCH (08:49)
[2024-08-30] MEDS: POTASSIUM CHLORIDE ER 10 MEQ TAB.ER.PRT PO SCH (08:49)
--- NOTE | 2024-08-30 10:46 | P.PN ---
Subjective Progress Note Date: 08/29/24 Patient was seen for a follow-up. Patient's was also present. Patient had an "event" today at 1 PM, as described by the nurse as below: patients family came up to check writer in the [place] stated patient as having "episode". Exhibition Specialist went into the room and patient was not responding to painful stimuli or voice, found to be having upper extremitiy and lower extremity twitches nonsimultaneously, pupils were PERRLA. BP was 64/40 HR 66 Ateam called at 1307, sound choco paged to room at 1310. Dr Jaquez with neurology paged via perfect serve at 1310. Dr Morales with sound to bedside ordered 1000mg IVP Kepp ra, 2L bolus, 4 grams of magnesium IVPB, and labs (See orders). BP after ateam concluded 89/55 HR 68. Patient was beginning to respond to his name at conclusion of ateam and follow some commands including holding arms up. 1332 Dr Jaquez called check writer back, informed him of patients episode, including twitches, BP, meds admin during ateam. Per Dr Jaquez he does not want a repeat CT at this time, he is going to order a MRI urgent. 1356 Exhibition Specialist Spoke with Fabiola in MRI and Dr Jaquez wanting MRI today if possible; Fabiola stated that there are no open spots available for today, notified Dr Jaquez of this and gave him phone number for CT scan. Patients Gabbi updated via phone call, and consent o btained for MRI. MRI of the brain revealed no acute ischemic process. I came to see the patient and his was also present. Patient's admits that patient does have mild cognitive impairment. He has these episodes of unresponsiveness sporadically started 4 years ago, but has got worse in the last 3 weeks. She mentions that the first episode occurred in spring 2020, when he was at primary care physician's office. Sometimes after, they were at a concert when while sitting, he again passed out, and was back to normal about 10 minutes after. This saw the third rigger Dr. Blair and recommended Florinef and compression stockings. He was also seen by Dr. Miguel and neurologist, who told that patient has "Lewy body dementia"., Patient's was not satisfied and never went back to them. They subsequently started seeing Dr. Neo Salcido with the [facility]. After starting Florinef, patient hardly had any spell, maybe 1 or 2 sporadic, random. Patient's mentions that they have lived in the same house for 50 years and they moved out of that house about 4 weeks ago. For first week he was doing well, but from second week onwards, he has been having episodes of passing out. When he is having it, it looks like he is looking at something else no connection to the reality. Patient's mentions that since last fall patient has been started on physical therapy. He is very weak, did not want to walk. He could not do exercises. He is also resistant to doing anything. Patient has been taking Aricept for the last 1 year, and it helped significantly with the memory. Patient follows up with Dr. Neo Salcido with [facility] for the last 3 years. Objective - Vital Signs Vital signs: Vital Signs Temp 97.8 F 08/29/24 15:00 Pulse 78 08/29/24 15:00 Resp 19 08/29/24 15:00 BP 146/74 08/29/24 15:00 Pulse Ox 99 08/29/24 15:00 FiO2 Intake & Output 08/28/24 08/29/24 08/29/24 18:59 06:59 18:59 Intake Total 1156 300 250 Output Total 700 1200 800 Balance 456 -900 -550 Weight 73 kg 80.5 kg Intake: IV 20 Invasive Line 3 20 Intake, IV Titration 800 300 Amount Sodium Chloride 0.9% 1, 800 300 000 ml @ 100 mls/hr IV . Q10H [facility] Rx#:[id number] Oral 356 230 Output: Urine 700 1200 800 Other: Voiding Method External Catheter External Catheter External Catheter - Exam Patient is sleeping at this time, as he is received Ativan 2 mg IV for MRI. Patient having some myoclonic jerks noted. - Labs CBC & Chem 7: 08/29/24 14:25 08/30/24 07:22 Labs: Abnormal Lab Results - Last 24 Hours (Table) 08/28/24 08/29/24 08/29/24 Range/Units 20:10 06:09 07:21 Hgb (13.0-17.5) gm/dL Hct (39.0-53.0) % Plt Count (150-450) k/uL Sodium 136 L (137-145) mmol/L Glucose 127 H (74-99) mg/dL POC Glucose (mg/dL) 181 H 124 H (70-110) mg/dL Hemoglobin A1c (<=6.0) % Calcium 8.3 L (8.4-10.2) mg/dL Magnesium (1.6-2.3) mg/dL 08/29/24 08/29/24 08/29/24 Range/Units 07:21 07:21 11:11 Hgb (13.0-17.5) gm/dL Hct (39.0-53.0) % Plt Count (150-450) k/uL Sodium (137-145) mmol/L Glucose (74-99) mg/dL POC Glucose (mg/dL) 159 H (70-110) mg/dL Hemoglobin A1c 8.5 H (<=6.0) % Calcium (8.4-10.2) mg/dL Magnesium 1.3 L (1.6-2.3) mg/dL 08/29/24 08/29/24 08/29/24 Range/Units 14:25 14:25 16:18 Hgb 12.9 L (13.0-17.5) gm/dL Hct 38.0 L (39.0-53.0) % Plt Count 139 L (150-450) k/uL Sodium (137-145) mmol/L Glucose (74-99) mg/dL POC Glucose (mg/dL) 139 H (70-110) mg/dL Hemoglobin A1c (<=6.0) % Calcium 7.7 L (8.4-10.2) mg/dL Magnesium (1.6-2.3) mg/dL Assessment and Plan Assessment: * Recurrent syncopal spells, likely due to hypotension. Patient's blood pressure at the scene was 75/38. Exact cause of hypotension and clear. Damaris elise had another episode of unresponsive today at 1 PM, when his blood pressure was 60/40. Seizure appears unlikely, as with seizure usually the blood pressure goes up. * Orthostatic hypotension * Bilateral ICA stenosis, severe * Diabetes * Parkinson's disease * History of DVT and PE, on Xarelto * Hypertension * Hyperlipidemia * Dementia Plan: * Patient's syncope or likely due to orthostasis. Patient's supine blood pressure 135/76, sitting 133/87 and standing BP 95/55. His blood pressure at the scene was also very low 75/38. This is likely due to underlying autonomic dysfunction, perhaps related to Parkinson's. * Patient had another episode today, in which his blood pressure * MRI of the brain without contrast revealed no evidence of intracranial mass or acute/subacute infarct. Moderate cerebral atrophy and age-related changes. Nonspecific white matter changes, likely secondary to small vessel ischemic disease. Trace bilateral mastoid air cell effusions. I personally reviewed MRI agree with the findings. * Cardiology on board * Patient currently on Florinef 0.1 mg every Thursday, Thursday, Thursday. Patient also started on midodrine 5 mg 3 times daily. Patient also on lisinopril 5 mg, metoprolol 25 mg and isosorbide 15 mg. Uncertain if these blood pressure medications are contributing. * Carotid Doppler revealed 50-69% stenosis of bilateral carotid bifurcations. Antegrade flow in both vertebral arteries. * CTA of the neck revealed prominent atherosclerotic calcification at the carotid bifurcations. This results in severe, at least 80 to 90% stenosis in the right carotid bulb. 2 adjacent segments of severe, greater than 70% stenosis proximal left ICA within the carotid bulb and just after. 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 * CTA of the head revealed severe atherosclerotic narrowing proximal V4 segment left vertebral artery. The left PICA takeoff is patent but there is loss of enhancement of the diminutive left vertebral artery thereafter. Moderate focal stenosis proximal V4 segment right vertebral artery. Relatively small caliber to the basilar artery with segmental mild stenosis and perhaps origin of the paramedic instructor. Given these changes, correlate for symptoms of chronic vertebrobasilar insufficiency. Mild stenosis supraclinoid right ICA. Hypoplastic A1 segment right WOLFGANG. * Vascular surgery input appreciated. They believe patient has asymptomatic right ICA stenosis. Apparently they spoke to patient's , who does not want any carotid intervention unless absolutely necessary. Recommended con tinue aspirin and Lipitor. They believe there is discordant findings between the carotid Doppler and the CT angiogram. They recommended outpatient follow- up with vascular surgery. * EEG, was performed today, which was abnormal due to background slowing of moderate to severe degree, suggestive of encephalopathy. No focal, lateralized or epileptiform activity was seen. * I suspect her events are related to hypotension, but will empirically place him on Keppra 500 mg twice daily. * Continue Sinemet at the current dose. * Continue aspirin 81 mg and Lipitor 80 mg. * Telemetry monitoring to rule out arrhythmia. Recommend 30 day event monitoring as well. * Hydration. * Discussed with patient's in detail.
--- NOTE | 2024-08-30 11:15 | P.PN ---
Subjective Progress Note Date: 08/30/24 Principal diagnosis: Carotid stenosis Patient is seen and examined this morning as a follow-up. He has a sitter at the bedside. Patient is currently sleeping recently had Haldol as he was agitated early this morning. Apparently yesterday A-team was called on the patient for suspected seizure. He has been started on Keppra. Awaiting EEG results. Yesterday patient underwent MRI of the brain without any evidence of intracranial mass or acute/subacute infarct. Moderate cerebral atrophy and age- related changes. Nonspecific white matter changes likely secondary to small vessel ischemic disease trace bilateral mastoid air cell effusions. Objective - Vital Signs Vital signs: Vital Signs Temp 97.5 F L 08/30/24 04:08 Pulse 72 08/30/24 04:08 Resp 16 08/30/24 04:08 BP 129/73 08/30/24 06:00 Pulse Ox 100 08/30/24 04:08 FiO2 Intake & Output 08/29/24 08/30/24 08/30/24 18:59 06:59 18:59 Intake Total 250 10 Output Total 800 400 Balance -550 -390 Weight 82.5 kg Intake: IV 20 10 Invasive Line 3 20 10 Oral 230 0 Output: Urine 800 400 Other: Voiding Method External Catheter External Catheter - Exam General appearance: The patient is sleeping, currently medicated. HET: Head is normocephalic and atraumatic. Neck: Supple. Heart: Appears regular. Lungs: Equal expansion, normal respiratory effort. Abdomen: Soft, nondistended. Extremities: Normal skin color and turgor. Neurological: Sleeping, currently medicated. - Labs CBC & Chem 7: 08/29/24 14:25 08/30/24 07:22 Labs: Abnormal Lab Results - Last 24 Hours (Table) 08/29/24 08/29/24 08/29/24 Range/Units 07:21 07:21 07:21 Hgb (13.0-17.5) gm/dL Hct (39.0-53.0) % Plt Count (150-450) k/uL Sodium 136 L (137-145) mmol/L Potassium (3.5-5.1) mmol/L Chloride (98-107) mmol/L Carbon Dioxide (22-30) mmol/L Glucose 127 H (74-99) mg/dL POC Glucose (mg/dL) (70-110) mg/dL Hemoglobin A1c 8.5 H (<=6.0) % Calcium 8.3 L (8.4-10.2) mg/dL Magnesium 1.3 L (1.6-2.3) mg/dL 08/29/24 08/29/24 08/29/24 Range/Units 11:11 14:25 14:25 Hgb 12.9 L (13.0-17.5) gm/dL Hct 38.0 L (39.0-53.0) % Plt Count 139 L (150-450) k/uL Sodium (137-145) mmol/L Potassium (3.5-5.1) mmol/L Chloride (98-107) mmol/L Carbon Dioxide (22-30) mmol/L Glucose (74-99) mg/dL POC Glucose (mg/dL) 159 H (70-110) mg/dL Hemoglobin A1c (<=6.0) % Calcium 7.7 L (8.4-10.2) mg/dL Magnesium (1.6-2.3) mg/dL 08/29/24 08/29/24 08/30/24 Range/Units 16:18 20:10 06:18 Hgb (13.0-17.5) gm/dL Hct (39.0-53.0) % Plt Count (150-450) k/uL Sodium (137-145) mmol/L Potassium (3.5-5.1) mmol/L Chloride (98-107) mmol/L Carbon Dioxide (22-30) mmol/L Glucose (74-99) mg/dL POC Glucose (mg/dL) 139 H 153 H 135 H (70-110) mg/dL Hemoglobin A1c (<=6.0) % Calcium (8.4-10.2) mg/dL Magnesium (1.6-2.3) mg/dL 08/30/24 Range/Units 07:22 Hgb (13.0-17.5) gm/dL Hct (39.0-53.0) % Plt Count (150-450) k/uL Sodium (137-145) mmol/L Potassium 3.3 L (3.5-5.1) mmol/L Chloride 109 H (98-107) mmol/L Carbon Dioxide 21 L (22-30) mmol/L Glucose 141 H (74-99) mg/dL POC Glucose (mg/dL) (70-110) mg/dL Hemoglobin A1c (<=6.0) % Calcium 8.0 L (8.4-10.2) mg/dL Magnesium (1.6-2.3) mg/dL Assessment and Plan Assessment: 1. Asymptomatic right focal ICA stenosis 2. Syncope and collapse 3. Parkinson's disorder 4. Dementia 5. Coronary artery disease 6. Diabetes mellitus 7. Hyperlipidemia 8. Hypertension Plan: CTA head and neck images independently reviewed by Dr. Arias who agrees that there is a focal stenosis 80 to 90% of the right ICA. Again this is asymptomatic and not likely cause of patient's syncopal episodes or seizures. Recommend outpatient follow-up for further discussion of possible transcarotid artery revascularization. There is no recommendation for surgical intervention for vertebral artery stenosis. Will start Plavix 75 mg daily. Spoke with patient's Gabbi Mojica over the phone. Patient follows with Dr. Yi and he has been since 2020 at which that time carotid duplex reported right ICA stenosis and patient has been undergoing medical management with aspirin. Patient's does not want to proceed with any carotid intervention unless absolutely necessary. She states would consider possible carotid stent as outpatient, again recommend outpatient follow-up with vascular surgery. Will obtain disc of CT angiogram head and neck.. Thank you for this consultation, we will sign off at this time. The impression and plan of care has been dictated as directed. Dr. Arias I performed a history and examination of this patient, discussed the same with the dictator. I agree with the dictator's note ,documented as a scribe. Any additional findings or plans will be noted.
[2024-08-30 11:19] LABS: Glucose,Whole Blood 158 mg/dL (70-110)
[2024-08-30] MEDS: levETIRAcetam 500 MG TAB PO SCH (11:19)
--- NOTE | 2024-08-30 12:30 | P.PN ---
Subjective HISTORY OF PRESENT ILLNESS: This is a 78-year-old male who follows in the office with Dr. Ferrera. Cardiology was reconsulted yesterday secondary to hypotension. According to the patient's nurse, the patient had an episode where he was obtunded and appeared to be postictal. However there was no seizure witnessed as no one was in the room prior to this. Patient was found to be hypotensive at that time with a systolic blood pressure in the 60s. Patient's blood pressure this morning is elevated with a systolic in the 170s. Patient currently denies any chest pain or pressure. Denies any shortness of breath. Echocardiogram completed revealing ejection fraction 55 to 60% with trace to mild TR. PHYSICAL EXAM: VITAL SIGNS: Reviewed. GENERAL: Well-developed in no acute distress. NECK: Supple. No JVD or thyromegaly LUNGS: Respirations even and unlabored. Lungs essentially clear to auscultation bilaterally. HEART: Regular rate and rhythm. S1 and S2 heard. EXTREMITIES: Normal range of motion. No clubbing or cyanosis. Peripheral pu lses intact. No lower extremity edema ASSESSMENT: Recurrent syncope Orthostatic hypotension Labile blood pressures Parkinson's disease History of DVT/PE, on Xarelto outpatient Severe bilateral internal carotid artery stenosis Coronary artery disease Hyperlipidemia Dementia Diabetes PLAN: Continue current cardiac medications Decrease lisinopril to 5 mg daily Per veronique Segovia with labile blood pressures with systolic blood pressure ranging from 90-170. Continue to monitor blood pressures Further recommendations pending patient course Nurse practitioner note has been reviewed by physician. Signing provider agrees with the documented findings, assessment, and plan of care documented by ELEMENTARY ELL TEACHER as a scribe. Objective - Vital Signs Vital signs: Vital Signs Temp 97.6 F 08/30/24 11:00 Pulse 73 08/30/24 11:00 Resp 17 08/30/24 11:00 BP 89/53 08/30/24 11:00 Pulse Ox 92 L 08/30/24 11:00 FiO2 Intake & Output 08/29/24 08/30/24 08/30/24 18:59 06:59 18:59 Intake Total 250 10 10 Output Total 800 400 Balance -550 -390 10 Weight 82.5 kg Intake: IV 20 10 10 Invasive Line 3 20 10 10 Oral 230 0 Output: Urine 800 400 Other: Voiding Method External Catheter External Catheter External Catheter - Labs CBC & Chem 7: 08/29/24 14:25 08/30/24 07:22 Labs: Abnormal Lab Results - Last 24 Hours (Table) 08/29/24 08/29/24 08/29/24 Range/Units 07:21 14:25 14:25 Hgb 12.9 L (13.0-17.5) gm/dL Hct 38.0 L (39.0-53.0) % Plt Count 139 L (150-450) k/uL Potassium (3.5-5.1) mmol/L Chloride (98-107) mmol/L Carbon Dioxide (22-30) mmol/L Glucose (74-99) mg/dL POC Glucose (mg/dL) (70-110) mg/dL Hemoglobin A1c 8.5 H (<=6.0) % Calcium 7.7 L (8.4-10.2) mg/dL 08/29/24 08/29/24 08/30/24 Range/Units 16:18 20:10 06:18 Hgb (13.0-17.5) gm/dL Hct (39.0-53.0) % Plt Count (150-450) k/uL Potassium (3.5-5.1) mmol/L Chloride (98-107) mmol/L Carbon Dioxide (22-30) mmol/L Glucose (74-99) mg/dL POC Glucose (mg/dL) 139 H 153 H 135 H (70-110) mg/dL Hemoglobin A1c (<=6.0) % Calcium (8.4-10.2) mg/dL 08/30/24 08/30/24 Range/Units 07:22 11:18 Hgb (13.0-17.5) gm/dL Hct (39.0-53.0) % Plt Count (150-450) k/uL Potassium 3.3 L (3.5-5.1) mmol/L Chloride 109 H (98-107) mmol/L Carbon Dioxide 21 L (22-30) mmol/L Glucose 141 H (74-99) mg/dL POC Glucose (mg/dL) 158 H (70-110) mg/dL Hemoglobin A1c (<=6.0) % Calcium 8.0 L (8.4-10.2) mg/dL
[2024-08-30] MEDS: POTASSIUM BICARBONATE/CIT AC 20 MEQ TABLET.EFF PO SCH (12:59)
[2024-08-30 13:29] LABS: Ionized Calcium 4.6 mg/dL (4.5-5.3)
--- NOTE | 2024-08-30 13:36 | P.PN ---
Subjective Progress Note Date: 08/30/24 Progress note Date of service 08/30/[address] Rowe Patient seen today [id number] discussed with the patient Patient currently awake alert and able to answer some questions he able to move his legs both side and with flexion and extension Good strength of the upper extremities and able to move both upper extremities and he able to speak and communicate he knows who is the president Aj and what is the year is 2023 however he is missing where he is and what months is. Event this morning that patient had blood pressure 166/88 and mean was 114 as well as repeated 173/83 with a mean 113 and patient subsequently received his medication and his blood pressure drop to 89/53 with the mean 65 and the repeat 87/51 with the mean 63 and at that time his oxygen saturations drop from earlier 99 on room air to 92 on room air, His temperature is stable 90 7.6F oral his pulse rate no change with 73/min and his respiratory rate was 17/min. On examination: The head was normocephalic atraumatic he had apparent surgery by the dermatology on the top of his nose with the scab. His pupil is equal reactive and mildly constricted and he had implant. Oropharynx is normal able to eat and swallow and he does not have no choking. No lumps no masses in the neck and I could not hear any bruits. On the chest is clear to auscultation and percussion no wheezes no rhonchi's and his prior chest x-ray was also no significant abnormalities and his pulse ox has been stable however when he gets these attacks his oxygen saturation drop. Patient during the night he got confused agitated and he received Haldol and she come currently very pleasant awake alert and able to communicate freely. The abdomen is soft positive bowel sound he has no tenderness and extremities no edema and positive pulses bilateral and able to passive movement of his lower extremities. Feet no erythema no ulceration. The Patient is I know indicating that he had output of 1000 and intake was not collected and the urine was 1000 with on unknown intake and output. On the laboratory His chemistry BMP, sodium 139 and a potassium 3.3 despite the patient started on Micro-K potassium 10 mill equivalent once a day and still not improving and I did today increase it to 20 mill equivalent. His chloride 109, and his carbon dioxide 21 anion gap of 9 and BUN 15, and creatinine 0.67 with the estimated glomerular filtration rate more than 90 which is corrected with the underlying when he admitted with dehydration most likely prerenal. Diabetes mellitus has been controlled fairly well and however his hemoglobin A1c was elevated which was done yesterday and showed to be 8.5. His calcium was low today 7.7 and we will be checking for ionized calcium and vitamin D25 hydroxy and meanwhile his magnesium has been improved to 1.6 and he had yesterday hypomagnesemia. In regarding of thyroid he has been supplemented chronically and repeat lab for TSH was normal to which is done yesterday as well as serum prolactin level was 9.7 which is in the normal range. Which ordered by Dr. Chery neurology on further evaluation magnesium today 1.8 and calcium still on the low side 8. His glucose by venous lab 141 and by POC glucose was ranging between 135 and 158 and he is on insulin. On review the ultrasound of subclavian artery discussed with Cheryl Archuleta the radiologist with the impression of intermediate exam with the finding discordant with the expected finding and however the clinical presentation is greatly suspicious of vertebrobasilar and posterior circulation insufficiency with possible steal syndrome of the subclavian or in the aorta. The radiologist Dr. Dela Cruz he will reassess with the result with different cable television technician and he will be placing addendum to the report. Assessment and plan 1. Patient had hypotensive episode while he was in the supine position, which makes orthostatic hypotension is not clear for diagnosis 2. 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 3. Subclavian steal syndrome or abnormalities of vertebral artery considered but not cleared. 4. Patient seen by Dr. Joshi the medical receptionist assistant and with the event of hypotension to blood systolic pressure 80s bilateral he decrease his NISHA inhibitor to 5 mg and they will monitor the patient to see in the future with the 5 mg still dropping his blood pressure in the supine position. 5. CT angiogram done of the head and neck which indicating dominant right vertebral artery with moderate stenosis, severe atherosclerotic narrowing in the proximal and the segment of V4 of the left vertebral artery, and loss of enhancement of the diminutive left vertebral artery with relatively small caliber to the basilar artery with the segmental mild stenosis. 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 6. Parkinson disease 7. Hypothyroidism controlled 8. Hypocalcemia, hypokalemia 9. Episodic hypotension recurrent 10. Seizure disorder could not be excluded completely and we do not have the result of the EEG so far. 11 point hyperlipidemia 12. Atherosclerotic heart disease with ejection fraction 50-55. Percent 13. Diabetes mellitus with mildly elevated hemoglobin A1c Patient plan to be in a chcf after we have final diagnosis and monitoring for the hypotension and the clearance from the neurology and the cardiology and the clarification of the final diagnosis. Objective - Vital Signs Vital signs: Vital Signs Temp 97.6 F 08/30/24 11:00 Pulse 73 08/30/24 11:00 Resp 17 08/30/24 11:00 BP 89/53 08/30/24 11:00 Pulse Ox 92 L 08/30/24 11:00 FiO2 Intake & Output 08/29/24 08/30/24 08/30/24 18:59 06:59 18:59 Intake Total 250 10 10 Output Total 800 400 Balance -550 -390 10 Weight 82.5 kg Intake: IV 20 10 10 Invasive Line 3 20 10 10 Oral 230 0 Output: Urine 800 400 Other: Voiding Method External Catheter External Catheter External Catheter - Labs CBC & Chem 7: 08/29/24 14:25 08/30/24 07:22 Labs: Abnormal Lab Results - Last 24 Hours (Table) 08/29/24 08/29/24 08/29/24 Range/Units 07:21 14:25 14:25 Hgb 12.9 L (13.0-17.5) gm/dL Hct 38.0 L (39.0-53.0) % Plt Count 139 L (150-450) k/uL Potassium (3.5-5.1) mmol/L Chloride (98-107) mmol/L Carbon Dioxide (22-30) mmol/L Glucose (74-99) mg/dL POC Glucose (mg/dL) (70-110) mg/dL Hemoglobin A1c 8.5 H (<=6.0) % Calcium 7.7 L (8.4-10.2) mg/dL 08/29/24 08/29/24 08/30/24 Range/Units 16:18 20:10 06:18 Hgb (13.0-17.5) gm/dL Hct (39.0-53.0) % Plt Count (150-450) k/uL Potassium (3.5-5.1) mmol/L Chloride (98-107) mmol/L Carbon Dioxide (22-30) mmol/L Glucose (74-99) mg/dL POC Glucose (mg/dL) 139 H 153 H 135 H (70-110) mg/dL Hemoglobin A1c (<=6.0) % Calcium (8.4-10.2) mg/dL 08/30/24 08/30/24 Range/Units 07:22 11:18 Hgb (13.0-17.5) gm/dL Hct (39.0-53.0) % Plt Count (150-450) k/uL Potassium 3.3 L (3.5-5.1) mmol/L Chloride 109 H (98-107) mmol/L Carbon Dioxide 21 L (22-30) mmol/L Glucose 141 H (74-99) mg/dL POC Glucose (mg/dL) 158 H (70-110) mg/dL Hemoglobin A1c (<=6.0) % Calcium 8.0 L (8.4-10.2) mg/dL
[2024-08-30 15:34] LABS: Chol/HDL Ratio 3.13 Ratio; LDL Cholesterol,Calculated 73.3 mg/dL (0.0-131.0)
[2024-08-30 16:16] LABS: Glucose,Whole Blood 158 mg/dL (70-110)
--- NOTE | 2024-08-30 16:50 | EEG ---
ELECTROENCEPHALOGRAM REPORT PREAMBLE: A 78-year-old male came with recurrent syncope. CURRENT MEDICATIONS: 1. Aspirin. 2. Lipitor. 3. BuSpar. 4. Sinemet. 5. Florinef. 6. NovoLog. 7. Levemir. 8. Zestril. 9. Flomax. 10.ProAmatine. 11.Toprol. EEG FINDINGS: This is a 21-channel digital EEG recorded with video component, utilizing 10/20 international system with referential and bipolar montages. The background consists of moderately well-developed, but not very well regulated, predominantly low amplitude 6 hertz theta with some delta slowing in bihemispheric region. Background seems to be slightly reactive to eye opening or closing. Photic driving response was not seen. The patient was drowsy and probably asleep during most of the study with presence of diffuse low amplitude delta slowing in bihemispheric region. Some vertex waves were seen. No focal or generalized epileptiform activity was seen. IMPRESSION: An abnormal EEG due to background slowing, of at least moderate degree. This is suggestive of generalized cerebral dysfunction as can be seen with toxic metabolic encephalopathy or related to diffuse structural brain abnormality. Clinical correlation is recommended. No epileptiform activity was seen. No electrographic seizure was recorded. MMODL / IJN: [id number] / [facility]
[2024-08-30 20:16] LABS: Glucose,Whole Blood 196 mg/dL (70-110)
[2024-08-31 06:13] LABS: Glucose,Whole Blood 152 mg/dL (70-110)
[2024-08-31 07:44] LABS: African American GFR (CKD) >90 (>60 ml/min/1.73 sqM); Anion Gap 7 mmol/L; Blood Urea Nitrogen 18 mg/dL (9-20); Calcium 8.4 mg/dL (8.4-10.2); Carbon Dioxide 20 mmol/L (22-30); Chloride 112 mmol/L (98-107); Glucose 163 mg/dL (74-99); Non-African American GFR(CKD) 84 (>60 ml/min/1.73 sqM); Potassium 3.8 mmol/L (3.5-5.1); Sodium 139 mmol/L (137-145)
[2024-08-31] MEDS: lisinopriL 5 MG TAB PO SCH (08:36)
[2024-08-31 11:18] LABS: Glucose,Whole Blood 190 mg/dL (70-110)
--- NOTE | 2024-08-31 11:38 | P.PN ---
Subjective Progress Note Date: 08/31/24 Principal diagnosis: Carotid stenosis Patient is seen and examined today as a follow-up. He has a sitter at the bedside. Patient is alert and oriented to self and time. He appears calm and comfortable. Denies any chest pain or shortness of breath. No dizziness at this time. EEG was abnormal with moderate degree of background slowing suggestive of generalized cerebral dysfunction can be seen with toxic metabolic encephalopathy or related to diffuse structural brain abnormality. No elliptic form activity was seen. Objective - Vital Signs Vital signs: Vital Signs Temp 98.2 F 08/31/24 11:07 Pulse 75 08/31/24 11:07 Resp 18 08/31/24 11:07 BP 84/50 08/31/24 11:07 Pulse Ox 97 08/31/24 11:07 FiO2 Intake & Output 08/30/24 08/31/24 08/31/24 18:59 06:59 18:59 Intake Total 380 10 120 Output Total 1200 600 Balance 380 -1190 -480 Weight 84.5 kg Intake: IV 20 10 Invasive Line 3 20 10 Oral 360 120 Output: Urine 1000 600 Straight 800 600 Post Void Residual 200 Other: Voiding Method External Catheter External Catheter # Bowel Movements 1 1 - Exam General appearance: The patient is sleeping, currently medicated. HET: Head is normocephalic and atraumatic. Neck: Supple. No bruit noted. Heart: Appears regular. Lungs: Equal expansion, normal respiratory effort. Abdomen: Soft, nondistended. Extremities: Normal skin color and turgor. Neurological: Sleeping, currently medicated. - Labs CBC & Chem 7: 08/29/24 14:25 08/31/24 07:00 Labs: Abnormal Lab Results - Last 24 Hours (Table) 08/30/24 08/30/24 08/31/24 Range/Units 16:13 20:15 06:11 Chloride (98-107) mmol/L Carbon Dioxide (22-30) mmol/L Glucose (74-99) mg/dL POC Glucose (mg/dL) 158 H 196 H 152 H (70-110) mg/dL 08/31/24 08/31/24 Range/Units 07:00 11:15 Chloride 112 H (98-107) mmol/L Carbon Dioxide 20 L (22-30) mmol/L Glucose 163 H (74-99) mg/dL POC Glucose (mg/dL) 190 H (70-110) mg/dL Assessment and Plan Assessment: 1. Asymptomatic right focal severe ICA stenosis 2. Syncope and collapse 3. Parkinson's disorder 4. Dementia 5. Coronary artery disease 6. Diabetes mellitus 7. Hyperlipidemia 8. Hypertension Plan: CTA head and neck images independently reviewed by Dr. Arias who agrees that there is a focal stenosis 80 to 90% of the right ICA. Again this is asymptomatic and not likely cause of patient's syncopal episodes or seizures. Recommend outpatient follow-up for further discussion of possible transcarotid artery revascularization. There is no recommendation for surgical intervention for vertebral artery stenosis. Will start Plavix 75 mg daily. Updated patient's Gabbi Mojica over the phone today regarding severe focal stenosis of the right carotid bulb. Will plan for outpatient follow-up for carotid stenosis and further discussion of carotid intervention. Until then continue medical therapy. Patient's verbalized understanding and is agreeable with plan. Thank you for this consultation, we will sign off at this time. The impression and plan of care has been dictated as directed. Dr. Rob I performed a history and examination of this patient, discussed the same with the dictator. I agree with the dictator's note ,documented as a scribe. Any additional findings or plans will be noted.
--- NOTE | 2024-08-31 12:19 | P.PN ---
Subjective HISTORY OF PRESENT ILLNESS: This is a 78-year-old male who follows in the office with Dr. Ferrera. Cardiology was reconsulted yesterday secondary to hypotension. According to the patient's nurse, the patient had an episode where he was obtunded and appeared to be postictal. However there was no seizure witnessed as no one was in the room prior to this. Patient was found to be hypotensive at that time with a systolic blood pressure in the 60s. Patient's blood pressure this morning is elevated with a systolic in the 170s. Patient currently denies any chest pain or pressure. Denies any shortness of breath. Echocardiogram completed revealing ejection fraction 55 to 60% with trace to mild TR. 08/31/2024 Patient examined this morning at the bedside. Patient is lethargic at the time of examination. He has a chief of safety and protection at the bedside. Patient denies chest pain or pressure. He denies shortness of breath. Patient's blood pressures overnight were between [id number]. After he received his morning medications blood pressure has decreased into the 80s. He is asymptomatic. PHYSICAL EXAM: VITAL SIGNS: Reviewed. GENERAL: Well-developed in no acute distress. NECK: Supple. No JVD or thyromegaly LUNGS: Respirations even and unlabored. Lungs essentially clear to auscultation bilaterally. HEART: Regular rate and rhythm. S1 and S2 heard. EXTREMITIES: Normal range of motion. No clubbing or cyanosis. Peripheral pulses intact. No lower extremity edema ASSESSMENT: Recurrent syncope Orthostatic hypotension Labile blood pressures Parkinson's disease History of DVT/PE, on Xarelto outpatient Severe bilateral internal carotid artery stenosis Coronary artery disease Hyperlipidemia Dementia Diabetes PLAN: Continue current cardiac medications Lisinopril decreased yesterday to 5 mg daily Discontinue Imdur Per veronique Segovia with labile blood pressures with systolic blood pressure ranging from 90-170. Continue to monitor blood pressures Further recommendations pending patient course Nurse practitioner note has been reviewed by physician. Signing provider agrees with the documented findings, assessment, and plan of care documented by SIMULATION EDUCATOR as a scribe. Objective - Vital Signs Vital signs: Vital Signs Temp 98.2 F 08/31/24 11:07 Pulse 75 08/31/24 11:07 Resp 18 08/31/24 11:07 BP 84/50 08/31/24 11:07 Pulse Ox 97 08/31/24 11:07 FiO2 Intake & Output 08/30/24 08/31/24 08/31/24 18:59 06:59 18:59 Intake Total 380 10 120 Output Total 1200 600 Balance 380 -1190 -480 Weight 84.5 kg Intake: IV 20 10 Invasive Line 3 20 10 Oral 360 120 Output: Urine 1000 600 Straight 800 600 Post Void Residual 200 Other: Voiding Method External Catheter External Catheter # Bowel Movements 1 1 - Labs CBC & Chem 7: 08/29/24 14:25 08/31/24 07:00 Labs: Abnormal Lab Results - Last 24 Hours (Table) 08/30/24 08/30/24 08/31/24 Range/Units 16:13 20:15 06:11 Chloride (98-107) mmol/L Carbon Dioxide (22-30) mmol/L Glucose (74-99) mg/dL POC Glucose (mg/dL) 158 H 196 H 152 H (70-110) mg/dL 08/31/24 08/31/24 Range/Units 07:00 11:15 Chloride 112 H (98-107) mmol/L Carbon Dioxide 20 L (22-30) mmol/L Glucose 163 H (74-99) mg/dL POC Glucose (mg/dL) 190 H (70-110) mg/dL
--- NOTE | 2024-08-31 12:42 | P.PN ---
Subjective Progress Note Date: 08/30/24 08/30/2024: Patient was seen for a follow-up. Patient has not had any further syncopal spells since yesterday. Patient is very somnolent. 08/29/2024: Patient was seen for a follow-up. Patient's was also present. Patient had an "event" today at 1 PM, as described by the nurse as below: patients family came up to race and sports book writer in the [place] stated patient as having "episode". Aerophysicist went into the room and patient was not responding to painful stimuli or voice, found to be having upper extremitiy and lower extremity twitches nonsimultaneously, pupils were PERRLA. BP was 64/40 HR 66 Ateam called at 1307, sound ericcijeremy paged to room at 1310. Dr Jaquez with neurology paged via perfect serve at 1310. Dr Morales with sound to bedside ordered 1000mg IVP Keppra, 2L bolus, 4 grams of magnesium IVPB, and labs (See orders). BP after ateam concluded 89/55 HR 68. Patient was beginning to respond to his name at conclusion of ateam and follow some commands including holding arms up. 1332 Dr Jaquez called race and sports book writer back, informed him of patients episode, including twitches, BP, meds admin during ateam. Per Dr Jaquez he does not want a repeat CT at this time, he is going to order a MRI urgent. 1356 Aerophysicist Spoke with Fabiola in MRI and Dr Jaquez wanting MRI today if possible; Fabiola stated that there are no open spots available for today, notified Dr Jaquez of this and gave him phone number for CT scan. Patients Gabbi updated via phone call, and consent obtained for MRI. MRI of the brain revealed no acute ischemic process. I came to see the patient and his was also present. Patient's admits that patient does have mild cognitive impairment. He has these episodes of unresponsiveness sporadically started 4 years ago, but has got worse in the last 3 weeks. She mentions that the first episode occurred in spring 2020, when he was at primary care physician's office. Sometimes after, they were at a concert when while sitting, he again passed out, and was back to normal about 10 minutes after. This saw the district attorney Dr. Blair and recommended Florinef and compression stockings. He was also seen by Dr. Miguel and neurologist, who told that patient has "Lewy body dementia"., Patient's was not satisfied and never went back to them. They subsequently started seeing Dr. Neo Salcido with the [facility]. After starting Florinef, patient hardly had any spell, maybe 1 or 2 sporadic, random. Patient's mentions that they have lived in the same house for 50 years and they moved out of that house about 4 weeks ago. For first week he was doing well, but from second week onwards, he has been having episodes of passing out. When he is having it, it looks like he is looking at something else no connection to the reality. Patient's mentions that since last fall patient has been started on physical therapy. He is very weak, did not want to walk. He could not do exercises. He is also resistant to doing anything. Patient has been taking Aricept for the last 1 year, and it helped significantly with the memory. Patient follows up with Dr. Neo Salcido with [facility] for the last 3 years. Objective - Vital Signs Vital signs: Vital Signs Temp 97.6 F 08/30/24 11:00 Pulse 73 08/30/24 11:00 Resp 17 08/30/24 11:00 BP 89/53 08/30/24 11:00 Pulse Ox 92 L 08/30/24 11:00 FiO2 Intake & Output 08/29/24 08/30/24 08/30/24 18:59 06:59 18:59 Intake Total 250 10 380 Output Total 800 400 Balance -550 -390 380 Weight 82.5 kg Intake: IV 20 10 20 Invasive Line 3 20 10 20 Oral 230 0 360 Output: Urine 800 400 Other: Voiding Method External Catheter External Catheter External Catheter # Bowel Movements 1 - Exam Patient is sleeping at this time, per nurse when he wakes up, he is somewhat agitated, combative. Patient having some myoclonic jerks noted. - Labs CBC & Chem 7: 08/29/24 14:25 08/31/24 07:00 Labs: Abnormal Lab Results - Last 24 Hours (Table) 08/29/24 08/30/24 08/30/24 Range/Units 20:10 06:18 07:22 Potassium 3.3 L (3.5-5.1) mmol/L Chloride 109 H (98-107) mmol/L Carbon Dioxide 21 L (22-30) mmol/L Glucose 141 H (74-99) mg/dL POC Glucose (mg/dL) 153 H 135 H (70-110) mg/dL Calcium 8.0 L (8.4-10.2) mg/dL 08/30/24 08/30/24 Range/Units 11:18 16:13 Potassium (3.5-5.1) mmol/L Chloride (98-107) mmol/L Carbon Dioxide (22-30) mmol/L Glucose (74-99) mg/dL POC Glucose (mg/dL) 158 H 158 H (70-110) mg/dL Calcium (8.4-10.2) mg/dL Assessment and Plan Assessment: * Recurrent syncopal spells, likely due to hypotension. Patient's blood pressure at the scene was 75/38. Exact cause of hypotension and clear. Patient had another episode of unresponsive yesterday at 1 PM, when his blood pressure was 60/40. Seizure appears unlikely, as with seizure usually the blood pressure goes up. * Orthostatic hypotension * Bilateral ICA stenosis, severe * Diabetes * Parkinson's disease * History of DVT and PE, on Xarelto * Hypertension * Hyperlipidemia * Dementia Plan: * Patient's syncope is likely due to orthostasis and for some cardiac reasons. Patient's supine blood pressure 135/76, sitting 133/87 and standing BP 95/55. His blood pressure at the scene was also very low 75/38. This is likely due to underlying autonomic dysfunction, perhaps related to Parkinson's. * Patient's last episode was yesterday, in which his blood pressure was again very low 60/40. * Patient was placed on Keppra empirically on 08/29/2024, after above event. S uspect related to cardiac reasons, rather than neurological. We will discuss with cardiology. If cardiology absolutely sure that these episodes are not related to cardiac reasons, then may consider prolonged EEG for 2.5 hours. * MRI of the brain without contrast revealed no evidence of intracranial mass or acute/subacute infarct. Moderate cerebral atrophy and age-related changes. Nonspecific white matter changes, likely secondary to small vessel ischemic disease. Trace bilateral mastoid air cell effusions. I personally reviewed MRI agree with the findings. * Cardiology on board * Patient currently on Florinef 0.1 mg every Thursday, Thursday, Thursday. Patient also started on midodrine 5 mg 3 times daily. Patient also on lisinopril 5 mg, metoprolol 25 mg and isosorbide 15 mg. Uncertain if these blood pressure medications are contributing. * Carotid Doppler revealed 50-69% stenosis of bilateral carotid bifurcations. Antegrade flow in both vertebral arteries. * CTA of the neck revealed prominent atherosclerotic calcification at the carotid bifurcations. This results in severe, at least 80 to 90% stenosis in the right carotid bulb. 2 adjacent segments of severe, greater than 70% stenosis proximal left ICA within the carotid bulb and just after. 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 * CTA of the head revealed severe atherosclerotic narrowing proximal V4 segment left vertebral artery. The left PICA takeoff is patent but there is loss of enhancement of the diminutive left vertebral artery thereafter. Moderate focal stenosis proximal V4 segment right vertebral artery. Relatively small caliber to the basilar artery with segmental mild stenosis and perhaps origin of the loaf counter. Given these changes, correlate for symptoms of chronic vertebrobasilar insufficiency. Mild stenosis supraclinoid right ICA. Hypoplastic A1 segment right WOLFGANG. * Vascular surgery input appreciated. They believe patient has asymptomatic right ICA stenosis. Apparently they spoke to patient's , who does not want any carotid intervention unless absolutely necessary. Recommended continue aspirin and Lipitor. They believe there is discordant findings between the carotid Doppler and the CT angiogram. They recommended outpatient follow-up with vascular surgery. * EEG, was abnormal due to background slowing of at least moderate degree, suggestive of generalized cerebral dysfunction as can be seen with toxic metabolic encephalopathy or related to diffuse structural brain abnormality. Clinical correlation is recommended. No epileptiform activity was seen, no electrographic seizure was recorded. * Continue Sinemet at the current dose. * Continue aspirin 81 mg and Lipitor 80 mg. * Telemetry monitoring to rule out arrhythmia. Recommend 30 day event monitoring as well. * Hydration. * Discussed with patient's in detail.
[2024-08-31 16:10] LABS: Glucose,Whole Blood 105 mg/dL (70-110)
--- NOTE | 2024-08-31 18:55 | P.PN ---
Subjective Progress Note Date: 08/31/24 Dictation progress note date of service 08/31/[address] Rowe. Today I have conference with and patient's son and also his cousin We did discuss patient current condition, prognosis, as well as future plan and the discussion was for 1 hour 50% [id number] with the patient examination as well Patient vital sign: Temperature 98.2 F axillary, heart rate 75 bpm, respiratory rate 18/min nonlabored, blood pressure 84/50 and been blood pressure 61. Laboratories: Sodium 139, potassium 3.8, chloride 112, carbon dioxide 20, anion gap 7, BUN 18, creatinine 0.84, GFR 4 non- 84, glucose 164, patient is diabetic POC glucose monitored and today blood glucose 190 and subsequently 105 poorly controlled. Patient seen by cardiology because of the hypotension in the supine position wit h the underlying labile blood pressure and fluctuating, Hypotension occurred on the supine position, for that purpose orthostatic hypotension is not really clear as the patient is hypotensive on the flat in the bed Patient seen by cardiology and they did cut down yesterday on the lisinopril from 08-06 however patient still in hypotension and they discontinue the Imdur 15 mg and they will be watching for tomorrow to see if the episode of hypotension continued or not and at this time probably patient may need to have all his medication for hypertension discontinued In my opinion it is auto autonomic labile for blood pressure with underlying fluctuation and I would have stop all antihypertensive medication and see if the patient will have any episodic hypotension or not. Dr. Chery neurologist he felt after extensive neurological evaluation that patient may need prolonged EEG to catch any changes or spikes to indicate seizure disorder. The carotid studies with different opinion between the ultrasound and the CTA angiogram and vascular surgeon not convincing for any vascular intervention. As patient seen today he has upper extremities movement purposeless and pulling on the sheets however if you ask him he can hear the question and answer with a short sentence, able to eat and swallow without dysphagia or choking, MRI of the brain was negative, EEG of the brain was negative, however the CTA of the brain and the neck indicating these abnormalities of the posterior circulation which including the vertebral artery and the basilar artery with the the admission symptoms that he was in the restaurant eating and suddenly he drop with loss of conscious and the found subsequently is hypotensive by EMS and the ER, this picture is clinically simulating posterior circulation of vertebrobasilar insufficiency and the possibility of autonomic abnormalities of the nervous system for fluctuation of the blood pressure was sudden drop, Also autonomic bladder and urine retention as well as currently has been retaining the urine with the 2 testing for bladder scan and if the third testing for bladder scan was still retaining his urine with the range of 2 50-300 with inability to urinate he needs a Rob catheter with the underlying neurogenic bladder. The patient was actually awake alert however his nonpurposeless movement has been questionable related to extrapyramidal versus posterior circulation with the associated midbrain or kat or medulla. On exam the head was normocephalic atraumatic and pupil equal reactive, conjunctiva was pink sclera was nonicteric Patient able to eat and swallow but need housing assistant property manager Neck was supple no JVD Chest was clear normal breath sound no wheezes no rhonchi's Heart echocardiogram was negative with normal ejection fraction however the hypo tension is remarkable and he has a history of hypertensive heart disease and the fluctuation of the blood pressure could not be explained by his current medication. Cardiology is following the patient and the gradually decreasing his medication for antihypertensive and monitoring him Heart is regular no evidence of tacky cardia or bradycardia no stenosis of the valve mitral or aortic Abdomen soft positive bowel sound no tenderness Extremities no edema and positive pulses genitourinary he has urine retention Neurologically patient has been not himself as he used to be and could not have the physical therapy as his blood pressure drop with the physical therapy He has history of Parkinson disease but I could not see stiffness or tremors which are noted in the Parkinson type patient on Keppra as well as Sinemet. Assessment: And plan 1. History of dementia #2 he has since seen by Dr. Miguel neurologist who diagnosed him with Lewy body dementia and his subsequently changed the neur ologist to Dr. Neo Salcido. And the with the diagnosis of Parkinson disease and he has been treated, his said he never been agitated but this currently he was agitated in the hospital and several occasions and he had to receive some Haldol currently and this admission as well as Ativan as well as Seroquel Patient also on his medication for Parkinson disease 2. Urinary retention and we continued the protocol for straight caths after retention of the urine 4 x 3 subsequently if still continue to retain he will have Rob catheter with the underlying neurogenic bladder. 3. Hypokalemia has been corrected 4. Hypomagnesemia corrected. 5. Recurrent episode of hypotension could be related to medication and the hypertensive medication however he had this medication in the past and did not bother him or cause any hypotension. 6. Heparin for DVT prophylaxis has been ordered. 7. Underlying seizure disorder and Dr. Chery started him on Keppra for prophylaxis and treatment. 8. Patient with a history of benign prostatic hypertrophy and he was on tamsulosin 0.4 mg once a day continued. 9. Patient is diabetic in good control and he has been on pioglitazone and metformin with the underlying drop in the carbon dioxide which indicating mild metabolic acidosis will discontinue the metformin specially he had several dye for the investigation however patient is covered with insulin as well patient has decreased intake, his hemoglobin A1c in August 29, 2024 was 8.5. 10. The hypocalcemia has improved however the ionized calcium was 4.6 which is normal as well as the magnesium has been corrected 1.8 on the August 30, 2024 11. His renal function was more than 90 estimated glomerular filtration rate which is excellent. At that time his potassium was low which already Will be his multiple medication we will check his liver function test in a.m. and CBC to monitor his hemoglobin and hematocrit which on admission his hemoglobin was 14.3 and the hematocrit was 43.5. In the last check was on 08/29/2024 and at that time his hemoglobin dropped to 12 and the hematocrit was 38 and at that time his platelet also was 139. Will continue monitoring his neurological status. And will monitor his blood pressure as well Hopefully in the next couple days we know about long term situation as well as the clearance after stability from neurology as well as cardiology. Objective - Vital Signs Vital signs: Vital Signs Temp 98.2 F 08/31/24 11:07 Pulse 75 08/31/24 11:07 Resp 18 08/31/24 11:07 BP 84/50 08/31/24 11:07 Pulse Ox 97 08/31/24 11:07 FiO2 Intake & Output 08/30/24 08/31/24 08/31/24 18:59 06:59 18:59 Intake Total 380 10 250 Output Total 1200 600 Balance 380 -1190 -350 Weight 84.5 kg Intake: IV 20 10 10 Invasive Line 3 20 10 Invasive Line 5 10 Oral 360 240 Output: Urine 1000 600 Straight 800 600 Post Void Residual 200 Other: Voiding Method External Catheter External Catheter External Catheter # Bowel Movements 1 1 - Labs CBC & Chem 7: 08/29/24 14:25 08/31/24 07:00 Labs: Abnormal Lab Results - Last 24 Hours (Table) 08/30/24 08/31/24 08/31/24 Range/Units 20:15 06:11 07:00 Chloride 112 H (98-107) mmol/L Carbon Dioxide 20 L (22-30) mmol/L Glucose 163 H (74-99) mg/dL POC Glucose (mg/dL) 196 H 152 H (70-110) mg/dL 08/31/24 Range/Units 11:15 Chloride (98-107) mmol/L Carbon Dioxide (22-30) mmol/L Glucose (74-99) mg/dL POC Glucose (mg/dL) 190 H (70-110) mg/dL
[2024-08-31 20:27] LABS: Glucose,Whole Blood 147 mg/dL (70-110)
[2024-08-31] MEDS: QUEtiapine 25 MG TAB PO PRN (21:43)
[2024-08-31] MEDS: levETIRAcetam 250 MG TAB PO SCH (21:43)
[2024-09-01 06:18] LABS: Glucose,Whole Blood 113 mg/dL (70-110)
[2024-09-01 07:59] LABS: Albumin 2.5 g/dL (3.5-5.0); Basophils % (A) 0 %; Bilirubin, Delta 0.2 mg/dL (0.0-0.2); Bilirubin,Unconjugated 0.7 mg/dL (0.0-1.1); Eosinophils # (A) 0.3 k/uL (0-0.7); Eosinophils % (A) 3 %; HCT 39.5 % (39.0-53.0); HGB 13.2 gm/dL (13.0-17.5); Lymphocytes % (A) 11 %; MCH 29.1 pg (25.0-35.0); MCHC 33.5 g/dL (31.0-37.0); MCV 87.1 fL (80.0-100.0); Mean Platelet Volume 8.3; Monocytes # (A) 1.1 k/uL (0-1.0); Monocytes % (A) 11 %; Neutrophils # (A) 7.2 k/uL (1.3-7.7); Neutrophils % (A) 74 %; Platelet Count 147 k/uL (150-450); RBC 4.53 m/uL (4.30-5.90); RDW 14.1 % (11.5-15.5); Total Bilirubin 0.9 mg/dL (0.2-1.3); WBC 9.7 k/uL (3.8-10.6)
--- NOTE | 2024-09-01 11:27 | P.PN ---
Subjective Progress Note Date: 08/31/24 09/01/2024: Patient was seen for a follow-up. Patient is somnolent at this time. Patient continues to have episodes of hypotension, with blood pressure 84/50. Cardiology is adjusting blood pressure medication. 08/30/2024: Patient was seen for a follow-up. Patient has not had any further syncopal spells since yesterday. Patient is very somnolent. 08/29/2024: Patient was seen for a follow-up. Patient's was also present. Patient had an "event" today at 1 PM, as described by the nurse as below: patients family came up to technical writer in the [place] stated patient as having "episode". Warehouse Laborer went into the room and patient was not responding to painful stimuli or voice, found to be having upper extremitiy and lower extremity twitches nonsimultaneously, pupils were PERRLA. BP was 64/40 HR 66 Ateam called at 1307, shazia wilhelm paged to room at 1310. Dr Jaquez with neurology paged via [email or web address] at 1310. Dr Morales with sound to bedside ordered 1000mg IVP Keppra, 2L bolus, 4 grams of magnesium IVPB, and labs (See orders). BP after ateam concluded 89/55 HR 68. Patient was beginning to respond to his name at conclusion of ateam and follow some commands including holding arms up. 1332 Dr Jaquez called technical writer back, informed him of patients episode, including twitches, BP, meds admin during ateam. Per Dr Jaquez he does not want a repeat CT at this time, he is going to order a MRI urgent. 1356 Warehouse Laborer Spoke with Fabiola in MRI and Dr Jaquez wanting MRI today if possible; Fabiola stated that there are no open spots available for today, notified Dr Jaquez of this and gave him phone number for CT scan. Patients Gabbi updated via phone call, and consent obtained for MRI. MRI of the brain revealed no acute ischemic process. I came to see the patient and his was also present. Patient's admits that patient does have mild cognitive impairment. He has these episodes of unresponsiveness sporadically started 4 years ago, but has got worse in the last 3 weeks. She mentions that the first episode occurred in spring 2020, when he was at primary care physician's office. Sometimes after, they were at a concert when while sitting, he again passed out, and was back to normal about 10 minutes after. This saw the oil treater Dr. Blair and recommended Florinef and compression stockings. He was also seen by Dr. Miguel and neurologist, who told that patient has "Lewy body dementia"., Patient's was not satisfied and never went back to them. They subsequently started seeing Dr. Neo Salcido with the [facility]. After starting Florinef, patient hardly had any spell, maybe 1 or 2 sporadic, random. Patient's mentions that they have lived in the same house for 50 years and they moved out of that house about 4 weeks ago. For first week he was doing well, but from second week onwards, he has been having episodes of passing out. When he is having it, it looks like he is looking at something else no connection to the reality. Patient's mentions that since last fall patient has been started on physical therapy. He is very weak, did not want to walk. He could not do exercises. He is also resistant to doing anything. Patient has been taking Aricept for the last 1 year, and it helped significantly with the memory. Patient follows up with Dr. Neo Salcido with [facility] for the last 3 years. Objective - Vital Signs Vital signs: Vital Signs Temp 98.4 F 08/31/24 16:00 Pulse 70 08/31/24 16:00 Resp 17 08/31/24 16:00 BP 161/70 08/31/24 16:00 Pulse Ox 98 08/31/24 16:00 FiO2 Intake & Output 08/31/24 08/31/24 09/01/24 06:59 18:59 06:59 Intake Total 10 250 Output Total 1200 600 Balance -1190 -350 Weight 84.5 kg Intake: IV 10 10 Invasive Line 3 10 Invasive Line 5 10 Oral 240 Output: Urine 1000 600 Straight 800 600 Post Void Residual 200 Other: Voiding Method External Catheter External Catheter # Bowel Movements 1 - Exam Patient is sleeping at this time, per nurse when he wakes up, he is somewhat agitated, combative. Pupils are equal, round and reacting. - Labs CBC & Chem 7: 09/01/24 07:08 08/31/24 07:00 Labs: Abnormal Lab Results - Last 24 Hours (Table) 08/30/24 08/31/24 08/31/24 Range/Units 20:15 06:11 07:00 Chloride 112 H (98-107) mmol/L Carbon Dioxide 20 L (22-30) mmol/L Glucose 163 H (74-99) mg/dL POC Glucose (mg/dL) 196 H 152 H (70-110) mg/dL 08/31/24 Range/Units 11:15 Chloride (98-107) mmol/L Carbon Dioxide (22-30) mmol/L Glucose (74-99) mg/dL POC Glucose (mg/dL) 190 H (70-110) mg/dL Assessment and Plan Assessment: * Recurrent syncopal spells, likely due to hypotension. Patient's blood pressure at the scene was 75/38. Exact cause of hypotension and clear. Patient had another episode of unresponsive 08/29/2024 at 1 PM, when his blood pressure was 60/40. Seizure appears unlikely, as with seizure usually the blood pressure goes up. * Rule out vertebrobasilar insufficiency. * Significant multifocal atherosclerotic cerebrovascular disease. 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 * Orthostatic hypotension * Bilateral ICA stenosis, severe * Diabetes * Parkinson's disease * History of DVT and PE, on Xarelto * Hypertension * Hyperlipidemia * Dementia Plan: * Patient's syncopal episodes are likely multifactorial. Patient has evidence of multifocal atherosclerotic cerebrovascular disease with bilateral ICA stenosis, vertebral artery and basilar artery disease. 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 These episodic hypotension probably leads to delirium/encephalopathy. * Patient's last episode was 08/29/2024, in which his blood pressure was again very low 60/40. * Patient was placed on Keppra empirically on 08/29/2024, after above event. Suspect related to cardiac reasons, rather than neurological. Cardiology suspect autonomic neuropathy and blood pressure medications contributing to the hypotension. They are cutting back on the medication. We will stop Keppra, as these episodes are likely not seizures. Keppra can also produce behavioral problems. * MRI of the brain without contrast revealed no evidence of intracranial mass or acute/subacute infarct. Moderate cerebral atrophy and age-related changes. Nonspecific white matter changes, likely secondary to small vessel ischemic disease. Trace bilateral mastoid air cell effusions. I personally reviewed MRI agree with the findings. * Patient currently on Florinef 0.1 mg every Thursday, Thursday, Thursday. Patient also started on midodrine 5 mg 3 times daily. Patient also on lisinopril 5 mg, metoprolol 25 mg and isosorbide 15 mg. Uncertain if these blood pressure medications are contributing. * Carotid Doppler revealed 50-69% stenosis of bilateral carotid bifurcations. Antegrade flow in both vertebral arteries. * CTA of the neck revealed prominent atherosclerotic calcification at the carotid bifurcations. This results in severe, at least 80 to 90% stenosis in the right carotid bulb. 2 adjacent segments of severe, greater than 70% stenosis proximal left ICA within the carotid bulb and just after. 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 * CTA of the head revealed severe atherosclerotic narrowing proximal V4 segment left vertebral artery. The left PICA takeoff is patent but there is loss of enhancement of the diminutive left vertebral artery thereafter. Moderate focal stenosis proximal V4 segment right vertebral artery. Relatively small caliber to the basilar artery with segmental mild stenosis and perhaps origin of the junior architect. Given these changes, correlate for symptoms of chronic vertebrobasilar insufficiency. Mild stenosis supraclinoid right ICA. Hypoplastic A1 segment right WOLFGANG. * Vascular surgery input appreciated. They believe patient has asymptomatic right ICA stenosis. Plavix has been added to the regimen, along with aspirin 81 mg. They recommend outpatient follow-up for carotid stenosis and further discussion for carotid intervention. Recommended continue aspirin and Lipitor. They believe there is discordant findings between the carotid Doppler and the CT angiogram. * EEG, was abnormal due to background slowing of at least moderate degree, suggestive of generalized cerebral dysfunction as can be seen with toxic metabolic encephalopathy or related to diffuse structural brain abnormality. Clinical correlation is recommended. No epileptiform activity was seen, no electrographic seizure was recorded. * Continue Sinemet at the current dose. * Continue Lipitor 80 mg. * Telemetry monitoring to rule out arrhythmia. Recommend 30 day event monitori ng as well. * Hydration. * Discussed with primary physician in detail.
[2024-09-01 11:43] LABS: Glucose,Whole Blood 143 mg/dL (70-110)
[2024-09-01] MEDS ORDERED: QUEtiapine 25 MG TAB PO PRN (13:17)
--- NOTE | 2024-09-01 14:02 | P.PN ---
Subjective HISTORY OF PRESENT ILLNESS: This is a 78-year-old male who follows in the office with Dr. Ferrera. Cardiology was reconsulted yesterday secondary to hypotension. According to the patient's nurse, the patient had an episode where he was obtunded and appeared to be postictal. However there was no seizure witnessed as no one was in the room prior to this. Patient was found to be hypotensive at that time with a systolic blood pressure in the 60s. Patient's blood pressure this morning is elevated with a systolic in the 170s. Patient currently denies any chest pain or pressure. Denies any shortness of breath. Echocardiogram completed revealing ejection fraction 55 to 60% with trace to mild TR. 08/31/2024 Patient examined this morning at the bedside. Patient is lethargic at the time of examination. He has a senior safety support manager at the bedside. Patient denies chest pain or pressure. He denies shortness of breath. Patient's blood pressures overnight were between [id number]. After he received his morning medications blood pressure has decreased into the 80s. He is asymptomatic. 09/01/2024 Patient examined this morning at bedside. Patient received Seroquel last night per nursing. Patient is lethargic this morning. He has a senior safety support manager at the bedside. Patient's blood pressures ranging between 130 and 173 systolic. PHYSICAL EXAM: VITAL SIGNS: Reviewed. GENERAL: Well-developed in no acute distress. NECK: Supple. No JVD or thyromegaly LUNGS: Respirations even and unlabored. Lungs essentially clear to auscultation bilaterally. HEART: Regular rate and rhythm. S1 and S2 heard. EXTREMITIES: Normal range of motion. No clubbing or cyanosis. Peripheral pulses intact. No lower extremity edema ASSESSMENT: Recurrent syncope Orthostatic hypotension Labile blood pressures Parkinson's disease History of DVT/PE, on Xarelto outpatient Severe bilateral internal carotid artery stenosis Coronary artery disease Hyperlipidemia Dementia Diabetes PLAN: Continue current cardiac medications Imdur was discontinued yesterday and lisinopril decreased to 5 mg daily the day prior Per veronique Segovia with labile blood pressures with systolic blood pressure ranging from 90-170. Continue to monitor blood pressures We will follow on as-needed basis. Please call with questions or concerns. Nurse practitioner note has been reviewed by physician. Signing provider agrees with the documented findings, assessment, and plan of care documented by AUTOMATIC LATHE TENDER as a scribe. Objective - Vital Signs Vital signs: Vital Signs Temp 98.5 F 09/01/24 11:11 Pulse 89 09/01/24 11:31 Resp 18 09/01/24 11:31 BP 168/94 09/01/24 11:11 Pulse Ox 96 09/01/24 11:11 FiO2 Intake & Output 08/31/24 09/01/24 09/01/24 18:59 06:59 18:59 Intake Total 250 20 Output Total 933 645 2903 Balance -350 -905 -1700 Intake: IV 10 20 Invasive Line 5 10 20 Oral 240 Output: Urine 656 691 1904 Straight 600 Other: Voiding Method External Catheter External Catheter External Catheter # Bowel Movements 1 - Labs CBC & Chem 7: 09/01/24 07:08 08/31/24 07:00 Labs: Abnormal Lab Results - Last 24 Hours (Table) 08/31/24 09/01/24 09/01/24 Range/Units 20:11 06:08 07:08 Plt Count 147 L (150-450) k/uL Monocytes # 1.1 H (0-1.0) k/uL POC Glucose (mg/dL) 147 H 113 H (70-110) mg/dL Total Protein (6.3-8.2) g/dL Albumin (3.5-5.0) g/dL 09/01/24 09/01/24 Range/Units 07:08 11:42 Plt Count (150-450) k/uL Monocytes # (0-1.0) k/uL POC Glucose (mg/dL) 143 H (70-110) mg/dL Total Protein 5.0 L (6.3-8.2) g/dL Albumin 2.5 L (3.5-5.0) g/dL
[2024-09-01 16:31] LABS: Glucose,Whole Blood 152 mg/dL (70-110)
[2024-09-01] MEDS: INSULIN ASPART (NovoLOG) 100 UNIT/ML VIAL SQ SCH (16:59)
--- NOTE | 2024-09-01 18:24 | P.PN ---
Subjective Progress Note Date: 08/25/24 This is dictation on the progress note Date of service 08/31/[address] Rowe. Patient seen and evaluated today at bedside Patient history in the hospital discussed with his RN nurse as well as the sitter. The nurse stated that patient has been sleeping and started from last night to today uncontrolled the time I was saw him at lunchtime approximately 1 PM and he was sleeping completely out We found out that he had the dose screen printing stencil preparer hours with the Seroquel and that was 25 mg tablet and able to make him comfortable but probably the dose needs to be adjusted. I did spoke with Dr. Chery the neurologist and he agreed that to decrease the dose to 12.5 mg twice a day and we will try diet at this time and order has been written. Dr. Joshi cardiology did see him and he discontinue the Imdur and the patient currently his blood pressure is elevated in the 160 and the cardiology is com fortable with that number around that 160 because of his labile blood pressure and but at the same time I did put parameter on the Florinef if the blood pressure more than 160 there is no need for Florinef or any other sympathomimetic medication with that parameter will be fine unless patient had episodic hypotension and then at that time will be addressing the problem I did speak also with Dr. Chery the neurologist in regard of the labile hypertension with the no evidence of orthostatic hypotension as the patient did blood pressure low while he is in bed flat and it appears to me that it is autonomic disturbance with the also associated the posterior circulation and underlying some vertebrobasilar insufficiency. Dr. Chery did this with the discussion he agreed there is no forethought in vestigation and if the patient is stable in regard of the blood pressure fluctuation we will be able to transfer him to the group home if the bed is available. For the time being still running going to be watching his stability in the hospital Patient found to be retaining the urine with the possibility of neurogenic bladder with the effect on the posterior circulation and Rob catheter has been placed after trial of straight cath with each retention of the urine x 3 and subsequently with the following the protocol we had to put the Rob catheter in the bladder and is draining well at this time. On the On the physical exam patient is completely sleeping and snoring as well with the mouth breathing as well as he is comfortable and though motion of his arm as he has been with extra pyramidal motion yesterday and he has no jerking movement he has no evidence of seizure and at this time Dr. Chery the neurology discontinue Keppra as well as no evidence of seizure disorder could be the effect of the posterior circulation as the MRI of the brain was negative and there is atherosclerosis of the posterior circulation and intermittent blockage Is vital sign currently according to stable from the patient condition and situation as we are not treating at this time the blood pressure as it is fluctuating he is on lisinopril 5 mg still continue but if the episode of low blood pressure we will be planning to even remove any blood pressure medication and to see if still we can get this low blood pressure with the mobile autonomic variation. On exam normal The head was normocephalic atraumatic and pupil was reactive and currently he is sleeping could not vocabulary he could not wake up at the time He did not take his medication this morning because of the sleeping and obtunda tion his neck was supple no JVD no thyromegaly no lymphadenopathy trachea midline the chest was clear to auscultation percussion The heart was regular sinus rhythm and the abdomen is soft positive bowel sound he has flexion position and laying down on his side and there is no edema of the lower extremities no further neurological sign or symptoms can be evaluated. Assessment: 1. I did have meeting yesterday with his and his son and of the patient and to indicate and to explain his current condition in detail. 2. Nobody at bedside except to the sitter his was not available 3. Discussion with Dr. Chery the neurology in detail today. 4. Hypertension labile with episodic of hypotension. 5. Improving his urine output with the presence of Rob catheter after the trial of bladder retention with the possibility highly suggestive neurogenic bladder. 6. 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 Parkinson disease 8. 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 Underlying valvular heart disease however he had no valve stenosis 10. Presentation with episodic sudden drop of consciousness and becomes sleepin g even while he was eating or talking to a family member or falling on the floor with the. Past history of recurrent falling attack at home we could not explain that at that time. We thought that could be from the Parkinson disease. 11. The investigation of the anterior circulation of Jaime could not explain that has any strokes for the anterior circulation with the negative MRI. However the CTA angiogram of the posterior circulation has been vague explanation of the system with the the left vertebral artery arises from aorta direct and the right and the segment of V4 has been compromised significantly by the atherosclerotic disease of the vessel small vessel. Plannin. We will be ensure the stability of his blood pressure and his conscious level 2. Planning for group home placement as patient is need more than 1 person for care as well as the episodic hypotensive. And need for care for rehabilitation as well and that will be transferred when stable 3. will be deciding what group home she would like patient to be and and also the insurance case manager will try to work out with the patient family for the group home and may need extended presence in the group home if he continue to have these episodes. 4. Patient condition is guarded and prognosis is also severely guarded with the clinically. Objective - Vital Signs Vital signs: Vital Signs Temp 98.5 F 09/01/24 11:11 Pulse 88 09/01/24 16:00 Resp 18 09/01/24 16:00 BP 162/92 09/01/24 16:00 Pulse Ox 95 09/01/24 16:00 FiO2 Intake & Output 08/31/24 09/01/24 09/01/24 18:59 06:59 18:59 Intake Total 250 20 Output Total 701 469 2559 Balance -350 -905 -1700 Intake: IV 10 20 Invasive Line 5 10 20 Oral 240 Output: Urine 662 084 5492 Straight 600 Other: Voiding Method External Catheter External Catheter External Catheter # Bowel Movements 1 - Labs CBC & Chem 7: 09/01/24 07:08 08/31/24 07:00 Labs: Abnormal Lab Results - Last 24 Hours (Table) 08/31/24 09/01/24 09/01/24 Range/Units 20:11 06:08 07:08 Plt Count 147 L (150-450) k/uL Monocytes # 1.1 H (0-1.0) k/uL POC Glucose (mg/dL) 147 H 113 H (70-110) mg/dL Total Protein (6.3-8.2) g/dL Albumin (3.5-5.0) g/dL 09/01/24 09/01/24 09/01/24 Range/Units 07:08 11:42 16:30 Plt Count (150-450) k/uL Monocytes # (0-1.0) k/uL POC Glucose (mg/dL) 143 H 152 H (70-110) mg/dL Total Protein 5.0 L (6.3-8.2) g/dL Albumin 2.5 L (3.5-5.0) g/dL
[2024-09-01 20:10] LABS: Glucose,Whole Blood 134 mg/dL (70-110)
[2024-09-02 06:13] LABS: Glucose,Whole Blood 130 mg/dL (70-110)
[2024-09-02 11:44] LABS: Glucose,Whole Blood 183 mg/dL (70-110)
--- NOTE | 2024-09-02 15:28 | P.PN ---
Subjective Progress Note Date: 09/02/24 Progress note Date of service 09/02/[address] Rowe. I did receive several phone call from the she is in the hospital and I came and to see the patient and to evaluate as well as she had discussion in regard of her Patient need physical therapy meanwhile the lead case manager has been looking for [facility] and at this time [facility] and [facility] on the [facility] has been denied any [facility] admission and EF read from that the patient will be need long-term not just rehabilitation. Today vital sign indicating that his temperature 97.5 and his heart rate 77 to 71 bpm regular Respiratory rate was 16/min nonlabored comfortable and his blood pressure in the morning was 149/77 with the mean 101 and oxygen saturation on room air was 95%. At this time patient received Florinef 0.1 mg also he received lisinopril 5 mg and midodrine In the afternoon at lunchtime in the afternoon his blood pressure dropped to 103/60 he was sitting at that time and his pulse was 16 and the mean blood pressure was 74 and oxygen saturation was 97 With these drop in the blood pressure could be associated with the lisinopril 5 mg, meanwhile the Florinef and midodrine, did not protect him from dropping of the blood pressure. For that reason we are going to stop lisinopril, patient already on beta-óscar we will continue that with heart rate is stable, no chest pain no other symptomatology. Will see tomorrow how his blood pressure behave and accordingly we could understand if we need to adjust his medication. Patient did not have seizure and he has been quiet and no agitation and he un derstand the command and he able to answer the question and able to answer any demand, I asked him to open his eyes he open his eyes, I asked to stick tongue out and he did with no problem and no barrier, I asked him to raise his leg up 1:01 and he did it without hesitation able to eat. And his pupil is equal reactive extraocular muscle movement is intact. You no agitation and he has longstanding history of Parkinson disease and on his medication, he did not receive Seroquel and he wake up and we will be discontinuing also the Seroquel and wait for any reaction without these medication Dr. Chery neurologist did discontinue the Keppra as well and patient on rehabilitation. With the changes of improvement in general and wake up and we will be requesting rehab to continue for the patient and definitely he need more rehabilitation. He may not need alf mcc but he need definitely rehabilitation, I did discuss it with his Gabbi and she agreed to look for other different mcc if is available as [facility] on the [facility] as denied him for admission. Thank you We did a blood pressure check at the time of dictation and his blood pressure was 157/81 with a heart rate of 82 and oxygen saturation 97% on room air is awake alert and his at bedside Head was normocephalic atraumatic and the pupil was equal reactive, conjunctiva was pink and sclera was nonicteric. Neck was supple no JVD no thyromegaly no lymphadenopathy and trachea midline. Chest was clear to auscultation percussion Heart: Regular sinus rhythm Abdomen soft positive bowel sound no organ enlargement Extremities no edema and positive pulses. Neurologically is currently stable no seizures, no agitation comfortable but deconditioned and need for thorough rehabilitation in the [facility] as a long-term. May be for 1 week or 2 until he reaches maximum and then he can go home. Assessment: 1. Labile hypertension and we are planning for monitoring blood pressure after discontinuation of lisinopril. 2. Vertebrobasilar atherosclerosis with the possible TIA and segmental stenosis caused his symptoms 3. Parkinson disease on the medication 4. No evidence of seizure disorder 5. No evidence of stroke, CVA of the cerebellum or cerebrum. 6. History of hypertension with hypertensive heart disease 7. Hyperlipidemia #8 hypothyroidism 9. Dementia currently stable behavior with no agitation. Plan: 1. With still lead case manager looking for m[facility] for placed for physical therapy and deconditioning, is the [facility] the [facility] denied the admission or the transfer to their facility 2. Still continuing search for m[facility] and rehabilitation as the patient elderly and need more than 1 person for the care as well as the rehab. 3. Still monitored his blood pressure with the fluctuation and adjusting medication. 4. Discontinuation of Seroquel 5. Discontinuation of lisinopril with the event of reaction of hypotension. 6. Will continue his beta-óscar for now as heart rate was not affected with the beta-blockers. 7. Probably delay of discharge still mcc for rehab obtained and for rehabilitation and conditioning his also elderly and could not handle her at this time. Objective - Vital Signs Vital signs: Vital Signs Temp 97.5 F L 09/02/24 08:00 Pulse 71 09/02/24 12:00 Resp 16 09/02/24 12:00 BP 103/60 09/02/24 12:00 Pulse Ox 97 09/02/24 12:00 FiO2 Intake & Output 09/01/24 09/02/24 09/02/24 18:59 06:59 18:59 Intake Total 0 118 Output Total 2900 600 Balance -2900 -600 118 Intake: Oral 0 118 Output: Urine 2900 600 Other: Voiding Method External Catheter External Catheter External Catheter # Bowel Movements 1 1 - Labs CBC & Chem 7: 09/01/24 07:08 08/31/24 07:00 Labs: Abnormal Lab Results - Last 24 Hours (Table) 09/01/24 09/01/24 09/02/24 Range/Units 16:30 20:08 06:00 POC Glucose (mg/dL) 152 H 134 H 130 H (70-110) mg/dL 09/02/24 Range/Units 11:38 POC Glucose (mg/dL) 183 H (70-110) mg/dL
[2024-09-02 16:20] LABS: Glucose,Whole Blood 199 mg/dL (70-110)
[2024-09-02 21:00] LABS: Glucose,Whole Blood 206 mg/dL (70-110)
--- NOTE | 2024-09-03 00:25 | P.PN ---
Subjective Progress Note Date: 09/01/24 09/01/2024: Patient was seen for a follow-up. Patient is very somnolent at this time. Patient's blood pressure has started improving. Keppra has been discontinued today. Patient received Seroquel 25 mg last night, and has been somnolent since then. We will decrease Seroquel to 12.5 mg when necessary. 08/31/2024: Patient was seen for a follow-up. Patient is somnolent at this time. Patient continues to have episodes of hypotension, with blood pressure 84/50. Cardiology is adjusting blood pressure medication. 08/30/2024: Patient was seen for a follow-up. Patient has not had any further syncopal spells since yesterday. Patient is very somnolent. 08/29/2024: Patient was seen for a follow-up. Patient's was also present. Patient had an "event" today at 1 PM, as described by the nurse as below: patients family came up to auto service writer in the [place] stated patient as having "episode". Naval Aircrewman went into the room and patient was not responding to painful stimuli or voice, found to be having upper extremitiy and lower extremity twitches nonsimultaneously, pupils were PERRLA. BP was 64/40 HR 66 [facility]team called at 1307, shazia wilhelm paged to room at 1310. Dr Jaquez with neurology paged via [employer] serve at 1310. Dr Morales with sound to bedside ordered 1000mg IVP Keppra, 2L bolus, 4 grams of magnesium IVPB, and labs (See orders). BP after ateam concluded 89/55 HR 68. Patient was beginning to respond to his name at conclusion of ateam and follow some commands including holding arms up. 1332 Dr Jaquez called auto service writer back, informed him of patients episode, including twitches, BP, meds admin during ateam. Per Dr Jaquez he does not want a repeat CT at this time, he is going to order a MRI urgent. 1356 Naval Aircrew[employer] Spoke with Fabiola in MRI and Dr Jaquez wanting MRI today if possible; Fabiola stated that there are no op en spots available for today, notified Dr Jaquez of this and gave him phone number for CT scan. Patients Gabbi updated via phone call, and consent obtained for MRI. MRI of the brain revealed no acute ischemic process. I came to see the patient and his was also present. Patient's admits that patient does have mild cognitive impairment. He has these episodes of unresponsiveness sporadically started 4 years ago, but has got worse in the last 3 weeks. She mentions that the first episode occurred in spring 2020, when he was at primary care physician's office. Sometimes after, they were at a concert when while sitting, he again passed out, and was back to normal about 10 minutes after. This saw the gas technician Dr. Blair and recommended Florinef and compression stockings. He was also seen by Dr. Miguel and neurologist, who told that patient has "Lewy body dementia"., Patient's was not satisfied and never went back to them. They subsequently started seeing Dr[facility]. After starting Florinef, patient hardly had any spell, maybe 1 or 2 sporadic, random. Patient's mentions that they have lived in the same house for 50 years and they moved out of that house about 4 weeks ago. For first week he was doing well, but from second week onwards, he has been having episodes of passing out. When he is having it, it looks like he is looking at something else no connection to the reality. Patient's mentions that since last fall patient has been started on physical therapy. He is very weak, did not want to walk. He could not do exercises. He is also resistant to doing anything. Patient has been taking Aricept for the last 1 year, and it helped significantly with the memory. Patient follows up with Dr[facility] the last 3 years. Objective - Vital Signs Vital signs: Vital Signs Temp 98.5 F 09/01/24 11:11 Pulse 89 09/01/24 11:31 Resp 18 09/01/24 11:31 BP 168/94 09/01/24 11:11 Pulse Ox 96 09/01/24 11:11 FiO2 Intake & Output 08/31/24 09/01/24 09/01/24 18:59 06:59 18:59 Intake Total 250 20 Output Total 956 321 5771 Balance -350 -905 -1700 Intake: IV 10 20 Invasive Line 5 10 20 Oral 240 Output: Urine 867 763 1810 Straight 600 Other: Voiding Method External Catheter External Catheter External Catheter # Bowel Movements 1 - Exam Patient is sleeping at this time, patient received Seroquel last night, therefore he is somnolent. Pupils are equal, round and reacting. - Labs CBC & Chem 7: 09/01/24 07:08 08/31/24 07:00 Labs: Abnormal Lab Results - Last 24 Hours (Table) 08/31/24 09/01/24 09/01/24 Range/Units 20:11 06:08 07:08 Plt Count 147 L (150-450) k/uL Monocytes # 1.1 H (0-1.0) k/uL POC Glucose (mg/dL) 147 H 113 H (70-110) mg/dL Total Protein (6.3-8.2) g/dL Albumin (3.5-5.0) g/dL 09/01/24 09/01/24 Range/Units 07:08 11:42 Plt Count (150-450) k/uL Monocytes # (0-1.0) k/uL POC Glucose (mg/dL) 143 H (70-110) mg/dL Total Protein 5.0 L (6.3-8.2) g/dL Albumin 2.5 L (3.5-5.0) g/dL Assessment and Plan Assessment: * Recurrent syncopal spells, likely due to hypotension. Patient's blood pressure at the scene was 75/38. Exact cause of hypotension and clear. Patient had another episode of unresponsive 08/29/2024 at 1 PM, when his blood pressure was 60/40. Seizure appears unlikely, as with seizure usually the blood pressure goes up. * Rule out vertebrobasilar insufficiency. * Significant multifocal atherosclerotic cerebrovascular disease. 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 * Orthostatic hypotension * Bilateral ICA stenosis, severe * Diabetes * Parkinson's disease * History of DVT and PE, on Xarelto * Hypertension * Hyperlipidemia * Dementia Plan: * Patient's syncopal episodes are likely multifactorial. Patient has evidence of multifocal atherosclerotic cerebrovascular disease with bilateral ICA stenosis, vertebral artery and basilar artery disease. 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 These episodic hypotension probably leads to delirium/encephalopathy. * Patient's last episode was 08/29/2024, in which his blood pressure was again very low 60/40. * Patient was placed on Keppra empirically on 08/29/2024, after above event. Suspect related to cardiac reasons, rather than neurological. Cardiology suspect autonomic neuropathy and blood pressure medications contributing to the hypotension. They are cutting back on the medication. We will stop Keppra, as these episodes are likely not seizures. Keppra can also produce behavioral problems. * MRI of the brain without contrast revealed no evidence of intracranial mass or acute/subacute infarct. Moderate cerebral atrophy and age-related changes. Nonspecific white matter changes, likely secondary to small vessel ischemic disease. Trace bilateral mastoid air cell effusions. I personally reviewed MRI agree with the findings. * Patient currently on Florinef 0.1 mg every Thursday, Thursday, Thursday. Patient also started on midodrine 5 mg 3 times daily. Patient also on lisinopril 5 mg , metoprolol 25 mg and isosorbide 15 mg. Uncertain if these blood pressure medications are contributing. * Carotid Doppler revealed 50-69% stenosis of bilateral carotid bifurcations. Antegrade flow in both vertebral arteries. * CTA of the neck revealed prominent atherosclerotic calcification at the carotid bifurcations. This results in severe, at least 80 to 90% stenosis in the right carotid bulb. 2 adjacent segments of severe, greater than 70% stenosis proximal left ICA within the carotid bulb and just after. 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 * CTA of the head revealed severe atherosclerotic narrowing proximal V4 segment left vertebral artery. The left PICA takeoff is patent but there is loss of enhancement of the diminutive left vertebral artery thereafter. Moderate focal stenosis proximal V4 segment right vertebral artery. Relatively small caliber to the basilar artery with segmental mild stenosis and perhaps origin of the wallpaper inspector. Given these changes, correlate for symptoms of chronic vertebrobasilar insufficiency. Mild stenosis supraclinoid right ICA. Hypoplastic A1 segment right [place]. * Vascular surgery input appreciated. They believe patient has asymptomatic right ICA stenosis. Plavix has been added to the regimen, along with aspirin 81 mg. They recommend outpatient follow-up for carotid stenosis and further discussion for carotid intervention. Recommended continue aspirin and Lipitor. They believe there is discordant findings between the carotid Doppler and the CT angiogram. * EEG, was abnormal due to background slowing of at least moderate degree, suggestive of generalized cerebral dysfunction as can be seen with toxic metabolic encephalopathy or related to diffuse structural brain abnormality. Clinical correlation is recommended. No epileptiform activity was seen, no electrographic seizure was recorded. * Continue Sinemet at the current dose. * Continue Lipitor 80 mg. * Telemetry monitoring to rule out arrhythmia. Recommend 30 day event monitoring as well. * Hydration. * Discussed with primary physician in detail.
--- NOTE | 2024-09-03 00:31 | P.PN ---
Subjective Progress Note Date: 09/02/24 09/02/2024: Patient was seen for a follow-up. Patient's was also present. Patient is much alert and awake. Patient's feels that he is about 100% better. He sat in the chair, was talking, ate by himself. He is moving all extremities. Prior to getting sick, patient was quite independent. He would walk with a walker, and able to change his-dependent, and go to the washroom. Patient probably needs some therapy at this time. 09/01/2024: Patient was seen for a follow-up. Patient is very somnolent at this time. Patient's blood pressure has started improving. Keppra has been discontinued today. Patient received Seroquel 25 mg last night, and has been somnolent since then. We will decrease Seroquel to 12.5 mg when necessary. 08/31/2024: Patient was seen for a follow-up. Patient is somnolent at this time. Patient continues to have episodes of hypotension, with blood pressure 84/50. Cardiology is adjusting blood pressure medication. 08/30/2024: Patient was seen for a follow-up. Patient has not had any further syncopal spells since yesterday. Patient is very somnolent. 08/29/2024: Patient was seen for a follow-up. Patient's was also present. Patient had an "event" today at 1 PM, as described by the nurse as below: patients family came up to verse writer in the [place] stated patient as having "episode". Auto Polisher went into the room and patient was not responding to painful stimuli or voice, found to be having upper extremitiy and lower extremity twitches nonsimultaneously, pupils were PERRLA. BP was 64/40 HR 66 Li called at 1307, shazia wilhelm paged to room at 1310. Dr Jaquez with neurology paged via [employer] at 1310. Dr Morales with sound to bedside ordered 1000mg IVP Keppra, 2L bolus, 4 grams of magnesium IVPB, and labs (See orders). BP after ateam concluded 89/55 HR 68. Patient was beginning to respond to his name at conclusion of ateam and follow some commands including holding arms up. 1332 Dr Jaquez called verse writer back, informed him of patients episode, including twitches, BP, meds admin during ateam. Per Dr Jaquez he does not want a repeat CT at this time, he is going to order a MRI urgent. [id number] Auto Polisher Spoke with Fabiola in MRI and Dr Jaquez wanting MRI today if possible; Fabiola stated that there are no open spots available for today, notified Dr Jaquez of this and gave him phone number for CT scan. Patients Gabbi updated via phone call, and consent obtained for MRI. MRI of the brain revealed no acute ischemic process. I came to see the patient and his was also present. Patient's admits that patient does have mild cognitive impairment. He has these episodes of unresponsiveness sporadically started 4 years ago, but has got worse in the last 3 weeks. She mentions that the first episode occurred in spring 2020, when he was at primary care physician's office. Sometimes after, they were at a concert when while sitting, he again passed out, and was back to normal about 10 minutes after. This saw the supervisor cell efficiency Dr. Blair and recommended Florinef and compression stockings. He was also seen by Dr. Miguel and neurologist, who told that patient has "Lewy body dementia"., Patient's was not satisfied and never went back to them. They subsequently started seeing Dr[facility]. After starting Florinef, patient hardly had any spell, maybe 1 or 2 sporadic, random. Patient's mentions that they have lived in the same house for 50 years and they moved out of that house about 4 weeks ago. For first week he was doing well, but from second week onwards, he has been having episodes of passing out. When he is having it, it looks like he is looking at something else no connection to the reality. Patient's mentions that since last fall patient has been started on physical therapy. He is very weak, did not want to walk. He could not do exercises. He is also resistant to doing anything. Patient has been taking Aricept for the last 1 year, and it helped significantly with the memory. Patient follows up with Dr. [facility] for the last 3 years. Objective - Vital Signs Vital signs: Vital Signs Temp 98.7 F 09/02/24 16:00 Pulse 82 09/02/24 16:00 Resp 16 09/02/24 16:00 BP 161/88 09/02/24 16:00 Pulse Ox 98 09/02/24 16:00 FiO2 Intake & Output 09/01/24 09/02/24 09/02/24 18:59 06:59 18:59 Intake Total 0 118 Output Total 2900 600 Balance -2900 -600 118 Intake: Oral 0 118 Output: Urine 2900 600 Other: Voiding Method External Catheter External Catheter External Catheter # Bowel Movements 1 1 - Exam Patient is very alert and awake today. His speech is low volume, but no aphasia or dysarthria. Comprehension is intact. Patient's visual whitten appears full. Face is symmetric. Tongue protrudes the midline. On muscle strength testing, the strength is completely normal in upper extremities distally and proximally. In the lower extremities his ankle dorsiflexion are normal, hip flexion is 5 on the right, 5-on the left. Sensory is equal. - Labs CBC & Chem 7: 09/01/24 07:08 08/31/24 07:00 Labs: Abnormal Lab Results - Last 24 Hours (Table) 09/01/24 09/02/24 09/02/24 Range/Units 20:08 06:00 11:38 POC Glucose (mg/dL) 134 H 130 H 183 H (70-110) mg/dL 09/02/24 Range/Units 16:15 POC Glucose (mg/dL) 199 H (70-110) mg/dL Assessment and Plan Assessment: * Recurrent syncopal spells, likely due to hypotension. Patient's blood pressure at the scene was 75/38. Exact cause of hypotension and clear. Patient had another episode of unresponsive 08/29/2024 at 1 PM, when his blood pressure was 60/40. Seizure appears unlikely, as with seizure usually the blood pressure goes up. * Rule out vertebrobasilar insufficiency. * Significant multifocal atherosclerotic cerebrovascular disease. 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 * Orthostatic hypotension * Bilateral ICA stenosis, severe * Diabetes * Parkinson's disease * History of DVT and PE, on Xarelto * Hypertension * Hyperlipidemia * Dementia Plan: * Patient has significantly improved at this time. He is very alert and awake and strength appears fairly normal except left hip flexion which is slightly weak. * Patient's syncopal episodes are likely multifactorial. Patient has evidence of multifocal atherosclerotic cerebrovascular disease with bilateral ICA stenosis, vertebral artery and basilar artery disease. 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 These episodic hypotension probably leads to delirium/encephalopathy. * Patient's last episode was 08/29/2024, in which his blood pressure was again very low 60/40. * Patient was placed on Keppra empirically on 08/29/2024, after above event. Suspect related to cardiac reasons, rather than neurological. Cardiology suspect autonomic neuropathy and blood pressure medications contributing to the hypotension. They are cutting back on the medication. Patient is off Keppra. * MRI of the brain without contrast revealed no evidence of intracranial mass or acute/subacute infarct. Moderate cerebral atrophy and age-related changes. Nonspecific white matter changes, likely secondary to small vessel ischemic disease. Trace bilateral mastoid air cell effusions. I personally reviewed MRI agree with the findings. * Patient currently on Florinef 0.1 mg every Thursday, Thursday, Thursday. Patient also started on midodrine 5 mg 3 times daily. Patient on metoprolol 25 mg only. Isosorbide and lisinopril discontinued. Blood pressure around 161/88. * Carotid Doppler revealed 50-69% stenosis of bilateral carotid bifurcations. Antegrade flow in both vertebral arteries. * CTA of the neck revealed prominent atherosclerotic calcification at the carotid bifurcations. This results in severe, at least 80 to 90% stenosis in the right carotid bulb. 2 adjacent segments of severe, greater than 70% stenosis proximal left ICA within the carotid bulb and just after. 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 * CTA of the head revealed severe atherosclerotic narrowing proximal V4 segment left vertebral artery. The left PICA takeoff is patent but there is loss of enhancement of the diminutive left vertebral artery thereafter. Moderate focal stenosis proximal V4 segment right vertebral artery. Relatively small caliber to the basilar artery with segmental mild stenosis and perhaps origin of the patient intake representative. Given these changes, correlate for symptoms of chronic vertebrobasilar insufficiency. Mild stenosis supraclinoid right ICA. Hypoplastic A1 segment right WOLFGANG. * Vascular surgery input appreciated. They believe patient has asymptomatic right ICA stenosis. Plavix has been added to the regimen, along with aspirin 81 mg. They recommend outpatient follow-up for carotid stenosis and further discussion for carotid intervention. Recommended continue aspirin and Lipitor. They believe there is discordant findings between the carotid Do ppler and the CT angiogram. * EEG, was abnormal due to background slowing of at least moderate degree, suggestive of generalized cerebral dysfunction as can be seen with toxic metabolic encephalopathy or related to diffuse structural brain abnormality. Clinical correlation is recommended. No epileptiform activity was seen, no electrographic seizure was recorded. * Continue Sinemet at the current dose. * Continue Lipitor 80 mg. * Telemetry monitoring to rule out arrhythmia. * Hydration. * Discussed with patient's in detail.
[2024-09-03 06:12] LABS: Glucose,Whole Blood 135 mg/dL (70-110)
[2024-09-03 11:32] LABS: Glucose,Whole Blood 107 mg/dL (70-110)
[2024-09-03] MEDS ORDERED: MIDODRINE 5 MG TAB PO PRN (14:03)
--- NOTE | 2024-09-03 14:16 | P.PN ---
Subjective Progress Note Date: 09/03/24 Progress note Date of service 09/13/[address] Rowe Patient seen today [id number] and he is conscious alert oriented He had during the night 1 episode of confusion agitation and he received Haldol x 1 only. His blood pressure has been stable through the night and yesterday with the discontinuation of the lisinopril His current vital sign is respiratory rate 20/min nonlabored his blood pressure 134/77 with a mean 96, oxygen saturation 97%. And his heart rate 79, temperature 97.9 F oral. Completely and he is maintaining blood pressure fairly well. As patient able to communicate freely still has sundowning could be during the night with the agitation or confusion. We did discontinue lisinopril yesterday and he did not receive any lisinopril his blood pressure did not drop. Will also try to use the midodrine as as needed only if the blood pressure drops below 110 systolic We already stopped his Florinef His still not available at this time as she did not come yet however she is on her way Patient completely improved and he came to his baseline I ordered for him to the ambulation and rehabilitation and he can proceed on with the ambulation with assistant branch operations manager and I did consult physical therapy. On the physical examination: Definitely physical improvement. Blood pressure controlled. Head was normocephalic atraumatic pupil was equal reactive conjunctiva was pink sclera was nonicteric and extraocular muscle movement is intact Normal hearing Able to eat and swallow no choking Neck was supple no JVD no thyromegaly no lymph adenopathy trachea midline Chest is clear to auscultation percussion normal breath sounds no shortness of breath Heart is regular sinus rhythm Abdomen is soft positive bowel sounds Extremities no edema and positive pulses with good perfusion. Neurologically significant improvement. Assessment and plan: 1. No significant clinical improvement #2 will plan for physical therapy to start ambulating 3. Still continuing monitoring blood pressure which is significantly improved without the lisinopril 4. Midodrine will be changed to as needed to be given only if blood pressure below 110 systolic. And 5. Continue monitoring sundowning during the early night to see if he has a recurrent episode of agitation. Patient currently not on Keppra due to no evidence of seizure disorder [facility] and his blood pressure maintained as well as his lisinopril has been discontinued. In regard of midodrine which changed to as needed to indicate if there is any dropping in the blood pressure. Patient received Haldol with the agitation last night with the consideration of owning. And we will try to get up to chair and ambulate. Objective - Vital Signs Vital signs: Vital Signs Temp 97.9 F 09/03/24 08:00 Pulse 79 09/03/24 08:00 Resp 20 09/03/24 08:00 BP 134/77 09/03/24 08:00 Pulse Ox 97 09/03/24 08:00 FiO2 Intake & Output 09/02/24 09/03/24 09/03/24 18:59 06:59 18:59 Intake Total 236 360 Output Total 550 450 Balance 236 -550 -90 Weight 86 kg Intake: Oral 236 360 Output: Urine 550 450 Other: Voiding Method External Catheter External Catheter External Catheter # Bowel Movements 1 - Labs CBC & Chem 7: 09/01/24 07:08 08/31/24 07:00 Labs: Abnormal Lab Results - Last 24 Hours (Table) 09/02/24 09/02/24 09/03/24 Range/Units 16:15 20:47 05:56 POC Glucose (mg/dL) 199 H 206 H 135 H (70-110) mg/dL
[2024-09-03 16:35] LABS: Glucose,Whole Blood 136 mg/dL (70-110)
[2024-09-03 20:20] LABS: Glucose,Whole Blood 169 mg/dL (70-110)
[2024-09-04 05:51] LABS: Glucose,Whole Blood 133 mg/dL (70-110)
--- NOTE | 2024-09-04 11:24 | P.PN ---
Subjective Progress Note Date: 09/03/24 09/03/2024: Patient is laying in the bed, very much alert and awake. Denies any headache. No dizziness. Patient appears very comfortable, and a sitter was also present. No agitation. 09/02/2024: Patient was seen for a follow-up. Patient's was also present. Patient is much alert and awake. Patient's feels that he is about 100% better. He sat in the chair, was talking, ate by himself. He is moving all extremities. Prior to getting sick, patient was quite independent. He would walk with a walker, and able to change his-dependent, and go to the washroom. P atient probably needs some therapy at this time. 09/01/2024: Patient was seen for a follow-up. Patient is very somnolent at this time. Patient's blood pressure has started improving. Keppra has been discontinued today. Patient received Seroquel 25 mg last night, and has been somnolent since then. We will decrease Seroquel to 12.5 mg when necessary. 08/31/2024: Patient was seen for a follow-up. Patient is somnolent at this time. Patient continues to have episodes of hypotension, with blood pressure 84/50. Cardiology is adjusting blood pressure medication. 08/30/2024: Patient was seen for a follow-up. Patient has not had any further syncopal spells since yesterday. Patient is very somnolent. 08/29/2024: Patient was seen for a follow-up. Patient's was also present. Patient had an "event" today at 1 PM, as described by the nurse as below: patients family came up to entry writer in the [place] stated patient as having "episode". Square Cutter went into the room and patient was not responding to painful stimuli or voice, found to be having upper extremitiy and lower extremity twitches nonsimultaneously, pupils were PERRLA. BP was 64/40 HR 66 Li called at 1307, shazia wilhelm paged to room at 1310. Dr Jaquez with neurology paged via [employer] at 1310. Dr Morales with sound to bedside ordered 1000mg IVP Keppra, 2L bolus, 4 grams of magnesium IVPB, and labs (See orders). BP after ateam concluded 89/55 HR 68. Patient was beginning to respond to his name at conclusion of ateam and follow some commands including holding arms up. 1332 Dr Jaquez called entry writer back, informed him of patients episode, including twitches, BP, meds admin during ateam. Per Dr Jaquez he does not want a repeat CT at this time, he is going to order a MRI urgent. 1351 Square Cutter Spoke with Fabiola in MRI and Dr Jaquez wanting MRI today if possible; Fabiola stated that there are no open spots available for today, notified Dr Jaquez of this and gave him phone number for CT scan. Patients Gabbi updated via phone call, and consent obtained for MRI. MRI of the brain revealed no acute ischemic process. I came to see the patient and his was also present. Patient's admits that patient does have mild cognitive impairment. He has these episodes of unresponsiveness sporadically started 4 years ago, but has got worse in the last 3 weeks. She mentions that the first episode occurred in spring 2020, when he was at primary care physician's office. Sometimes after, they were at a concert when while sitting, he again passed out, and was back to normal about 10 minutes after. This saw the creative services producer Dr. Blair and recommended Florinef and compression stockings. He was also seen by Dr. Miguel and neurologist, who told that patient has "Lewy body dementia"., Patient's was not satisfied and never went back to them. They subsequently started seeing Dr. [facility]. After starting Florinef, patient hardly had any spell, maybe 1 or 2 sporadic, random. Patient's mentions that they have lived in the same house for 50 years and they moved out of that house about 4 weeks ago. For first week he was doing well, but from second week onwards, he has been having episodes of passing out. When he is having it, it looks like he is looking at something else no connection to the reality. Patient's mentions that since last fall patient has been started on physical therapy. He is very weak, did not want to walk. He could not do exercises. He is also resistant to doing anything. Patient has been taking Aricept for the last 1 year, and it helped significantly with the memory. Patient follows up with Dr. [facility] for the last 3 years. Objective - Vital Signs Vital signs: Vital Signs Temp 97.9 F 09/03/24 08:00 Pulse 79 09/03/24 08:00 Resp 20 09/03/24 08:00 BP 134/77 09/03/24 08:00 Pulse Ox 97 09/03/24 08:00 FiO2 Intake & Output 09/02/24 09/03/24 09/03/24 18:59 06:59 18:59 Intake Total 236 0 Output Total 550 450 Balance 236 -550 -450 Weight 86 kg Intake: Oral 236 0 Output: Urine 550 450 Other: Voiding Method External Catheter External Catheter External Catheter # Bowel Movements 1 - Exam Patient is very alert and awake today. His speech is low volume, but no aphasia or dysarthria. Patient states is the month of December and the year is 2019. He knows that he is in [place] in [place] and name of the current president Mr. James Rocha. He still has some slow mentation, prolonged latency time to answer questions. Comprehension is intact. Patient's visual whitten appears full. Face is symmetric. Tongue protrudes the midline. On muscle strength testing, the strength is completely normal in upper e xtremities distally and proximally. In the lower extremities his ankle dorsiflexion are normal, hip flexion is 5 on the right, 5-on the left. Sensory is equal. - Labs CBC & Chem 7: 09/01/24 07:08 08/31/24 07:00 Labs: Abnormal Lab Results - Last 24 Hours (Table) 09/02/24 09/02/24 09/03/24 Range/Units 16:15 20:47 05:56 POC Glucose (mg/dL) 199 H 206 H 135 H (70-110) mg/dL Assessment and Plan Assessment: * Recurrent syncopal spells, likely due to hypotension. Patient's blood pressure at the scene was 75/38. Exact cause of hypotension and clear. Damaris elise had another episode of unresponsive 08/29/2024 at 1 PM, when his blood pressure was 60/40. Seizure appears unlikely, as with seizure usually the blood pressure goes up. * Rule out vertebrobasilar insufficiency. * Significant multifocal atherosclerotic cerebrovascular disease. 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 * Orthostatic hypotension * Bilateral ICA stenosis, severe * Diabetes * Parkinson's disease * History of DVT and PE, on Xarelto * Hypertension * Hyperlipidemia * Dementia Plan: * Patient has significantly improved at this time. He is very alert and awake and strength appears fairly normal except left hip flexion which is slightly weak. * Patient's syncopal episodes are likely multifactorial. Patient has evidence of multifocal atherosclerotic cerebrovascular disease with bilateral ICA stenosis, vertebral artery and basilar artery disease. 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 These episodic hypotension probably leads to delirium/encephalopathy. * Patient's last episode was 08/29/2024, in which his blood pressure was again very low 60/40. * Patient was placed on Keppra empirically on 08/29/2024, after above event. Suspect related to cardiac reasons, rather than neurological. Cardiology suspect autonomic neuropathy and blood pressure medications contributing to the hypotension. They are cutting back on the medication. Patient is off Keppra. * MRI of the brain without contrast revealed no evidence of intracranial mass or acute/subacute infarct. Moderate cerebral atrophy and age-related changes. Nonspecific white matter changes, likely secondary to small vessel ischemic disease. Trace bilateral mastoid air cell effusions. I personally reviewed MRI agree with the findings. * Patient currently on Florinef 0.1 mg every Thursday, Thursday, Thursday. Patient also started on midodrine 5 mg 3 times daily. Patient on metoprolol 25 mg only. Isosorbide and lisinopril discontinued. Blood pressure around 161/88. * Carotid Doppler revealed 50-69% stenosis of bilateral carotid bifurcations. Antegrade flow in both vertebral arteries. * CTA of the neck revealed prominent atherosclerotic calcification at the carotid bifurcations. This results in severe, at least 80 to 90% stenosis in the right carotid bulb. 2 adjacent segments of severe, greater than 70% stenosis proximal left ICA within the carotid bulb and just after. 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 * CTA of the head revealed severe atherosclerotic narrowing proximal V4 segment left vertebral artery. The left PICA takeoff is patent but there is loss of enhancement of the diminutive left vertebral artery thereafter. Moderate focal stenosis proximal V4 segment right vertebral artery. Relatively small caliber to the basilar artery with segmental mild stenosis and perhaps origin of the bpm solution architect. Given these changes, correlate for symptoms of chronic vertebrobasilar insufficiency. Mild stenosis supraclinoid right ICA. Hypoplastic A1 segment right WOLFGANG. * Vascular surgery input appreciated. They believe patient has asymptomatic right ICA stenosis. Plavix has been added to the regimen, along with aspirin 81 mg. They recommend outpatient follow-up for carotid stenosis and further discussion for carotid intervention. Recommended continue aspirin and Lipitor. They believe there is discordant findings between the carotid Doppler and the CT angiogram. * EEG, was abnormal due to background slowing of at least moderate degree, suggestive of generalized cerebral dysfunction as can be seen with toxic metabolic encephalopathy or related to diffuse structural brain abnormality. Clinical correlation is recommended. No epileptiform activity was seen, no electrographic seizure was recorded. * Continue Sinemet at the current dose. * Continue Lipitor 80 mg. * Telemetry monitoring to rule out arrhythmia. * Hydration. * Discussed with patient's in detail. * Neurologically otherwise clear for transfer to subacute rehab. Dr. Minesh Willingham starting neurology service from Thursday.
[2024-09-04 11:37] LABS: Glucose,Whole Blood 201 mg/dL (70-110)
[2024-09-04] MEDS ORDERED: LORazepam 2 MG/ML INJ IM PRN (12:28)
--- NOTE | 2024-09-04 12:55 | P.PN ---
Subjective Progress Note Date: 09/04/24 [address] Dr. Rowe Date of service 09/04/2024. Patient seen today [id number] and he is on Lauren chair smiling Able to communicate and able to eat but he need respiratory care assistant with the meal. He is confused to the place and time could not recall my name, also he only recognizes that we are in the year of 2023 and could not recall the name of the president. With the advanced confusion With the discussion for with the nurses RN Majo, found the patient during the night he received Haldol for agitation. The episode of agitation occurred around 4 AM today, the day before she also had similar agitation and he received the Haldol at 8 PM with dull constant cycle. However he is today completely awake alert but confused in the Lauren chair and we did not have the physical therapy to ambulate him but he able to move his 4 extremities. In regard of his blood pressure reviewed with the RN and he has no episode of hypotension and he was not received any midodrine as currently is only on as needed basis. He ate all his breakfast but has need some respiratory care assistant His vital sign indicating temperature 97.4 F oral his heart is regular 87 and respiratory rate 16/min and blood pressure fluctuating between systolic 1 27-1 67 which is fairly good with no episodic hypotension. During the day no episode of agitation. In the monitoring the blood sugar is fluctuating and before lunch was 201, will be resuming his metformin which was held initially because of several testing with the dye. And will continue monitoring the blood sugar. On exam: Patient is conscious alert oriented x 3 no acute respiratory distress and he is smiling comfortable very pleasant Head was normocephalic atraumatic pupil was equal reactive and extraocular muscle movement is intact Patient responding to the question appropriately and the motion however in the memory has been impaired Oropharynx natural teeth Hearing is normal Neck was supple no JVD no thyromegaly no lymph adenopathy trachea midline. Chest is clear no rales normal respiratory breathing. No rhonchi's no rales. Heart regular sinus rhythm and no evidence of hypotension despite that lisinopril has been completely removed from his medication and no evidence of hypotension Abdomen was soft positive bowel sounds Extremities no edema and positive pulses. Neuro Neurologically patient stable however he had progressive dementia with the underlying Parkinson disease. Assessment: 1. History of hypotension as so far resolved 2. Underlying episodic agitation was assumed to be sundowning however it happened in a different timing of the evening and hydroponics grower hour. 3. Parkinson disease history of frequent fall 4. Dementia progressive. 5. Hypothyroidism currently controlled 6. 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 7. Diabetes mellitus type 2 not well-controlled. 8. Hyperlipidemia Plan: 1. Will discontinue the Haldol 2. Replace it with Ativan p.o. at 7 PM to avoid early sundowning agitation. 3. Also ordered Ativan IM as needed only for hydroponics grower agitation with the monitoring. 4. Patient so far did not needed to have any midodrine due to his blood pressure stability with no severe hypotension. 5. Patient able to communicate however memory has been impaired 6. Patient able to eat and swallow with no dysphagia but he has difficulty to use his upper extremities and he need a sitter to help him for feeding. 7. Diabetes mellitus on insulin however we will be restarting his metformin, his metformin was held because of the investigation and the IV dye given with the investigation. 8. Will obtain in a.m. CBC with differential BMP and magnesium. Objective - Vital Signs Vital signs: Vital Signs Temp 97.5 F L 09/04/24 11:45 Pulse 85 09/04/24 11:45 Resp 16 09/04/24 11:45 BP 160/89 09/04/24 11:45 Pulse Ox 97 09/04/24 11:45 FiO2 Intake & Output 09/03/24 09/04/24 09/04/24 19:59 06:59 18:59 Intake Total 360 Output Total 400 Balance -40 Weight Intake: Intake, IV Titration Amount Sodium Chloride 0.9% 1, 000 ml @ 100 mls/hr IV . Q10H [facility] Rx#:[id number] Oral 360 Output: Urine 400 Other: Voiding Method Indwelling Catheter # Bowel Movements - Labs CBC & Chem 7: 09/01/24 07:08 08/31/24 07:00 Labs: Abnormal Lab Results - Last 24 Hours (Table) 09/03/24 09/03/24 09/04/24 Range/Units 16:25 20:19 05:49 POC Glucose (mg/dL) 136 H 169 H 133 H (70-110) mg/dL 09/04/24 Range/Units 11:33 POC Glucose (mg/dL) 201 H (70-110) mg/dL
[2024-09-04] MEDS: metFORMIN 500 MG TAB PO SCH (15:55)
[2024-09-04 16:38] LABS: Glucose,Whole Blood 205 mg/dL (70-110)
[2024-09-04 20:14] LABS: Glucose,Whole Blood 156 mg/dL (70-110)
[2024-09-04] MEDS: LORazepam 0.5 MG TAB PO SCH (20:43)
--- NOTE | 2024-09-05 01:48 | P.PN ---
Subjective Progress Note Date: 09/04/24 09/04/2024: Patient was seen for a follow-up. Patient's family members were also present including his . His second cousin was also present. Patient and his cousin were reminiscing about past. Patient's memory is good, and can recall events that his cousin was telling. A while ago, he started trying to pickling operator objects from the air, but his calmed down. He is laying in the bed appears comfortable, smiling. No distress. 09/03/2024: Patient is laying in the bed, very much alert and awake. Denies any headache. No dizziness. Patient appears very comfortable, and a sitter was also present. No agitation. 09/02/2024: Patient was seen for a follow-up. Patient's was also present. Patient is much alert and awake. Patient's feels that he is about 100% better. He sat in the chair, was talking, ate by himself. He is moving all extremities. Prior to getting sick, patient was quite independent. He would walk with a walker, and able to change his-dependent, and go to the washroom. Patient probably needs some therapy at this time. 09/01/2024: Patient was seen for a follow-up. Patient is very somnolent at this time. Patient's blood pressure has started improving. Keppra has been disconti nued today. Patient received Seroquel 25 mg last night, and has been somnolent since then. We will decrease Seroquel to 12.5 mg when necessary. 08/31/2024: Patient was seen for a follow-up. Patient is somnolent at this time. Patient continues to have episodes of hypotension, with blood pressure 84/50. Cardiology is adjusting blood pressure medication. 08/30/2024: Patient was seen for a follow-up. Patient has not had any further syncopal spells since yesterday. Patient is very somnolent. 08/29/2024: Patient was seen for a follow-up. Patient's was also present. Patient had an "event" today at 1 PM, as described by the nurse as below: patients family came up to consumer loan underwriter in the [place] stated patient as having "episode". Professional Services Consultant went into the room and patient was not responding to painful stimuli or voice, found to be having upper extremitiy and lower extremity twitches nonsimultaneously, pupils were PERRLA. BP was 64/40 HR 66 Ateam called at 1307, sound choco paged to room at 1310. Dr Jaquez with neurology paged via perfect serve at 1310. Dr Morales with sound to bedside ordered 1000mg IVP Keppra, 2L bolus, 4 grams of magnesium IVPB, and labs (See orders). BP after ateam concluded 89/55 HR 68. Patient was beginning to respond to his name at conclusion of ateam and follow some commands including holding arms up. 1332 Dr Jaquez called consumer loan underwriter back, informed him of patients episode, including twitches, BP, meds admin during ateam. Per Dr Jaquez he does not want a repeat CT at this time, he is going to order a MRI urgent. 1356 Professional Services Consultant Spoke with Fabiola in MRI and Dr Jaquez wanting MRI today if possible; Fabiola stated that there are no open spots available for today, notified Dr Jaquez of this and gave him phone number for CT scan. Patients Gabbi updated via phone call, and consent obtained for MRI. MRI of the brain revealed no acute ischemic process. I came to see the patient and his was also present. Patient's admits that patient does have mild cognitive impairment. He has these episodes of unresponsiveness sporadically started 4 years ago, but has got worse in the last 3 weeks. She mentions that the first episode occurred in spring 2020, when he was at primary care physician's office. Sometimes after, they were at a concert when while sitting, he again passed out, and was back to normal about 10 minutes after. This saw the adult caregiver Dr. Blair and recommended Florinef and compression stockings. He was also seen by Dr. Miguel and neurologist, who told that patient has "Lewy body dementia"., Patient's was not satisfied and never went back to them. They subsequently started seeing Dr[facility]. After starting Florinef, patient hardly had any spell, maybe 1 or 2 sporadic, random. Patient's mentions that they have lived in the same house for 50 years and they moved out of that house about 4 weeks ago. For first week he was doing well, but from second week onwards, he has been having episodes of passing out. When he is having it, it looks like he is looking at something else no connection to the reality. Patient's mentions that since last fall patient has been started on physical therapy. He is very weak, did not want to walk. He could not do exercises. He is also resistant to doing anything. Patient has been taking Aricept for the last 1 year, and it helped significantly with the memory. Patient follows up with Dr. [facility] for the last 3 years. Objective - Vital Signs Vital signs: Vital Signs Temp 97.5 F L 09/04/24 11:45 Pulse 85 09/04/24 14:00 Resp 16 09/04/24 11:45 BP 160/89 09/04/24 11:45 Pulse Ox 97 09/04/24 11:45 FiO2 Intake & Output 09/03/24 09/04/24 09/04/24 19:59 06:59 18:59 Intake Total 480 Output Total 400 Balance 80 Weight Intake: Intake, IV Titration Amount Sodium Chloride 0.9% 1, 000 ml @ 100 mls/hr IV . Q10H [facility] Rx#:[id number] Oral 480 Output: Urine 400 Other: Voiding Method Indwelling Catheter # Bowel Movements - Exam Patient is very alert and awake today. His speech is low volume, but no aphasia or dysarthria. He knows that he is in [place] in [place] and name of the current president Mr. James Rocha. He still has some slow mentation, prolonged latency time to answer questions. Comprehension is intact. Patient's visual whitten appears full. Face is symmetric. Tongue protrudes the midline. On muscle strength testing, the strength is completely normal in upper extremities distally and proximally. In the lower extremities his ankle dorsiflexion are normal, hip flexion is 5 on the right, 5-on the left. Sensory is equal. - Labs CBC & Chem 7: 09/01/24 07:08 08/31/24 07:00 Labs: Abnormal Lab Results - Last 24 Hours (Table) 09/03/24 09/04/24 09/04/24 Range/Units 20:19 05:49 11:33 POC Glucose (mg/dL) 169 H 133 H 201 H (70-110) mg/dL Assessment and Plan Assessment: * Recurrent syncopal spells, likely due to hypotension. Patient's blood pressure at the scene was 75/38. Exact cause of hypotension and clear. Patient had another episode of unresponsive 08/29/2024 at 1 PM, when his blood pressure was 60/40. Seizure appears unlikely, as with seizure usually the blood pressure goes up. * Rule out vertebrobasilar insufficiency. * Significant multifocal atherosclerotic cerebrovascular disease. 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 * Orthostatic hypotension * Bilateral ICA stenosis, severe * Diabetes * Parkinson's disease * History of DVT and PE, on Xarelto * Hypertension * Hyperlipidemia * Dementia Plan: * Patient has significantly improved at this time. He is very alert and awake and strength appears fairly normal except left hip flexion which is slightly weak. * Patient's mentation is also improved. Sometimes he gets slightly agitated at night. Primary has started Ativan 0.5 mg at bedtime. Watch for delirium from benzos. * Patient's syncopal episodes are likely multifactorial. Patient has evidence of multifocal atherosclerotic cerebrovascular disease with bilateral ICA stenosis, vertebral artery and basilar artery disease. 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 These episodic hypotension probably leads to delirium/encephalopathy. * Patient's last episode was 08/29/2024, in which his blood pressure was again very low 60/40. * Patient was placed on Keppra empirically on 08/29/2024, after above event. Suspect related to cardiac reasons, rather than neurological. Cardiology suspect autonomic neuropathy and blood pressure medications contributing to the hypotension. They are cutting back on the medication. Patient is off Keppra. * MRI of the brain without contrast revealed no evidence of intracranial mass or acute/subacute infarct. Moderate cerebral atrophy and age-related changes. Nonspecific white matter changes, likely secondary to small vessel ischemic disease. Trace bilateral mastoid air cell effusions. I personally reviewed MRI agree with the findings. * Patient currently on Florinef 0.1 mg every Thursday, Thursday, Thursday. Patient also started on midodrine 5 mg 3 times daily. Patient on metoprolol 25 mg only. Isosorbide and lisinopril discontinued. Blood pressure around 161/88. * Carotid Doppler revealed 50-69% stenosis of bilateral carotid bifurcations. Antegrade flow in both vertebral arteries. * CTA of the neck revealed prominent atherosclerotic calcification at the carotid bifurcations. This results in severe, at least 80 to 90% stenosis in the right carotid bulb. 2 adjacent segments of severe, greater than 70% stenosis proximal left ICA within the carotid bulb and just after. 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 * CTA of the head revealed severe atherosclerotic narrowing proximal V4 segment left vertebral artery. The left PICA takeoff is patent but there is loss of enhancement of the diminutive left vertebral artery thereafter. Moderate foca l stenosis proximal V4 segment right vertebral artery. Relatively small caliber to the basilar artery with segmental mild stenosis and perhaps origin of the archival studies professor. Given these changes, correlate for symptoms of chronic vertebrobasilar insufficiency. Mild stenosis supraclinoid right ICA. Hyp oplastic A1 segment right WOLFGANG. * Vascular surgery input appreciated. They believe patient has asymptomatic right ICA stenosis. Plavix has been added to the regimen, along with aspirin 81 mg. They recommend outpatient follow-up for carotid stenosis and further discussion for carotid intervention. Recommended continue aspirin and Lipitor. They believe there is discordant findings between the carotid Doppler and the CT angiogram. * EEG, was abnormal due to background slowing of at least moderate degree, suggestive of generalized cerebral dysfunction as can be seen with toxic metabolic encephalopathy or related to diffuse structural brain abnormality. Clinical correlation is recommended. No epileptiform activity was seen, no electrographic seizure was recorded. * Continue Sinemet at the current dose. * Continue Lipitor 80 mg. * Telemetry monitoring to rule out arrhythmia. * Hydration. * Discussed with patient's in detail. * Neurologically otherwise clear for transfer to subacute rehab. Dr. Minesh Willingham starting neurology service from Thursday morning.
[2024-09-05 06:18] LABS: Glucose,Whole Blood 164 mg/dL (70-110)
[2024-09-05 07:39] LABS: Basophils % (A) 0 %; Eosinophils # (A) 0.1 k/uL (0-0.7); Eosinophils % (A) 1 %; HCT 41.4 % (39.0-53.0); HGB 13.8 gm/dL (13.0-17.5); Lymphocytes # (A) 0.9 k/uL (1.0-4.8); Lymphocytes % (A) 12 %; MCH 29.2 pg (25.0-35.0); MCHC 33.3 g/dL (31.0-37.0); MCV 87.7 fL (80.0-100.0); Mean Platelet Volume 7.4; Monocytes # (A) 0.8 k/uL (0-1.0); Monocytes % (A) 10 %; Neutrophils # (A) 5.9 k/uL (1.3-7.7); Neutrophils % (A) 75 %; Platelet Count 208 k/uL (150-450); RBC 4.73 m/uL (4.30-5.90); RDW 14.2 % (11.5-15.5); WBC 7.8 k/uL (3.8-10.6)
[2024-09-05 08:03] LABS: African American GFR (CKD) >90 (>60 ml/min/1.73 sqM); Anion Gap 5 mmol/L; Blood Urea Nitrogen 14 mg/dL (9-20); Calcium 7.8 mg/dL (8.4-10.2); Carbon Dioxide 26 mmol/L (22-30); Chloride 104 mmol/L (98-107); Glucose 165 mg/dL (74-99); Magnesium 1.1 mg/dL (1.6-2.3); Non-African American GFR(CKD) >90 (>60 ml/min/1.73 sqM); Potassium 3.9 mmol/L (3.5-5.1); Sodium 135 mmol/L (137-145)
[2024-09-05 11:36] LABS: Glucose,Whole Blood 139 mg/dL (70-110)
--- NOTE | 2024-09-05 13:34 | P.PN ---
Subjective Progress Note Date: 09/05/24 Progress note Date of service 09/05/[address] Rowe. Vital sign: Temperature 98.3 F axillary., Heart rate regular 88 to 81 bpm and respiratory rate 16/min. Nonlabored, blood pressure at 8 AM 147/76 with a mean blood pressure 99. Oxygen saturation 96% on room air. Laboratories: His white count 7.8, hemoglobin 13.8 with hematocrit 41.4 normal and chemistry indicating that sodium 135 potassium 3.9 and chloride 104, carbon dioxide 26, anion gap 5, BUN 14, and creatinine 0.46 with the EGFR is more than 90. His blood glucose 165 with the POC glucose 139 fairly well-controlled at this time with the initiation of the metformin as well helping. Calcium is 7.8 and will obtain ionized calcium as well as his magnesium is 1.1 and we will be starting IV piggyback magnesium 2 g as he had history of low magnesium before. On exam patient is conscious alert still confused. He had episode of during the night agitation and he received Haldol. On exam Patient awake alert conscious however he is confused but able to answer questions and he need help with feeding his lunch and he ate his breakfast. He able to communicate but he is confused Head was normocephalic atraumatic the pupils equal reactive conjunctiva was pink sclera was nonicteric the extraocular muscle movement is intact. Oropharynx he had natural teeth able to's to eat and swallow. The Neck was supple no JVD no thyromegaly no lymphadenopathy trachea midline. Chest is clear to auscultation percussion and no wheezes no rhonchi The heart is regular sinus rhythm and the blood pressure is controlled no evidence of hypotension. The abdomen is soft positive bowel sound and he had Rob catheter with the neurogenic bladder and urine retention. The extremities no edema and positive pulses. Neurology per Dr. Willingham and seen yesterday by Dr. Chery neurologist. Neuro Assessment: And plan Labile hypertension resolved and he has steady blood pressure which is controlled and no evidence of hypotension and he We requesting the physical therapy as well to continue and up to chair. 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 We also did a program for the Ativan to be given in the p.m. as well to prevent the sundowning as well as to be given as needed IM in case of agitation and to discontinue the Haldol. We are monitoring the delirium and if that occurred we will be discontinuing completely the planning of the Ativan and starting the a typical psychotropic medication is Seroquel in the small doses however at this time because of difficulties with this medication at the group home we will continue with the Ativan which may be available in the group home. Laboratories stable and his renal function is corrected more than 90. Hypomagnesemia and he can receive 2 g and will check magnesium tomorrow. Dementia with behavioral disturbance we will try the current regimen and if it is not working we will leave Zyrtec to atypical antipsychotic Seroquel p.o. Objective - Vital Signs Vital signs: Vital Signs Temp 98.3 F 09/05/24 08:00 Pulse 81 09/05/24 08:00 Resp 16 09/05/24 08:00 BP 147/76 09/05/24 08:00 Pulse Ox 96 09/05/24 08:00 FiO2 Intake & Output 09/04/24 09/05/24 09/05/24 18:59 06:59 18:59 Intake Total 600 Output Total 400 950 Balance 200 -950 Weight 88.5 kg Intake: Oral 600 Output: Urine 400 950 Other: Voiding Method Indwelling Catheter Indwelling Catheter # Bowel Movements 1 1 - Labs CBC & Chem 7: 09/05/24 06:45 09/05/24 06:45 Labs: Abnormal Lab Results - Last 24 Hours (Table) 09/04/24 09/04/24 09/05/24 Range/Units 16:37 20:13 06:16 Lymphocytes # (1.0-4.8) k/uL Sodium (137-145) mmol/L Creatinine (0.66-1.25) mg/dL Glucose (74-99) mg/dL POC Glucose (mg/dL) 205 H 156 H 164 H (70-110) mg/dL Calcium (8.4-10.2) mg/dL Magnesium (1.6-2.3) mg/dL 09/05/24 09/05/24 09/05/24 Range/Units 06:45 06:45 11:34 Lymphocytes # 0.9 L (1.0-4.8) k/uL Sodium 135 L (137-145) mmol/L Creatinine 0.64 L (0.66-1.25) mg/dL Glucose 165 H (74-99) mg/dL POC Glucose (mg/dL) 139 H (70-110) mg/dL Calcium 7.8 L (8.4-10.2) mg/dL Magnesium 1.1 L (1.6-2.3) mg/dL
[2024-09-05] MEDS: MAGNESIUM SULFATE-D5W PMX 1 GM in DEXTROSE/WATER 1 100ML.BAG IVPB SCH (16:39)
[2024-09-05 16:48] LABS: Glucose,Whole Blood 98 mg/dL (70-110)
[2024-09-05 20:16] LABS: Glucose,Whole Blood 145 mg/dL (70-110)
[2024-09-06 06:42] LABS: Glucose,Whole Blood 129 mg/dL (70-110)
[2024-09-06 10:50] VITALS: BMI 30.5
[2024-09-06 11:39] LABS: Glucose,Whole Blood 159 mg/dL (70-110)
[2024-09-06] MEDS ORDERED: LORazepam 1 MG TAB PO PRN (13:40)
--- NOTE | 2024-09-06 14:16 | P.PN ---
Subjective Progress Note Date: 09/06/24 Progress toward date of service 09/06/[address] 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 Patient awake alert able to communicate and speak and able to eat and swallow an d actually he was eating chocolate chip was brought to him by his cousin and he was enjoying it. We monitoring his blood pressure and his blood pressure mainly for hypotension no evidence of hypotension during the night and we discontinued midodrine and Florinef. We also discontinued the Haldol. Patient waiting for bed in the [facility] and they do not want any IM or IV medication and we changing his Ativan to p.o. at bedtime 0.5 mg also changed the Ativan in a.m. 3 to 4 AM for questionable agitation and will give him 1 mg as needed only if there is agitation. Patient not on atypical psychotic medication and he is smiling happy at this point In regard Rob catheter we going to discontinue now and try to do bladder scan every 4-6 hour as needed and if he is retaining the urine as he had before we will be putting back again the Rob catheter and he will be going with tumor [facility] if he is retaining his urine with the consideration of neurogenic bladder. His vital sign today: 90 8.4F oral and his heart rate 88/min to 74, and his respiratory rate 16/min nonlabored normal and his blood pressure 174/79 however when he had medication before he dropped to the 80s with the hypotension. And wet end tester said do not add any medication for avoidance of hypotension. In regards of diabetes mellitus has been fairly well-controlled at this time. On the exam patient is conscious alert oriented however he is with the underlying dementia with forgetfulness intermittently. He is pleasant calm and smiling and no other concern no shortness of breath no chest pain. Head normocephalic atraumatic pupil was equal reactive conjunctiva was pink sclera was nonicteric there is no facial deviation or abnormalities Hearing is normal and oropharynx he had natural teeth able to eat and swallow without any dysphagia. His neck was supple no JVD no thyromegaly no lymphadenopathy trachea midline. Chest was clear to auscultation percussion No wheezes no rhonchi's Heart was regular sinus rhythm and his no evidence of arrhythmia and he had the no chest pain new line abdomen soft positive bowel sound and he wearing diaper and he had a Rob catheter in place. Extremities no edema and positive pulses and he is receiving currently physical therapy. Neurologically patient is moving his upper extremities and lower extremities and needs more for thorough rehabilitation in [facility]. And the observation no evidence of delirium at this point with the use of benzodiazepine. Assessment and plan I did discuss it with the case folder today and she stated that they have to do authorization from the [facility] and at the same time waiting for the authorization and patient will not be able to go to [facility] today. 2. In the [facility] require no medication IV or IM for agitation and I did switch it to oral medication for that purpose. 3. We will continue the current medication and with the underlying hypothyroidism stable Will continue monitoring 4. Rob catheter will be discontinued as trial and will see bladder scan if he had any urine retention we will be place it again and patient will be going with the catheter however the trial will be done today and I did speak with Cheyanne her RN nurse. Objective - Vital Signs Vital signs: Vital Signs Temp 98.4 F 09/06/24 05:00 Pulse 74 09/06/24 08:40 Resp 16 09/06/24 08:40 BP 174/79 09/06/24 05:00 Pulse Ox 96 09/06/24 05:00 FiO2 Intake & Output 09/05/24 09/06/24 09/06/24 18:59 06:59 18:59 Intake Total 240 Output Total 1200 Balance 240 -1200 Weight 88.5 kg 88.5 kg Intake: Oral 240 Output: Urine 1200 Other: Voiding Method Indwelling Catheter Indwelling Catheter Indwelling Catheter # Bowel Movements 1 0 - Labs CBC & Chem 7: 09/05/24 06:45 09/05/24 06:45 Labs: Abnormal Lab Results - Last 24 Hours (Table) 09/05/24 09/06/24 09/06/24 Range/Units 20:14 06:41 11:38 POC Glucose (mg/dL) 145 H 129 H 159 H (70-110) mg/dL
[2024-09-06 16:39] LABS: Glucose,Whole Blood 169 mg/dL (70-110)
[2024-09-06 20:11] LABS: Glucose,Whole Blood 142 mg/dL (70-110)
[2024-09-07 06:20] LABS: Glucose,Whole Blood 174 mg/dL (70-110)
[2024-09-07 11:26] LABS: Glucose,Whole Blood 95 mg/dL (70-110)
[2024-09-07 16:32] LABS: Glucose,Whole Blood 95 mg/dL (70-110)
--- NOTE | 2024-09-07 16:45 | P.PN ---
Subjective Progress Note Date: 09/07/24 Progress note Date of service 09/07/[address] Rowe Patient seen evaluated [id number] Discussion with his for 20-minute as well as the examination with total care time spent 45 minutes. Discussion with the RN patient nurse Hui. Patient is awake alert and however he is confused with progressed dementia. Rob catheter removed and he able to urinate as well as the do every 4-6 hours as needed bladder scan see if he has any retention. 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 With the current program with the Ativan and no evidence of delirium. He medication has been adjusted and he is off any atypical antipsychotic medication as Seroquel. In regard of blood pressure and the hypotension is negative with the current blood pressure stable 155/79 prior to that 132/68 with the mean blood pressure has been controlled, pulse ox 96% on room air Respiratory rate 16/min and no labor breathing. Heart rate ranging between 80 and 76 regular sinus. Temperature 98.9 F oral. POC glucose was indicating with the adding the metformin his blood sugar has been stable 95.74 1 40-1 09. On the physical exam: Patient is conscious alert and he is able to answer simple questions however he is confused and he recognizes his . Head was normocephalic atraumatic pupil was equal reactive conjunctiva was pink sclera was nonicteric extraocular muscle movement is intact. Neck was supple no JVD no thyromegaly no lymphadenopathy trachea midline. Chest was clear to auscultation percussion no wheezes no rhonchi's normal breath sound Heart regular sinus rhythm no event of hypotension at this time. He is off in any medication with the labile hypertension Abdomen is soft positive bowel sound and he is on diaper. His Rob catheter has been removed. Neurologically he able to move his 4 extremities and currently the physical therapy is working with him. Assessment: 1. No evidence of seizure disorder has been ruled out by the EEG and the n eurological consult. 2. Intensive investigation by neurology including MRI CTA no evidence of anter ior cerebral circulation occlusion or stroke 3. 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 4. Parkinson disease 5. Dementia progressive with agitation currently controlled. 6. Diabetes mellitus type 2 has been controlled also on insulin. 7. Hyperlipidemia 8. Hypothyroidism 9. Labile hypertension with history of episodic hypotension resolved. 10. GERD disease 11. Chronic constipation secondary to Parkinson disease. Plan: 1. We have discussed with the case filler and she is submitted her record for the insurance and waiting for the insurance agreeable for discharge to [facility]. 2. Patient definitely need for further evaluation and rehabilitation with the underlying deconditioning. 3. Will continue the current medication program as has been successful with no evidence of agitation. 4. Will continue the bladder scan for urine retention. 5. Discussed the case in detail today with his for more than 20 minutes and rest of the time with patient evaluation and exam is total 45 minutes. Objective - Vital Signs Vital signs: Vital Signs Temp 98.9 F 09/07/24 16:00 Pulse 76 09/07/24 16:00 Resp 16 09/07/24 16:00 BP 155/79 09/07/24 16:00 Pulse Ox 96 09/07/24 16:00 FiO2 Intake & Output 09/06/24 09/07/24 09/07/24 18:59 06:59 18:59 Intake Total 246 Output Total 600 Balance -600 246 Weight 88.5 kg 87.5 kg Intake: IV 10 Invasive Line 6 10 Oral 236 Output: Urine 600 Other: Voiding Method Indwelling Catheter Indwelling Catheter # Voids 350 1 # Bowel Movements 1 1 - Labs CBC & Chem 7: 09/05/24 06:45 09/05/24 06:45 Labs: Abnormal Lab Results - Last 24 Hours (Table) 09/06/24 09/06/24 09/07/24 Range/Units 16:38 20:09 06:18 POC Glucose (mg/dL) 169 H 142 H 174 H (70-110) mg/dL
[2024-09-07 19:51] LABS: Glucose,Whole Blood 101 mg/dL (70-110)
[2024-09-08 05:39] LABS: Glucose,Whole Blood 154 mg/dL (70-110)
[2024-09-08 09:24] VITALS: RESP 17
[2024-09-08 11:15] VITALS: BP 141/60; PULSE 73; TEMP 98.8
[2024-09-08 11:46] LABS: Glucose,Whole Blood 135 mg/dL (70-110)
--- NOTE | 2024-09-08 13:07 | P.DS ---
Providers Date of admission: 08/30/24 11:34 Expected date of discharge: 09/08/24 (To [facility]) Attending physician: David Rowe Consults: 08/26/24 17:20 Consult Physician Routine Consulting Provider: Yamileth Andrea Consult Reason/Comments: syncope Do you want consulting provider notified?: Yes Consult Physician Routine Consulting Provider: Minesh Willingham Consult Reason/Comments: sz Do you want consulting provider notified?: Yes Primary care physician: David Rowe Dictation discharge summary Date of service 09/08/[address] Rowe. Final diagnosis: 1. Seizure disorder has been ruled out by neurology and EEG and investigation 2. Vertebrobasilar insufficiency. CTA of the head and neck 3. Stroke ruled out with MRI and CT scan of the brain 4. Labile hypertension with the underlying probable autonomic dysfunction. 5. Carotid artery disease per vascular surgeon not amenable for surgery 6. Dementia progressive with agitation 7. Parkinson disease with associated frequent fall 8. Hyperlipidemia 9. Hypothyroidism 10. Episodic urinary retention, managed with Rob catheter currently removed Bladder scan intermittent. 11. Deconditioning and need for further rehabilitation 12. History of chronic kidney disease has been resolved with GFR more than 90. 13. Laboratory indicating hypocalcemia however the ionized calcium was normal. Consulting physician: 1. Neurology Dr. Chery 2. Cardiology Dr. Joshi. 3. Physical therapy with ambulation. #4. Seen by Sheldon Peraza vascular disease as well as Jessica Ruiz Investigation: 1. CT scan of the brain 2. CTA of the head and neck 3. MRI of the brain 4. EEG of the brain 5. Echocardiogram of the heart. Initial presentation to the emergency room indicating possibility only of seizure Consultation with neurology, as well as cardiology and patient admitted to the hospital Episodic hypotension with the medication for blood pressure, has history of hypertension in the past, With the patient presentation with any medication for blood pressure he become hypotensive and the able to call A-1 team. No evidence of pneumonia with procalcitonin was normal and the chest x-ray normal. Patient is intermittently awake alert and then become confused with the progression of the dementia with the adding history of Parkinson disease and he was followed as outpatient by neurologist. Patient stabilized with discontinuation hold his blood pressure medication and adjusting his diabetes mellitus medication and he is still on insulin as well. On discharge his temperature 98.8 F oral, his heart rate 73 bpm regular respiratory rate 17/min. Blood pressure 141/60 with a mean 87, pulse ox 97% on room air. On exam patient conscious alert but confused and no currently evidence of delirium. Head was normocephalic atraumatic and pupil was equal reactive conjunctiva was pink sclera was nonicteric extraocular muscle movement is intact. Neck was supple no JVD no thyromegaly no lymphadenopathy Chest is clear normal breath sound Heart regular sinus rhythm Abdomen soft positive bowel sound Extremities no edema and positive pulses. Neurologically: Associated with posterior circulation dysfunction with the autonomic dysfunction, able to move upper and lower extremities and he is with the rehab for ambulation with walker no anterior circulation stroke. Patient stable for discharge to [facility] for forethought rehabilitation, authorization able to be obtained today and apparently accepted in the detention Reviewed his medication, prescription for Ativan for agitation has been given as well Patient will be followed by the facility physician at this time. Patient Condition at Discharge: Fair Plan - Discharge Summary Discharge Rx Participant: No New Discharge Prescriptions: New metFORMIN HCL [Glucophage] 1,000 mg PO BID-W/MEALS #60 tab Clopidogrel [Plavix] 75 mg PO DAILY tab LORazepam [Ativan] 0.5 mg PO HS #4 tab LORazepam [Ativan] 1 mg PO ONCE PRN #4 tab PRN Reason: Agitation Or Acute Anxiety Sennosides [Senokot] 8.6 mg PO HS #0 tab Continue Insulin Glargine,Hum.rec.anlog [Lantus Solostar Pen] 10 unit SQ DAILY Levothyroxine Sodium [Synthroid] 137 mcg PO MOTUWETHFRSA Pioglitazone HCl [Actos] 15 mg PO DAILY Omeprazole 40 mg PO DAILY Carbidopa-Levodopa 25-100 mg [Sinemet 25-100 mg] 0.5 tab PO TID Metoprolol Succinate (ER) [Toprol XL] 25 mg PO DAILY Donepezil [Aricept] 10 mg PO HS Tamsulosin [Flomax] 0.4 mg PO DAILY Cholecalciferol [Vitamin D3 (25 Mcg = 1000 Iu)] 50 mcg PO DAILY Aspirin 81 mg PO DAILY Carbidopa-Levodopa 25-250 mg [Sinemet 25-250 mg] 1 tab PO TID Rosuvastatin Calcium [Crestor] 40 mg PO DAILY Discontinued Enalapril [Vasotec] 2.5 mg PO BID metFORMIN HCL ER [Glucophage XR] 500 mg PO BID Semaglutide [Ozempic] 0.5 mg SQ FR Isosorbide Mononitrate ER [Imdur] 15 mg PO DAILY Fludrocortisone [Florinef] 0.1 mg PO MOWEFR No Action busPIRone HCl [Buspar] 5 mg PO BID Discharge Medication List Insulin Glargine,Hum.rec.anlog [Lantus Solostar Pen] 10 unit SQ DAILY 04/25/19 [History] Levothyroxine Sodium [Synthroid] 137 mcg PO MOTUWETHFRSA 04/25/19 [History] Pioglitazone HCl [Actos] 15 mg PO DAILY 04/25/19 [History] Omeprazole 40 mg PO DAILY 03/07/21 [History] Tamsulosin [Flomax] 0.4 mg PO DAILY 03/07/21 [History] busPIRone HCl [Buspar] 5 mg PO BID 03/07/21 [History] Cholecalciferol [Vitamin D3 (25 Mcg = 1000 Iu)] 50 mcg PO DAILY 04/10/21 [History] Aspirin 81 mg PO DAILY 06/20/21 [History] Carbidopa-Levodopa 25-100 mg [Sinemet 25-100 mg] 0.5 tab PO TID 06/20/21 [History] Metoprolol Succinate (ER) [Toprol XL] 25 mg PO DAILY 06/20/21 [History] Carbidopa-Levodopa 25-250 mg [Sinemet 25-250 mg] 1 tab PO TID 08/26/24 [History] Donepezil [Aricept] 10 mg PO HS 08/26/24 [History] Rosuvastatin Calcium [Crestor] 40 mg PO DAILY 08/26/24 [History] Clopidogrel [Plavix] 75 mg PO DAILY tab 09/08/24 [Rx] LORazepam [Ativan] 0.5 mg PO HS #4 tab 09/08/24 [Rx] LORazepam [Ativan] 1 mg PO ONCE PRN #4 tab 09/08/24 [Rx] Sennosides [Senokot] 8.6 mg PO HS #0 tab 09/08/24 [Rx] metFORMIN HCL [Glucophage] 1,000 mg PO BID-W/MEALS #60 tab 09/08/24 [Rx] Follow up Appointment(s)/Referral(s): Sheldon Arias DO [STAFF PHYSICIAN] - 1 Week None,Stated [REFERRING] - 1 Week David Rowe MD [Primary Care Provider] - 1 Week Discharge/Stand Alone Forms: Who Do I Call?, Adult Foster Assisted List, Community Resources, Help In The Home, Personal Charge Operator Discharge Disposition: TRANSFER TO SNF/ECF Care Plan Goals (MU): Rehab
== END 2024-09-08 15:42 | DRG 69 ==
LOC: EC 15:50 → 6NMEDSUR 17:20 → 3SCARD 08-27 15:44 → OBSVTOIN 08-30 11:34
PROVIDERS: ADMIT Internal Medicine; ATTEND Internal Medicine
DX: G45.0 Vertebro-basilar artery syndrome (principal); F02.811 Dementia in other diseases classified elsewhere, unspecified severity, with agitation; G91.2 (Idiopathic) normal pressure hydrocephalus; N17.9 Acute kidney failure, unspecified; F02.818 Dementia in other diseases classified elsewhere, unspecified severity, with other behavioral disturbance; F02.84 Dementia in other diseases classified elsewhere, unspecified severity, with anxiety; F05 Delirium due to known physiological condition; E83.51 Hypocalcemia; G20.A1 Parkinson's disease without dyskinesia, without mention of fluctuations; I65.23 Occlusion and stenosis of bilateral carotid arteries; E11.65 Type 2 diabetes mellitus with hyperglycemia; E03.9 Hypothyroidism, unspecified; I08.1 Rheumatic disorders of both mitral and tricuspid valves; I11.9 Hypertensive heart disease without heart failure; E78.5 Hyperlipidemia, unspecified; E83.42 Hypomagnesemia; E87.6 Hypokalemia; N31.9 Neuromuscular dysfunction of bladder, unspecified; R33.8 Other retention of urine; I67.2 Cerebral atherosclerosis; H91.93 Unspecified hearing loss, bilateral; I25.10 Atherosclerotic heart disease of native coronary artery without angina pectoris; I49.1 Atrial premature depolarization; I95.1 Orthostatic hypotension; K21.9 Gastro-esophageal reflux disease without esophagitis; K59.09 Other constipation; N40.1 Benign prostatic hyperplasia with lower urinary tract symptoms; G47.30 Sleep apnea, unspecified; Z96.1 Presence of intraocular lens; Z96.653 Presence of artificial knee joint, bilateral; Z79.4 Long term (current) use of insulin; Z79.82 Long term (current) use of aspirin; Z79.84 Long term (current) use of oral hypoglycemic drugs; Z79.85 Long-term (current) use of injectable non-insulin antidiabetic drugs; Z79.890 Hormone replacement therapy; Z79.899 Other long term (current) drug therapy; Z85.828 Personal history of other malignant neoplasm of skin; Z86.711 Personal history of pulmonary embolism; Z86.718 Personal history of other venous thrombosis and embolism; Z91.81 History of falling; Z87.448 Personal history of other diseases of urinary system
CPT/HCPCS: 36415; 70450; 70496; 70498; 70551; 71045; 71046; 76536; 80048; 80053; 80061; 80076; 80306; 80320; 81003; 82140; 82306; 82330; 82803; 83036; 83605; 83735; 84146; 84443; 84484; 85025; 85027; 85610; 85730; 93005; 93306; 93880; 94760; 95816; 96360; 96361; 96372; 99285